=== PATIENT | male | born 1945 | race Caucasian/White ===

== ENCOUNTER → 2019-11-20 11:18 | Outpatient (REF) | payer MEDICARE, SELFPAY ==
--- NOTE | 2019-11-20 11:30 | CA_ITS ---
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 The visually estimated ejection fraction is between 65-70%. - No obvious valvular pathology seen on this study. - Top normal ascending aortic size at 3.9cm. Findings Left Ventricle Normal left ventricular cavity size. There is mildly increased left ventricular wall thickness. The left ventricular systolic function is normal. The visually estimated ejection fraction is between 65-70%. There is no evidence of regional wall motion abnormalities. Diastolic function is normal for age. Right Ventricle Normal right ventricular cavity size and systolic function. Atria The left atrium is normal in size. The right atrium is normal in size. Aortic Valve There is a normal trileaflet aortic valve. There is no aortic valve stenosis. There is trace (trivial) aortic valve regurgitation. Mitral Valve The mitral valve appears normal. There is trace mitral valve regurgitation. There is no mitral valve stenosis. Pulmonic Valve The pulmonic valve was not well visualized. Tricuspid Valve Normal tricuspid valve structure. There is trace tricuspid valve regurgitation. The pulmonary artery systolic pressure is normal. Great Vessels Top normal ascending aortic size at 3.9cm. Venous The inferior vena cava is normal in size and collapses greater than 50% with inspiration. Pericardium/Pleural There is no evidence of pericardial effusion. Prior Study Comparison No significant change compared to prior study dated: 06/18/2017. Recommendations, Care & Conclusions No obvious valvular pathology seen on this study. Measurements 2D Linear Measurements IVSd: 1.12 0.6-0.9/0.6-1.0 cm LVIDd: 4.11 3.9-5.3/4.2-5.9 cm LVIDd Index: 2.21 2.4-3.2/2.2-3.1 cm/m2 LVIDs: 2.82 2.0-3.6 cm LVPWd: 1.08 0.7-1.1 cm Ao Root: 3.40 2.1-3.5 cm LA Diam: 3.40 2.7-3.8/3.0-4.0 cm LAIDs Index: 1.83 1.5-2.3 cm/m2 LV Mass: 189.09 67-162/88-224 g LV Mass Index: 101.66 43-95/49-115 g/m2 LVOT Diam: 2.10 3.0+(-)1.3 cm 2D Systolic Function EF 4C: 76.80 >55% Mitral Valve MV Pk E: 0.74 MV PK A: 0.85 MV Decel Time: 201.00 E/A: 0.90 E'Lateral: 8.90 E'Medial: 6.87 E/E' Med: 10.70 E/E' Lat: 8.30 PHT: 59.00 MVA PHT: 3.73 Decel [place]: 3.67 Aortic Valve AoV Pk Ervin: 1.40 AoV Pk Grad: 8.00 LVOT LVOT Pk Ervin: 1.07 LVOT Mn Ervin: 0.73 LVOT VTI: 0.28 LVOT Pk Grad: 5.00 LVOT Mn Grad: 3.00 LVOT Diam: 2.10 LVOT Area: 3.46 Diastolic Function MV Pk E: 0.74 MV Pk A: 0.85 E/A: 0.90 E'Medial: 6.87 E/E' Med: 10.70 E' Laterial: 8.90 E/E' Lat: 8.30 Tricuspid Valve TR Pk Ervin: 2.17 TR Pk Grad: 19.00 RA Press: 3.00 RVSP: 22.00 Great Vessels Aorta Ao Root-2D: 3.40 2.0-3.7 cm Ao Asc: 3.90 2.1-3.4 cm Updated in Other Vendor System with Status of Final Nikunj Machado MD electronically signed on 11/22/2019 1:34:05 PM with status of Final
== END ==
LOC: HO.CARD 11:18
PROVIDERS: PCP Internal Medicine; Visit Provider Internal Medicine
DX: I25.10 Atherosclerotic heart disease of native coronary artery without angina pectoris (principal)
CPT/HCPCS: 93306

== ENCOUNTER → 2019-12-10 12:58 | Outpatient (BNVA) | payer MEDICARE, SELFPAY | PROVIDERS: PCP Internal Medicine; Referring Provider Internal Medicine; Visit Provider Orthopaedic Surgery | DX: M25.511 Pain in right shoulder (principal) | CPT/HCPCS: 99202; 99212 ==

== ENCOUNTER → 2020-01-15 13:15 | Outpatient (BNVA) | payer MEDICARE, SELFPAY | PROVIDERS: PCP Internal Medicine; Referring Provider Internal Medicine; Visit Provider Internal Medicine Cardiovascular Disease | DX: I25.10 Atherosclerotic heart disease of native coronary artery without angina pectoris (principal); I49.5 Sick sinus syndrome; I10 Essential (primary) hypertension; I71.2 Thoracic aortic aneurysm, without rupture; E78.5 Hyperlipidemia, unspecified | CPT/HCPCS: 93005; 99212 ==

== ENCOUNTER 2020-07-05 10:09 | Outpatient (REF) | payer MEDICARE, SELFPAY ==
--- NOTE | ~2020-07-05 | XR_ITS ---
EXAMINATION: XR LUMBOSACRAL SPINE CLINICAL INFORMATION: Low back pain. COMPARISON: Thoracic spine radiographs 07/05/2020, lumbar spine radiographs 01/28/2014. TECHNIQUE: Three views of the lumbosacral spine. 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 There is normal lumbar lordosis. The vertebral bodies are normal in height. There is no lumbar vertebral compression or destructive process. There are degenerative disc changes greatest at L1-L2 with disc narrowing, endplate sclerosis and vertebral spurring. There is also disc narrowing at L4-L5. Degenerative changes are slightly greater on current exam. Again, there is a grade 0-1 spondylolisthesis L4-L5, stable from 2014. Variable facet degeneration is present mid to lower lumbar spine. The SI joints and visualized sacrum are unremarkable. XR/XR lumbar spine 2-3V IMPRESSION: 1. Degenerative disc changes L1-L2 and L4-L5. 2. Multilevel facet degeneration greatest L4 through S1. 3. Grade 1 spondylolisthesis L4-L5, similar to 2014.
--- NOTE | ~2020-07-05 | XR_ITS ---
EXAMINATION: XR THORACOLUMBAR SPINE CLINICAL INFORMATION: M54.6 - Pain in thoracic spine COMPARISON: Radiographs lumbar spine 07/05/2020, chest radiographs 02/21/2016 TECHNIQUE: AP and lateral views of the thoracic spine are obtained. FINDINGS: There is normal thoracic segmentation with 12 rib-bearing thoracic vertebrae with normal thoracic kyphosis. There is borderline dextrocurvature lower thoracic spine. There are multilevel degenerative disc changes present with disc narrowing and partially bridging osteophytes, greater mid and lower thoracic spine. There is new borderline loss of height midthoracic vertebral body, approximately T9. No paraspinal soft tissue swelling. No destructive process or spondylolisthesis. There is interval mild enlargement cardiopericardial silhouette. The visualized vascularity is unremarkable. XR/XR thoracic spine 2V IMPRESSION: 1. Multilevel degenerative changes mid to lower thoracic spine. 2. Borderline loss of height T9, new from 2017. No paraspinal soft tissue swelling. 3. Mild cardiopericardial enlargement since chest radiograph 2017.
== END 2020-07-05 10:10 | disposition home or self-care (01) ==
LOC: HO.XRAY 10:09
PROVIDERS: PCP Internal Medicine; Visit Provider Internal Medicine
DX: M54.6 Pain in thoracic spine (principal); M54.5 Low back pain
CPT/HCPCS: 72070; 72100

== ENCOUNTER 2020-09-10 08:16 | Outpatient (REF) | payer MEDICARE, SELFPAY ==
[2020-09-10 09:19] LABS: MANUAL DIFF FLAG NO
[2020-09-10 09:24] LABS: Basophils Percent Auto 0.6 % (0-2); Eosinophils Absolute Auto 0.6 X10*3/uL (0.0-0.4); Eosinophils Percent Auto 8.3 % (0-4); Hematocrit 42.2 % (42-52); Hemoglobin 14.4 g/dl (14.0-18.0); Imm Gran Abs Auto 0.02 X10*3/uL (0.00-0.03); Imm Gran Pct Auto 0.3 % (0.0-0.4); Lymphocytes Absolute Auto 1.3 X10*3/uL (1.2-4.9); Lymphocytes Percent Auto 19.4 % (20-40); Mean Corpuscular HGB Conc 34.1 g/dl (31.0-36.0); Mean Corpuscular Hemoglobin 31.9 pg (27.0-33.0); Mean Corpuscular Volume 93.6 fL (80-98); Mean Platelet Volume 10.3 fL (9.4-12.4); Monocytes Absolute Auto 0.7 X10*3/uL (0.1-1.2); Monocytes Percent Auto 9.6 % (2-11); Neutrophils Absolute Auto 4.2 X10*3/uL (2.0-8.3); Neutrophils Percent Auto 61.8 % (45-73); Platelet Count 227 X10*3/uL (160-400); Red Blood Count 4.51 X10*6/uL (4.60-5.80); Red Cell Distribution Width 13.6 % (11.0-16.0); White Blood Count 6.9 X10*3/uL (4.8-10.8)
[2020-09-10 09:51] LABS: Alanine Aminotransferase 52 U/L (0-40); Albumin Level 3.9 g/dL (3.5-5.0); Alkaline Phosphatase 39 U/L (39-117); Anion Gap 10 (12-20); Aspartate Amino Transferase 30 U/L (5-37); Blood Urea Nitrogen 13 mg/dL (9-16); Calcium 8.8 mg/dL (8.4-10.2); Carbon Dioxide 26 mmol/L (22-29); Chloride 107 mmol/L (96-108); Cholesterol 126 mg/dL; Estimated Glomerular Filt Rate > 60; Glucose Random 97 mg/dL (60-115); HDL Cholesterol 50 mg/dL; LDL Cholesterol Calculated 64 mg/dl; Potassium 4.5 mmol/L (3.3-5.1); Sodium 138 mmol/L (135-145); Triglycerides 64 mg/dL
[2020-09-10 10:14] LABS: Free T4 (Free Thyroxine) 0.86 ng/dL (0.71-1.85); Thyroid Stimulating Hormone 1.85 uIU/mL (0.32-4.0)
[2020-09-10 12:05] LABS: Folate 14.1 ng/mL (> or = 4.0); Vitamin B12 311 pg/mL (200-900)
== END 2020-09-10 08:17 | disposition home or self-care (01) ==
LOC: HO.LAB 08:16
PROVIDERS: PCP Internal Medicine; Visit Provider Internal Medicine
DX: E78.00 Pure hypercholesterolemia, unspecified (principal); I10 Essential (primary) hypertension
CPT/HCPCS: 36415; 80053; 80061; 82607; 82746; 84439; 84443; 85025

== ENCOUNTER 2020-11-01 09:45 | Emergency (ER) | payer OTHER, SELFPAY ==
--- NOTE | ~2020-11-01 | XR_ITS ---
EXAMINATION: XR KNEE, RIGHT CLINICAL INFORMATION: Status post fall one week ago. Right knee pain. COMPARISON: None TECHNIQUE: Four views of the right knee. FINDINGS: There is loss of medial and patellofemoral compartment joint space with periarticular spurring. No loose bodies or bony erosive changes seen. The soft tissues are normal. XR/XR knee RT 4V IMPRESSION: Unremarkable right knee exam.
[2020-11-01 09:55] VITALS: BP 147/76; PULSE 50; RESP 16; TEMP 37.1; O2SAT 100; BMI 25.0
--- NOTE | 2020-11-01 11:33 | ED.LOWEXIN ---
HPI - Extremity Injury (Lower) General Chief Complaint: Extremity Problem Stated Complaint: rt knee pain Time Seen by Provider: 11/01/20 10:47 Source: patient Mode of arrival: ambulatory Limitations: no limitations History of Present Illness HPI Narrative: 75-year-old male presenting to the ED with complaints of right knee pain at the lateral aspect that started approximately 1 week ago and worsened last night. He reports that he was getting out of mathew from a restaurant and he twisted his knee and since then he has been having pain to the lateral aspect of the right knee. He cannot recall any recent falls or injuries directly to the knee. He reports that he is a very active man he does a lot of fishing/hiking and etc. denies any dizziness, headaches, change in vision, chest pain or shortness of breath, dyspnea on exertion, orthopnea, palpitations, extremity edema, paresthesias, rashes or any other symptoms complaints or concerns at this time. MD complaint: knee injury Onset (ago): week(s) (For the past week worse since yesterday) Injury: Right: knee Type of Injury: unknown Severity: moderate Relieving factors: nothing Exacerbating factors: weight bearing, movement and palpation Context: other (Patient cannot recall any injury) Associated symptoms: ambulatory Other symptoms: none Treatments prior to arrival: splint Related Data Home Medications Medication Instructions Recorded Confirmed aspirin 81 mg tablet,delayed 81 mg PO DAILY 01/15/20 10/25/20 release (Adult Low Dose Aspirin) Previous Rx's Medication Instructions Recorded epinephrine 0.3 mg/0.3 mL 0.3 mg IM Q15M PRN #2 ea 02/24/20 injection, auto-injector (Auvi-Q) rosuvastatin 40 mg tablet 40 mg PO DAILY #90 tab 02/24/20 metoprolol succinate 25 mg 25 mg PO DAILY #90 tab 05/13/20 tablet,extended release 24 hr amlodipine 5 mg tablet 5 mg PO DAILY 30 Days #30 tab 07/23/20 omeprazole 20 mg capsule,delayed 40 mg PO DAILY #180 cap 09/09/20 release betamethasone dipropionate 0.05 % 1 appl TOPICAL BID PRN #45 g 09/16/20 topical cream mupirocin 2 % topical ointment 1 appl TOPICAL BID #22 g 09/16/20 triamcinolone acetonide 0.025 % 1 appl TOPICAL BID #60 ml 09/16/20 lotion losartan 50 mg tablet 50 mg PO DAILY #90 tab 10/08/20 ezetimibe 10 mg tablet 10 mg PO DAILY #90 tab 10/25/20 acetaminophen 500 mg tablet 1,000 mg PO QID PRN #14 tab 11/01/20 (Tylenol Extra Strength) oxycodone 5 mg tablet 5 mg PO Q6H PRN #14 tab 11/01/20 Allergies Allergy/AdvReac Type Severity Reaction Status Date / Time lobster Allergy Mild Rash Uncoded 10/25/20 09:19 N.K.D.A. Allergy Unknown Unknown Uncoded 10/25/20 09:19 Review of Systems Review of Systems: Constitutional : No Weight loss, No Fever, No Chills, No Night Sweats, No Fatigue, No Malaise ENT/Mouth : No Hearing loss, No Ear Pain, No Nasal Congestion, No Sinus Pain, No Hoarseness, No sore throat, No Rhinorrhea, No Swallowing Difficulty Eyes: No Eye Pain, No Swelling, No Redness, No Foreign Body, No Discharge, No Vision Changes Cardiovascular : No Chest Pain, No SOB, No Dyspnea on Exertion, No Orthopnea, No Edema, No Palpitations Respiratory : No Cough, No Sputum, No Wheezing, No Smoke Exposure, No Dyspnea Gastrointestinal : No Nausea, No Vomiting, No Diarrhea, No Constipation, No abdominal Pain, No Hematochezia, No Melena Genitourinary : no irregular bleeding, No Dysuria, No Urinary Frequency, No Hematuria, No Urinary Incontinence, No Urgency, No Flank Pain, No Urinary Flow Changes, No Hesitancy Musculoskeletal : Positive right knee joint pain/swelling, no myalgias Skin : No Skin Lesions, No rash Neuro : No Weakness, No Numbness, No Paresthesias, No Loss of Consciousness, No Dizziness, No Headache Psych : No Anxiety/Panic, No Depression, No SI/HI/AH/VH, No Social Issues, Heme/Lymph: No Bruising, No Bleeding,No Lymphadenopathy Endocrine : No Polyuria, No Polydipsia, No Temperature Intolerance Yes all other systems are reviewed and are negative [facility] Past Medical History Attestation statement: The following information was validated with the patient. Medical History Back pain CAD (coronary artery disease) Carpal tunnel syndrome on both sides Cirrhosis Cognitive impairment Erectile dysfunction Fall GERD (gastroesophageal reflux disease) Herpes encephalitis History of renal calculi HTN (hypertension) Hyperlipidemia Low back pain Obstructive sleep apnea Osteoarthritis of right shoulder Periodic limb movement disorder PVC (premature ventricular contraction) Rotator cuff impingement syndrome of right shoulder Sick sinus syndrome Thoracic aortic aneurysm Thyroid nodule TIA (transient ischemic attack) Surgical History History of colonoscopy History of tonsillectomy Status post carpal tunnel release of both wrists (~04/2016) Family History Family History Father Myocardial infarct Mother No problems noted. Social History Social History Alcohol intake: current Alcohol intake frequency: holidays/special occasions only Advance Directives: No Advance Directives Information Provided: No Current occupational status: retired Current occupation: Right Handed Physical Exam Vital Signs: Vital Signs: Last Vital Signs Temp 98.7 F 11/01/20 09:55 Pulse 50 11/01/20 09:55 Resp 16 11/01/20 09:55 BP 147/76 H 11/01/20 09:55 Pulse Ox 100 11/01/20 09:55 Body Mass Index 25.0 vital signs have been reviewed as normal and appeared to be correct. Blood pressure hypertensive 147/76 Heart rate normal. Respiration rate normal. Temperature normal. Oxygen saturation normal. Appearance: Alert. Oriented X3. No acute distress. Head: Normal external exam. Normocephalic. Atraumatic. Eyes: PERRLA. EOMI. Conjunctiva and sclera normal. Eyelids normal. ENT: Pharynx normal. Uvula midline. Moist mucous membranes. Neck: Normal inspection. Neck supple. FROM. CVS: Normal heart rate and rhythm. Respiratory: No respiratory distress. Painless inspiration. Skin: Skin warm and dry. Normal skin color. Normal skin turgor. No rashes/lesions/lacerations noted. Extremities: Patient with tenderness palpation to right knee at the lateral aspect. No obvious joint effusion/obvious deformity/ligamentous injury noted on my exam. Patient has full range of motion of the right knee. No signs of infection. No rashes are noted. No calf tenderness is noted. No lower extremity edema. Otherwise all other Extremities exhibit normal range of motion and nontender. Neuro: Oriented X 3. No motor deficit. No sensory deficit. Reflexes normal. Normal steady gait. No focal neuro deficits noted. Vascular: + radial pulses/+ 2 distal pedal pulses/+2 dorsalis pedis b/l. Normal cap refill. No cyanosis noted to upper extremity nails and lower extremity toes nails. Course Course Course Narrative: 75-year-old male presenting to the ED with complaints of right knee pain at the lateral aspect that started approximately 1 week ago and worsened last night. He reports that he was getting out of [place] from a restaurant and he twisted his knee and since then he has been having pain to the lateral aspect of the right knee. He cannot recall any recent falls or injuries directly to the knee. He reports that he is a very active man he does a lot of fishing/hiking and etc. On exam patient has mild tenderness palpation to the right knee at the lateral aspect. He has full range of motion no signs of infection/joint effusion and no ligamentous injury is noted. X-ray is negative although cannot rule out any ligamentous injury despite not having any obvious ligamentous laxity on exam. Therefore will DC home with symptomatic treatment orthopedic/PCP referral/follow-up instructions return if any new or worsening symptoms. Patient understands agrees with this plan. MDM - Extremity Injury (Lower) Medical Records Attestation: I reviewed the patient's medical records. Imaging Data Right knee x-ray: Attestation: I personally reviewed and interpreted this imaging study as follows: Radiologist's impression: FINDINGS: There is loss of medial and patellofemoral compartment joint space with periarticular spurring. No loose bodies or bony erosive changes seen. The soft tissues are normal.? XR/XR knee RT 4V IMPRESSION: Unremarkable right knee exam. Discharge Plan Discharge Clinical Impression: Strain of right knee Patient Disposition: Home, Self-Care Instructions: Knee Sprain (ED) Prescriptions: New acetaminophen [Tylenol Extra Strength] 500 mg tablet 1,000 mg PO QID PRN (Reason: fever or pain) Qty: 14 RF: 0 oxycodone 5 mg tablet 5 mg PO Q6H PRN (Reason: pain) Qty: 14 RF: 0 No Action epinephrine [Auvi-Q] 0.3 mg/0.3 mL auto-injector 0.3 mg IM Q15M PRN (Reason: anaphylaxis) Qty: 2 RF: 0 rosuvastatin 40 mg tablet 40 mg PO DAILY Qty: 90 RF: 2 metoprolol succinate 25 mg tablet extended release 24 hr 25 mg PO DAILY Qty: 90 RF: 1 amlodipine 5 mg tablet 5 mg PO DAILY 30 Days Qty: 30 RF: 4 omeprazole 20 mg capsule,delayed release(DR/EC) 40 mg PO DAILY Qty: 180 RF: 0 mupirocin 2 % ointment 1 appl topical BID Qty: 22 RF: 0 betamethasone dipropionate 0.05 % cream 1 appl topical BID PRN (Reason: skin irritation) Qty: 45 RF: 0 triamcinolone acetonide 0.025 % lotion 1 appl topical BID Qty: 60 RF: 0 losartan 50 mg tablet 50 mg PO DAILY Qty: 90 RF: 3 ezetimibe 10 mg tablet 10 mg PO DAILY Qty: 90 RF: 2 aspirin [Adult Low Dose Aspirin] 81 mg tablet,delayed release (DR/EC) 81 mg PO DAILY RF: 0 Referrals: Nemesio Bean MD [Physician] - 2 weeks (If symptoms persist for longer than 2 weeks call to make a follow-up appointment) Gordo Wilkins MD [Primary Care Provider] - 2 days Print Language: Croatian
== END 2020-11-01 11:59 | disposition home or self-care (01) ==
PROVIDERS: Emergency Provider Emergency Medicine Emergency Medical Services; PCP Internal Medicine
DX: S83.91XA Sprain of unspecified site of right knee, initial encounter (principal); M25.561 Pain in right knee; X58.XXXA Exposure to other specified factors, initial encounter; Y93.9 Activity, unspecified; Y92.9 Unspecified place or not applicable; Y99.9 Unspecified external cause status; Z79.899 Other long term (current) drug therapy; Z79.82 Long term (current) use of aspirin
CPT/HCPCS: 73564; 99283

== ENCOUNTER 2020-12-07 09:12 | Outpatient (REF) | payer MEDICARE, SELFPAY ==
[2020-12-07 10:40] LABS: Alanine Aminotransferase 50 U/L (0-40); Albumin Level 4.3 g/dL (3.5-5.0); Alkaline Phosphatase 39 U/L (39-117); Anion Gap 12 (12-20); Aspartate Amino Transferase 26 U/L (5-37); Blood Urea Nitrogen 14 mg/dL (9-16); Calcium 9.1 mg/dL (8.4-10.2); Carbon Dioxide 26 mmol/L (22-29); Chloride 104 mmol/L (96-108); Estimated Glomerular Filt Rate > 60; Glucose Fasting 87 mg/dL (60-99); Sodium 137 mmol/L (135-145); Total Protein 6.6 g/dL (6.5-8.0)
== END 2020-12-07 09:13 | disposition home or self-care (01) ==
LOC: HO.LAB 09:12
PROVIDERS: PCP Internal Medicine; Visit Provider Nurse Practitioner Family
DX: Z13.1 Encounter for screening for diabetes mellitus (principal)
CPT/HCPCS: 36415; 80053

== ENCOUNTER → 2021-01-17 08:16 | Outpatient (BNVA) | payer MEDICARE, SELFPAY | PROVIDERS: PCP Internal Medicine; Referring Provider Internal Medicine; Visit Provider Internal Medicine Cardiovascular Disease | DX: I25.10 Atherosclerotic heart disease of native coronary artery without angina pectoris (principal); I71.2 Thoracic aortic aneurysm, without rupture; I49.3 Ventricular premature depolarization; R53.83 Other fatigue | CPT/HCPCS: 93005; 99212 ==

== ENCOUNTER → 2021-01-19 08:05 | Outpatient (REF) | payer MEDICARE, SELFPAY ==
--- NOTE | 2021-01-19 08:30 | CA_ITS ---
Transthoracic Echocardiogram Patient (Last, First, Middle): Marques Martinez F Gender: Male Date of : 1945 Age: 75 Procedure Date: 01/19/2021 Procedure Type: Transthoracic Echocardiogram Location: OP Height: 170.18 cm Weight: 76.2 kg BSA: 1.88 m2 Heart Rate: bpm BP: 116 / 60 mmHg Corporate Associate: Referring MD: Tez Albarado MD Symptoms: I71.2 - Thoracic aortic aneurysm, without rupture Study Quality: Fair ECG Rhythm: Sinus Conclusions: - 1. Normal LV systolic function with impaired relaxation filling pattern with mild LVH 2. Mildly dilated ascending aorta at 3.9 cm 3. Trivial aortic regurgitation 4. Normal RV systolic pressure 5. No pericardial effusion Findings Left Ventricle Normal left ventricular size and systolic function. There is mildly increased left ventricular wall thickness. The visually estimated ejection fraction is between 60-65%. Spectral Doppler is indicative of an impaired relaxation filling pattern. Elevated left ventricular end diastolic pressure. E/E prime ratio is between 8 and 15 consistent with indeterminate filling pressures. Right Ventricle Normal right ventricular cavity size and systolic function. Atria The left atrium is likely dilated. There is no evidence of interatrial shunt. The right atrium is normal in size. Aortic Valve The aortic valve structure and function is likely normal. There is no aortic valve stenosis. There is trace (trivial) aortic valve regurgitation. Mitral Valve There is mild anterior and posterior mitral leaflet thickening. There is trace mitral valve regurgitation. There is no mitral valve stenosis. Pulmonic Valve The pulmonic valve was not well visualized. Tricuspid Valve Likely normal tricuspid valve structure and function. There is trace tricuspid valve regurgitation. The right ventricular systolic pressure is normal. The right ventricular systolic pressure is 18 mmHg. Normal right atrial pressure. There is no evidence of pulmonary hypertension. Great Vessels The pulmonary artery was not well visualized. There is mild dilatation of the ascending aorta measuring 3.90 cm. Venous The inferior vena cava is normal in size and collapses greater than 50% with inspiration. Pericardium/Pleural There is no evidence of pericardial effusion. Prior Study Comparison No significant change compared to prior study dated: 11/20/2019. Measurements 2D Linear Measurements IVSd: 1.28 0.6-0.9/0.6-1.0 cm LVIDd: 4.89 3.9-5.3/4.2-5.9 cm LVIDd Index: 2.60 2.4-3.2/2.2-3.1 cm/m2 LVIDs: 2.77 2.0-3.6 cm LVPWd: 1.27 0.7-1.1 cm Ao Root: 3.70 2.1-3.5 cm LA Diam: 4.00 2.7-3.8/3.0-4.0 cm LAIDs Index: 2.13 1.5-2.3 cm/m2 LV Mass: 306.70 67-162/88-224 g LV Mass Index: 163.14 43-95/49-115 g/m2 LVOT Diam: 2.30 3.0+(-)1.3 cm 2D Systolic Function EF 4C: 58.00 >55% EF 2C: 64.20 >55% EF BiP: 61.60 >55% Mitral Valve MV Pk E: 0.93 MV PK A: 0.94 MV Decel Time: 238.00 E/A: 1.00 E'Lateral: 10.20 E'Medial: 7.40 E/E' Med: 12.50 E/E' Lat: 9.10 PHT: 70.00 MVA PHT: 3.14 Decel [place]: 3.89 Aortic Valve AoV Pk Ervin: 1.41 AoV Mn Ervin: 0.86 AoV VTI: 0.36 AoV Pk Grad: 8.00 Aov Mn Grad: 4.00 JULES Cont.VTI: 2.81 LVOT LVOT Pk Ervin: 0.94 LVOT Mn Ervin: 0.61 LVOT VTI: 0.25 LVOT Pk Grad: 4.00 LVOT Mn Grad: 2.00 LVOT Diam: 2.30 LVOT Area: 4.15 Diastolic Function MV Pk E: 0.93 MV Pk A: 0.94 E/A: 1.00 E'Medial: 7.40 E/E' Med: 12.50 E' Laterial: 10.20 E/E' Lat: 9.10 Right Ventricle TAPSE (mm): 25.00 TVS' Ervin: 11.00 Tricuspid Valve TR Pk Ervin: 1.93 TR Pk Grad: 15.00 RA Press: 3.00 RVSP: 18.00 Great Vessels Aorta Ao Root-2D: 3.70 2.0-3.7 cm Ao Asc: 3.90 2.1-3.4 cm Pulmonary Valve PV Pk Ervin: 0.99 Peak PV Grad: 4.00 Updated in Other Vendor System with Status of Final Tez Albarado MD electronically signed on 01/19/2021 2:35:09 PM with status of Final
== END ==
LOC: HO.CARD 08:05
PROVIDERS: Visit Provider Internal Medicine Cardiovascular Disease
DX: I10 Essential (primary) hypertension (principal); I71.2 Thoracic aortic aneurysm, without rupture; I25.10 Atherosclerotic heart disease of native coronary artery without angina pectoris; I50.42 Chronic combined systolic (congestive) and diastolic (congestive) heart failure
CPT/HCPCS: 93306

== ENCOUNTER → 2021-01-24 07:52 | Outpatient (REF) | payer MEDICARE, SELFPAY ==
--- NOTE | 2021-01-24 07:55 | CA_ITS ---
Acquisition Time: 2021-01-24 09:04:31 Total Exercise Time: 00:05:37 Test Indications: FATIGUE Medications: SEE CHART Protocol: CHANELLE Max HR: 121 BPM 84% of Pred: 143 BPM Max BP: 152/080 mmHG Max Work Load: 7.0 METS Exercise stress test with exercise 5 min 37 sec of Chanelle protocol, with mild sob, no chest discomfort, with frequent PVCs, ventricular cuplets and runs of ventricular bigeminy during exercise, with normotensive and normal chronotropic response to exercise, without EKG changes meeting criteria for ischemia. Test reviewed with Dr Albarado. Referred By: Tez Albarado Overread By: AMANDA BAPTISTE
== END ==
LOC: HO.CARD 07:52
PROVIDERS: Visit Provider Internal Medicine Cardiovascular Disease
DX: R53.83 Other fatigue (principal)
CPT/HCPCS: 93017

== ENCOUNTER → 2021-03-02 09:02 | Outpatient (BNVA) | payer MEDICARE, SELFPAY | PROVIDERS: PCP Internal Medicine; Referring Provider Internal Medicine; Visit Provider Internal Medicine Cardiovascular Disease | DX: I25.10 Atherosclerotic heart disease of native coronary artery without angina pectoris (principal); I49.3 Ventricular premature depolarization; I71.2 Thoracic aortic aneurysm, without rupture | CPT/HCPCS: 99212 ==

== ENCOUNTER 2021-04-25 08:20 | Outpatient (REF) | payer MEDICARE, SELFPAY ==
--- NOTE | ~2021-04-25 | XR_ITS ---
EXAMINATION: XR SHOULDER, RIGHT CLINICAL INFORMATION: Shoulder pain COMPARISON: Radiographs right shoulder 06/13/2017 TECHNIQUE: Right shoulder is imaged in 3 views. FINDINGS: There is no fracture, dislocation, destructive process. The acromioclavicular alignment is normal. Again, there are osteoarthritic changes involving the glenohumeral joint and the acromioclavicular joint. Again, there is a bulky calcification approximately 6 x 8 mm adjacent to the anterior medial humeral neck likely involving long head of the biceps. There is punctate mineralization in distal superior rotator cuff. XR/XR shoulder RT min 2V IMPRESSION: 1. Osteoarthritis glenohumeral joint and acromioclavicular joint. 2. Calcific tendinosis in region of proximal long head biceps and distal superior rotator cuff.
== END 2021-04-25 08:21 | disposition home or self-care (01) ==
LOC: HO.HOSX 08:20
PROVIDERS: Visit Provider Orthopaedic Surgery
DX: M19.011 Primary osteoarthritis, right shoulder (principal); M75.41 Impingement syndrome of right shoulder
CPT/HCPCS: 73030; 99212; J1100

== ENCOUNTER 2021-08-17 10:09 | Outpatient (REF) | payer MEDICARE, SELFPAY ==
[2021-08-17 10:28] LABS: MANUAL DIFF FLAG NO
[2021-08-17 10:36] LABS: Basophils Percent Auto 0.5 % (0-2); Eosinophils Absolute Auto 0.5 X10*3/uL (0.0-0.4); Eosinophils Percent Auto 7.4 % (0-4); Hematocrit 41.3 % (42.0-52.0); Hemoglobin 13.9 g/dl (14.0-18.0); Imm Gran Abs Auto 0.02 X10*3/uL (0.00-0.03); Imm Gran Pct Auto 0.3 % (0.0-0.4); Lymphocytes Absolute Auto 1.4 X10*3/uL (1.2-4.9); Lymphocytes Percent Auto 22.7 % (20-40); Mean Corpuscular HGB Conc 33.7 g/dl (31.0-36.0); Mean Corpuscular Hemoglobin 31.9 pg (27.0-33.0); Mean Corpuscular Volume 94.7 fL (80.0-98.0); Mean Platelet Volume 9.3 fL (9.4-12.4); Neutrophils Absolute Auto 3.4 x10*3/uL (2.0-8.3); Neutrophils Percent Auto 54.1 % (45-73); Platelet Count 216 X10*3/uL (160-400); Red Blood Count 4.36 X10*6/uL (4.60-5.80); Red Cell Distribution Width 13.2 % (11.0-16.0); White Blood Count 6.3 X10*3/uL (4.8-10.8)
[2021-08-17 11:36] LABS: Free T4 (Free Thyroxine) 0.87 ng/dL (0.71-1.85); Thyroid Stimulating Hormone 1.68 uIU/mL (0.32-4.0)
[2021-08-17 11:37] LABS: Alanine Aminotransferase 32 U/L (0-40); Albumin Level 3.9 g/dL (3.5-5.0); Alkaline Phosphatase 39 U/L (39-117); Anion Gap 10 (12-20); Aspartate Amino Transferase 25 U/L (5-37); Bilirubin Total 0.8 mg/dL (0.0-1.0); Blood Urea Nitrogen 14 mg/dL (9-16); Calcium 8.6 mg/dL (8.4-10.2); Carbon Dioxide 24 mmol/L (22-29); Chloride 106 mmol/L (96-108); Cholesterol 134 mg/dL; Estimated Glomerular Filt Rate > 60; Glucose Random 107 mg/dL (60-115); HDL Cholesterol 55 mg/dL; LDL Cholesterol Calculated 68 mg/dl; Potassium 4.4 mmol/L (3.3-5.1); Sodium 136 mmol/L (135-145); Total Protein 6.1 g/dL (6.5-8.0); Triglycerides 57 mg/dL
[2021-08-17 11:45] LABS: Folate 19.1 ng/mL (> or = 4.0); Vitamin B12 272 pg/mL (200-900)
== END 2021-08-17 10:10 | disposition home or self-care (01) ==
LOC: HO.LAB 10:09
PROVIDERS: Absent Provider Internal Medicine Cardiovascular Disease; PCP Internal Medicine; Visit Provider Internal Medicine
DX: I10 Essential (primary) hypertension (principal); E78.00 Pure hypercholesterolemia, unspecified; I25.10 Atherosclerotic heart disease of native coronary artery without angina pectoris
CPT/HCPCS: 36415; 80053; 80061; 82607; 82746; 84439; 84443; 85025

== ENCOUNTER → 2022-01-23 08:20 | Outpatient (REF) | payer MEDICARE, SELFPAY ==
--- NOTE | 2022-01-23 08:23 | CA_ITS ---
Transthoracic Echocardiogram Patient (Last, First, Middle): Marques Martinez F Gender: Male Date of : 1945 Age: 76 Procedure Date: 01/23/2022 Procedure Type: Transthoracic Echocardiogram Location: OP Height: 170.18 cm Weight: 72.58 kg BSA: 1.84 m2 Heart Rate: bpm BP: 118 / 60 mmHg [employer] Supervisor: Referring MD: Tez Albarado MD Symptoms: I71.2 - Thoracic aortic aneurysm, without rupture Study Quality: Fair ECG Rhythm: Sinus Conclusions: - The left ventricular systolic function is low normal. The calculated ejection fraction is 54% by biplane method. - No obvious valvular pathology seen on this study. - There is mild dilatation of the ascending aorta measuring 3.90 cm. Findings Left Ventricle Normal left ventricular cavity size. There is moderately increased left ventricular wall thickness. The left ventricular systolic function is low normal. The calculated ejection fraction is 54% by biplane method. There is no evidence of regional wall motion abnormalities. Diastolic function is normal for age. Right Ventricle Normal right ventricular cavity size and systolic function. Atria Both atria are normal in size. Aortic Valve There is a normal trileaflet aortic valve. There is no aortic valve stenosis. There is trace (trivial) aortic valve regurgitation. Mitral Valve The mitral valve appears normal. There is trace mitral valve regurgitation. There is no mitral valve stenosis. Pulmonic Valve The pulmonic valve is likely normal. There is trace pulmonic valve regurgitation. Tricuspid Valve Normal tricuspid valve structure. There is trace tricuspid valve regurgitation. There is no evidence of pulmonary hypertension. Great Vessels There is mild dilatation of the ascending aorta measuring 3.90 cm. Venous The inferior vena cava is normal in size and collapses greater than 50% with inspiration. Pericardium/Pleural There is no evidence of pericardial effusion. Prior Study Comparison Changes noted compared to prior study dated: 01/19/2021. Slight change in LVEF. Recommendations, Care & Conclusions No obvious valvular pathology seen on this study. Measurements 2D Linear Measurements IVSd: 1.30 0.6-0.9/0.6-1.0 cm LVIDd: 4.58 3.9-5.3/4.2-5.9 cm LVIDd Index: 2.49 2.4-3.2/2.2-3.1 cm/m2 LVIDs: 2.94 2.0-3.6 cm LVPWd: 1.29 0.7-1.1 cm Ao Root: 3.90 2.1-3.5 cm LA Diam: 4.00 2.7-3.8/3.0-4.0 cm LAIDs Index: 2.17 1.5-2.3 cm/m2 LV Mass: 283.43 67-162/88-224 g LV Mass Index: 154.04 43-95/49-115 g/m2 LVOT Diam: 2.00 3.0+(-)1.3 cm 2D Systolic Function EF 4C: 56.90 >55% EF 2C: 49.30 >55% EF BiP: 54.20 >55% Mitral Valve MV Pk E: 0.42 MV PK A: 0.85 MV Decel Time: 230.00 E/A: 0.50 E'Lateral: 9.36 E'Medial: 6.85 E/E' Med: 6.10 E/E' Lat: 4.50 PHT: 67.00 MVA PHT: 3.28 Decel [place]: 3.29 Aortic Valve AoV Pk Ervin: 1.24 AoV Mn Ervin: 0.82 AoV VTI: 0.30 AoV Pk Grad: 6.00 Aov Mn Grad: 4.00 JULES Cont.VTI: 1.94 LVOT LVOT Pk Ervin: 0.80 LVOT Mn Ervin: 0.54 LVOT VTI: 0.19 LVOT Pk Grad: 3.00 LVOT Mn Grad: 1.00 LVOT Diam: 2.00 LVOT Area: 3.14 Diastolic Function MV Pk E: 0.42 MV Pk A: 0.85 E/A: 0.50 E'Medial: 6.85 E/E' Med: 6.10 E' Laterial: 9.36 E/E' Lat: 4.50 Right Ventricle TAPSE (mm): 23.00 TVS' Ervin: 8.00 Tricuspid Valve TR Pk Ervin: 1.92 TR Pk Grad: 15.00 Great Vessels Aorta Ao Root-2D: 3.90 2.0-3.7 cm Ao Asc: 3.90 2.1-3.4 cm Pulmonary Valve PV Pk Ervin: 0.92 Peak PV Grad: 3.00 Updated in Other Vendor System with Status of Final Nikunj Machado MD electronically signed on 01/24/2022 11:05:32 AM with status of Final
== END ==
LOC: HO.CARD 08:20
PROVIDERS: PCP Internal Medicine; Visit Provider Internal Medicine Cardiovascular Disease
DX: I71.20 Thoracic aortic aneurysm, without rupture, unspecified (principal)
CPT/HCPCS: 93306

== ENCOUNTER 2022-02-20 11:53 | Outpatient (REF) | payer MEDICARE, SELFPAY ==
--- NOTE | ~2022-02-20 | XR_ITS ---
EXAMINATION: XR CHEST CLINICAL INFORMATION: Atherosclerotic heart disease COMPARISON: X-ray 02/21/2016 TECHNIQUE: 2 views of the chest were obtained. FINDINGS: The cardiomediastinal silhouette is within normal limits. The lungs are well expanded. There is no focal consolidation, edema, or effusion. No pneumothorax. Multilevel degenerative changes of the dorsal spine. XR/XR chest 2V IMPRESSION: No acute pulmonary process. No significant interval change.
[2022-02-20 12:10] LABS: MANUAL DIFF FLAG NO
[2022-02-20 12:49] LABS: Basophils Percent Auto 0.5 % (0-2); Eosinophils Absolute Auto 0.4 X10*3/uL (0.0-0.4); Imm Gran Abs Auto 0.02 X10*3/uL (0.00-0.03); Imm Gran Pct Auto 0.3 % (0.0-0.4); Immature Retic Fraction 8.5 % (2.3-13.4); Lymphocytes Absolute Auto 1.7 X10*3/uL (1.2-4.9); Lymphocytes Percent Auto 22.1 % (20-40); Mean Corpuscular HGB Conc 33.3 g/dl (31.0-36.0); Mean Corpuscular Hemoglobin 31.8 pg (27.0-33.0); Mean Corpuscular Volume 95.3 fL (80.0-98.0); Mean Platelet Volume 9.7 fL (9.4-12.4); Monocytes Absolute Auto 0.8 X10*3/uL (0.1-1.2); Monocytes Percent Auto 10.1 % (2-11); Neutrophils Absolute Auto 4.7 x10*3/uL (2.0-8.3); Platelet Count 245 X10*3/uL (160-400); Red Blood Count 4.72 X10*6/uL (4.60-5.80); Red Cell Distribution Width 13.2 % (11.0-16.0); Retic HGB Equivalent 37.6 pg (30.0-35.0); Reticulocyte Percent 1.6 % (0.5-1.8); Reticulocytes Absolute 0.077 X10*6/uL (0.026-0.095); White Blood Count 7.6 X10*3/uL (4.8-10.8)
[2022-02-20 13:20] LABS: Alanine Aminotransferase 75 U/L (0-40); Albumin Level 4.3 g/dL (3.5-5.0); Alkaline Phosphatase 44 U/L (39-117); Anion Gap 14 (12-20); Aspartate Amino Transferase 37 U/L (5-37); Bilirubin Total 0.9 mg/dL (0.0-1.0); Blood Urea Nitrogen 15 mg/dL (9-16); Calcium 9.2 mg/dL (8.4-10.2); Carbon Dioxide 23 mmol/L (22-29); Chloride 106 mmol/L (96-108); Cholesterol 141 mg/dL; Estimated Glomerular Filt Rate > 60; Glucose Random 83 mg/dL (60-115); HDL Cholesterol 56 mg/dL; Iron 126 mcg/dL (45-160); LDL Cholesterol Calculated 71 mg/dl; Percent Iron Saturation 41 % (15-50); Potassium 4.6 mmol/L (3.3-5.1); Sodium 138 mmol/L (135-145); Total Iron Binding Capacity 309 mcg/dL (228-428); Total Protein 6.6 g/dL (6.5-8.0); Triglycerides 72 mg/dL; Unsaturated Iron Binding 183 ug/dL
[2022-02-20 13:21] LABS: Estimated Average Glucose 108 mg/dL; Hemoglobin A1c % 5.4 %
[2022-02-20 13:31] LABS: Ferritin 390 ng/mL (20-250); Free T4 (Free Thyroxine) 1.04 ng/dL (0.71-1.85); Thyroid Stimulating Hormone 1.97 uIU/mL (0.32-4.0)
[2022-02-20 13:46] LABS: Vitamin B12 471 pg/mL (200-900)
== END 2022-02-20 11:54 | disposition home or self-care (01) ==
LOC: HO.LAB 11:53
PROVIDERS: PCP Internal Medicine; Visit Provider Internal Medicine
DX: I25.10 Atherosclerotic heart disease of native coronary artery without angina pectoris (principal); R73.02 Impaired glucose tolerance (oral); E78.00 Pure hypercholesterolemia, unspecified; D64.9 Anemia, unspecified
CPT/HCPCS: 36415; 71046; 80053; 80061; 82607; 82728; 82746; 83036; 83540; 84439; 84443; 85025; 85045

== ENCOUNTER → 2022-03-06 08:17 | Outpatient (BNVA) | payer MEDICARE, SELFPAY | PROVIDERS: PCP Internal Medicine; Referring Provider Internal Medicine; Visit Provider Internal Medicine Cardiovascular Disease | DX: I49.5 Sick sinus syndrome (principal); I25.10 Atherosclerotic heart disease of native coronary artery without angina pectoris; I71.20 Thoracic aortic aneurysm, without rupture, unspecified | CPT/HCPCS: 93005; 99212 ==

== ENCOUNTER → 2022-03-09 08:34 | Outpatient (REF) | payer MEDICARE, SELFPAY ==
--- NOTE | 2022-03-09 08:40 | CA_ITS ---
Acquisition Time: 2022-03-09 09:14:20 Total Exercise Time: 00:06:18 Test Indications: SSS BRADYCARDIA, PVC'S Medications: SEE CHART Protocol: CHANELLE Max HR: 129 BPM 90% of Pred: 142 BPM Max BP: 184/082 mmHG Max Work Load: 7.4 METS Exercise stress test with exercise 6 min 18 sec of Chanelle protocol, achieving 85% MPHR, with moderate shortness of breath and vague uncomfortable feeling in chest, with report of feeling skipped beats , with isolated PVCs at times in bigeminy pattern with exercise, with freq PACs in stage 2 and into recovery with atrial cuplets and triplet, with normotensive and normal chronotropic response to exercise, without EKG changes meeting criteria for ischemia. In recoveyr ectopy lessened and resolved. Test reviewed with Dr Machado. Referred By: Tez Albarado Overread By: AMANDA BAPTISTE
--- NOTE | 2022-03-09 08:40 | HM_ITS ---
* Total monitoring time about 3 days. * Underlying rhythm is sinus. Average ventricular rate 59/Min. Range 41 to 101/Min. * About 62% the time, rate less than 60/Min. * No significant pauses or AV blocks. * Rare PVCs. One episode of 5 beat run. * Occasional PACs. [place] of 1.3%. Brief runs. * Patient Marker count once, in association with sinus. MTDD
== END ==
LOC: HO.CARD 08:34
PROVIDERS: Visit Provider Internal Medicine Cardiovascular Disease
DX: I49.5 Sick sinus syndrome (principal)
CPT/HCPCS: 93017; 93242

== ENCOUNTER → 2022-04-14 10:17 | Outpatient (BNVA) | payer MEDICARE, SELFPAY | PROVIDERS: PCP Internal Medicine; Visit Provider Orthopaedic Surgery | DX: M75.41 Impingement syndrome of right shoulder (principal); M25.531 Pain in right wrist | CPT/HCPCS: 20610; 99212; J1100 ==

== ENCOUNTER 2022-05-10 10:15 | Outpatient (REF) | payer MEDICARE, SELFPAY ==
--- NOTE | ~2022-05-10 | XR_ITS ---
EXAMINATION: XR WRIST RIGHT CLINICAL INFORMATION: Pain in right wrist COMPARISON: None TECHNIQUE: Right wrist, 4 views FINDINGS: Chondrocalcinosis of the wrist, including involvement of the triangular fibrocartilage. At the severely degenerated scapholunate and capitolunate joints, there is marked loss of the articular cartilage spaces, subarticular sclerosis, osteophytosis and articular surface remodeling. The scapholunate joint space is approximately 0.5 cm wide. Small osteophytes are present at mildly degenerated triscaphe joint and first carpometacarpal joint. Also, osteophytes are observed at some of the visualized interphalangeal joints. No erosions or periostitis. There are peripheral vascular calcifications. 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 * Mild osteoarthritis of the triscaphe joint and first carpometacarpal joint.
== END 2022-05-10 10:16 | disposition home or self-care (01) ==
LOC: HO.HOSX 10:15
PROVIDERS: PCP Internal Medicine; Visit Provider Orthopaedic Surgery
DX: M19.131 Post-traumatic osteoarthritis, right wrist (principal); M19.132 Post-traumatic osteoarthritis, left wrist
CPT/HCPCS: 73110; 99202

== ENCOUNTER 2022-05-31 09:00 | Outpatient (REF) | payer MEDICARE, SELFPAY ==
--- NOTE | ~2022-05-31 | FL_ITS ---
EXAMINATION: XR FLUOROSCOPY CLINICAL INFORMATION: Fracture COMPARISON: Previous x-ray 05/10/2022 TECHNIQUE: AP intraoperative view of the right wrist. One view FINDINGS: There is a needle projecting over the distal radius near the scapholunate joint. The scapholunate distance appears widened. There are degenerative changes of the of the wrist. FLUOROSCOPY TIME: Not available. DOSE AREA PRODUCT: Not available FL/FL fluoroscopy <1hr IMPRESSION: Intraoperative fluoroscopy guidance for right wrist procedure
== END 2022-05-31 09:01 | disposition home or self-care (01) ==
LOC: HO.HOSX 09:00
PROVIDERS: Visit Provider Orthopaedic Surgery
DX: M19.131 Post-traumatic osteoarthritis, right wrist (principal); M19.132 Post-traumatic osteoarthritis, left wrist
CPT/HCPCS: 76000

== ENCOUNTER 2022-05-31 10:07 | Outpatient (AMB) | payer MEDICARE, SELFPAY ==
[2022-05-31 10:13] VITALS: BMI 26.6
--- NOTE | 2022-05-31 10:13 | MHC.OFFVIS ---
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 Allergies lobster Allergy (Mild, Uncoded 05/31/22 10:14) Rash N.K.D.A. Allergy (Unknown, Uncoded 05/31/22 10:14) Unknown HPI OV- B/L INJ Wrist Using mini C-arm HPI Details Marques is a 76 year old right hand dominant man who presents for bilateral SLAC wrist deformity injections, done under [facility]. He says he is feeling about the same as his last appointment. He is a retired member of the [employer] and says he had to do frequent heavy lifting when he was younger. 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 [facility] Medical History Adult general medical exam Arthritis of right glenohumeral joint Back pain CAD (coronary artery disease) Carpal tunnel syndrome on both sides Cirrhosis Cognitive impairment Eczema Erectile dysfunction Fall GERD (gastroesophageal reflux disease) Herpes encephalitis History of renal calculi HTN (hypertension) Hyperlipidemia Low back pain Obstructive sleep apnea Osteoarthritis of right shoulder Periodic limb movement disorder PVC (premature ventricular contraction) Right shoulder pain Rotator cuff impingement syndrome of right shoulder Screening for diabetes mellitus Sick sinus syndrome Thoracic aortic aneurysm Thyroid nodule TIA (transient ischemic attack) Surgical History History of colonoscopy History of tonsillectomy Status post carpal tunnel release of both wrists (~04/2016) Family History Father Myocardial infarct Mother No problems noted. Social History Housing: House Alcohol intake: current Alcohol intake frequency: holidays/special occasions only Patient Tobacco Use Status: Never used Tobacco Tobacco use type: Cigarette e-Cigarette/Vaping Use: Never Used Second Hand Smoke Exposure: No Current occupational status: retired Current occupation: Right Handed Cognitive needs: No Hearing needs: No Vision needs: Yes Review of Systems Const All systems reviewed & are unremarkable except as noted in HPI and below Physical Exam Vital Signs: BMI result Body Mass Index 26.6 Const General: no acute distress and alert Orientation/consciousness: patient oriented x3 Neuro General: patient oriented x3 Extrem Other: Evaluation of Bilateral Upper Extremities: The patient is alert, oriented, and in no acute distress Neuro: He has some decreased subjective sensation to the right median nerve distribution. He says this improved following a right carpal tunnel release in 2017 but is not quite normal. Normal sensation to ulnar nerve distribution Normal sensation to the tips of all digits of the left hand Vascular: Cap refill brisk ROM: He can make a fist and extend all his digits Wrist ROM: Right ~15 degrees extension ~70 degrees flexion Left ~20 degrees extension ~70 degrees flexion General: Swelling over dorsal radial aspect of the wrist joint bilaterally, measuring ~2.5cm in diameter Right wrist radiographs three views: These were reviewed today and show a scapholunate advanced collapse wrist deformity with the scaphoid essentially burrowing into the distal radius. Psych Appearance: grossly normal Affect: normal affect Attitude: cooperative Results Reviewed Results Reviewed: 05/31/22 10:28 Lidocaine HCl 2% [Xylocaine 2 %] 2 ml .ROUTE .STK-MED ONE 05/31/22 10:29 methylPREDNISolone acetate [DEPO-MedroL] 40 mg .ROUTE .STK-MED ONE Assessment & Plan Assessment & Plan (1) Scapholunate advanced collapse of right wrist: Code(s): M19.131 - Post-traumatic osteoarthritis, right wrist (2) Scapholunate advanced collapse of left wrist: Code(s): M19.132 - Post-traumatic osteoarthritis, left wrist Plan Assessment & Plan: 1. 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 Left SLAC wrist deformity, based on history and PE and verified on fluoroscopic images today I educated him about this condition I discussed treatment options Based on his age and level of function I am recommending that we try steroid injections to improve his symptoms. Injection #1: The risks and benefits of a steroid injection including but not limited to risk of damage to blood vessels, nerve, tendon, infection, skin bleaching, persistent or worsening pain, and failure to improve symptoms were discussed with the patient and they wish to proceed with the steroid injection. Once consent was obtained the skin over the widened scapholunate interval of the right wrist was sterilely prepped. The right wrist joint was then injected at the scapholunate interval with a combination of 1 mL of (40 mg/ml} Depo-Medrol and 1% plain Lidocaine, using the Flouroscan for needle placement. The patient appears to have tolerated the procedure well and with no complications. He had good early relief before leaving clinic today. He knows that they may not have another steroid injection into this joint for least 4 months. Injection #2: The risks and benefits of a steroid injection including but not limited to risk of damage to blood vessels, nerve, tendon, infection, skin bleaching, persistent or worsening pain, and failure to improve symptoms were discussed with the patient and they wish to proceed with the steroid injection. Once consent was obtained the skin over the widened scapholunate interval of the left wrist was sterilely prepped. The left wrist joint was then injected with a combination of 1 mL of (40 mg/ml} Depo-Medrol and 1% plain Lidocaine, using the Flouroscan for needle placement. This was also injected at the scapholunate interval. The patient appears to have tolerated the procedure well and with no complications. He had good early relief before leaving clinic today. He knows that they may not have another steroid injection into this joint for least 4 months. Scribed for Matilda Vegas MD by Poli Francis internist medical doctor md, on 05/31/22 at 11:10 AM, EST. I, Matilda eVgas MD, have personally reviewed and agreed with the information entered by the internist medical doctor md. Orders: Orders FL guidance in treatment room Today T14.8XXA - Other injury of unspecified body region, initial encounter Coding Level of Care Code Est Pt Level 3 (30844) Diagnoses Scapholunate advanced collapse of right wrist M19.131 Scapholunate advanced collapse of left wrist M19.132 Comment Injection 14509 x 2, 95330 x 2
== END 2022-05-31 11:31 | disposition home or self-care (01) ==
LOC: HO.HOS 10:07
PROVIDERS: PCP Internal Medicine; Visit Provider Orthopaedic Surgery
DX: M19.131 Post-traumatic osteoarthritis, right wrist (principal); M19.132 Post-traumatic osteoarthritis, left wrist
CPT/HCPCS: 20605; 77002; 99213

== ENCOUNTER → 2022-05-31 10:07 | Outpatient (BNVA) | payer MEDICARE, SELFPAY | PROVIDERS: PCP Internal Medicine; Visit Provider Orthopaedic Surgery | DX: M19.131 Post-traumatic osteoarthritis, right wrist (principal); M19.132 Post-traumatic osteoarthritis, left wrist | CPT/HCPCS: 20605; 73140; 77002; 99212; J1020 ==

== ENCOUNTER → 2022-08-03 09:50 | Outpatient (REF) | payer MEDICARE, SELFPAY ==
--- NOTE | ~2022-08-03 | XR_ITS ---
EXAMINATION: XR CHEST CLINICAL INFORMATION: Increased cholesterol COMPARISON: Previous chest x-ray February 2022 TECHNIQUE: 2 views of the chest were obtained. FINDINGS: The cardiac and mediastinal contours are stable. The lungs are clear. No pleural effusion or pneumothorax. There are degenerative changes of the spine and shoulders. XR/XR chest 2V IMPRESSION: No evidence for acute disease in the chest.
[2022-08-03 10:34] LABS: MANUAL DIFF FLAG NO
--- NOTE | 2022-08-03 10:34 | HM_ITS ---
* Total monitoring time 3 days. * Underlying rhythm is sinus. Average ventricular rate 55/Min. Range 40 to 93/Min. * Frequent supraventricular ectopy. [place] of 2.4%. Brief runs. * Rare ventricular ectopy with low burden. One run of 3 beats. * No significant pauses or AV blocks. * No patient markers or events in diary. MTDD
[2022-08-03 11:26] LABS: Basophils Absolute Auto 0.1 X10*3/uL (0.0-0.2); Basophils Percent Auto 0.6 % (0-2); Eosinophils Absolute Auto 0.3 X10*3/uL (0.0-0.4); Eosinophils Percent Auto 3.9 % (0-4); Hematocrit 42.9 % (42.0-52.0); Hemoglobin 14.4 g/dl (14.0-18.0); Imm Gran Abs Auto 0.03 X10*3/uL (0.00-0.03); Imm Gran Pct Auto 0.4 % (0.0-0.4); Lymphocytes Absolute Auto 1.6 X10*3/uL (1.2-4.9); Lymphocytes Percent Auto 19.6 % (20-40); Mean Corpuscular HGB Conc 33.6 g/dl (31.0-36.0); Mean Corpuscular Hemoglobin 32.3 pg (27.0-33.0); Mean Corpuscular Volume 96.2 fL (80.0-98.0); Mean Platelet Volume 9.9 fL (9.4-12.4); Monocytes Absolute Auto 0.9 X10*3/uL (0.1-1.2); Monocytes Percent Auto 10.4 % (2-11); Neutrophils Absolute Auto 5.4 x10*3/uL (2.0-8.3); Neutrophils Percent Auto 65.1 % (45-73); Platelet Count 243 X10*3/uL (160-400); Red Blood Count 4.46 X10*6/uL (4.60-5.80); Red Cell Distribution Width 13.5 % (11.0-16.0); White Blood Count 8.3 X10*3/uL (4.8-10.8)
[2022-08-03 12:14] LABS: B Type Natriuretic Peptide 28 pg/mL (<100)
[2022-08-03 12:34] LABS: Anion Gap 10 (12-20)
[2022-08-03 12:36] LABS: Free T4 (Free Thyroxine) 0.95 ng/dL (0.71-1.85); Thyroid Stimulating Hormone 1.53 uIU/mL (0.32-4.0)
[2022-08-03 12:39] LABS: Alanine Aminotransferase 38 U/L (0-40); Albumin Level 4.1 g/dL (3.5-5.0); Alkaline Phosphatase 37 U/L (39-117); Aspartate Amino Transferase 33 U/L (5-37); Bilirubin Total 1.5 mg/dL (0.0-1.0); Blood Urea Nitrogen 15 mg/dL (9-16); Calcium 8.8 mg/dL (8.4-10.2); Carbon Dioxide 24 mmol/L (22-29); Chloride 108 mmol/L (96-108); Cholesterol 142 mg/dL; Estimated Glomerular Filt Rate > 60; Glucose Random 81 mg/dL (60-115); HDL Cholesterol 61 mg/dL; LDL Cholesterol Calculated 70 mg/dl; Potassium 4.4 mmol/L (3.3-5.1); Sodium 138 mmol/L (135-145); Total Protein 6.7 g/dL (6.5-8.0); Triglycerides 59 mg/dL
[2022-08-03 12:43] LABS: Folate 12.2 ng/mL (> or = 4.0); Vitamin B12 426 pg/mL (200-900)
[2022-08-05 06:50] LABS: Lyme Abs Screen <0.90 index
== END ==
LOC: HO.CARD 09:50
PROVIDERS: Absent Provider Internal Medicine Cardiovascular Disease; PCP Internal Medicine; Visit Provider Internal Medicine
DX: I49.5 Sick sinus syndrome (principal); E78.00 Pure hypercholesterolemia, unspecified
CPT/HCPCS: 36415; 71046; 80053; 80061; 82607; 82746; 83880; 84439; 84443; 85025; 86617; 86618; 93242

== ENCOUNTER 2022-08-08 09:59 | Outpatient (REF) | payer MEDICARE, SELFPAY ==
--- NOTE | ~2022-08-08 | XR_ITS ---
EXAMINATION: XR LUMBOSACRAL SPINE CLINICAL INFORMATION: Lower back pain. COMPARISON: Radiographs dated 07/05/2020. TECHNIQUE: AP and lateral views of the lumbar spine and lateral view of the lumbosacral junction. FINDINGS: There is bony demineralization. Vertebral body heights are normal. There is a 6 mm anterolisthesis at L4-L5. The remaining disc spaces are well-maintained. No acute fracture or spondylolisthesis is seen. There is multi-level thoracolumbar spondylosis and facet arthropathy. The paravertebral soft tissues are unremarkable. There are pelvic phleboliths and atherosclerotic calcifications. XR/XR lumbar spine 2-3V IMPRESSION: 1. No fracture or spondylolisthesis is seen. 2. There is moderate degenerative disc disease at L4-L5. 3. There is multi-level thoracolumbar spondylosis and facet arthropathy.
== END 2022-08-08 10:00 | disposition home or self-care (01) ==
LOC: HO.XRAY 09:59
PROVIDERS: PCP Internal Medicine; Visit Provider Internal Medicine
DX: M54.50 Low back pain, unspecified (principal)
CPT/HCPCS: 72100

== ENCOUNTER 2022-10-27 12:13 | Outpatient (AMB) | payer MEDICARE, SELFPAY ==
[2022-10-27 12:44] VITALS: BP 134/72; PULSE 77; O2SAT 97; BMI 25.7
--- NOTE | 2022-10-27 12:44 | MHC.PC.OV ---
Vital Signs 10/27/22 12:44 Height 5 ft 7 in Weight 164 lb BMI 25.7 BP 134/72 Blood Pressure Location Lt brachial Position Sitting Pulse 77 Pulse Source Pulse Oximeter Pulse Oximetry (%) 97 Oxygen Delivery Method Room Air Intake Visit Reasons: Coronary artery disease Allergies lobster Allergy (Mild, Uncoded 10/27/22 12:44) Rash N.K.D.A. Allergy (Unknown, Uncoded 10/27/22 12:44) Unknown Medication List - Last Reconciled 10/27/22 by Gordo Wilkins MD acetaminophen (Tylenol Extra Strength) 1,000 mg (2 x 500 mg) PO QID PRN amlodipine 5 mg PO DAILY 30 days aspirin (Adult Low Dose Aspirin) 81 mg PO DAILY betamethasone dipropionate 0.05% 1 appl topical BID PRN epinephrine (Auvi-Q) 0.3 mg (0.3 mL) IM Q15M PRN ezetimibe 10 mg PO DAILY losartan 50 mg PO DAILY meloxicam 15 mg PO DAILY metoprolol succinate ER 25 mg PO DAILY mupirocin 2% 1 appl topical BID nitroglycerin 0.4 mg sublingual Q5M PRN omeprazole 40 mg (2 x 20 mg) PO DAILY rosuvastatin 40 mg PO DAILY triamcinolone acetonide 0.025% 1 appl topical BID Tobacco use date assessed: 07/27/22 Fall risk assessment: No Falls in past year Last assessed Fall Risk: 10/27/22 Dental Screening Dental Screen Date: 10/27/22 Did you have a dental visit in the last 12 months?: Yes Did you have a dental problem in the last 6 months where you did not have access to dental care?: No Was dental information given to patient?: Patient has dentist HPI Coronary artery disease HPI Details 77-year-old male with a history of impaired glucose tolerance, GERD, coronary artery disease sick sinus syndrome hypercholesterolemia hypertension last seen in July 2022. Patient is here for follow-up. Patient complains of some lower back pain and an x-ray was done showing moderate degenerative disc disease at L4/L5 and multilevel thoracolumbar spondylosis and facet arthropathy. Patient had a Holter done July 2022 sinus rhythm 55 average frequent SVT no pauses. Patient applied for disability [place]. concern about pain - decline xray for now on the L forearm. 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 Arthritis of right glenohumeral joint Adult general medical exam Screening for diabetes mellitus Eczema Low back pain Fall Back pain Thyroid nodule Herpes encephalitis Cirrhosis Periodic limb movement disorder TIA (transient ischemic attack) Cognitive impairment Carpal tunnel syndrome on both sides History of renal calculi GERD (gastroesophageal reflux disease) Erectile dysfunction Thoracic aortic aneurysm Hyperlipidemia Sick sinus syndrome HTN (hypertension) Right shoulder pain Obstructive sleep apnea Osteoarthritis of right shoulder Rotator cuff impingement syndrome of right shoulder PVC (premature ventricular contraction) CAD (coronary artery disease) Surgical History History of colonoscopy History of tonsillectomy Status post carpal tunnel release of both wrists (~04/2016) Family History Father Myocardial infarct Mother No problems noted. Social History Housing: House Alcohol intake: current Alcohol intake frequency: holidays/special occasions only Patient Tobacco Use Status: Never used Tobacco Tobacco use type: Cigarette e-Cigarette/Vaping Use: Never Used Second Hand Smoke Exposure: No Current occupational status: retired Current occupation: Right Handed Cognitive needs: No Hearing needs: No Vision needs: Yes Questionnaire PHQ-9 Over the last 2 weeks, how often have you been bothered by any of the following problems? 1. Little interest or pleasure in doing things: not at all 2. Feeling down, depressed, or hopeless: not at all 3. Trouble falling or staying asleep, or sleeping too much: not at all 4. Feeling tired or having little energy: not at all 5. Poor appetite or overeating: not at all 6. Feeling bad about yourself - or that you are a failure or have let yourself or your family down: not at all 7. Trouble concentrating on things, such as reading the newspaper or watching television: not at all 8. Moving or speaking so slowly that other people could have noticed. Or the opposite - being so fidgety or restless that you have been moving around a lot more than usual: not at all 9. Thoughts that you would be better off or of hurting yourself in some way: not at all Total score: 0 Depression Screening Interpretation: Negative Source: Developed by Drs. Sunny Simon, Katarina Branham, Joe Munoz and colleagues, with an educational giuseppe from [employer]. Thrive Questionnaire Date Thrive assessed: 07/27/22 AUDIT C Alcohol Use Questionnaire (AUDIT-C) 1. How often do you have a drink containing alcohol?: Monthly or less 2. How many drinks containing alcohol do you have on a typical day when you are drinking?: 1 or 2 3. How often do you have six or more drinks on one occasion?: Never Total Score: 1 Score Reviewed/Action Taken: No VANNESA-7 AMB Questionnaire VANNESA-7 Date VANNESA - 7 assessed: 07/27/22 Source: Developed by Drs. Sunny Simon, Katarina Branham, Joe Munoz and colleagues, with an educational giuseppe from [employer]. Physical exam (Primary Care) Vital Signs: Oxygen Delivery Method Room Air 10/27/22 12:44 Tobacco/Smoking Status: Tobacco use Status Tobacco use date assessed 07/27/22 10/27/22 09:49 Patient Tobacco Use Status Never used Tobacco 10/27/22 09:49 Tobacco use type Cigarette 10/27/22 09:49 e-Cigarette/Vaping Use Never Used 10/27/22 09:49 Depression Screening Interpretation: Negative Thrive Assessment: Date of Thrive Assessment Date Thrive assessed 07/27/22 10/27/22 09:49 Const General: alert; No acute distress Eyes Conjunctivae: conjunctivae normal Resp Auscultation: clear to auscultation bilaterally Cardio Rate: regular rate Rhythm: regular rhythm GI Inspection: Yes normal to inspection Extrem General: Yes normal to inspection and No edema Assessment and Plan Assessment & Plan (1) Lumbar degenerative disc disease: Code(s): M51.36 - Other intervertebral disc degeneration, lumbar region Plan: Keep active (2) CAD (coronary artery disease): Comment: Holter normal sinus rhythm occasional bradycardia March 2017, echo 11/2019 EF 60-65% Ascending aorta 3.9 cm. diffuse coronary artery disease significant branch vessel disease in the diagonal branch as well as the distal circumflex, being managed medically Code(s): I25.10 - Atherosclerotic heart disease of [place] coronary artery without angina pectoris Qualifiers: Associated angina: without angina Coronary Disease-Associated Artery/Lesion type: [place] artery [place] vs. transplanted heart: [place] heart Qualified Code(s): I25.10 - Atherosclerotic heart disease of [place] coronary artery without angina pectoris Plan: Control the cholesterol, weight, blood pressure (3) Hyperlipidemia: Code(s): E78.5 - Hyperlipidemia, unspecified Qualifiers: Hyperlipidemia type: pure hypercholesterolemia Qualified Code(s): E78.00 - Pure hypercholesterolemia, unspecified Plan: Avoid fried foods, chicken skin, eggs, butter margarine, pastries and meat. Be it pork or beef they have a lot of cholesterol LDL goal of less than 70 and triglyceride of less than 150 patient is taking rosuvastatin 40 mg once a day and Zetia 10 mg once a day (4) HTN (hypertension): Comment: Echo normal LV Code(s): I10 - Essential (primary) hypertension Qualifiers: Hypertension type: essential hypertension Qualified Code(s): I10 - Essential (primary) hypertension Plan: Continue with blood pressure medication. Decrease salt intake and exercise amlodipine 5 mg once a day losartan 50 mg once a day and metoprolol 25 mg once a day (5) Thoracic aortic aneurysm: Comment: 11/2019 3.9 cm January 2021, January 2022The left ventricular systolic function is low normal. The calculated ejection fraction is 54% by biplane method. - No obvious valvular pathology seen on this study. - There is mild dilatation of the ascending aorta measuring 3.90 Code(s): I71.2 - Thoracic aortic aneurysm, without rupture Qualifiers: Presence of rupture: without rupture Qualified Code(s): I71.2 - Thoracic aortic aneurysm, without rupture Plan: Echocardiogram has been ordered for end of the year. Coding Level of Care Code Est Pt Level 4 (46437) Diagnoses Lumbar degenerative disc disease M51.36 Coronary artery disease involving [place] coronary artery of [place] heart without angina pectoris I25.10 Associated angina: without angina Coronary Disease-Associated Artery/Lesion type: [place] artery [place] vs. transplanted heart: [place] heart Pure hypercholesterolemia E78.00 Hyperlipidemia type: pure hypercholesterolemia Essential hypertension I10 Hypertension type: essential hypertension Thoracic aortic aneurysm without rupture I71.2 Presence of rupture: without rupture Additional Codes PHQ-9 - 55239 - PHQ-9 Billing: ([id number])
== END 2022-10-27 13:12 | disposition home or self-care (01) ==
PROVIDERS: PCP Internal Medicine; Visit Provider Internal Medicine
DX: I10 Essential (primary) hypertension (principal); I71.20 Thoracic aortic aneurysm, without rupture, unspecified; M51.36 Other intervertebral disc degeneration, lumbar region; I25.10 Atherosclerotic heart disease of native coronary artery without angina pectoris; E78.00 Pure hypercholesterolemia, unspecified
CPT/HCPCS: 99214

== ENCOUNTER 2022-11-21 11:11 | Outpatient (AMB) | payer MEDICARE, SELFPAY ==
[2022-11-21 11:15] VITALS: BP 130/68; PULSE 50; O2SAT 98; BMI 25.8
--- NOTE | 2022-11-21 11:15 | AM.OFFVISMDC ---
Intake Vital Signs 11/21/22 11:15 Height 5 ft 7 in Weight 165 lb BMI 25.8 BP 130/68 Blood Pressure Location Lt brachial Position Sitting Pulse 50 Pulse Source Pulse Oximeter Temp Source Skin Pulse Oximetry (%) 98 Oxygen Delivery Method Room Air Intake Visit Reasons: [facility] G0439 Intake Note: Patient is here for an Annual Wellness Visit. 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 Allergy (Unknown, Uncoded 11/21/22 11:34) Unknown Medication List - Last Reconciled 11/21/22 by ARMEN Taylor acetaminophen (Tylenol Extra Strength) 1,000 mg (2 x 500 mg) PO QID PRN amlodipine 5 mg PO DAILY 30 days aspirin (Adult Low Dose Aspirin) 81 mg PO DAILY betamethasone dipropionate 0.05% 1 appl topical BID PRN epinephrine (Auvi-Q) 0.3 mg (0.3 mL) IM Q15M PRN ezetimibe 10 mg PO DAILY losartan 50 mg PO DAILY meloxicam 15 mg PO DAILY metoprolol succinate ER 25 mg PO DAILY mupirocin 2% 1 appl topical BID nitroglycerin 0.4 mg sublingual Q5M PRN omeprazole 40 mg (2 x 20 mg) PO DAILY rosuvastatin 40 mg PO DAILY triamcinolone acetonide 0.025% 1 appl topical BID HPI [facility] G0439 HPI Details Patient is a 77-year-old male presents today for subsequent wellness visit. Patient of Dr. Wilkins. Patient is up-to-date with his health preventative screenings and immunizations. [place] of care was reviewed with the patient and he was provided with a screening schedule. End of life planning was discussed with the patient and he was provided with healthcare proxy and MOLST forms. In addition, patient reports short-term memory issues for the past couple years now, he reports that he forgets names, patient reports that he will think about neurology referral. 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 of right glenohumeral joint Adult general medical exam Screening for diabetes mellitus Eczema Low back pain Fall Back pain Thyroid nodule Herpes encephalitis Cirrhosis Periodic limb movement disorder TIA (transient ischemic attack) Cognitive impairment Carpal tunnel syndrome on both sides History of renal calculi GERD (gastroesophageal reflux disease) Erectile dysfunction Thoracic aortic aneurysm Hyperlipidemia Sick sinus syndrome HTN (hypertension) Right shoulder pain Obstructive sleep apnea Osteoarthritis of right shoulder Rotator cuff impingement syndrome of right shoulder PVC (premature ventricular contraction) CAD (coronary artery disease) Surgical History History of colonoscopy History of tonsillectomy Status post carpal tunnel release of both wrists (~04/2016) Family History Father Myocardial infarct Mother No problems noted. Social History Housing: House Alcohol intake: current Alcohol intake frequency: holidays/special occasions only Patient Tobacco Use Status: Never used Tobacco Tobacco use type: Cigarette e-Cigarette/Vaping Use: Never Used Second Hand Smoke Exposure: No Current occupational status: retired Current occupation: Right Handed Cognitive needs: No Hearing needs: No Vision needs: Yes Questionnaire Medicare Wellness Checkup [age] What gender do you identify with?: male During the past 4 weeks, how much have you been bothered by emotional problems such as feeling anxious, depressed, irritable, sad or downhearted, and blue?: not at all During the past 4 weeks, has your physical & emotional health limited your social activities with family, friends, neighbors, or groups?: not at all During the past 4 weeks, how much bodily pain have you generally had?: very mild pain During the past 4 weeks, was someone available to help you if you needed & wanted help?: yes, as much as I wanted During the past 4 weeks, what was the hardest physical activity you could do for at least 2 minutes?: very heavy Can you get to places out of walking distance without help? (For eg., can you travel alone on buses, taxis or drive your car?): Yes Can you go shopping for groceries or clothes without someone's help?: Yes Can you prepare your own meals?: Yes Can you do your housework without help?: Yes Because of any health problems, do you need the help of another person with your personal care needs such as eating, bathing, dressing or getting around the house?: No Can you handle your own money without help?: Yes During the past 4 weeks, how would you rate your health in general?: excellent During the past 4 weeks how have things been going for you?: very well; could hardly better Are you having difficulties driving your car?: no Do you always fasten your seat belt when you are in a car?: yes, usually During past 4 weeks, have you been bothered by the following: never: Falling or dizzy when standing up, Sexual problems?, Trouble eating well?, Teeth or denture problems?, Problems using the telephone? and Tiredness or fatigue? Have you fallen 2 or more times in the past year?: No Are you afraid of falling?: No Are you a smoker?: no During the past 4 weeks, how many drinks of wine, beer, or other alcoholic beverages did you have?: 6-9 drinks per week Do you exercise for about 20 minutes 3 or more times a week?: yes, most of the time Have you been given information to help with the following?: no: Hazards in your house that might hurt you? and no: Keeping track of your medications? How often do you have trouble taking medicines the way you have been told to take them?: I always take medicine as prescribed How confident are you that you can control & manage most of your health problems?: very confident What is your race?: White Mini Mental State Exam (MMSE) Orientation What is the (year) (season) (date) (day) (month)?: year, season, date, day and month Score Score: 5 Activity of Daily Living Bathing - sponge bath, tub bath or shower: receives no assistance (gets in/out by self, if usual bathing means Dressing - getting clothes from closets & drawers, including inner/outer garments & fasteners.: gets clothes & gets completely dressed without help Toileting - going to the 'toilet room' for urine/bowel elimination & cleaning self/arranging clothes: goes to toilet room, cleans self, arranges clothes without help Transfer: moves in & out of bed and chair without help (may use support object) Continence: controls urination/bowel movements completely by self Feeding: feeds self without help Total Score: 0 Information obtained from: patient Using telephone: independent Traveling: independent Shopping: independent Preparing meals: independent Housework: independent Taking medicine: independent Managing money: independent PHQ-9 Over the last 2 weeks, how often have you been bothered by any of the following problems? 1. Little interest or pleasure in doing things: not at all 2. Feeling down, depressed, or hopeless: not at all 3. Trouble falling or staying asleep, or sleeping too much: not at all 4. Feeling tired or having little energy: not at all 5. Poor appetite or overeating: not at all 6. Feeling bad about yourself - or that you are a failure or have let yourself or your family down: not at all 7. Trouble concentrating on things, such as reading the newspaper or watching television: not at all 8. Moving or speaking so slowly that other people could have noticed. Or the opposite - being so fidgety or restless that you have been moving around a lot more than usual: not at all 9. Thoughts that you would be better off or of hurting yourself in some way: not at all Total score: 0 Depression Screening Interpretation: Negative Depression Screening Done: Yes [id number] - PHQ-9 Billing: Yes Source: Developed by Drs. Sunny Simon, Katarina Branham, Joe Munoz and colleagues, with an educational giuseppe from [employer]. Physical Exam Vital Signs: Last Vital Signs Pulse 50 11/21/22 11:15 BP 130/68 11/21/22 11:15 Pulse Ox 98 11/21/22 11:15 Oxygen Delivery Method Room Air 11/21/22 11:15 BMI result Body Mass Index 25.8 Const General: cooperative and no acute distress Orientation/consciousness: patient oriented x3 HEENT Other: Whisper test: fail Neuro Other: Balance: Normal Get up and walk: able to Romberg: negative Tandem gait: able to General: patient oriented x3 Assessment & Plan Assessment & Plan (1) Adult general medical exam: Code(s): Z00.00 - Encounter for general adult medical examination without abnormal findings (2) GERD (gastroesophageal reflux disease): Code(s): K21.9 - Gastro-esophageal reflux disease without esophagitis Qualifiers: Esophagitis presence: without esophagitis Qualified Code(s): K21.9 - Gastro-esophageal reflux disease without esophagitis Plan: Continue current treatment. Avoid GERD trigger foods. (3) CAD (coronary artery disease): Comment: Holter normal sinus rhythm occasional bradycardia March 2017, echo 11/2019 EF 60-65% Ascending aorta 3.9 cm. diffuse coronary artery disease significant branch vessel disease in the diagonal branch as well as the distal circumflex, being managed medically Code(s): I25.10 - Atherosclerotic heart disease of [place] coronary artery without angina pectoris Qualifiers: Coronary Disease-Associated Artery/Lesion type: [place] artery [place] vs. transplanted heart: [place] heart Associated angina: without angina Qualified Code(s): I25.10 - Atherosclerotic heart disease of [place] coronary artery without angina pectoris Plan: Continue current treatment. Continue to follow-up with cardiology as scheduled. (4) Sick sinus syndrome: Code(s): I49.5 - Sick sinus syndrome Plan: Continue to follow-up with cardiology as scheduled (5) Thoracic aortic aneurysm: Comment: 11/2019 3.9 cm January 2021, January 2022The left ventricular systolic function is low normal. The calculated ejection fraction is 54% by biplane method. - No obvious valvular pathology seen on this study. - There is mild dilatation of the ascending aorta measuring 3.90 Code(s): I71.2 - Thoracic aortic aneurysm, without rupture Qualifiers: Presence of rupture: without rupture Qualified Code(s): I71.2 - Thoracic aortic aneurysm, without rupture Plan: Continue to follow-up with cardiology as scheduled (6) Hyperlipidemia: Code(s): E78.5 - Hyperlipidemia, unspecified Qualifiers: Hyperlipidemia type: pure hypercholesterolemia Qualified Code(s): E78.00 - Pure hypercholesterolemia, unspecified Plan: Continue current treatment. Low-cholesterol diet. (7) HTN (hypertension): Comment: Echo normal LV Code(s): I10 - Essential (primary) hypertension Qualifiers: Hypertension type: essential hypertension Qualified Code(s): I10 - Essential (primary) hypertension Plan: Continue current treatment. Low-sodium diet and exercise as tolerated. (8) PVC (premature ventricular contraction): Code(s): I49.3 - Ventricular premature depolarization Plan: Continue to follow-up with cardiology as scheduled. 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
== END 2022-11-21 11:54 | disposition home or self-care (01) ==
PROVIDERS: PCP Internal Medicine; Visit Provider Nurse Practitioner Family
DX: Z00.00 Encounter for general adult medical examination without abnormal findings (principal); I49.5 Sick sinus syndrome; I71.20 Thoracic aortic aneurysm, without rupture, unspecified; K21.9 Gastro-esophageal reflux disease without esophagitis; I25.10 Atherosclerotic heart disease of native coronary artery without angina pectoris; E78.00 Pure hypercholesterolemia, unspecified; I10 Essential (primary) hypertension; I49.3 Ventricular premature depolarization; M51.36 Other intervertebral disc degeneration, lumbar region; D64.9 Anemia, unspecified; R73.02 Impaired glucose tolerance (oral); Z86.006 Personal history of melanoma in-situ
CPT/HCPCS: 1124F; G0439

== ENCOUNTER → 2023-01-12 09:33 | Outpatient (REF) | payer MEDICARE, SELFPAY ==
--- NOTE | 2023-01-12 09:36 | CA_ITS ---
Transthoracic Echocardiogram Patient (Last, First, Middle): Marques Martinez F Gender: Male Date of : 1945 Age: 77 Procedure Date: 01/12/2023 Procedure Type: Transthoracic Echocardiogram Location: OP Height: 170.18 cm Weight: 72.58 kg BSA: 1.84 m2 Heart Rate: bpm BP: 138 / 64 mmHg [employer] Cannoneer: TO Referring MD: Tez Albarado MD Electrical Estimator: Tez Albarado MD Symptoms: I71.2 - Thoracic aortic aneurysm, without rupture Study Quality: Fair/Contrast ECG Rhythm: Sinus Conclusions: - 1. Normal LV ejection fraction of 55-60% 2. Normal cardiac valvular Doppler 3. Mildly dilated ascending aorta at 4.2 cm 4. No gross pericardial effusion Findings Left Ventricle Normal left ventricular size, thickness, and systolic function. The visually estimated ejection fraction is between 55-60%. Spectral Doppler is indicative of an impaired relaxation filling pattern. Right Ventricle Normal right ventricular cavity size and systolic function. Atria Both atria are normal in size. Interatrial shunt cannot be excluded. Aortic Valve The aortic valve was not well visualized. There is mild calcification of the aortic valve. There is no aortic valve stenosis. There is no aortic valve regurgitation. Mitral Valve Likely normal mitral valve structure and function. There is trace mitral valve regurgitation. There is no mitral valve stenosis. Pulmonic Valve The pulmonic valve was not well visualized. Tricuspid Valve Likely normal tricuspid valve structure and function. Tricuspid regurgitation envelope is inadequate for calculation of right ventricular systolic pressure. Normal right atrial pressure. Great Vessels The pulmonary artery was not well visualized. There is mild dilatation of the ascending aorta measuring 4.20 cm. Venous The inferior vena cava is normal in size and collapses greater than 50% with inspiration. Pericardium/Pleural There is no evidence of pericardial effusion. Prior Study Comparison Changes noted compared to prior study dated: 01/23/2022. Ascending aorta is measured at 4.2 cm which is mildly enlarged compared to prior study Measurements 2D Linear Measurements IVSd: 1.27 0.6-0.9/0.6-1.0 cm LVIDd: 4.91 3.9-5.3/4.2-5.9 cm LVIDd Index: 2.67 2.4-3.2/2.2-3.1 cm/m2 LVIDs: 2.80 2.0-3.6 cm LVPWd: 1.00 0.7-1.1 cm LA Diam: 3.40 2.7-3.8/3.0-4.0 cm LAIDs Index: 1.85 1.5-2.3 cm/m2 LV Mass: 261.36 67-162/88-224 g LV Mass Index: 142.05 43-95/49-115 g/m2 LVOT Diam: 2.20 3.0+(-)1.3 cm 2D Systolic Function EF 4C: 55.20 >55% EF 2C: 56.00 >55% EF BiP: 55.40 >55% Mitral Valve MV Pk E: 0.52 MV PK A: 0.91 MV Decel Time: 284.00 E/A: 0.60 E'Lateral: 7.51 E'Medial: 5.98 E/E' Med: 8.70 E/E' Lat: 6.90 PHT: 83.00 MVA PHT: 2.65 Decel [place]: 1.83 Aortic Valve AoV Pk Ervin: 1.54 AoV Mn Ervin: 1.01 AoV VTI: 0.36 AoV Pk Grad: 9.00 Aov Mn Grad: 4.00 JULES Cont.VTI: 2.68 LVOT LVOT Pk Ervin: 1.09 LVOT Mn Ervin: 0.64 LVOT VTI: 0.25 LVOT Pk Grad: 5.00 LVOT Mn Grad: 2.00 LVOT Diam: 2.20 LVOT Area: 3.80 Diastolic Function MV Pk E: 0.52 MV Pk A: 0.91 E/A: 0.60 E'Medial: 5.98 E/E' Med: 8.70 E' Laterial: 7.51 E/E' Lat: 6.90 Right Ventricle TAPSE (mm): 24.00 TVS' Ervin: 11.10 Tricuspid Valve RA Press: 3.00 Great Vessels Aorta Sinus of Valsalva: 4.14 2.0-3.5 cm Ao Asc: 4.20 2.1-3.4 cm Updated in Other Vendor System with Status of Final Tez Albarado MD electronically signed on 01/13/2023 12:48:16 PM with status of Final
== END ==
LOC: HO.CARD 09:33
PROVIDERS: PCP Internal Medicine; Visit Provider Internal Medicine Cardiovascular Disease
DX: I71.20 Thoracic aortic aneurysm, without rupture, unspecified (principal)
CPT/HCPCS: 93306; Q9957

== ENCOUNTER → 2023-01-12 09:36 | Outpatient (BNV) | payer MEDICARE, SELFPAY | PROVIDERS: PCP Internal Medicine; Visit Provider Internal Medicine Cardiovascular Disease | DX: I35.8 Other nonrheumatic aortic valve disorders (principal) | CPT/HCPCS: 93306 ==

== ENCOUNTER 2023-03-08 08:08 | Outpatient (AMB) | payer MEDICARE, SELFPAY ==
--- NOTE | 2023-03-08 08:35 | A.OFFVIS_ITS ---
Intake Vital Signs 03/08/23 08:36 Height 5 ft 7 in Weight 163 lb 2.273 oz BMI 25.5 BP 110/70 Blood Pressure Location Lt brachial Position Sitting Pulse 57 Intake Visit Reasons: 1 yr f/u after echo & stress Intake Note: 1 year follow-up after echo and stress c/o skipped beats Scallop Binder Required: No Allergies lobster Allergy (Mild, Uncoded 11/21/22 11:34) Rash N.K.D.A. Allergy (Unknown, Uncoded 11/21/22 11:34) Unknown Medication List - Last Reconciled 03/08/23 by Tez Albarado MD acetaminophen (Tylenol Extra Strength) 1,000 mg (2 x 500 mg) PO QID PRN amlodipine 5 mg PO DAILY 30 days aspirin (Adult Low Dose Aspirin) 81 mg PO DAILY betamethasone dipropionate 0.05% 1 appl topical BID PRN epinephrine (Auvi-Q) 0.3 mg (0.3 mL) IM Q15M PRN ezetimibe 10 mg PO DAILY losartan 50 mg PO DAILY meloxicam 15 mg PO DAILY metoprolol succinate ER 25 mg PO DAILY mupirocin 2% 1 appl topical BID nitroglycerin 0.4 mg sublingual Q5M PRN omeprazole 40 mg (2 x 20 mg) PO DAILY rosuvastatin 40 mg PO DAILY triamcinolone acetonide 0.025% 1 appl topical BID HPI HPI Comments History of Present Illness Details Bill comes for follow-up. He has been doing well overall. Remains very active, still goes deer hunting. However when he pushes himself he does gets pressure in his chest and usually slows down the symptoms resolve within 15 minutes. After much thinking he does not think this is limiting his lifestyle at this point in time. He also notices fairly often skipped heartbeats. No worsening shortness of breath, orthopnea, PND, lightheadedness, syncope. Last LDL is 70 mg/dL [facility] Medical History Low vitamin B12 level 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 Arthritis of right glenohumeral joint Adult general medical exam Screening for diabetes mellitus Eczema Low back pain Fall Back pain Thyroid nodule Herpes encephalitis Cirrhosis Periodic limb movement disorder TIA (transient ischemic attack) Cognitive impairment Carpal tunnel syndrome on both sides History of renal calculi GERD (gastroesophageal reflux disease) Erectile dysfunction Thoracic aortic aneurysm Hyperlipidemia Sick sinus syndrome HTN (hypertension) Right shoulder pain Obstructive sleep apnea Osteoarthritis of right shoulder Rotator cuff impingement syndrome of right shoulder PVC (premature ventricular contraction) CAD (coronary artery disease) Surgical History History of colonoscopy History of tonsillectomy Status post carpal tunnel release of both wrists (~04/2016) Family History Father Myocardial infarct Mother No problems noted. Social History Housing: House Alcohol intake: current Alcohol intake frequency: holidays/special occasions only Patient Tobacco Use Status: Never used Tobacco Tobacco use type: Cigarette e-Cigarette/Vaping Use: Never Used Second Hand Smoke Exposure: No Current occupational status: retired Current occupation: Right Handed Cognitive needs: No Hearing needs: No Vision needs: Yes Review of Systems Const Denies chills, Denies fatigue, Denies fever(s), Denies frequent falls, Denies weakness, Denies weight gain and Denies weight loss ENT Denies dizziness Card Denies chest pain, Denies leg edema, Denies lightheadedness, Denies palpitations, Denies dyspnea, Denies dyspnea on exertion, Denies orthopnea and Denies other (loss of consciousness) Resp Denies cough, Denies dyspnea and Denies dyspnea on exertion GI Denies hematochezia and Denies change in stool character Musc Denies abnormal gait, Denies muscle weakness, Denies numbness, Denies radiating pain into limb and Denies tingling Neuro Denies abnormal gait, Denies dizziness, Denies frequent falls, Denies numbness, Denies tingling and Denies weakness Endo Denies fatigue and Denies palpitations Physical Exam Vital Signs: Last Vital Signs Pulse 57 03/08/23 08:36 BP 110/70 03/08/23 08:36 BMI result Body Mass Index 25.5 Const General: cooperative, healthy appearing, no acute distress, alert, awake and well groomed Nutritional Appearance: average body habitus Orientation/consciousness: patient oriented x3 Limitations: no limitations Eyes General: appearance normal, both eyes and all related structures Neck Neck: Yes trachea midline, Yes supple and Yes no JVD Carotids: no bruits Chest Chest palpation & inspection: normal inspection of the chest Resp Effort & Inspection: normal respiratory effort Auscultation: clear to auscultation bilaterally Cardio Jugular venous distension: no JVD Palpation: normal PMI Rate: regular rate Rhythm: regular rhythm Heart sounds: S1 normal heart sound present, S2 normal heart sound present and Other heart sounds present ( S4 present) GI Inspection: Yes normal to inspection Auscultation: normal bowel sounds Skin General skin exam: no rashes or lesions noted and ecchymosis Neuro General: patient oriented x3 and no focal motor deficits Extrem General: Yes no clubbing, cyanosis or edema Psych Appearance: grossly normal Office Procedures EKG Details: EKG shows sinus bradycardia otherwise normal EKG [id number], Complete Assessment & Plan Assessment & Plan (1) CAD (coronary artery disease): Comment: Holter normal sinus rhythm occasional bradycardia March 2017, echo 11/2019 EF 60-65% Ascending aorta 3.9 cm. diffuse coronary artery disease significant branch vessel disease in the diagonal branch as well as the distal circumflex, being managed medically Code(s): I25.10 - Atherosclerotic heart disease of [place] coronary artery without angina pectoris Qualifiers: Coronary Disease-Associated Artery/Lesion type: [place] artery [place] vs. transplanted heart: [place] heart Associated angina: without angina Qualified Code(s): I25.10 - Atherosclerotic heart disease of [place] coronary artery without angina pectoris Plan: Patient still has exertional angina but with stable pattern. He knows when he gets his exertional symptoms and these are not life-limiting at this point time. Continue current dual antianginal therapy with amlodipine and metoprolol. If he gets progressively were symptoms with lesser exertion that affect his quality of life I have advised to call my office may add medical therapy and may need further workup. He understands and agrees. Continue aggressive medical therapy with low-dose aspirin therapy. High-intensity statin therapy. Blood pressure is well optimized, continue current therapy. (2) Sick sinus syndrome: Code(s): I49.5 - Sick sinus syndrome Plan: Sinoatrial ophelia dysfunction which is exacerbated by metoprolol therapy. Her metoprolol therapy is help with his arrhythmias and symptoms of palpitations. No other symptoms of chronotropic incompetence or poor cardiac output. Continue to monitor clinically. No indication for pacing therapy. (3) Thoracic aortic aneurysm: Comment: 11/2019 3.9 cm January 2021, January 2022The left ventricular systolic function is low normal. The calculated ejection fraction is 54% by biplane method. - No obvious valvular pathology seen on this study. - There is mild dilatation of the ascending aorta measuring 3.90 Code(s): I71.2 - Thoracic aortic aneurysm, without rupture Qualifiers: Presence of rupture: without rupture Qualified Code(s): I71.2 - Thoracic aortic aneurysm, without rupture Plan: Thoracic aortic aneurysm which has remained stable. Measured at 4.2 cm. Will continue monitor annually by echocardiogram. Continue aggressive blood pressure control which is currently well optimized. Advised to avoid sudden strenuous isometric exercise. Follow up in the clinic in 1 year's time, sooner p.r.n.. Thank you for allowing me to partake in his care Orders: Orders CA echo transthoracic complete 50 Weeks I71.2 - Thoracic aortic aneurysm, without rupture Coding Level of Care Code Est Pt Level 4 (00273) Diagnoses Coronary artery disease involving [place] coronary artery of [place] heart without angina pectoris I25.10 Coronary Disease-Associated Artery/Lesion type: [place] artery [place] vs. transplanted heart: [place] heart Associated angina: without angina Sick sinus syndrome I49.5 Thoracic aortic aneurysm without rupture I71.2 Presence of rupture: without rupture CPT Codes EKG - CPT: 75145-[id number], Complete ([id number])
[2023-03-08 08:36] VITALS: BP 110/70; PULSE 57; BMI 25.5
== END 2023-03-08 09:18 | disposition home or self-care (01) ==
PROVIDERS: Visit Provider Internal Medicine Cardiovascular Disease
DX: I25.10 Atherosclerotic heart disease of native coronary artery without angina pectoris (principal); I49.5 Sick sinus syndrome; I71.20 Thoracic aortic aneurysm, without rupture, unspecified
CPT/HCPCS: 93010; 99214

== ENCOUNTER → 2023-03-08 08:08 | Outpatient (BNVA) | payer MEDICARE, SELFPAY | PROVIDERS: Visit Provider Internal Medicine Cardiovascular Disease | DX: I25.10 Atherosclerotic heart disease of native coronary artery without angina pectoris (principal); I49.5 Sick sinus syndrome; I71.20 Thoracic aortic aneurysm, without rupture, unspecified | CPT/HCPCS: 93005; 99212 ==

== ENCOUNTER 2023-04-27 08:34 | Outpatient (AMB) | payer MEDICARE, SELFPAY ==
[2023-04-27 08:55] VITALS: BP 138/82; PULSE 56; O2SAT 97; BMI 25.8
--- NOTE | 2023-04-27 08:55 | A.OFFPC_ITS ---
Vital Signs 04/27/23 08:55 Height 5 ft 7 in Weight 165 lb BMI 25.8 BP 138/82 Blood Pressure Location Lt brachial Position Sitting Pulse 56 Pulse Source Pulse Oximeter Pulse Oximetry (%) 97 Oxygen Delivery Method Room Air Intake Visit Reasons: cad Allergies lobster Allergy (Mild, Uncoded 04/27/23 08:55) Rash N.K.D.A. Allergy (Unknown, Uncoded 04/27/23 08:55) Unknown Tobacco use date assessed: 04/27/23 Fall risk assessment: No Falls in past year Last assessed Fall Risk: 04/27/23 Dental Screening Dental Screen Date: 04/27/23 Did you have a dental visit in the last 12 months?: No Did you have a dental problem in the last 6 months where you did not have access to dental care?: No Was dental information given to patient?: No HPI cad HPI Details 77-year-old male with coronary artery di sease hypertension hypercholesterolemia thoracic aortic aneurysm coming in for follow-up. Last seen in October 2022. Patient follows up with Cardiology seen in February 2023 complains of exertional angina on dual anti anginal therapy with amlodipine and metoprolol echocardiogram done January 2023Normal LV ejection fraction of 55- 60% 2. Normal cardiac valvular Doppler 3. Mildly dilated ascending aorta at 4.2 cm 4. No gross pericardial effusion Patient is seen for wellness visit in November 2022. Blood work done done April 2023 PAtient me gets SOB now every 50 min on exertion with chest pressure and palpitation. Patient is known to Cardiology and is advised to see them sooner. [facility] Medical History Low vitamin B12 level 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 Arthritis of right glenohumeral joint Adult general medical exam Screening for diabetes mellitus Eczema Low back pain Fall Back pain Thyroid nodule Herpes encephalitis Cirrhosis Periodic limb movement disorder TIA (transient ischemic attack) Cognitive impairment Carpal tunnel syndrome on both sides History of renal calculi GERD (gastroesophageal reflux disease) Erectile dysfunction Thoracic aortic aneurysm Hyperlipidemia Sick sinus syndrome HTN (hypertension) Right shoulder pain Obstructive sleep apnea Osteoarthritis of right shoulder Rotator cuff impingement syndrome of right shoulder PVC (premature ventricular contraction) CAD (coronary artery disease) Surgical History History of colonoscopy History of tonsillectomy Status post carpal tunnel release of both wrists (~04/2016) Family History Father Myocardial infarct Mother No problems noted. Social History Housing: House Alcohol intake: current Alcohol intake frequency: holidays/special occasions only Patient Tobacco Use Status: Never used Tobacco Tobacco use type: Cigarette e-Cigarette/Vaping Use: Never Used Second Hand Smoke Exposure: No Current occupational status: retired Current occupation: Right Handed Cognitive needs: No Hearing needs: Yes Vision needs: Yes Questionnaire PHQ-9 Over the last 2 weeks, how often have you been bothered by any of the following problems? 1. Little interest or pleasure in doing things: not at all 2. Feeling down, depressed, or hopeless: not at all 3. Trouble falling or staying asleep, or sleeping too much: not at all 4. Feeling tired or having little energy: not at all 5. Poor appetite or overeating: not at all 6. Feeling bad about yourself - or that you are a failure or have let yourself or your family down: not at all 7. Trouble concentrating on things, such as reading the newspaper or watching television: not at all 8. Moving or speaking so slowly that other people could have noticed. Or the opposite - being so fidgety or restless that you have been moving around a lot more than usual: not at all 9. Thoughts that you would be better off or of hurting yourself in some way: not at all Total score: 0 Depression Screening Interpretation: Negative Depression Screening Done: Yes 97630 - PHQ-9 Billing: Yes Source: Developed by Drs. Sunny Simon, Katarina Branham, Joe Munoz and colleagues, with an educational giuseppe from [employer]. Thrive Questionnaire Date Thrive assessed: 04/27/23 I am a: Patient What is your living situation today?: I have a steady place to live Within the past 12 months, did the food you bought not last and you didn't have the money to get more?: Never true Within the past 12 months, did you worry whether your food would run out before you got money to buy more?: Never true Do you have trouble paying for medicines?: No Do you have trouble getting transportation to medical appointments?: No Do you have trouble paying your heating and electricity bill?: No Do you have trouble taking care of your child, family member or friend?: No Do you have trouble with day-to-day activities such as bathing, preparing meals, shopping, managing finances, etc.?: No Are you currently unemployed and looking for a job?: No Are you interested in more education?: No Currently or been in a relationship where the following occur: no concerns reported THRIVE Score: 0 AUDIT C Alcohol Use Questionnaire (AUDIT-C) 1. How often do you have a drink containing alcohol?: Monthly or less 2. How many drinks containing alcohol do you have on a typical day when you are drinking?: 1 or 2 3. How often do you have six or more drinks on one occasion?: Never Total Score: 1 Score Reviewed/Action Taken: No VANNESA-7 AMB Questionnaire VANNESA-7 Date VANNESA - 7 assessed: 04/27/23 Feeling nervous, anxious, or on edge: 0 = Not at all Not being able to stop or control worryin = Not at all Worrying too much about different things: 0 = Not at all Trouble relaxin = Not at all Being so restless that it is hard to sit still: 0 = Not at all Becoming easily annoyed or irritable: 0 = Not at all Feeling afraid as if something awful might happen: 0 = Not at all Total VANNESA-7 score (0-4 normal; 5-9 mild; 10-14 moderate; 15-21 severe): 0 Source: Developed by Drs. Sunny Simon, Katarina Branham, Joe Mnuoz and colleagues, with an educational giuseppe from [employer]. Physical exam (Primary Care) Vital Signs: Last Vital Signs Pulse 56 04/27/23 08:55 BP 138/82 04/27/23 08:55 Pulse Ox 97 04/27/23 08:55 Oxygen Delivery Method Room Air 04/27/23 08:55 BMI result Body Mass Index 25.8 Tobacco/Smoking Status: Tobacco use Status Tobacco use date assessed 04/27/23 04/27/23 09:01 Patient Tobacco Use Status Never used Tobacco 04/27/23 09:01 Tobacco use type Cigarette 04/27/23 09:01 e-Cigarette/Vaping Use Never Used 04/27/23 09:01 PHQ-9: PHQ-9 Score PHQ-9: Total score 0 04/27/23 09:01 Depression Screening Interpretation: Negative Thrive Assessment: Date of Thrive Assessment Date Thrive assessed 04/27/23 04/27/23 09:01 Currently or been in a relationship where the following occur: no concerns reported Const General: alert; No acute distress Eyes Conjunctivae: conjunctivae normal Resp Auscultation: clear to auscultation bilaterally Cardio Rate: regular rate Rhythm: regular rhythm GI Inspection: Yes normal to inspection Extrem General: Yes normal to inspection and No edema Assessment and Plan Assessment & Plan (1) Thoracic aortic aneurysm: Comment: 11/2019 3.9 cm January 2021, January 2022The left ventricular systolic function is low normal. The calculated ejection fraction is 54% by biplane method. - No obvious valvular pathology seen on this study. - There is mild dilatation of the ascending aorta measuring 3.90 January 2023Normal LV ejection fraction of 55-60% 2. Normal cardiac valvular Doppler 3. Mildly dilated ascending aorta at 4.2 cm 4. No gross pericardial effusion Code(s): I71.2 - Thoracic aortic aneurysm, without rupture Qualifiers: Presence of rupture: without rupture Qualified Code(s): I71.2 - Thoracic aortic aneurysm, without rupture Plan: January 2023 last echocardiogram 4.2 cm January 2023Normal LV ejection fraction of 55-60% 2. Normal cardiac valvular Doppler 3. Mildly dilated ascending aorta at 4.2 cm 4. No gross pericardial effusion (2) HTN (hypertension): Comment: Echo normal LV Code(s): I10 - Essential (primary) hypertension Qualifiers: Hypertension type: essential hypertension Qualified Code(s): I10 - Essential (primary) hypertension Plan: Continue with blood pressure medication. Decrease salt intake and exercise on amlodipine 5 mg once a day losartan 50 mg once a day and metoprolol 25 mg once a day (3) Hyperlipidemia: Code(s): E78.5 - Hyperlipidemia, unspecified Qualifiers: Hyperlipidemia type: pure hypercholesterolemia Qualified Code(s): E78.00 - Pure hypercholesterolemia, unspecified Plan: Avoid fried foods, chicken skin, eggs, butter margarine, pastries and meat. Be it pork or beef they have a lot of cholesterol LDL goal of less than 70 on rosuvastatin 40 mg once a day and Zetia 10 mg once a day patient just had blood work in April 2023 in [place] (4) CAD (coronary artery disease): Comment: Holter normal sinus rhythm occasional bradycardia March 2017, echo 11/2019 EF 60-65% Ascending aorta 3.9 cm. diffuse coronary artery disease significant branch vessel disease in the diagonal branch as well as the distal circumflex, being managed medically Code(s): I25.10 - Atherosclerotic heart disease of [place] coronary artery without angina pectoris Qualifiers: Coronary Disease-Associated Artery/Lesion type: [place] artery [place] vs. transplanted heart: [place] heart Associated angina: without angina Qualified Code(s): I25.10 - Atherosclerotic heart disease of [place] coronary artery without angina pectoris Plan: Control the cholesterol, weight, blood pressure, diabetes continue with aspirin 81 mg once a day. PAtient feels sob on exertion now more often. advised to see cardiology urgently (5) GERD (gastroesophageal reflux disease): Code(s): K21.9 - Gastro-esophageal reflux disease without esophagitis Qualifiers: Esophagitis presence: without esophagitis Qualified Code(s): K21.9 - Gastro-esophageal reflux disease without esophagitis Plan: Avoid the foods that causes that usually spicy foods, tomato products, juices, coffee, soda and foods that your sensitive to. After eating do not lie down, allow 3-4 hours before in lie down. And keep the head of bed above 30 degrees to avoid the acid from going up. Orders: Referrals Cardiology Referral I25.10 - Atherosclerotic heart disease of [place] coronary artery without angina pectoris Coding Level of Care Code Est Pt Level 4 (79178) Diagnoses Thoracic aortic aneurysm without rupture I71.2 Presence of rupture: without rupture Essential hypertension I10 Hypertension type: essential hypertension Pure hypercholesterolemia E78.00 Hyperlipidemia type: pure hypercholesterolemia Coronary artery disease involving [place] coronary artery of [place] heart without angina pectoris I25.10 Coronary Disease-Associated Artery/Lesion type: [place] artery [place] vs. transplanted heart: [place] heart Associated angina: without angina Gastroesophageal reflux disease without esophagitis K21.9 Esophagitis presence: without esophagitis
== END 2023-04-27 09:31 | disposition home or self-care (01) ==
PROVIDERS: PCP Internal Medicine; Visit Provider Internal Medicine
DX: I71.20 Thoracic aortic aneurysm, without rupture, unspecified (principal); I10 Essential (primary) hypertension; E78.00 Pure hypercholesterolemia, unspecified; I25.10 Atherosclerotic heart disease of native coronary artery without angina pectoris; K21.9 Gastro-esophageal reflux disease without esophagitis
CPT/HCPCS: 99214

== ENCOUNTER 2023-06-11 09:27 | Outpatient (AMB) | payer MEDICARE, SELFPAY ==
--- NOTE | 2023-06-11 09:29 | A.OFFVIS_ITS ---
Vital Signs 06/11/23 09:30 Height 5 ft 7 in Weight 160 lb 14.999 oz BMI 25.2 BP 110/70 Blood Pressure Location Lt brachial Position Sitting Pulse 51 Intake Visit Reasons: hayley Wilkins- continued cp Intake Note: Follow-up per pcp c/o left side chest pain and no energy Wallpaper Inspector Required: No Allergies lobster Allergy (Mild, Uncoded 04/27/23 08:55) Rash N.K.D.A. Allergy (Unknown, Uncoded 04/27/23 08:55) Unknown Medication List - Last Reconciled 06/11/23 by Tez Albarado MD acetaminophen (Tylenol Extra Strength) 1,000 mg (2 x 500 mg) PO QID PRN amlodipine 5 mg PO DAILY 30 days aspirin (Adult Low Dose Aspirin) 81 mg PO DAILY betamethasone dipropionate 0.05% 1 appl topical BID PRN epinephrine (Auvi-Q) 0.3 mg (0.3 mL) IM Q15M PRN ezetimibe 10 mg PO DAILY losartan 50 mg PO DAILY meloxicam 15 mg PO DAILY metoprolol succinate ER 25 mg PO DAILY mupirocin 2% 1 appl topical BID nitroglycerin 0.4 mg sublingual Q5M PRN omeprazole 40 mg (2 x 20 mg) PO DAILY rosuvastatin 40 mg PO DAILY triamcinolone acetonide 0.025% 1 appl topical BID HPI Comments Details: Brock was re referred here for further evaluation of chest discomfort. He descr ibes his chest discomfort as twinges in his chest. Yesterday said was a particularly stressful day talking to his friend who and his are in [facility] in [place]. He got stress. He started noticing these episodes 3 times distinctly. He monitor his pulse and noted frequent irregular heartbeats. He has had history of PVCs in the past. He also complains of significant fatigue with exertion. He says not able to do his usual activity. Denies any lightheadedness, syncope. No heart failure symptoms. No orthopnea, PND, leg edema. Echocardiogram was just recently completed in January which had shown normal LV ejection fraction with mildly dilated ascending aorta at 4.2 cm. [facility] Medical History (Updated 06/11/23 @ 09:55 by Tez Albarado MD) PVC (premature ventricular contraction) Low vitamin B12 level 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 Arthritis of right glenohumeral joint Adult general medical exam Screening for diabetes mellitus Eczema Low back pain Fall Back pain Thyroid nodule Herpes encephalitis Cirrhosis Periodic limb movement disorder TIA (transient ischemic attack) Cognitive impairment Carpal tunnel syndrome on both sides History of renal calculi GERD (gastroesophageal reflux disease) Erectile dysfunction Thoracic aortic aneurysm Hyperlipidemia Sick sinus syndrome HTN (hypertension) Right shoulder pain Obstructive sleep apnea Osteoarthritis of right shoulder Rotator cuff impingement syndrome of right shoulder CAD (coronary artery disease) Surgical History History of colonoscopy History of tonsillectomy Status post carpal tunnel release of both wrists (~04/2016) Family History Father Myocardial infarct Mother No problems noted. Social History Housing: House Alcohol intake: current Alcohol intake frequency: holidays/special occasions only Patient Tobacco Use Status: Never used Tobacco Tobacco use type: Cigarette e-Cigarette/Vaping Use: Never Used Second Hand Smoke Exposure: No Current occupational status: retired Current occupation: Right Handed Cognitive needs: No Hearing needs: Yes Vision needs: Yes Review of Systems Const Denies chills, Denies fatigue, Denies fever(s), Denies frequent falls, Denies weakness, Denies weight gain and Denies weight loss ENT Denies dizziness Card Denies chest pain, Denies leg edema, Denies lightheadedness, Denies palpitations, Denies dyspnea, Denies dyspnea on exertion, Denies orthopnea and Denies other (loss of consciousness) Resp Denies cough, Denies dyspnea and Denies dyspnea on exertion GI Denies hematochezia and Denies change in stool character Musc Denies abnormal gait, Denies muscle weakness, Denies numbness, Denies radiating pain into limb and Denies tingling Neuro Denies abnormal gait, Denies dizziness, Denies frequent falls, Denies numbness, Denies tingling and Denies weakness Endo Denies fatigue and Denies palpitations Physical Exam Vital Signs: Last Vital Signs Pulse 51 06/11/23 09:30 BP 110/70 06/11/23 09:30 BMI result Body Mass Index 25.2 Const General: cooperative, healthy appearing, no acute distress, alert, awake and well groomed Nutritional Appearance: average body habitus Orientation/consciousness: patient oriented x3 Limitations: no limitations Eyes General: appearance normal, both eyes and all related structures Neck Neck: Yes trachea midline, Yes supple and Yes no JVD Carotids: no bruits Chest Chest palpation & inspection: normal inspection of the chest Resp Effort & Inspection: normal respiratory effort Auscultation: clear to auscultation bilaterally Cardio Jugular venous distension: no JVD Palpation: normal PMI Rate: regular rate Rhythm: regular rhythm Heart sounds: S1 normal heart sound present, S2 normal heart sound present and Other heart sounds present ( S4 present) GI Inspection: Yes normal to inspection Auscultation: normal bowel sounds Skin General skin exam: no rashes or lesions noted and ecchymosis Neuro General: patient oriented x3 and no focal motor deficits Extrem General: Yes no clubbing, cyanosis or edema Psych Appearance: grossly normal Office Procedures EKG Details: EKG shows sinus bradycardia with left axis deviation with QS pattern in lead V1 and V2 [id number], Complete Assessment & Plan Assessment & Plan (1) CAD (coronary artery disease): Comment: Holter normal sinus rhythm occasional bradycardia March 2017, echo 11/2019 EF 60-65% Ascending aorta 3.9 cm. diffuse coronary artery disease significant branch vessel disease in the diagonal branch as well as the distal circumflex, being managed medically Code(s): I25.10 - Atherosclerotic heart disease of [place] coronary artery without angina pectoris Category: Medical Qualifiers: Coronary Disease-Associated Artery/Lesion type: [place] artery [place] vs. transplanted heart: [place] heart Associated angina: without angina Qualified Code(s): I25.10 - Atherosclerotic heart disease of [place] coronary artery without angina pectoris Plan: Patient with prior history of CAD with branch vessel disease. Having atypical symptoms. I do not think the symptoms suggest myocardial ischemia although he is very concerned about it especially symptoms of exertional fatigue and frequent PVCs. Would suggest exercise myocardial perfusion imaging to further assess for any myocardial ischemia that may require invasive treatment approach. For now continue aspirin therapy. Continue dual antianginal therapy with amlodipine and metoprolol therapy. Continue high-intensity statin therapy. Target goal LDL less than 70 mg/dL. Continue aggressive blood pressure control. (2) Sick sinus syndrome: Code(s): I49.5 - Sick sinus syndrome Category: Medical Plan: Patient baseline sinus bradycardia with metoprolol therapy and very sensitive metoprolol therapy and symptoms of fatigue could be related to sick sinus syndrome. Suggest exercise myocardial perfusion imaging to evaluate for chronotropic competence as well as evaluate for significant pauses by Holter monitor. Further treatment based on the findings. If he has significant chronotropic incompetence or sinus pauses may benefit from pacemaker therapy. This was discussed with him. (3) PVC (premature ventricular contraction): Code(s): I49.3 - Ventricular premature depolarization Category: Medical Plan: Frequent PVCs in the past. Will suppressed with metoprolol therapy at current dose. Having recurrent symptoms. Described the symptoms more in conjunction with stressful events in life. Advised stress mitigation strategies. Continue current metoprolol therapy. Advise monitoring as above. If he has frequent PVCs and frequent sinus bradycardia requires metoprolol therapy and uptitration may benefit from pacemaker therapy. Will discuss this more in details. (4) Thoracic aortic aneurysm: Comment: 11/2019 3.9 cm January 2021, January 2022The left ventricular systolic function is low normal. The calculated ejection fraction is 54% by biplane method. - No obvious valvular pathology seen on this study. - There is mild dilatation of the ascending aorta measuring 3.90 January 2023Normal LV ejection fraction of 55-60% 2. Normal cardiac valvular Doppler 3. Mildly dilated ascending aorta at 4.2 cm 4. No gross pericardial effusion Code(s): I71.2 - Thoracic aortic aneurysm, without rupture Category: Medical Qualifiers: Presence of rupture: without rupture Qualified Code(s): I71.2 - Thoracic aortic aneurysm, without rupture Plan: Thoracic aortic aneurysm is stable. Follow-up echocardiogram in 1 year's time. Continue aggressive medical therapy as above. Blood pressure is currently well optimized. Follow up in the clinic in 1 year's time, sooner p.r.n.. Thank you for allowing me to partake in his care Coding Level of Care Code Est Pt Level 4 (95271) Diagnoses Coronary artery disease involving [place] coronary artery of [place] heart without angina pectoris I25.10 Coronary Disease-Associated Artery/Lesion type: [place] artery [place] vs. transplanted heart: [place] heart Associated angina: without angina Sick sinus syndrome I49.5 PVC (premature ventricular contraction) I49.3 Thoracic aortic aneurysm without rupture I71.2 Presence of rupture: without rupture CPT Codes EKG - CPT: 30512-[id number], Complete ([id number])
[2023-06-11 09:30] VITALS: BP 110/70; PULSE 51; BMI 25.2
== END 2023-06-11 09:58 | disposition home or self-care (01) ==
PROVIDERS: PCP Internal Medicine; Visit Provider Internal Medicine Cardiovascular Disease
DX: I25.10 Atherosclerotic heart disease of native coronary artery without angina pectoris (principal); I49.5 Sick sinus syndrome; I49.3 Ventricular premature depolarization; I71.20 Thoracic aortic aneurysm, without rupture, unspecified
CPT/HCPCS: 93010; 99214

== ENCOUNTER → 2023-06-11 09:27 | Outpatient (BNVA) | payer MEDICARE, SELFPAY | PROVIDERS: PCP Internal Medicine; Visit Provider Internal Medicine Cardiovascular Disease | DX: I25.10 Atherosclerotic heart disease of native coronary artery without angina pectoris (principal); I49.5 Sick sinus syndrome; I49.3 Ventricular premature depolarization; I71.20 Thoracic aortic aneurysm, without rupture, unspecified; Z79.82 Long term (current) use of aspirin; Z79.899 Other long term (current) drug therapy | CPT/HCPCS: 93005; 99212 ==

== ENCOUNTER 2023-08-22 08:56 | Outpatient (AMB) | payer MEDICARE, SELFPAY ==
[2023-08-22 09:00] VITALS: BP 140/82; PULSE 47; O2SAT 98; BMI 25.2
--- NOTE | 2023-08-22 09:00 | MHC.PC.OV ---
Vital Signs 08/22/23 09:00 Height 5 ft 7 in Weight 161 lb BMI 25.2 BP 140/82 H Blood Pressure Location Lt brachial Position Sitting Pulse 47 L Pulse Source Pulse Oximeter Pulse Oximetry (%) 98 Oxygen Delivery Method Room Air Intake Visit Reasons: Coronary artery disease Mh Teacher: Not Required per policy Accompanied by: Self / Same As Patient Allergies lobster Allergy (Mild, Uncoded 08/22/23 09:00) Rash N.K.D.A. Allergy (Unknown, Uncoded 08/22/23 09:00) Unknown Tobacco use date assessed: 04/27/23 Fall risk assessment: No Falls in past year Last assessed Fall Risk: 08/22/23 Dental Screening Dental Screen Date: 04/27/23 HPI Coronary artery disease HPI Details 78-year-old male with a history of thoracic aortic aneurysm hypertension hypercholesterolemia coronary artery disease in GERD last seen in April 2023. Patient's last echocardiogram was in 01/31/2023. 4.2 cm patient follows up with Cardiology had some chest discomfort has been advised to get myocardial perfusion imaging. Patient had frequent PVCs suppressed on metoprolol [facility] Medical History (Updated 06/11/23 @ 09:55 by Tez Albarado MD) PVC (premature ventricular contraction) Low vitamin B12 level 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 Arthritis of right glenohumeral joint Adult general medical exam Screening for diabetes mellitus Eczema Low back pain Fall Back pain Thyroid nodule Herpes encephalitis Cirrhosis Periodic limb movement disorder TIA (transient ischemic attack) Cognitive impairment Carpal tunnel syndrome on both sides History of renal calculi GERD (gastroesophageal reflux disease) Erectile dysfunction Thoracic aortic aneurysm Hyperlipidemia Sick sinus syndrome HTN (hypertension) Right shoulder pain Obstructive sleep apnea Osteoarthritis of right shoulder Rotator cuff impingement syndrome of right shoulder CAD (coronary artery disease) Surgical History History of colonoscopy History of tonsillectomy Status post carpal tunnel release of both wrists (~04/2016) Family History Father Myocardial infarct Mother No problems noted. Social History Housing: House Alcohol intake: current Alcohol intake frequency: holidays/special occasions only Patient Tobacco Use Status: Never used Tobacco Tobacco use type: Cigarette e-Cigarette/Vaping Use: Never Used Second Hand Smoke Exposure: No Current occupational status: retired Current occupation: Right Handed Cognitive needs: No Hearing needs: Yes Vision needs: Yes Questionnaire Thrive Questionnaire Date Thrive assessed: 04/27/23 VANNESA-7 AMB Questionnaire VANNESA-7 Date VANNESA - 7 assessed: 04/27/23 Source: Developed by Drs. Sunny Simon, Katarina Branham, Joe Munoz and colleagues, with an educational giuseppe from [employer]. Physical exam (Primary Care) Vital Signs: Last Vital Signs Pulse 47 L 08/22/23 09:00 BP 140/82 H 08/22/23 09:00 Pulse Ox 98 08/22/23 09:00 Oxygen Delivery Method Room Air 08/22/23 09:00 BMI result Body Mass Index 25.2 Tobacco/Smoking Status: Tobacco use Status Tobacco use date assessed 04/27/23 08/22/23 09:01 Patient Tobacco Use Status Never used Tobacco 08/22/23 09:01 Tobacco use type Cigarette 08/22/23 09:01 e-Cigarette/Vaping Use Never Used 08/22/23 09:01 Thrive Assessment: Date of Thrive Assessment Date Thrive assessed 04/27/23 08/22/23 09:01 Const General: alert; No acute distress Eyes Conjunctivae: conjunctivae normal Resp Auscultation: clear to auscultation bilaterally Cardio Rate: regular rate Rhythm: regular rhythm GI Inspection: Yes normal to inspection Extrem General: Yes normal to inspection and No edema Assessment and Plan Assessment & Plan (1) CAD (coronary artery disease): Comment: Holter normal sinus rhythm occasional bradycardia March 2017, echo 11/2019 EF 60-65% Ascending aorta 3.9 cm. diffuse coronary artery disease significant branch vessel disease in the diagonal branch as well as the distal circumflex, being managed medically Code(s): I25.10 - Atherosclerotic heart disease of [place] coronary artery without angina pectoris Qualifiers: Coronary Disease-Associated Artery/Lesion type: [place] artery [place] vs. transplanted heart: [place] heart Associated angina: without angina Qualified Code(s): I25.10 - Atherosclerotic heart disease of [place] coronary artery without angina pectoris Plan: Patient has been seen by Cardiology due to atypical chest symptoms and has been advised to get a myocardial perfusion scan this is pending but patient declined to have this done and discussed about getting test done if having chest pain (2) HTN (hypertension): Comment: Echo normal LV Code(s): I10 - Essential (primary) hypertension Qualifiers: Hypertension type: essential hypertension Qualified Code(s): I10 - Essential (primary) hypertension Plan: Continue with blood pressure medication. Decrease salt intake and exercise on amlodipine 5 mg once a day metoprolol 25 mg once a day (3) Hyperlipidemia: Code(s): E78.5 - Hyperlipidemia, unspecified Qualifiers: Hyperlipidemia type: pure hypercholesterolemia Qualified Code(s): E78.00 - Pure hypercholesterolemia, unspecified Plan: Avoid fried foods, chicken skin, eggs, butter margarine, pastries and meat. Be it pork or beef they have a lot of cholesterol LDL goal of less than 70 and triglyceride of less than 150 on rosuvastatin 40 mg once a day and Zetia 10 mg once a day April 2023 last blood work LDL 70 (4) Thoracic aortic aneurysm: Comment: 11/2019 3.9 cm January 2021, January 2022The left ventricular systolic function is low normal. The calculated ejection fraction is 54% by biplane method. - No obvious valvular pathology seen on this study. - There is mild dilatation of the ascending aorta measuring 3.90 January 2023Normal LV ejection fraction of 55-60% 2. Normal cardiac valvular Doppler 3. Mildly dilated ascending aorta at 4.2 cm 4. No gross pericardial effusion Code(s): I71.2 - Thoracic aortic aneurysm, without rupture Qualifiers: Presence of rupture: without rupture Qualified Code(s): I71.2 - Thoracic aortic aneurysm, without rupture Plan: January 2023 last test and advised to repeat test this year in January (5) GERD (gastroesophageal reflux disease): Code(s): K21.9 - Gastro-esophageal reflux disease without esophagitis Qualifiers: Esophagitis presence: without esophagitis Qualified Code(s): K21.9 - Gastro-esophageal reflux disease without esophagitis Plan: Avoid the foods that causes that usually spicy foods, tomato products, juices, coffee, soda and foods that your sensitive to. After eating do not lie down, allow 3-4 hours before in lie down. And keep the head of bed above 30 degrees to avoid the acid from going up. (6) Impaired glucose tolerance: Code(s): R73.02 - Impaired glucose tolerance (oral) Plan: Decrease the amount of carbohydrate intake, pasta, bread, rice and potatoes are all sugar and that is aside from all the sweet stuff, remember that fruits are good but they are Sweet also. Coding Level of Care Code Est Pt Level 4 (54422) Diagnoses Coronary artery disease involving [place] coronary artery of [place] heart without angina pectoris I25.10 Coronary Disease-Associated Artery/Lesion type: [place] artery [place] vs. transplanted heart: [place] heart Associated angina: without angina Essential hypertension I10 Hypertension type: essential hypertension Pure hypercholesterolemia E78.00 Hyperlipidemia type: pure hypercholesterolemia Thoracic aortic aneurysm without rupture I71.2 Presence of rupture: without rupture Gastroesophageal reflux disease without esophagitis K21.9 Esophagitis presence: without esophagitis Impaired glucose tolerance R73.02
== END 2023-08-22 09:39 | disposition home or self-care (01) ==
PROVIDERS: PCP Internal Medicine; Visit Provider Internal Medicine
DX: I25.10 Atherosclerotic heart disease of native coronary artery without angina pectoris (principal); I71.20 Thoracic aortic aneurysm, without rupture, unspecified; I10 Essential (primary) hypertension; E78.00 Pure hypercholesterolemia, unspecified; K21.9 Gastro-esophageal reflux disease without esophagitis; R73.02 Impaired glucose tolerance (oral)
CPT/HCPCS: 99214

== ENCOUNTER 2023-11-28 10:18 | Outpatient (AMB) | payer MEDICARE, SELFPAY ==
[2023-11-28 10:19] VITALS: BP 132/70; PULSE 53; O2SAT 95; BMI 25.4
--- NOTE | 2023-11-28 10:19 | A.OFFVIS_ITS ---
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 Allergy (Unknown, Uncoded 11/28/23 10:20) Unknown Medication List - Last Reconciled 11/28/23 by Gordo Wilkins MD acetaminophen (Tylenol Extra Strength) 1,000 mg (2 x 500 mg) PO QID PRN amlodipine 5 mg PO DAILY 30 days aspirin (Adult Low Dose Aspirin) 81 mg PO DAILY epinephrine (Auvi-Q) 0.3 mg (0.3 mL) IM Q15M PRN ezetimibe 10 mg PO DAILY losartan 50 mg PO DAILY metoprolol succinate ER 25 mg PO DAILY nitroglycerin 0.4 mg sublingual Q5M PRN omeprazole 20 mg PO DAILY rosuvastatin 40 mg PO DAILY triamcinolone acetonide 0.025% 1 appl topical BID HPI SWV G0439 HPI Details 78-year-old male with coronary artery di sease hypertension hypercholesterolemia history of thoracic aortic aneurysm GERD impaired glucose tolerance coming in for an annual well visit. Last seen in August 2023. Patient's colonoscopy 2013 last cardiology visit was 06/02/2023. Jesus mckinnon has diffuse coronary artery disease significant for branch vessel disease in diagonal branch as well as distal circumflex managed medically. Advised myocardial perfusion imaging. Cardiology Dr. Albarado, orthopedics Matilda [place]/Dr. Martinez. PAtient states ok to get cardiac test [facility] Medical History (Updated 11/28/23 @ 10:52 by Gordo Wilkins MD) PVC (premature ventricular contraction) Low vitamin B12 level 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 Arthritis of right glenohumeral joint Adult general medical exam Screening for diabetes mellitus Eczema Low back pain Fall Back pain Thyroid nodule Herpes encephalitis Cirrhosis Periodic limb movement disorder TIA (transient ischemic attack) Cognitive impairment Carpal tunnel syndrome on both sides History of renal calculi GERD (gastroesophageal reflux disease) Erectile dysfunction Thoracic aortic aneurysm Hyperlipidemia Sick sinus syndrome HTN (hypertension) Right shoulder pain Obstructive sleep apnea Osteoarthritis of right shoulder Rotator cuff impingement syndrome of right shoulder CAD (coronary artery disease) Surgical History History of colonoscopy History of tonsillectomy Status post carpal tunnel release of both wrists (~04/2016) Family History Father Myocardial infarct Mother No problems noted. Social History (Updated 11/28/23 @ 11:02 by Gordo Wilkins MD) Housing: House Alcohol intake: current Alcohol intake frequency: holidays/special occasions only Comment: 2 beers a day Patient Tobacco Use Status: Never used Tobacco Tobacco use type: Cigarette e-Cigarette/Vaping Use: Never Used Second Hand Smoke Exposure: No Current occupational status: retired Current occupation: Right Handed Cognitive needs: No Hearing needs: Yes Vision needs: Yes Questionnaire Medicare Wellness Checkup What is your age?: 78 or older What gender do you identify with?: male During the past 4 weeks, how much have you been bothered by emotional problems such as feeling anxious, depressed, irritable, sad or downhearted, and blue?: not at all During the past 4 weeks, has your physical & emotional health limited your social activities with family, friends, neighbors, or groups?: not at all During the past 4 weeks, how much bodily pain have you generally had?: moderate pain During the past 4 weeks, was someone available to help you if you needed & wanted help?: yes, as much as I wanted During the past 4 weeks, what was the hardest physical activity you could do for at least 2 minutes?: moderate Can you get to places out of walking distance without help? (For eg., can you travel alone on buses, taxis or drive your car?): Yes Can you go shopping for groceries or clothes without someone's help?: Yes Can you prepare your own meals?: Yes Can you do your housework without help?: Yes Because of any health problems, do you need the help of another person with your personal care needs such as eating, bathing, dressing or getting around the house?: No Can you handle your own money without help?: Yes During the past 4 weeks, how would you rate your health in general?: good During the past 4 weeks how have things been going for you?: very well; could hardly better Are you having difficulties driving your car?: no Do you always fasten your seat belt when you are in a car?: yes, usually During past 4 weeks, have you been bothered by the following: never: Falling or dizzy when standing up, Sexual problems?, Trouble eating well?, Teeth or denture problems?, Problems using the telephone? and Tiredness or fatigue? Have you fallen 2 or more times in the past year?: No Are you afraid of falling?: No Are you a smoker?: no During the past 4 weeks, how many drinks of wine, beer, or other alcoholic beverages did you have?: 6-9 drinks per week Do you exercise for about 20 minutes 3 or more times a week?: yes, all the time Have you been given information to help with the following?: yes: Keeping track of your medications? and no: Hazards in your house that might hurt you? How often do you have trouble taking medicines the way you have been told to take them?: I always take medicine as prescribed How confident are you that you can control & manage most of your health problems?: very confident What is your race?: White PHQ-9 Over the last 2 weeks, how often have you been bothered by any of the following problems? 1. Little interest or pleasure in doing things: not at all 2. Feeling down, depressed, or hopeless: not at all 3. Trouble falling or staying asleep, or sleeping too much: not at all 4. Feeling tired or having little energy: not at all 5. Poor appetite or overeating: not at all 6. Feeling bad about yourself - or that you are a failure or have let yourself or your family down: not at all 7. Trouble concentrating on things, such as reading the newspaper or watching television: not at all 8. Moving or speaking so slowly that other people could have noticed. Or the opposite - being so fidgety or restless that you have been moving around a lot more than usual: not at all 9. Thoughts that you would be better off or of hurting yourself in some way: not at all Total score: 0 Depression Screening Interpretation: Negative Depression Screening Done: Yes Source: Developed by Drs. Sunny Simon, Katarina Branham, Joe Munoz and colleagues, with an educational giuseppe from [employer]. Review of Systems Const Denies poor appetite and Denies weakness Eyes Denies no additional complaints ENT Reports Normal hearing present, Denies dizziness, Denies nasal congestion, Denies tinnitus and Denies sore throat Card Denies chest pain, Denies syncope, Denies rapid heart rate and Denies dyspnea Resp Denies cough and Denies dyspnea GI Denies change in stool character, Reports constipation, Denies diarrhea, Denies nausea and Denies vomiting Denies dysuria and Denies urinary frequency Neuro Reports Normal hearing present, Denies confusion, Denies dizziness, Denies syncope and Denies weakness Psych Denies confusion Physical Exam Vital Signs: Last Vital Signs Pulse 53 11/28/23 10:19 BP 132/70 11/28/23 10:19 Pulse Ox 95 11/28/23 10:19 Oxygen Delivery Method Room Air 11/28/23 10:19 BMI result Body Mass Index 25.4 Const General: No confusion Orientation/consciousness: No confusion HEENT Head: Yes normocephalic Ears: external ears normal and TM's normal bilaterally Face and sinus: Yes normal facial exam Mouth: moist mucous membranes Throat: Yes tonsils normal Eyes Conjunctivae: conjunctivae normal Pupils: Equal, round and reactive pupils present and Pupil accommodation reflex normal Direct Ophthalmoscopy: normal light reflex Neck Neck: No lymphadenopathy Thyroid: Thyroid normal Chest Chest palpation & inspection: normal inspection of the chest Resp Effort & Inspection: normal respiratory effort and no audible wheezes Auscultation: clear to auscultation bilaterally, no crackles, no wheezes and lung sounds not diminished Cardio Rate: regular rate Rhythm: regular rhythm Peripheral pulses: radial pulses present and dorsalis pedis present GI Other: guaiac negative prostate N Palpation (GI): no masses Auscultation: normal bowel sounds and normoactive bowel sounds Rectal Exam - Male: Yes deferred Male General Exam: Yes normal external exam Skin General skin exam: no rashes or lesions noted Rashes: no rashes Neuro General: No confusion Cranial nerves: Yes Equal, round and reactive pupils present and Yes Normal hearing present Cognition (Neuro): normal cognition Gait exam (Neuro): Normal gait present Motor exam (neuro): 5/5 motor strength present throughout Deep tendon reflexes (DTR's): Right brachioradialis reflex intensity grade: 2+, Left brachioradialis reflex intensity grade: 2+, Right patellar reflex intensity grade: 2+ and Left patellar reflex intensity grade: 2+ Extrem General: No edema Office Procedures Flu Questionnaire Does the patient have a severe egg allergy?: No Does the patient have severe life threatening allergies?: No Does the patient have a fever or illness today?: No Has the patient ever had Guillain-Granton Syndrome?: No Has the patient ever had any past reaction to a flu shot?: No Immunizations Fluarix Triv [id number] (PF) 45 mcg (15 mcg x 3)/0.5 mL IM syringe Performing Provider: Gordo Wilkins MD Performing Location: [facility] – [place] [facility] Administered by: MARTHA Walker on 11/28/23 11:31 Dose Route Admin Location Dispensed Lot Number Expiration Date NDC Trimming Machine Operator 0.5 mL IM Left Deltoid 0.5 mL [id number] 08/11/24 51472-847-17 Pouring Pounds VIS Given Date VIS Provided VIS Publication Date 11/28/23 Single Vaccine 20 Eligibility Eligibility Date Funding Source Not [facility] Eligible 11/28/23 Private Assessment & Plan Assessment & Plan (1) Medicare annual wellness visit, subsequent: Code(s): Z00.00 - Encounter for general adult medical examination without abnormal findings Plan: Patient is advised to eat healthy, keep well hydrated, keep active and have adequate sleep. (2) CAD (coronary artery disease): Comment: Holter normal sinus rhythm occasional bradycardia March 2017, echo 11/2019 EF 60-65% Ascending aorta 3.9 cm. diffuse coronary artery disease significant branch vessel disease in the diagonal branch as well as the distal circumflex, being managed medically Code(s): I25.10 - Atherosclerotic heart disease of [place] coronary artery without angina pectoris Qualifiers: Associated angina: without angina Coronary Disease-Associated Artery/Lesion type: [place] artery [place] vs. transplanted heart: [place] heart Qualified Code(s): I25.10 - Atherosclerotic heart disease of [place] coronary artery without angina pectoris Plan: Control the cholesterol, weight, blood pressure, continuing with aspirin 81 mg once a day (3) HTN (hypertension): Comment: Echo normal LV Code(s): I10 - Essential (primary) hypertension Qualifiers: Hypertension type: essential hypertension Qualified Code(s): I10 - Essential (primary) hypertension Plan: Continue with blood pressure medication. Decrease salt intake and exercise amlodipine 5 mg once a day losartan 50 mg once a day metoprolol 25 mg once a day (4) Hyperlipidemia: Code(s): E78.5 - Hyperlipidemia, unspecified Qualifiers: Hyperlipidemia type: pure hypercholesterolemia Qualified Code(s): E78.00 - Pure hypercholesterolemia, unspecified Plan: Avoid fried foods, chicken skin, eggs, butter margarine, pastries and meat. Be it pork or beef they have a lot of cholesterol LDL goal of less than 70 and triglyceride of less than 150 on rosuvastatin 40 mg once a day and Zetia 10 mg once a day (5) Thoracic aortic aneurysm: Comment: 11/2019 3.9 cm January 2021, January 2022The left ventricular systolic function is low normal. The calculated ejection fraction is 54% by biplane method. - No obvious valvular pathology seen on this study. - There is mild dilatation of the ascending aorta measuring 3.90 January 2023Normal LV ejection fraction of 55-60% 2. Normal cardiac valvular Doppler 3. Mildly dilated ascending aorta at 4.2 cm 4. No gross pericardial effusion Code(s): I71.2 - Thoracic aortic aneurysm, without rupture Qualifiers: Presence of rupture: without rupture Qualified Code(s): I71.2 - Thoracic aortic aneurysm, without rupture Plan: 01/31/2023 last echocardiogram. 4.2 cm (6) GERD (gastroesophageal reflux disease): Code(s): K21.9 - Gastro-esophageal reflux disease without esophagitis Qualifiers: Esophagitis presence: without esophagitis Qualified Code(s): K21.9 - Gastro-esophageal reflux disease without esophagitis Plan: Avoid the foods that causes that usually spicy foods, tomato products, juices, coffee, soda and foods that your sensitive to. After eating do not lie down, allow 3-4 hours before in lie down. And keep the head of bed above 30 degrees to avoid the acid from going up. Orders: Orders CA lexiscan stress w alisha Today I49.5 - Sick sinus syndrome Influenza [id number] Immunization Today Z23 - Encounter for immunization ECG 3 day holter monitor Today I49.5 - Sick sinus syndrome Medications: New Fluarix Triv [id number] (PF) (flu vacc [id number] 6mos up(PF)) 0.5 mL IM ONCE 0.5 mL 0RF NS Z23 - Encounter for immunization Quality Reporting (2019) Depression/Bipolar (159/160/161/177) PHQ-9: Total score: 0 Coding Level of Care Code Medicare Subsequent (G0439) Diagnoses Medicare annual wellness visit, subsequent Z00.00 Coronary artery disease involving [place] coronary artery of [place] heart without angina pectoris I25.10 Associated angina: without angina Coronary Disease-Associated Artery/Lesion type: [place] artery [place] vs. transplanted heart: [place] heart Essential hypertension I10 Hypertension type: essential hypertension Pure hypercholesterolemia E78.00 Hyperlipidemia type: pure hypercholesterolemia Thoracic aortic aneurysm without rupture I71.2 Presence of rupture: without rupture Gastroesophageal reflux disease without esophagitis K21.9 Esophagitis presence: without esophagitis
== END 2023-11-28 11:35 | disposition home or self-care (01) ==
PROVIDERS: PCP Internal Medicine; Visit Provider Internal Medicine
DX: Z00.00 Encounter for general adult medical examination without abnormal findings (principal); I25.10 Atherosclerotic heart disease of native coronary artery without angina pectoris; I71.20 Thoracic aortic aneurysm, without rupture, unspecified; I10 Essential (primary) hypertension; E78.00 Pure hypercholesterolemia, unspecified; K21.9 Gastro-esophageal reflux disease without esophagitis

== ENCOUNTER → 2023-11-28 10:18 | Outpatient (BNVA) | payer MEDICARE, SELFPAY | PROVIDERS: PCP Internal Medicine; Visit Provider Internal Medicine | DX: Z00.00 Encounter for general adult medical examination without abnormal findings (principal); I25.10 Atherosclerotic heart disease of native coronary artery without angina pectoris; I10 Essential (primary) hypertension; E78.00 Pure hypercholesterolemia, unspecified; I71.20 Thoracic aortic aneurysm, without rupture, unspecified; K21.9 Gastro-esophageal reflux disease without esophagitis; Z79.899 Other long term (current) drug therapy; Z23 Encounter for immunization | CPT/HCPCS: 90471; 90656; 96127 ==

== ENCOUNTER → 2023-12-10 09:12 | Outpatient (REF) | payer MEDICARE, SELFPAY ==
--- NOTE | 2023-12-10 09:15 | HM_ITS ---
Conclusion: 1. Patient was monitored for total period of 3 days 2. Baseline was normal sinus rhythm with average heart rate of 57 beats per minute 3. Frequent sinus bradycardia noted with 69% of time heart rate below 60 beats per minute without significant pauses with 19 total SVT events, longest lasting 33 beats and the fastest at 157 beats per minute 4. Occasional PACs noted 5. No patient reported events MTDD
== END ==
LOC: HO.CARD 09:12
PROVIDERS: PCP Internal Medicine; Visit Provider Internal Medicine
DX: I49.5 Sick sinus syndrome (principal)
CPT/HCPCS: 93242

== ENCOUNTER → 2023-12-10 09:15 | Outpatient (BNV) | payer MEDICARE, SELFPAY | PROVIDERS: PCP Internal Medicine; Visit Provider Internal Medicine Cardiovascular Disease | DX: I47.10 Supraventricular tachycardia, unspecified (principal) | CPT/HCPCS: 93244 ==

== ENCOUNTER → 2024-02-21 08:29 | Outpatient (REF) | payer MEDICARE, SELFPAY ==
--- NOTE | 2024-02-21 08:36 | CA_ITS ---
Transthoracic Echocardiogram Patient (Last, First, Middle): Marques Martinez F Gender: Male Date of : 1945 Age: 78 Procedure Date: 02/21/2024 Procedure Type: Transthoracic Echocardiogram Location: OP Height: 167.64 cm Weight: 74.84 kg BSA: 1.84 m2 Heart Rate: bpm BP: 135 / 78 mmHg Railway Shunter: GLENDA Referring MD: Tez Albarado MD Symptoms: I71.2 - Thoracic aortic aneurysm, without rupture Study Quality: Adequate ECG Rhythm: Sinus Conclusions: - The left ventricular systolic function is normal. The calculated ejection fraction is 59% by biplane method. - Moderately increased right ventricular cavity size. - No obvious valvular pathology seen on this study. - There is mild dilatation of the ascending aorta measuring 4.30 cm. Findings Left Ventricle Normal left ventricular cavity size. The left ventricular systolic function is normal. The calculated ejection fraction is 59% by biplane method. There is no evidence of regional wall motion abnormalities. Diastolic function is normal for age. There is mild septal asymmetric hypertrophy. Right Ventricle Moderately increased right ventricular cavity size. There is normal right ventricular systolic function. Atria The left atrium is mildly dilated. The right atrium is moderately dilated. Aortic Valve There is a normal trileaflet aortic valve. There is mild calcification of the aortic valve. There is no aortic valve stenosis. There is trace (trivial) aortic valve regurgitation. Mitral Valve The mitral valve appears normal. There is trace mitral valve regurgitation. There is no mitral valve stenosis. Pulmonic Valve The pulmonic valve is likely normal. Tricuspid Valve There is mild tricuspid valve regurgitation. There is no evidence of pulmonary hypertension. Great Vessels The aortic arch is normal in size. There is mild dilatation of the ascending aorta measuring 4.30 cm. Small plaque is seen in the sino tubular ridge. Venous The inferior vena cava is normal in size and collapses greater than 50% with inspiration. Pericardium/Pleural There is no evidence of pericardial effusion. Prior Study Comparison No significant change compared to prior study dated: 01/12/2023. Recommendations, Care & Conclusions No obvious valvular pathology seen on this study. Measurements 2D Linear Measurements IVSd: 1.14 0.6-0.9/0.6-1.0 cm LVIDd: 4.98 3.9-5.3/4.2-5.9 cm LVIDd Index: 2.71 2.4-3.2/2.2-3.1 cm/m2 LVIDs: 3.54 2.0-3.6 cm LVPWd: 0.91 0.7-1.1 cm LA Diam: 3.70 2.7-3.8/3.0-4.0 cm LAIDs Index: 2.01 1.5-2.3 cm/m2 LV Mass: 233.03 67-162/88-224 g LV Mass Index: 126.65 43-95/49-115 g/m2 LVOT Diam: 2.10 3.0+(-)1.3 cm 2D Systolic Function EF 4C: 64.00 >55% EF 2C: 55.10 >55% EF BiP: 59.30 >55% Mitral Valve MV Pk E: 0.81 MV PK A: 0.94 MV Decel Time: 210.00 E/A: 0.90 E'Lateral: 9.03 E'Medial: 6.42 E/E' Med: 12.60 E/E' Lat: 8.90 PHT: 62.00 MVA PHT: 3.55 Decel Lewis: 3.84 Aortic Valve AoV Pk Ervin: 1.54 AoV Mn Ervin: 1.05 AoV VTI: 0.40 AoV Pk Grad: 9.00 Aov Mn Grad: 5.00 JULES Cont.VTI: 2.17 LVOT LVOT Pk Ervin: 0.97 LVOT Mn Ervin: 0.63 LVOT VTI: 0.25 LVOT Pk Grad: 4.00 LVOT Mn Grad: 2.00 LVOT Diam: 2.10 LVOT Area: 3.46 Diastolic Function MV Pk E: 0.81 MV Pk A: 0.94 E/A: 0.90 E'Medial: 6.42 E/E' Med: 12.60 E' Laterial: 9.03 E/E' Lat: 8.90 Right Ventricle TAPSE (mm): 30.90 TVS' Ervin: 12.30 Tricuspid Valve TR Pk Ervin: 2.50 TR Pk Grad: 25.00 RA Press: 3.00 RVSP: 28.00 Great Vessels Aorta Sinus of Valsalva: 4.12 2.0-3.[address] Ridge: 3.50 1.7-3.4 cm Ao Asc: 4.30 2.1-3.4 cm Ao Arch: 3.00 Updated in Other Vendor System with Status of Final Nikunj Machado MD electronically signed on 02/23/2024 1:09:51 PM with status of Final
--- OUTSIDE RECORDS SUMMARY | 2024-02-21 08:43 | XMS_ITS | Continuity of Care Document ---
Author Name [facility] Organization [facility] Care Team Providers Care Rn Procedures Name Role Phone [facility] Unavailable Unavailable Problems Combined list of problems from 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 It does not include entries that were removed or entered in error. Problem Status Onset Date Problem Type Date of Resolution Comments Source Malignant Melanoma of Skin (SCT [id number]) Active 02/12/19 11 Condition Nov 06, 2021 Entered By: SHIRA WHITTAKER AM Comment: left christian, 2010. [facility] [place] ACTINIC KERATOSIS Active Condition [facility] [place] [facility] Cataract, Cortical (Senile) Active Condition [facility] Chronic Ischemic Heart Disease (SCT 651666088) Active Condition [facility] ESOPHAGEAL REFLUX (GERD) Active Condition [facility] Exposure to potentially hazardous substance (SCT 661429840166828) Active Condition May 22 Entered By: RADHA HENSON Comment: Entered automatically through [facility] Problem List documentation program [facility] HYPERLIPIDEMIA Active Condition [facility] HYPERTENSION Active Condition [facility] IMPOTENCE, ORGANIC ORIGN Active Condition [facility] Squamous Cell Carcinoma of Skin (SCT 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) Active Condition [facility] Diagnosis: ICD-10-CM Z46.0 Encounter for fit/adjst of spectacles and contact lenses Active Diagnosis [facility] Diagnosis: ICD-10-CM H25.813 Combined forms of age-related cataract, bilateral Active Diagnosis [facility] Diagnosis: ICD-10-CM C43.9 Malignant melanoma of skin, unspecified Active Diagnosis [facility] Diagnosis: ICD-10-CM H90.3 Sensorineural hearing loss, bilateral [facility] [place] Diagnosis: ICD-10-CM Z23 Encounter for immunization [facility] Medications Combined list of outpatient medications from 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Medications provided include 1) outpatient medications from the last 15 months, and 2) patient-reported medications. Medication Details Route Status Patient Instructions Prescription Expires Prescription Number Last Dispense Date Ordering Provider Order Date Order Qty Source AMLODIPINE BESYLATE 5MG TAB TAKE ONE TABLET BY MOUTH ONCE DAILY FOR BLOOD PRESSURE /HEART, DO NOT TAKE WITH GRAPEFRU IT JUICE ORAL ACTIVE 04/26/2024 [id number] ELIAS WHITTAKER 2023 90 [facility] AMLODIPINE BESYLATE 5MG TAB TAKE ONE TABLET BY MOUTH ONCE DAILY FOR BLOOD PRESSURE /HEART, DO NOT TAKE WITH GRAPEFRU IT JUICE ORAL DISCONT INUED 09/09/2023 [id number] 4 ELIAS WHITTAKER 2022 90 [facility] ASPIRIN 81MG TAB,EC TAKE TWO TABLETS BY MOUTH DAILY ORAL ACTIVE ELIAS WHITTAKER 2012 [facility] EPINEPHRINE (EQV-EPI-PE N) 0.3MG/0.3ML INJECTOR INJECT DIRECTED INTRAMUS CULARLY PRN INTRAM USCULA R RA JESSICA WEEMS 2021 [facility] EZETIMIBE 10MG TAB TAKE ONE TABLET BY MOUTH ONCE DAILY TO LOWER CHOLESTE ROL ORAL ACTIVE 04/26/2024 [id number] 4 ELIAS WHITTAKER 2023 90 [facility] [place] [facility] EZETIMIBE 10MG TAB TAKE ONE TABLET BY MOUTH ONCE DAILY TO LOWER CHOLESTE ROL ORAL DISCONT INUED 09/09/2023 [id number] ELIAS WHITTAKER 2022 90 [facility] [place] 50MG TAB TAKE ONE TABLET BY MOUTH ONCE DAILY FOR BLOOD PRESSURE /HEART ORAL ACTIVE 04/26/2024 [id number] ELIAS WHITTAKER 2023 90 [facility] [place] 50MG TAB TAKE ONE TABLET BY MOUTH ONCE DAILY FOR BLOOD PRESSURE /HEART ORAL DISCONT INUED 09/09/2023 [id number] ELIAS WHITTAKER 2022 90 [facility] METOPROLOL SUCCINATE 25MG TAB,SA TAKE ONE TABLET BY MOUTH ONCE DAILY FOR BLOOD PRESSURE /HEART ORAL ACTIVE 04/26/2024 [id number] ELIAS WHITTAKER 2023 90 [facility] METOPROLOL SUCCINATE 25MG TAB,SA TAKE ONE TABLET BY MOUTH ONCE DAILY FOR BLOOD PRESSURE /HEART ORAL DISCONT INUED 09/09/2023 [id number] ELIAS WHITTAKER 2022 90 [facility] [place] [facility] OMEPRAZOLE 20MG CAP,EC TAKE TWO CAPSULES BY MOUTH EVERY MORNING 30 MINUTES BEFORE BREAKFAS T ORAL ACTIVE 04/26/2024 [id number] ELIAS WHITTAKER 2023 180 [facility] [place] [facility] [facility] OMEPRAZOLE 20MG CAP,EC TAKE TWO CAPSULES BY MOUTH EVERY MORNING 30 MINUTES BEFORE BREAKFAS T ORAL DISCONT INUED 09/09/2023 [id number] 4 ELIAS WHITTAKER 2022 180 [facility] [place] [facility] [facility] ROSUVASTATI N [place] 40MG TAB TAKE ONE TABLET BY MOUTH ONCE DAILY FOR HIGH CHOLESTE ROL FOR CHOLESTE ROL ORAL ACTIVE 06/18/2024 [id number] ELIAS WHITTAKER 2023 90 [facility] [place] ROSUVASTATI N [place] 40MG TAB TAKE ONE TABLET BY MOUTH ONCE DAILY FOR CHOLESTE ROL PLEASE GO TO THE LAB FOR BLOODWOR K AND SCHEDULE PCP APPT. ORAL DISCONT INUED 05/09/2023 [id number] 4 ELIAS WHITTAKER 2023 30 [facility] [facility] ROSUVASTATI N [place] 40MG TAB TAKE ONE TABLET BY MOUTH ONCE DAILY FOR CHOLESTE ROL PLEASE GO TO THE LAB FOR BLOODWOR K AND SCHEDULE PCP APPT. ORAL DISCONT INUED 04/15/2023 [id number] RA JESSICA FLYNN 2023 30 [facility] ROSUVASTATI N [place] 40MG TAB TAKE ONE TABLET BY MOUTH ONCE DAILY FOR HIGH CHOLESTE ROL ORAL 05/26/2023 [id number] 4 AURELIOELIAS BACH 2023 30 [facility] ROS[place]I N [place] 40MG TAB TAKE ONE TABLET BY MOUTH ONCE DAILY FOR CHOLESTE ROL ORAL 12/13/2022 [id number] 3 ELIAS WHITTAKER 2021 90 [facility] Allergies, Adverse Reactions, Alerts Combined list of allergies from 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 It does not include entries that were removed or entered in error. Substance Category Reaction Severity Reaction type Status Date Reported Comments Source SHELLFISH Propensity to adverse reactions to food (finding) Urticaria active 2 [facility] [place] [facility] Immunizations Combined list of available immunizations from the 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 Status Comments Source INFLUENZA, HIGH-DOSE, QUADRIVALENT 2022 NILDA ALFARO LEFT DELTO ID [id number] 197 complet ed [facility] COVID-19 (MODERNA), MRNA, LNP-S, PF, 100 MCG OR 50 MCG DOSE 3 2020 207 complet ed MOD; [id number]; 2 [facility] [place] [facility] INFLUENZA, UNSPECIFIED FORMULATION 2020 88 complet ed [facility] [place] COVID-19 (MODERNA), MRNA, LNP-S, PF, 100 MCG/0.5 ML DOSE 2 2020 207 complet ed MOD; [id number]; 1 [facility] COVID-19 (MODERNA), MRNA, LNP-S, PF, 100 MCG/0.5 ML DOSE 1 2020 207 complet ed MOD; [id number]; 1 [facility] ZOSTER RECOMBINANT 2 2020 187 complet ed [facility] INFLUENZA, UNSPECIFIED FORMULATION 2019 88 complet ed [facility] ZOSTER RECOMBINANT 1 2019 187 complet ed [facility] INFLUENZA, SEASONAL, INJECTABLE 2018 141 complet ed [facility] INFLUENZA, SEASONAL, INJECTABLE 2017 141 complet ed [facility] INFLUENZA, SEASONAL, INJECTABLE 2016 141 complet ed [facility] FLU,3 YRS (HISTORICAL) 2014 88 complet ed outside provider [facility] PNEUMOCOCCAL CONJUGATE PCV 13 2014 133 complet ed [facility] FLU,3 YRS (HISTORICAL) 2013 88 complet ed [facility] [place] [facility] DTAP, UNSPECIFIED FORMULATION 2013 107 complet ed Site: Left Deltoid [facility] PNEUMOCOCCAL, UNSPECIFIED FORMULATION 2013 109 complet ed [facility] ZOSTER (HISTORICAL) 2013 121 complet ed in the community [facility] ZOSTER (SHINGLES) (HISTORICAL) 2013 121 complet ed [facility] Results Combined list of recent chemistry, hematology and other laboratory results from Department of Defense and Veterans Affairs, ranging from 15 months to all on record, depending upon the facility. Order Name Results Value Reference Range Date Interpretation Specimen Comments Source LIPID PANEL FASTING CHOLESTEROL [MASS/VOLUM E] IN SERUM OR PLASMA 153 mg/dL 04/16 Specimen Type: SERUM No comment entered. Ordering Provider: ERLINDA FLYNN Report Released Date/Time: Mar 16, 2023 11:33 AM Reporting Lab: [facility] [place] [facility] [address] [facility] [address] Performing Lab: [facility] [address] [address] [facility] [place] [facility] LIPID PANEL FASTING TRIGLYCERID E [MASS/VOLUM E] IN SERUM OR PLASMA 96 mg/dL 0 - 150 04/16 Specimen Type: SERUM No comment entered. Ordering Provider: ERLINDA FLYNN Report Released Date/Time: Mar 16, 2023 11:33 AM Reporting Lab: [facility]ITALUSE[address] [address] Performing Lab: [facility]PITALUSE[address] [address] [facility] HIGHLANDSN [facility]ITALUSE [facility] LIPID PANEL FASTING CHOLESTEROL IN LDL [MASS/VOLUM E] IN SERUM OR PLASMA BY CALCULATION 70 mg/dL 0 - 129 04/16 Specimen Type: SERUM No comment entered. Ordering Provider: ERLINDA FLYNN Report Released Date/Time: Mar 16, 2023 11:33 AM Reporting Lab: [facility]TRN [facility]ITAL[facility]ETS [facility] [address] [facility] [address] Performing Lab: [facility] W[facility]N [facility]ITAL[facility] [address] [address] [facility]SDENTRN [place] [facility] LIPID PANEL FASTING CHOLESTEROL .TOTAL/CHOL ESTEROL IN HDL [MASS RATIO] IN SERUM OR PLASMA 2.4 04/16 Specimen Type: SERUM No comment entered. Ordering Provider: ERLINDA FLYNN Report Released Date/Time: Mar 16, 2023 11:33 AM Reporting Lab: [facility]TR[facility] [address] [facility] [address] Performing Lab: [facility] [place] [place] [facility] [address] [facility] [address] [facility] [place] [facility] LIPID PANEL FASTING CHOLESTEROL IN HDL [MASS/VOLUM E] IN SERUM OR PLASMA 64 mg/dL 40 - 60 04/16 H Specimen Type: SERUM No comment entered. Ordering Provider: ERLINDA FLYNN Report Released Date/Time: Mar 16, 2023 11:33 AM Reporting Lab: [facility] [place] [facility] [address] [address] Performing Lab: [facility] [place] [facility] [address] [facility] [address] [facility] W[facility]N [place] [facility] BASIC METABOLIC PANEL (fasting) UREA NITROGEN [MASS/VOLUM E] IN SERUM OR PLASMA 16 mg/dL 7 - 25 04/16 Specimen Type: SERUM No comment entered. Ordering Provider: ERLINDA FLYNN Report Released Date/Time: Mar 16, 2023 11:33 AM Reporting Lab: [facility] [place] [facility] [address] [address] Performing Lab: [facility] [place] [facility] [address] [facility] [address] [facility] [place] [facility] BASIC METABOLIC PANEL (fasting) GLUCOSE [MASS/VOLUM E] IN SERUM OR PLASMA 80 mg/dL 65 - 100 04/16 Specimen Type: SERUM No comment entered. Ordering Provider: ERLINDA FLYNN Report Released Date/Time: Mar 16, 2023 11:33 AM Reporting Lab: [facility] [place] [facility] [address] [facility] [address] Performing Lab: [facility] [place] [facility] [address] [address] [facility]N [place] [facility] BASIC METABOLIC PANEL (fasting) SODIUM [MOLES/VOLU ME] IN SERUM OR PLASMA 136 mmol/L 135 - 145 04/16 Specimen Type: SERUM No comment entered. Ordering Provider: ERLINDA FLYNN Report Released Date/Time: Mar 16, 2023 11:33 AM Reporting Lab: [facility] [place] [facility] [address] [facility] [address] Performing Lab: [facility] [place] [facility] [address] [facility] [address] [facility] [place] [facility] BASIC METABOLIC PANEL (fasting) POTASSIUM [MOLES/VOLU ME] IN SERUM OR PLASMA 4.5 mmol/L 3.5 - 5.0 04/16 Specimen Type: SERUM No comment entered. Ordering Provider: ERLINDA FLYNN Report Released Date/Time: Mar 16, 2023 11:33 AM Reporting Lab: [facility] [place] [facility] [address] [facility] [address] Performing Lab: [facility] [place] [facility] [address] [address] [facility] [place] [facility] BASIC METABOLIC PANEL (fasting) CHLORIDE [MOLES/VOLU ME] IN SERUM OR PLASMA 103 mmol/L 100 - 110 04/16 Specimen Type: SERUM No comment entered. Ordering Provider: ERLINDA FLYNN Report Released Date/Time: Mar 16, 2023 11:33 AM Reporting Lab: [facility] [place] [facility] [address] [facility] [address] Performing Lab: [facility] [place] [facility] [address] [facility] [address] [facility] [place] [facility] BASIC METABOLIC PANEL (fasting) CARBON DIOXIDE, TOTAL [MOLES/VOLU ME] IN SERUM OR PLASMA 24 meq/L 20 - 30 04/16 Specimen Type: SERUM No comment entered. Ordering Provider: ERLINDA FLYNN Report Released Date/Time: Mar 16, 2023 11:33 AM Reporting Lab: [facility] [place] [facility] [address] [facility] [address] Performing Lab: [facility] [place] [facility] [address] [address] [facility] [place] [facility] BASIC METABOLIC PANEL (fasting) CREATININE [MASS/VOLUM E] IN SERUM OR PLASMA 1.03 mg/dL 0.50 - 1.40 04/16 Specimen Type: SERUM No comment entered. Ordering Provider: ERLINDA FLYNN Report Released Date/Time: Mar 16, 2023 11:33 AM Reporting Lab: [facility] [place] [facility] [address] [facility] [address] Performing Lab: [facility] [place] [facility] [address] [facility] [address] [facility] [place] [facility] BASIC METABOLIC PANEL (fasting) GLOMERULAR FILTRATION RATE/1.73 SQ M.PREDICTED [VOLUME RATE/AREA] IN SERUM, PLASMA OR BLOOD BY CREATININE- BASED FORMULA (CKD-EPI 2020) 73 mL/min 60 04/16 Specimen Type: SERUM No comment entered. Ordering Provider: ERLINDA FLYNN Report Released Date/Time: Mar 16, 2023 11:33 AM Reporting Lab: [facility] [place] [facility] [address] [facility] [address] Performing Lab: [facility] [place] [facility] [address] [facility] [address] [facility] [place] [facility] LIVER FUNCTION PROTEIN [MASS/VOLUM E] IN SERUM OR PLASMA 6.5 g/dL 6.0 - 8.3 04/16 Specimen Type: SERUM No comment entered. Ordering Provider: ERLINDA FLYNN Report Released Date/Time: Mar 16, 2023 11:33 AM Reporting Lab: [facility] [place] [facility] [address] [facility] [address] Performing Lab: [facility] [place] [facility] [address] [address] [facility] [place] [facility] LIVER FUNCTION ALBUMIN [MASS/VOLUM E] IN SERUM OR PLASMA 3.8 g/dL 3.5 - 5.0 04/16 Specimen Type: SERUM No comment entered. Ordering Provider: ERLINDA FLYNN Report Released Date/Time: Mar 16, 2023 11:33 AM Reporting Lab: [facility] [place] [facility] [address] [facility] [address] Performing Lab: [facility] [place] [facility] [address] [facility] [address] [facility] [place] [facility] LIVER FUNCTION ALKALINE PHOSPHATASE [ENZYMATIC ACTIVITY/VO LUME] IN SERUM OR PLASMA 36 U/L 40 - 150 04/16 L Specimen Type: SERUM No comment entered. Ordering Provider: ERLINDA FLYNN Report Released Date/Time: Mar 16, 2023 11:33 AM Reporting Lab: [facility] [place] [facility] [address] [facility] [address] Performing Lab: [facility] [place] [facility] [address] [address] [facility] [place] [facility] LIVER FUNCTION ASPARTATE AMINOTRANSF ERASE [ENZYMATIC ACTIVITY/VO LUME] IN SERUM OR PLASMA 21 U/L 5 - 34 04/16 Specimen Type: SERUM No comment entered. Ordering Provider: ERLINDA FLYNN Report Released Date/Time: Mar 16, 2023 11:33 AM Reporting Lab: [facility] [place] [facility] [address] [facility] [address] Performing Lab: [facility] [place] [facility] [address] [address] [facility] [place] [facility] LIVER FUNCTION ALANINE AMINOTRANSF ERASE [ENZYMATIC ACTIVITY/VO LUME] IN SERUM OR PLASMA 27 U/L 04/16 Specimen Type: SERUM No comment entered. Ordering Provider: ERLINDA FLYNN Report Released Date/Time: Mar 16, 2023 11:33 AM Reporting Lab: [facility] [place] [facility] [address] [facility] [address] Performing Lab: [facility] [place] [facility] [address] [facility] [address] [facility] [place] [facility] LIVER FUNCTION BILIRUBIN.T OTAL [MASS/VOLUM E] IN SERUM OR PLASMA 0.9 mg/dL 0.2 - 1.2 04/16 Specimen Type: SERUM No comment entered. Ordering Provider: ERLINDA FLYNN Report Released Date/Time: Mar 16, 2023 11:33 AM Reporting Lab: [facility] [place] [facility] [address] [facility] [address] Performing Lab: [facility] [address] [address] [facility] [place] [facility] HEMOGLOBI N A1C PANEL HEMOGLOBIN A1C/HEMOGLO BIN.TOTAL IN BLOOD BY HPLC 5.3 4.0 - 5.6 04/16 Specimen Type: BLOOD Comment: Values obtained from A1C measurement s can vary. For atypical A1C assays, a reported value of 7.0 could actually be between 6.72 and 7.28 if measured by a reference method. A reported value of 9.0 could actually be between 8.73 and 9.27. Ref: http://[email or web address] ngsp.org/[place] Pdata.asp Ordering Provider: ERLINDA FLYNN Report Released Date/Time: Mar 16, 2023 11:33 AM Reporting Lab: [facility] [place] [facility] [address] [facility] [address] Performing Lab: [facility] TRN [facility] [address] [facility] [address] [facility] HIGHLANDSN [facility] TSH THYROTROPIN [UNITS/VOLU ME] IN SERUM OR PLASMA 1.89 u[IU]/ mL 0.35 - 5.00 04/16 Specimen Type: SERUM No comment entered. Ordering Provider: ERLINDA FLYNN Report Released Date/Time: Mar 16, 2023 11:33 AM Reporting Lab: [facility] [place] [facility] [address] [address] Performing Lab: [facility] TRN [facility]ITAL[facility] [address] [address] [facility] HIGHLANDSN [facility]ITAL[facility] CBC AND DIFF (AUTO) LEUKOCYTES [#/VOLUME] IN BLOOD BY AUTOMATED COUNT 9.79 10*3/u L 4.50 - 11.00 04/16 Specimen Type: BLOOD No comment entered. Ordering Provider: ERLINDA FLYNN Report Released Date/Time: Mar 16, 2023 11:33 AM Reporting Lab: [facility] [place] [facility] [address] [facility] [address] Performing Lab: [facility] [place] [facility] [address] [facility] [address] [facility] [place] [facility] CBC AND DIFF (AUTO) ERYTHROCYTE S [#/VOLUME] IN BLOOD BY AUTOMATED COUNT 4.58 10*6/u L 4.23 - 5.66 04/16 Specimen Type: BLOOD No comment entered. Ordering Provider: ERLINDA FLYNN Report Released Date/Time: Mar 16, 2023 11:33 AM Reporting Lab: [facility] [place] [facility] [address] [facility] [address] Performing Lab: [facility] [place] [facility] [address] [facility] [address] [facility] [place] [facility] CBC AND DIFF (AUTO) HEMOGLOBIN [MASS/VOLUM E] IN BLOOD 14.7 g/dL 12.8 - 17 04/16 Specimen Type: BLOOD No comment entered. Ordering Provider: ERLINDA FLYNN Report Released Date/Time: Mar 16, 2023 11:33 AM Reporting Lab: [facility] [place] [facility] [address] [facility] [address] Performing Lab: [facility] [place] [facility] [address] [facility] [address] [facility] [place] CBC AND DIFF (AUTO) HEMATOCRIT [VOLUME FRACTION] OF BLOOD BY AUTOMATED COUNT 43.9 39.2 - 50.4 04/16 Specimen Type: BLOOD No comment entered. Ordering Provider: ERLINDA FLYNN Report Released Date/Time: Mar 16, 2023 11:33 AM Reporting Lab: [facility] [place] [facility] [address] [facility] [address] Performing Lab: [facility] [place] [facility] [address] [facility] [address] [facility] CBC AND DIFF (AUTO) MCV [ENTITIC VOLUME] BY AUTOMATED COUNT 95.9 fL 82 - 99 04/16 Specimen Type: BLOOD No comment entered. Ordering Provider: ERLINDA FLYNN Report Released Date/Time: Mar 16, 2023 11:33 AM Reporting Lab: [facility] [place] [facility] [address] [facility] [address] Performing Lab[facility] [place] [facility] [address] [facility] [address] [facility] CBC AND DIFF (AUTO) MCHC [MASS/VOLUM E] BY AUTOMATED COUNT 33.5 g/dL 30.8 - 35.1 04/16 Specimen Type: BLOOD No comment entered. Ordering Provider: ERLINDA FLYNN Report Released Date/Time: Mar 16, 2023 11:33 AM Reporting Lab: [facility] [place] [address] [address] Performing Lab: [facility] [place] [facility] [address] [facility] [address] [facility] CBC AND DIFF (AUTO) PLATELETS [#/VOLUME] IN BLOOD BY AUTOMATED COUNT 243 10*3/u L 140 - 360 04/16 Specimen Type: BLOOD No comment entered. Ordering Provider: ERLINDA FLYNN Report Released Date/Time: Mar 16, 2023 11:33 AM Reporting Lab: [facility] [place] [facility] [address] [facility] [address] Performing Lab: [facility] [place] [facility] [address] [facility] [address] [facility] CBC AND DIFF (AUTO) ERYTHROCYTE DISTRIBUTIO N WIDTH [RATIO] BY AUTOMATED COUNT 13.1 12.0 - 16.0 04/16 Specimen Type: BLOOD No comment entered. Ordering Provider: ERLINDA FLYNN Report Released Date/Time: Mar 16, 2023 11:33 AM Reporting Lab: [facility] [place] [address] [address] Performing Lab: [facility] [place] [address] [facility] [address] [facility] CBC AND DIFF (AUTO) MONOCYTES [#/VOLUME] IN BLOOD BY AUTOMATED COUNT 0.89 10*3/u L 0.30 - 1.10 04/16 Specimen Type: BLOOD No comment entered. Ordering Provider: ERLINDA FLYNN Report Released Date/Time: Mar 16, 2023 11:33 AM Reporting Lab: [facility] [place] [facility] [address] [facility] [address] Performing Lab: [facility] [place] [facility] [address] [facility] [address] [facility] CBC AND DIFF (AUTO) MCH [ENTITIC MASS] BY AUTOMATED COUNT 32.1 pg 26.2 - 32.6 04/16 Specimen Type: BLOOD No comment entered. Ordering Provider: ERLINDA FLYNN Report Released Date/Time: Mar 16, 2023 11:33 AM Reporting Lab: [facility] [place] [address] [facility] [address] Performing Lab: [facility] [place] [facility] [address] [facility] [address] [facility] CBC AND DIFF (AUTO) NEUTROPHILS /100 LEUKOCYTES IN BLOOD BY AUTOMATED COUNT 64.1 43.7 - 75.8 04/16 Specimen Type: BLOOD No comment entered. Ordering Provider: ERLINDA FLYNN Report Released Date/Time: Mar 16, 2023 11:33 AM Reporting Lab: [facility] [place] [facility] [address] [facility] [address] Performing Lab: [facility] [place] [facility] [address] [facility] [address] [facility] CBC AND DIFF (AUTO) LYMPHOCYTES /100 LEUKOCYTES IN BLOOD BY AUTOMATED COUNT 21.3 14.0 - 42.3 04/16 Specimen Type: BLOOD No comment entered. Ordering Provider: ERLINDA FLYNN Report Released Date/Time: Mar 16, 2023 11:33 AM Reporting Lab: [facility] [place] [facility] [address] [facility] [address] Performing Lab: [facility] [place] [facility] [address] [facility] [address] [facility] CBC AND DIFF (AUTO) MONOCYTES/1 00 LEUKOCYTES IN BLOOD BY AUTOMATED COUNT 9.1 5.1 - 13.7 04/16 Specimen Type: BLOOD No comment entered. Ordering Provider: ERLINDA FLYNN Report Released Date/Time: Mar 16, 2023 11:33 AM Reporting Lab: [facility] [place] [facility] [address] [facility] [address] Performing Lab: [facility] [place] [facility] [address] [facility] [address] [facility] CBC AND DIFF (AUTO) EOSINOPHILS /100 LEUKOCYTES IN BLOOD BY AUTOMATED COUNT 4.5 0.4 - 6.8 04/16 Specimen Type: BLOOD No comment entered. Ordering Provider: ERLINDA FLYNN Report Released Date/Time: Mar 16, 2023 11:33 AM Reporting Lab: [facility] [place] [facility] [address] [facility] [address] Performing Lab: [facility] [place] [facility] [address] [facility] [address] [facility] CBC AND DIFF (AUTO) BASOPHILS/1 00 LEUKOCYTES IN BLOOD BY AUTOMATED COUNT 0.6 0.1 - 2.0 04/16 Specimen Type: BLOOD No comment entered. Ordering Provider: ERLINDA FLYNN Report Released Date/Time: Mar 16, 2023 11:33 AM Reporting Lab: [facility] [place] [facility] [address] [facility] [address] Performing Lab: [facility] [place] [facility] [address] [facility] [address] [facility] CBC AND DIFF (AUTO) NEUTROPHILS [#/VOLUME] IN BLOOD BY AUTOMATED COUNT 6.27 10*3/u L 2.20 - 7.60 04/16 Specimen Type: BLOOD No comment entered. Ordering Provider: ERLINDA FLYNN Report Released Date/Time: Mar 16, 2023 11:33 AM Reporting Lab: [facility] [place] [facility] [address] [facility] [address] Performing Lab: [facility] [place] [facility] [address] [place] [address] [facility] CBC AND DIFF (AUTO) LYMPHOCYTES [#/VOLUME] IN BLOOD BY AUTOMATED COUNT 2.09 10*3/u L 1.00 - 3.20 04/16 Specimen Type: BLOOD No comment entered. Ordering Provider: ERLINDA FLYNN Report Released Date/Time: Mar 16, 2023 11:33 AM Reporting Lab: [facility] [place] [address] [address] Performing Lab: [facility] [place] [address] [address] [facility] CBC AND DIFF (AUTO) EOSINOPHILS [#/VOLUME] IN BLOOD BY AUTOMATED COUNT 0.44 10*3/u L 0.03 - 0.44 04/16 Specimen Type: BLOOD No comment entered. Ordering Provider: ERLINDA FLYNN Report Released Date/Time: Mar 16, 2023 11:33 AM Reporting Lab: [facility] [place] [address] [place] [address] Performing Lab: [facility] [place] [facility] [address] [place] [address] [facility] CBC AND DIFF (AUTO) BASOPHILS [#/VOLUME] IN BLOOD BY AUTOMATED COUNT 0.06 10*3/u L 0.01 - 0.13 04/16 Specimen Type: BLOOD No comment entered. Ordering Provider: ERLINDA FLYNN Report Released Date/Time: Mar 16, 2023 11:33 AM Reporting Lab: [facility] [place] [address] [place] [address] Performing Lab: [facility] [place] [facility] [address] [facility] [address] [facility] [place] [facility] CBC AND DIFF (AUTO) IMMATURE GRANULOCYTE S/100 LEUKOCYTES IN BLOOD BY AUTOMATED COUNT 0.4 0.0 - 0.7 04/16 Specimen Type: BLOOD No comment entered. Ordering Provider: ERLINDA FLYNN Report Released Date/Time: Mar 16, 2023 11:33 AM Reporting Lab: [facility] [place] [facility] [address] [facility] [address] Performing Lab: [facility] [place] [facility] [address] [facility] [address] [facility] [place] [facility] CBC AND DIFF (AUTO) IMMATURE GRANULOCYTE S [#/VOLUME] IN BLOOD 0.04 10*3/u L 0.00 - 0.06 04/16 Specimen Type: BLOOD No comment entered. Ordering Provider: ERLINDA FLYNN Report Released Date/Time: Mar 16, 2023 11:33 AM Reporting Lab: [facility] [place] [address] [address] Performing Lab: [facility] [place] [facility] [address] [facility] [address] [facility] [place] [facility] CREATININ E (eGFR 2020) CREATININE [MASS/VOLUM E] IN SERUM OR PLASMA 1.03 mg/dL 0.50 - 1.40 04/16 Specimen Type: SERUM No comment entered. Ordering Provider: ERLINDA FLYNN Report Released Date/Time: Mar 16, 2023 11:33 AM Reporting Lab: [facility] [place] [facility] [address] [facility] [address] Performing Lab: [facility] [place] [facility] [address] [facility] [address] [facility] [place] [facility] CREATININ E (eGFR 2020) GLOMERULAR FILTRATION RATE/1.73 SQ M.PREDICTED [VOLUME RATE/AREA] IN SERUM, PLASMA OR BLOOD BY CREATININE- BASED FORMULA (CKD-EPI 2020) 73 mL/min 60 04/16 Specimen Type: SERUM No comment entered. Ordering Provider: ERLINDA FLYNN Report Released Date/Time: Mar 16, 2023 11:33 AM Reporting Lab: [facility] [place] [facility] [address] [facility] [address] Performing Lab: [facility] [place] [facility] [address] [facility] [address] [facility] [place] [facility] MICROALBU MIN CREATININ E RATIO PANEL MICROALBUMI N/CREATININ E [MASS RATIO] IN URINE cancmg /g 0 - 29.9 04/16 Specimen Type: URINE No comment entered. Ordering Provider: ERLINDA FLYNN Report Released Date/Time: Mar 16, 2023 11:33 AM Reporting Lab: [facility] [place] [facility] [address] [facility] [address] Performing Lab: [facility] [place] [facility] [address] [facility] [address] [facility] [place] [facility] MICROALBU MIN CREATININ E RATIO PANEL MICROALBUMI N [MASS/VOLUM E] IN URINE < 0.5mg/ dL 04/16 Specimen Type: URINE No comment entered. Ordering Provider: ERLINDA FLYNN Report Released Date/Time: Mar 16, 2023 11:33 AM Reporting Lab: [facility] [place] [facility] [address] [facility] [address] Performing Lab: [facility] [place] [facility] [address] [facility] [address] [facility] [place] [facility] MICROALBU MIN CREATININ E RATIO PANEL CREATININE [MASS/VOLUM E] IN URINE 48.09 mg/dL 04/16 Specimen Type: URINE No comment entered. Ordering Provider: ERLINDA FLYNN Report Released Date/Time: Mar 16, 2023 11:33 AM Reporting Lab: [facility] [place] [facility] [address] [facility] [address] Performing Lab: [facility] [place] [facility] [address] [facility] [address] [facility] Vital Signs Combined list of inpatient and outpatient Vital Signs from Department of Defense and Veterans Affairs, ranging from 12 months to all on record, depending upon the facility. Vital Sign Value Date Comments Source WEIGHT 161 04/26/2023 11:03:14 [facility] [place] [facility] BMI 25kg/m2 04/26/2023 11:03:14 [facility] [place] [facility] PAIN 0 04/26/2023 11:03:14 [facility] [place] HEIGHT 67 04/26/2023 11:03:14 [facility] [place] [facility] Encounters Combined list of: 1) Encounters from Department of Veterans Affairs facilities going back up to thelast 18 months. 2) Encounters from the Department of Defense facilities going back up to 280 months. Location Location Details Encounter Type Encounter Number Reason For Visit Attending Provider ADM Date DC Date Status Disposition Source [facility] Out[facility] Encounter [id number] 09/08 [facility] Encounter [id number] 10/12 [facility] [place] Encounter [id number] 10/25 [facility] [place] Encounter [id number] 11/30 [facility] Encounter [id number] 11/30 [facility] OFF/OP EST JUNE X REQ PHY/QHP [id number] Diagnos is: ICD-10- CM Z23 Encount er for immuniz ation<b r/> GELY ALFARO ESEQUIEL P 12/12 [facility] Outpatient Encounter [id number] 03/16 [facility] [place] [place] HEARING AID FITTING/CH ECKING [id number] Diagnos is: ICD-10- CM H90.3 Sensori neural hearing loss, bilater al
Tre HAIR 04/04 [facility] [place] [place] Outpatient Encounter [id number] 04/09 [facility] [place] [place] [facility] Outpatient Encounter [id number] 04/15 [facility] [place] [place] OFFICE O/P EST MOD 30 MIN [id number] Diagnos is: ICD-10- CM 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, unspeci fied
ELIAS WHITTAKER 04/25 [facility] [place] [place] [place] [id number] Diagnos is: ICD-10- CM H25.813 Combine d forms of age-rel ated catarac t, bilater al
ZBIGNIEW LR 05/29 [facility] [place] FIT SPECTACLES BIFOCAL [id number] Diagnos is: ICD-10- CM Z46.0 Encount er for fit/adj st of spectac les and contact lenses< br/> ZBIGNIEW LR 05/30 [facility] [place] [facility] [place] [facility] Outpatient Encounter [id number] 06/17 [facility] [place] [facility] Social History Combined list of available smoking, tobacco, and other social history from 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 Social History Type Response Date Comment Source Tobacco smoking status [facility] NEVER USED 04/26/2023 [facility] [place] [facility] [place] [facility]28[facility]2021 [facility] [place] [facility]20[facility]2020 [facility] [place] [facility]21/2018 [facility] [place] [facility] History of tobacco use NC-TOBACCO FORMER USER 01/10/2018 [facility] [place] [facility] History of tobacco use LIFETIME NON-TOBACCO USER 02/20/2017 [facility] [place] [facility] History of tobacco use LIFETIME NON-TOBACCO USER 06/11/2015 [facility] [place] [facility] History of tobacco use LIFETIME NON-TOBACCO USER 05/16/2013 . [facility] [place] [facility] History of tobacco use CURRENT SMOKER 05/16/2012 cigars, About 5 per [facility] [place] [facility] Plan of Care List of future care activities from Department of 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 Additional future care activities may be listed in the Assessment and Plan section. Date/Time Care Activity Care Activity Detail Facili ty 04/25/2024 AMBULATORY - MEDICINE AMBULATORY - MEDICI NE [facility] [place] [facility] 06/02/2024 AMBULATORY - MED[facility] [place] [facility]
--- OUTSIDE RECORDS SUMMARY | 2024-02-21 08:43 | XMS_ITS | Encounter Summary ---
Author Name [facility] [place] Organization [facility] [place] Address [address] [place] [id number] Care Team Providers Care Web Content Manager Name Role Phone ELIAS WHITTAKER Primary Care Provider Unavail able Insurance Providers: All historical and current Section Date Range: From patient's date of to the date document was created. This section includes the names of all active insurance providers for the patient. Insurance Provider Type of Coverage Plan Name Start of Policy Coverage End of Policy Coverage Group Number Member ID Insurance Provider's Telephone Number Policy Renteria's Name Patient's Relationship to Policy Renteria [facility] MEDICARE SUPPLEMEN FREDDY MEDEX 2 Nov 13, 2015 [id number] SANDEEP DELEON PATIENT [facility] MEDICARE SUPPLEMEN FREDDY MEDEX 2 Nov 13, 2015 [id number] SANDEEP DELEON PATIENT [facility] MEDICARE SUPPLEMEN FREDDY MEDEX 2 Nov 13, 2015 [id number] SANDEEP DELEON PATIENT MEDICARE (WNR) MEDICARE (M) PART B Nov 13, 2015 PART B [id number] SANDEEP DELEON PATIENT MEDICARE (WNR) MEDICARE (M) PART A Aug 12, 2008 PART A [id number] [phone] SANDEEP DELEON PATIENT Selected Encounter This section includes the information on record at [place] for the Encounter. Date/Time Encounter Type Encounter Description Reason Provider Source May 30, 2023 03:30 PM COMPRE OPH EXAM EST PT 1/> OPTOMETRY ICD-10-CM H25.813 Combined forms of age-related cataract, bilateral ADELINEKRYS E IHE Encounter Template Text not used by VA Assessments - Encounter Diagnoses This section includes the primary and secondary diagnoses documented for the Encounter. Date/Time Primary/Secondary Diagnosis Diagnosis Name Provider Source June 20, 2023 02:23 PM PRIMARY Combined forms of age-related cataract, bilateral KRYS LR [place] [facility] [place] [facility] June 20, 2023 02:23 PM SECONDARY Unspecified disorder of refraction KRYS LR [place] [facility] [place] [facility] Social History: Smoking Status (Most current) and Tobacco Use (All prior to encounter date) This section includes the most current, and the historical, smoking and tobacco- related health factors from the VA facility where the Encounter took place. Current Smoking Status This section includes the most current smoking, or tobacco-related health factor, from the VA facility where the Encounter took place. Date/Time Current Smoking Status Comment [facility] Apr 26, 2023 11:00 AM VA-TOBACCO NEVER USED [place] [facility] [place] [facility] Tobacco Use History This section includes a history of the smoking, or tobacco-related health factors, that were collected on or before the date of the Encounter. The data comes from the VA facility where the Encounter took place. Date/Time Smoking Status/Tobac co Use Comment Facility Apr 27, 2022 03:34 PM VA-TOBACCO NEVER USED [facility] [place] [facility] Jan 28, 2021 09:00 AM VA-TOBACCO NEVER USED [facility] [place] [facility] Feb 20, 2020 08:30 AM VA-TOBACCO NEVER USED [facility] [place] [facility] Feb 21, 2018 09:43 AM VA-TOBACCO NEVER USED [facility] [place] [facility] Jan 10, 2018 02:26 PM VA-TOBACCO DOESNT USE WI 30 MIN WAKEUP [facility] [place] [facility] Jan 10, 2018 02:26 PM VA-TOBACCO FORMER USER [facility] [place] [facility] Jan 10, 2018 02:26 PM VA-TOBACCO QUIT 15 YRS OR MORE [facility] [place] [facility] Jan 10, 2018 02:26 PM VA-TOBACCO USE 30 YEARS OR MORE [facility] [place] [facility] Jan 10, 2018 02:26 PM VA-TOBACCO USE ADVICE [facility] Jan 10, 2018 02:26 PM 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 [facility] [place] [facility] May 16, 2012 10:48 AM CURRENT SMOKER cigars, About 5 [facility] Encounter Notes: All associated encounter notes This section contains the clinical notes associated to the Encounter. Date/Time Encounter Note(s) Provider Source May 30, 2023 01:10 PM OPTOMETRY NOTE: LOCAL TITLE: OPTOMETRY NOTE(T) STANDARD TITLE: OPTOMETRY NOTE DATE OF NOTE: MAY 30, 2023@13:10 ENTRY DATE: MAY 30, 2023@13:10:34 AUTHOR: KRYS LR EXP COSIGNER: URGENCY: STATUS: COMPLETED Active Problems: Active Problem Exposure to potentially hazardous s 05/23/2023 RADHA HENSON Malignant Melanoma of Skin (SCT 936 11/06/2021 ELIAS WHITTAKER Chronic Ischemic Heart Disease (SCT 07/05/2021 DAMON FLYNN Cataract, Cortical (Senile) 366.15 06/13/2013 KRYS LR HYPERTENSION 401.9 05/16/2012 ELIAS WHITTAKER HYPERLIPIDEMIA 272.4 05/16/2012 ELIAS WHITTAKER ESOPHAGEAL REFLUX (GERD) 530.81 05/16/2012 ELIAS WHITTAKER IMPOTENCE, 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 05/16/2012 ELIAS WHITTAKER ACTINIC KERATOSIS 702.0 05/16/2012 ELIAS WHITTAKER Medications (VA): Active Outpatient Medications (including Supplies): Active Outpatient Medications Status 1) AMLODIPINE BESYLATE 5MG TAB TAKE ONE TABLET BY MOUTH ACTIVE ONCE DAILY FOR BLOOD PRESSURE/HEART, DO NOT TAKE WITH GRAPEFRUIT JUICE 2) EZETIMIBE 10MG TAB TAKE ONE TABLET BY MOUTH ONCE ACTIVE (S) DAILY TO LOWER CHOLESTEROL 3) LOSARTAN 50MG TAB TAKE ONE TABLET BY MOUTH ONCE DAILY ACTIVE (S) FOR BLOOD PRESSURE/HEART 4) METOPROLOL SUCCINATE 25MG SA TAB TAKE ONE TABLET BY ACTIVE (S) MOUTH ONCE DAILY FOR BLOOD PRESSURE/HEART 5) OMEPRAZOLE 20MG EC CAP TAKE TWO CAPSULES BY MOUTH ACTIVE (S) EVERY MORNING 30 MINUTES BEFORE BREAKFAST Active Non-VA Medications Status 1) Non-VA ASPIRIN 81MG EC TAB 162MG BY MOUTH DAILY ACTIVE 2) Non-VA EPINEPHRINE (EQV-EPI-PEN) 0.3MG/0.3ML ACTIVE DIRECTED INTRAMUSCULARLY NEEDED 7 Total Medications Allergies: SHELLFISH S: 77-year-old male is in for annual follow-up with a 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 Otherwise he denies any eye injury or disease and wears clear bifocals and sunglasses bifocals for glare sensitivity. IRVIN: 02/20/2022 (-) Pain: (-) STOUT: (-) Diplopia: (-) Flashes: (-) Floaters: (-) Amaurosis Fugax/Tia's: (-) Eye Injury: (-) Eye Surgery: (-) TBI O: Visual acuity with current correction was 20/20 both eyes. Pupils were equal and round and reactive to light with no afferent defect. Extraocular muscles were intact and facial confrontation talbert were full. Lids and lashes were clear both eyes. Corneas and conjunctiva were clear both eyes. Anterior chambers were deep clear and quiet with open angles. Iris was flat both eyes. Grade 2+ nuclear sclerotic and cortical cataracts were seen OU. Refraction: +2.50-0.7 5X 80 20/20 +2.00-0.7 5X 80 20/20 +2.50 Intraocular pressures at 3:35 PM were 16 mmHg OD and 14 mmHg OS. Dilating Drops: 1GTT 1 % Tropicamide OU & 1GTT 2.5% Phenylephrine OU (Pt. ed. on side effects, dilation warning given and verbal consent obtained) Patient advised not to drive if they feel they have any symptoms which could affect their ability to drive safely. Patient advised not to engage in any activities which could put themselves or others at risk if they feel they have any symptoms which could affect their ability to perform those activities safely. Vitreous was clear OU. Approximately 40% horizontal and vertical cupping was seen OU with healthy rims and margins. Normal pigmentary architecture of the macula was seen with a two third artery to vein ratio. 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 Retinal peripheries were intact in all quadrants OU. A: Mixed cataracts appear stable OU. 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 Refraction disorder. P: Ordered bifocals in clear and sunglasses with axis 80 OU. The patient will return in 12 months or sooner if any problems arise. Education: After discussion and answering all 's questions, demonstrated and verbalized understanding of diagnosis and treatment. Yes [x] No [ ] Medication Reconciliation: Outpatient: Has the patient been taking medications as documented in the EMLR? YES: The patient has been taking medications as documented in the EMLR. Essential Medication List for Review used to complete this medication reconciliation. INCLUDED IN THIS LIST: Alphabetical list of active outpatient prescriptions dispensed from this VA (local) and dispensed from another VA or DoD facility (remote) as well as inpatient orders (local, pending and active), local clinic medications, locally documented non-VA medications, and local prescriptions that have or been discontinued in the past 90 days. - All changes in medications, including all non-VA/Herbal/OTC medications were entered into CPRS. - If there were any medications the patient should no longer take, they were discontinued. - The patient/caregiver was instructed to update this list, discard old lists, and take this list to the next appointment, whether with a VA or non-VA provider. /kenzie/ KRYS LR OD STAFF BESSEMER CONVERTER BLOWER Signed: 05/30/2023 16:16 KRYS LR [facility]
--- OUTSIDE RECORDS SUMMARY | 2024-02-21 08:43 | XMS_ITS | Encounter Summary ---
Author Name [facility] [place] [facility] [place] [facility] [place] Address [address] [place] [id number] Care Team Providers Care Assignment Clerk Name Role Phone ELIAS WHITTAKER Primary Care [...] Renteria's Name Patient's Relationship to Policy Renteria [facility] MEDICARE SUPPLEMEN FREDDY MEDEX 2 Nov 13, 2015 [id number] [phone] SANDEEP DELEON PATIENT [facility] MEDICARE SUPPLEMEN FREDDY MEDEX 2 Nov 13, 2015 [id number] [phone] SANDEEP DELEON PATIENT [facility] MEDICARE SUPPLEMEN FREDDY MEDEX 2 Nov 13, 2015 [id number] SANDEEP DELEON PATIENT MEDICARE (WN) MEDICARE (M) PART B Nov 13, 2015 PART B [id number] SANDEEP DELEON PATIENT MEDICARE (WNR) MEDICARE (M) PART A Aug 12, 2008 PART A [id number] SANDEEP DELEON PATIENT Selected Encounter This section includes the information on record at [place] for the Encounter. Date/Time Encounter Type Encounter Description Reason Provider Source May 31, 2023 08:47 AM FIT SPECTACLES BIFOCAL OPTOMETRY ICD-10-CM Z46.0 Encounter for fit/adjst of spectacles and contact lenses KRYS LR Encounter Template Text not used by [place] Assessments - Encounter Diagnoses This section includes the primary and secondary diagnoses documented for the Encounter. Date/Time Primary/Secondary Diagnosis Diagnosis Name Provider Source May 31, 2023 08:47 AM PRIMARY Encounter for fit/adjst of spectacles and contact lenses MICHELLE BOWER [place] [facility] [place] [facility] Social History: Smoking Status (Most current) and Tobacco Use (All prior to encounter date) This section includes the most current, and the historical, smoking and tobacco- related health factors from the [place] facility where the Encounter took place. Current Smoking Status This section includes the most current smoking, or tobacco-related health factor, from the [place] facility where the Encounter took place. Date/Time Current Smoking Status Comment [facility] Apr 26, 2023 11:00 AM VA-TOBACCO NEVER USED [place] [facility] [place] [facility] Tobacco Use History This section includes a history of the smoking, or tobacco-related health factors, that were collected on or before the date of the Encounter. The data comes from the [place] facility where the Encounter took place. Date/Time Smoking Status/Tobac co Use Comment Facility Apr 27, 2022 03:34 PM VA-TOBACCO NEVER USED [facility] [place] [facility] Jan 28, 2021 09:00 AM VA-TOBACCO NEVER USED [facility] [place] [facility] Feb 20, 2020 08:30 AM VA-TOBACCO NEVER USED [facility] [place] [facility] Feb 21, 2018 09:43 AM VA-TOBACCO NEVER USED [facility] [place] [facility] Jan 10, 2018 02:26 PM VA-TOBACCO DOESNT USE WI 30 MIN WAKEUP [place] [facility] [place] [facility] Jan 10, 2018 02:26 PM VA-TOBACCO FORMER USER [facility] [place] [facility] Jan 10, 2018 02:26 PM VA-TOBACCO QUIT 15 YRS OR MORE [place] [facility] [place] [facility] Jan 10, 2018 02:26 PM VA-TOBACCO USE 30 YEARS OR MORE [place] [facility] [place] [facility] Jan 10, 2018 02:26 PM VA-TOBACCO USE ADVICE [place] [facility] [place] [facility] Jan 10, 2018 02:26 PM VA-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 [place] [facility] [place] [facility] May 16, 2012 10:48 AM CURRENT SMOKER cigars, About 5 per week. [facility] Encounter Notes: All associated encounter notes This section contains the clinical notes associated to the Encounter. Date/Time Encounter Note(s) Provider Source May 31, 2023 08:47 AM OPTOMETRY NOTE: LOCAL TITLE: OPTOMETRY NOTE STANDARD TITLE: OPTOMETRY NOTE DATE OF NOTE: MAY 31, 2023@08:47 ENTRY DATE: MAY 31, 2023@08:47:41 AUTHOR: AVNI ALFREDO EXP COSIGNER: URGENCY: STATUS: COMPLETED OPTOMETRY NOTE Has ADDENDA The quote provided below is for informational purposes only. Please verify prior to the creation of a purchase order. ELIAS DELEON [id number] RX INFORMATION OD +2.50 -0.75 X80 Add:+2.50 Pzm:0.00 Dir: Prz2:0.00 Dir2: OS +2.00 -0.75 X80 Add:+2.50 Pzm:0.00 Dir: Prz2:0.00 Dir2: FITTING INFORMATION FPD:66 NPD:63 [place]:R: L: SEG HT:R:13 L:13 Tint:BOWMAN Shade:3 VA Billable Items FRAME: [employer]™ [employer] [id number] Right Lens: POLY BIFOCAL FT28 1.586 POLY Left Lens: POLY BIFOCAL FT28 1.586 POLY SOLID TINT The quote provided below is for informational purposes only. Please verify prior to the creation of a purchase order. ELIAS DELEON 5973 RX INFORMATION OD +2.50 -0.75 X80 Add:+2.50 Pzm:0.00 Dir: Prz2:0.00 Dir2: OS +2.00 -0.75 X80 Add:+2.50 Pzm:0.00 Dir: Prz2:0.00 Dir2: FITTING INFORMATION FPD:66 NPD:63 [place]:R: L: SEG HT:R:9 L:9 Tint:None Shade:None VA Billable Items FRAME: ARON CRUZ [id number] Right Lens: POLY BIFOCAL FT28 1.586 POLY Left Lens: POLY BIFOCAL FT28 1.586 POLY /kenzie/ AVNI ALFREDO [employer]OURCES FACULTY MEMBER Signed: 05/31/2023 08:48 Receipt Acknowledged By: 05/31/2023 10:03 /kenzie/ Michelle Bower [facility] Auto Research Engineer 05/31/2023 ADDENDUM STATUS: COMPLETED PDS Chemical Production Machine Operator fit patient with 2 pair(s) of ft28 eyeglasses on 05/30/2023. OPT HT entered consult(s) as requested for provider signature. /kenzie/ Michelle Bower [facility] Auto Research Engineer Signed: 05/31/2023 10:06 AVNI ALFREDO [facility]
--- OUTSIDE RECORDS SUMMARY | 2024-02-21 08:43 | XMS_ITS ---
Author Name [facility] [facility] [place] [facility] [place] Address [address] [place] [id number] Care Team Providers Care Nurse Manager Name Role Phone ELIAS WHITTAKER Primary [...] Renteria's Name Patient's Relationship to Policy Renteria [facility] MEDICARE SUPPLEMEN FREDDY MEDEX 2 Nov 13, 2015 [id number] SANDEEP DELEON PATIENT [facility] MEDICARE SUPPLEMEN [facility] MEDEX 2 Nov 13, 2015 [id number] [phone] SANDEEP DELEON PATIENT [facility] MEDICARE SUPPLEMEN FR[employer]DY MEDEX 2 Nov 13, 2015 [id number] SANDEEP DELEON PATIENT MEDICARE (WN) MEDICARE (M) PART B Nov 13, 2015 PART B [id number] SANDEEP DELEON PATIENT MEDICARE (WNR) MEDICARE (M) PART A Aug 12, 2008 PART A [id number] SANDEEP DELEON PATIENT Selected Encounter This section includes the information on record at [place] for the Encounter. Date/Time Encounter Type Encounter Description Reason Provider Source Apr 04, 2023 09:00 AM HEARING AID FITTING/CHECKIN G AUDIOLOGY ICD-10-CM H90.3 Sensorineural hearing loss, bilateral CAMINITI,JESSIE E IHE Encounter Template Text not used by [facility] Assessments - Encounter Diagnoses This section includes the primary and secondary diagnoses documented for the Encounter. Date/Time Primary/Secondary Diagnosis Diagnosis Name Provider Source Apr 20, 2023 03:41 PM PRIMARY Sensorineural hearing loss, bilateral CAMINITI,JESSIE E [facility] [place] [facility] Apr 20, 2023 03:41 PM SECONDARY Tinnitus, bilateral CAMINITI,JESSIE E [facility] Plan of Treatment: Future Appointments (+ 6 months) and Future Tests (+/- 45 days) The Plan of Treatment section includes future care activities for the patient from all [place] treatmentfacilities. This section includes future appointments and future orders which are active, pending or scheduled. Future Appointments This section includes appointments that were scheduled to occur 6 months from the date of the Encounter, up to a maximum of 20 appointments. The data comes from all [place] treatment facilities. Appointment Date/Time Appointment Type Appointme nt Facility Name Apr 26, 2023 11:00 AM [facility] - [facility] May 30, 2023 03:30 PM [facility] Lab Results: +/- 30 days of the encounter This section includes the Chemistry and Hematology Lab Results on record with [place] for the patient. Radiology Reports and Pathology Reports are provided separately, in subsequent sections. Lab Results This section contains the Chemistry/Hematology Results that were resulted 30 days before or 30 daysafter the date of the Encounter. Date/Time Source Result Type Result - Unit Interpretation Reference Range Comment Apr 17, 2023 11:42 AM [facility] LIPID PANEL FASTING Specimen Type: SERUM No comment entered. Ordering Provider: BRAEDEN FLYNN Report Released Date/Time: Mar 16, 2023 11:33 AM Reporting Lab: [address] [address] Performing Lab: [address] [place] [address] CHOLESTEROL 153 mg/dL TRIGLYCERIDE 96 mg/dL 0-150 LDL calculated 70 mg/dL 0-129 CHOL/HDL 2.4 HDL CHOLESTEROL 64 mg/dL H 40-60 Apr 17, 2023 11:42 AM [facility] BASIC METABOLIC PANEL (fasting) Specimen Type: SERUM No comment entered. Ordering Provider: BRAEDEN FLYNN Report Released Date/Time: Mar 16, 2023 11:33 AM Reporting Lab: [address] [address] Performing Lab: [address] [address] UREA NITROGEN 16 mg/dL 7-25 GLUCOSE 80 mg/dL 65-100 SODIUM 136 mmol/L 135-145 POTASSIUM 4.5 mmol/L 3.5-5.0 CHLORIDE 103 mmol/L 100-110 CO2 24 meq/L 20-30 CREATININE, Serum 1.03 mg/dL 0.50-1.40 eGFR(CKD-EPI 2020) 73 mL/min >60 Apr 17, 2023 11:42 AM [facility] LIVER FUNCTION Specimen Type: SERUM No comment entered. Ordering Provider: BRAEDEN FLYNN Report Released Date/Time: Mar 16, 2023 11:33 AM Reporting Lab: [address] [address] Performing Lab: [address] [address] PROTEIN,TOTAL 6.5 g/dL 6.0-8.3 ALBUMIN 3.8 g/dL 3.5-5.0 ALKALINE PHOSPHATASE 36 U/L L 40-150 AST 21 U/L 5-34 ALT 27 U/L BILIRUBIN, TOTAL 0.9 mg/dL 0.2-1.2 Apr 17, 2023 11:42 AM [facility] HEMOGLOBIN A1C PANEL Specimen Type: BLOOD Comment: Values obtained from A1C measurements can vary. For atypical A1C assays, a reported value of 7.0 could actually be between 6.72 and 7.28 if measured by a reference method. A reported value of 9.0 could actually be between 8.73 and 9.27. Ref: http://www.ngs p.org/CAPdata. asp Ordering Provider: BRAEDEN FLYNN Report Released Date/Time: Mar 16, 2023 11:33 AM Reporting Lab: [facility] [address] [address] Performing Lab: [facility] [address] [address] HEMOGLOBIN A1C 5.3 4.0-5.6 Apr 17, 2023 11:42 AM [facility] TSH Specimen Type: SERUM No comment entered. Ordering Provider: BRAEDEN FLYNN Report Released Date/Time: Mar 16, 2023 11:33 AM Reporting Lab: [facility] [address] [address] Performing Lab: [facility] [address] TSH 1.89 u[IU]/mL 0.35-5.00 Apr 17, 2023 11:42 AM [facility] CBC AND DIFF (AUTO) Specimen Type: BLOOD No comment entered. Ordering Provider: BRAEDEN FLYNN Report Released Date/Time: Mar 16, 2023 11:33 AM Reporting Lab: [facility] [address] [address] Performing Lab: [facility] [address] [address] WBC 9.79 10*3/uL 4.50-11.00 RBC 4.58 10*6/uL 4.23-5.66 HGB 14.7 g/dL 12.8-17 HCT 43.9 39.2-50.4 MCV 95.9 fL 82-99 MCHC 33.5 g/dL 30.8-35.1 PLT 243 10*3/uL 140-360 RDW-CV 13.1 12.0-16.0 [place], Abs 0.89 10*3/uL 0.30-1.10 MCH 32.1 pg 26.2-32.6 Neut % 64.1 43.7-75.8 Lymph % 21.3 14.0-42.3 [place] % 9.1 5.1-13.7 Eos % 4.5 0.4-6.8 Baso % 0.6 0.1-2.0 Neut, Abs 6.27 10*3/uL 2.20-7.60 Lymph, Abs 2.09 10*3/uL 1.00-3.20 Eos, Abs 0.44 10*3/uL 0.03-0.44 Baso, Abs 0.06 10*3/uL 0.01-0.13 Immature Gran % 0.4 0.0-0.7 Immature Gran, Abs 0.04 10*3/uL 0.00-0.06 Apr 17, 2023 11:42 AM [facility] CREATININE (eGFR 2020) Specimen Type: SERUM No comment entered. Ordering Provider: BRAEDEN FLYNN Report Released Date/Time: Mar 16, 2023 11:33 AM Reporting Lab: [facility] [address] [facility] [address] Performing Lab: [facility] [address] [facility] [address] CREATININE, Serum 1.03 mg/dL 0.50-1.40 eGFR(CKD-EPI 2020) 73 mL/min >60 Apr 17, 2023 11:42 AM [facility] MICROALBUMIN CREATININE RATIO PANEL Specimen Type: URINE No comment entered. Ordering Provider: BRAEDEN FLYNN Report Released Date/Time: Mar 16, 2023 11:33 AM Reporting Lab: [facility] [address] [facility] [address] Performing Lab: [address] [address] MICROALBUMIN/C REATININE RATIO canc mg/g 0-29.9 MICROALBUMIN,Q UANTITATIVE < 0.5 mg/dL RR UNAVAIL CREATININE URINE 48.09 mg/dL Social History: Smoking Status (Most current) and Tobacco Use (All prior to encounter date) This section includes the most current, and the historical, smoking and tobacco- related health factors from the [place] facility where the Encounter took place. Current Smoking Status This section includes the most current smoking, or tobacco-related health factor, from the [place] facility where the Encounter took place. Date/Time Current Smoking Status Comment Prabhakar moreno Apr 27, 2022 03:34 PM VA-TOBACCO NEVER USED [facility] [place] [facility] Tobacco Use History This section includes a history of the smoking, or tobacco-related health factors, that were collected on or before the date of the Encounter. The data comes from the [place] facility where the Encounter took place. Date/Time Smoking Status/Tobac co Use Comment [facility] Jan 28, 2021 09:00 AM VA-TOBACCO NEVER USED [facility] [place] [facility] Feb 20, 2020 08:30 AM VA-TOBACCO NEVER USED [facility] [place] [facility] Feb 21, 2018 09:43 AM VA-TOBACCO NEVER USED [facility] [place] [facility] Jan 10, 2018 02:26 PM VA-TOBACCO DOESNT USE WI 30 MIN WAKEUP [facility] [place] [facility] Jan 10, 2018 02:26 PM VA-TOBACCO FORMER USER [facility] [place] [facility] Jan 10, 2018 02:26 PM VA-TOBACCO QUIT 15 YRS OR MORE [facility] [place] [facility] Jan 10, 2018 02:26 PM VA-TOBACCO USE 30 YEARS OR MORE [facility] [place] [facility] Jan 10, 2018 02:26 PM VA-TOBACCO USE ADVICE [facility] [place] [facility] Jan 10, 2018 02:26 PM VA-TOBACCO USE GENERAL WORKER NO [facility] [place] [facility] Jan 10, 2018 02:26 PM VA-TOBACCO USE MED NO [facility] [place] [facility] Jan 10, 2018 02:26 PM VA-TOBACCO USER SOME DAYS [facility] [place] [facility] Feb 20, 2017 08:39 AM LIFETIME NON-TOBACCO USER [facility] [place] [facility] Jun 11, 2015 09:30 AM LIFETIME NON-TOBACCO USER [facility] [place] [facility] May 16, 2013 09:25 AM LIFETIME NON-TOBACCO USER . [facility] May 16, 2012 10:48 AM CURRENT SMOKER cigars, About 5 per week. [facility] Encounter Notes: All associated encounter notes This section contains the clinical notes associated to the Encounter. Date/Time Encounter Note(s) Provider Source Apr 04, 2023 08:43 AM AUDIOLOGY E & M NO TE: LOCAL TITLE: AUDIOLOGY CLINIC STANDARD TITLE: AUDIOLOGY E & M NOTE DATE OF NOTE: APR 04, 2023@08:43 ENTRY DATE: APR 04, 2023@08:43:39 AUTHOR: JESSIE HAIR COSIGNER: URGENCY: STATUS: COMPLETED was seen 04-04-23 for a hearing re-evaluation. Hearing was last evaluated in 2020. He currently uses binaural Phonak RICs, issued in 2021. He reports he wears them maybe half of the time, primarily when he is with groups. As he has done in the past, he mistakenly reports that the hearing aids amplify his tinnitus. He was counseled again on how this is not the case. He has a spare set of RICs, issued in 2016. He reports no otologic changes, noting longstanding bilateral tinnitus. He states that hearing may have declined. Results are as follow: Otoscopy is WNL for both ears. Pure tone audiometric testing with headphones revealed normal hearing from 250-1000 Hz, sloping to a moderate sensorineural hearing loss bilaterally. Word recognition scores were good with 96% correct for each ear for recorded speech presented at 75 dB HL (40 EM). Normal tympanograms were obtained bilaterally. Results obtained today are considered overall stable in comparison to those from 2020. Replaced domes, wax guards, and retention lines. Sound check was positive. Connected to aids to ZITA- increased gain at 3 and 4 k slightly and changed soft noise reduction from off to moderate. was counseled on today's test results. Current amplification is considered appropriate to meet his hearing needs. Recommended routine daily usage of amplification and this was defined for him. He will contact the clinic as needed- hearing re-eval recommended in two years, sooner should he note any change in hearing. /kenzie/ José BROWN, [facility] STAFF BANKRUPTCY JUDGE Signed: 04/04/2023 09:47 JESSIE HAIR [facility]
--- OUTSIDE RECORDS SUMMARY | 2024-02-21 08:43 | XMS_ITS | Encounter Summary ---
Author Name [facility] [place] [facility] [place] Organization [place] Address [address] [place] [id number] Care Team Providers Care Communication Studies Professor Name Role Phone ELIAS WHITTAKER Primary Care [...] Renteria's Name Patient's Relationship to Policy Renteria [facility] MEDICARE SUPPLEMEN FREDDY MEDEX 2 Nov 13, 2015 [id number] SANDEEP DELEON PATIENT [facility] MEDICARE SUPPLEMEN FREDDY MEDEX 2 Nov 13, 2015 [id number] SANDEEP DELEON PATIENT [facility] MEDICARE SUPPLEMEN FREDDY MEDEX 2 Nov 13, 2015 [id number] [phone] SANDEEP DELEON PATIENT MEDICARE (WN) MEDICARE (M) PART B Nov 13, 2015 PART B [id number] SANDEEP DELEON PATIENT MEDICARE (WNR) MEDICARE (M) PART A Aug 12, 2008 PART A [id number] SANDEEP DELEON PATIENT Selected Encounter This section includes the information on record at [place] for the Encounter. Date/Time Encounter Type Encounter Description Reason Pro vider Source June 18, 2023 12:00 AM Outpatient Encounter EVENT (HISTORICAL) IHE Encounter Template Text not used by VA Social History: Smoking Status (Most current) and Tobacco Use (All prior to encounter date) This section includes the most current, and the historical, smoking and tobacco- related health factors from the [place] facility where the Encounter took place. Current Smoking Status This section includes the most current smoking, or tobacco-related health factor, from the [place] facility where the Encounter took place. Date/Time Current Smoking Status Comment [facility] it Apr 26, 2023 11:00 AM VA-TOBACCO NEVER USED [facility] [place] [facility] Tobacco Use History This section includes a history of the smoking, or tobacco-related health factors, that were collected on or before the date of the Encounter. The data comes from the [place] facility where the Encounter took place. Date/Time Smoking Status/Tobac co Use Comment [facility] Apr 27, 2022 03:34 PM VA-TOBACCO NEVER USED [facility] [place] [facility] Jan 28, 2021 09:00 AM VA-TOBACCO NEVER USED [facility] [place] [facility] Feb 20, 2020 08:30 AM VA-TOBACCO NEVER USED [facility] [place] [facility] Feb 21, 2018 09:43 AM VA-TOBACCO NEVER USED [facility] [place] [facility] Jan 10, 2018 02:26 PM VA-TOBACCO DOESNT USE WI 30 MIN WAKEUP [facility] [place] [facility] Jan 10, 2018 02:26 PM VA-TOBACCO FORMER USER [facility] [place] [facility] Jan 10, 2018 02:26 PM VA-TOBACCO QUIT 15 YRS OR MORE [facility] [place] [facility] Jan 10, 2018 02:26 PM VA-TOBACCO USE 30 YEARS OR MORE [facility] [place] [facility] Jan 10, 2018 02:26 PM VA-TOBACCO USE ADVICE [facility] [place] [facility] Jan 10, 2018 02:26 PM VA-TOBACCO USE OFFICE ADMIN NO [facility] [place] [facility] Jan 10, 2018 02:26 PM VA-TOBACCO USE MED NO [facility] [place] [facility] Jan 10, 2018 02:26 PM [facility]ACCO [facility] [place] [facility] Feb 20, 2017 08:39 AM LIFETIME NON-TOBACCO [facility]ER [facility] [place] [facility] Jun 11, 2015 09:30 AM LIFETIME NON-TOBACCO [facility]ER [facility] [place] [facility] May 16, 2013 09:25 AM LIFETIME NON-TOBACCO USER . [facility] May 16, 2012 10:48 AM CURRENT SMOKER cigars, About 5 per week. [facility] Encounter Notes: All associated encounter notes This section contains the clinical notes associated to the Encounter. Date/Time Encounter Note(s) Provider Source June 18, 2023 12:00 AM NONVA NOTE: LOCAL TITLE: NON-VA OUTPATIENT NOTES STANDARD TITLE: NONVA NOTE DATE OF NOTE: JUNE 18, 2023 ENTRY DATE: JULY 10, 2023@07:49:38 AUTHOR: WANDA VELÁSQUEZ EXP COSIGNER: URGENCY: STATUS: COMPLETED VistA Imaging - Scanned Document SCANNED DOCUMENT SIGNATURE NOT REQUIRED Electronically Filed: 07/10/2023 by: WNADA VELÁSQUEZ LUMBER BUYER WANDA VELÁSQUEZ [facility]
--- OUTSIDE RECORDS SUMMARY | 2024-02-21 08:43 | XMS_ITS | Encounter Summary ---
Author Name [facility] [place] [place] Organization [facility] [place] Address [address] [place] [id number] Care Team Providers Care Airfield Services Officer Name Role Phone MARQUES CHAPARRO Primary Care Provider Unavail able Insurance Providers: [...] Renteria's Name Patient's Relationship to Policy Renteria [facility] MEDICARE SUPPLEMEN FREDDY MEDEX 2 Nov 13, 2015 [id number] [phone] SANDEEP DELEON PATIENT [facility] MEDICARE SUPPLEMEN FREDDY MEDEX 2 Nov 13, 2015 [id number] SANDEEP DELEON PATIENT [facility] MEDICARE SUPPLEMEN FREDDY MEDEX 2 Nov 13, 2015 [id number] [phone] SANDEEP DELEON PATIENT MEDICARE (WN) MEDICARE (M) PART B Nov 13, 2015 PART B [id number] SANDEEP DELEON PATIENT MEDICARE (WNR) MEDICARE (M) PART A Aug 12, 2008 PART A [id number] SANDEEP DELEON PATIENT Selected Encounter This section includes the information on record at [place] for the Encounter. Date/Time Encounter Type Encounter Description Reason Pro vider Source Apr 16, 2023 10:34 AM Outpatient Encounter PRIMARY CARE/MEDICINE IHE Encounter Template Text not used by [place] Plan of Treatment: Future Appointments (+ 6 months) and Future Tests (+/- 45 days) The Plan of Treatment section includes future care activities for the patient from all [place] treatmentfacilities. This section includes future appointments and future orders which are active, pending or scheduled. Future Appointments This section includes appointments that were scheduled to occur 6 months from the date of the Encounter, up to a maximum of 20 appointments. The data comes from all [place] treatment facilities. Appointment Date/Time Appointment Type Appointme nt Facility Name Apr 26, 2023 11:00 AM AMBULATORY - MEDICINE [facility] May 30, 2023 03:30 PM AMBULATORY MEDICINE [facility] Lab Results: +/- 30 days of the encounter This section includes the Chemistry and Hematology Lab Results on record with [place] for the patient. Radiology Reports and Pathology Reports are provided separately, in subsequent sections. Lab Results This section contains the Chemistry/Hematology Results that were resulted 30 days before or 30 daysafter the date of the Encounter. Date/Time Source Result Type Result - Unit Interpretation Reference Range Comment Apr 17, 2023 11:42 AM [facility] LIPID PANEL FASTING Specimen Type: SERUM No comment entered. Ordering Provider: BRAEDEN FLYNN Report Released Date/Time: Mar 16, 2023 11:33 AM Reporting Lab: [facility] [address] [facility] [address] Performing Lab: [facility] [address] [facility] [facility] [address] CHOLESTEROL 153 mg/dL TRIGLYCERIDE 96 mg/dL 0-150 LDL calculated 70 mg/dL 0-129 CHOL/HDL 2.4 HDL CHOLESTEROL 64 mg/dL H 40-60 Apr 17, 2023 11:42 AM [facility] BASIC METABOLIC PANEL (fasting) Specimen Type: SERUM No comment entered. Ordering Provider: BRAEDEN FLYNN Report Released Date/Time: Mar 16, 2023 11:33 AM Reporting Lab: [facility] [address] [facility] [address] Performing Lab: [facility] [address] [facility] [address] UREA NITROGEN 16 mg/dL 7-25 GLUCOSE 80 mg/dL 65-100 SODIUM 136 mmol/L 135-145 POTASSIUM 4.5 mmol/L 3.5-5.0 CHLORIDE 103 mmol/L 100-110 CO2 24 meq/L 20-30 CREATININE, Serum 1.03 mg/dL 0.50-1.40 eGFR(CKD-EPI 2020) 73 mL/min >60 Apr 17, 2023 11:42 AM [facility] LIVER FUNCTION Specimen Type: SERUM No comment entered. Ordering Provider: BRAEDEN FLYNN Report Released Date/Time: Mar 16, 2023 11:33 AM Reporting Lab: [address] [address] Performing Lab: [address] [address] PROTEIN,TOTAL 6.5 g/dL 6.0-8.3 ALBUMIN 3.8 g/dL 3.5-5.0 ALKALINE PHOSPHATASE 36 U/L L 40-150 AST 21 U/L 5-34 ALT 27 U/L BILIRUBIN, TOTAL 0.9 mg/dL 0.2-1.2 Apr 17, 2023 11:42 AM [facility] HEMOGLOBIN A1C PANEL Specimen Type: BLOOD Comment: [...] Mar 16, 2023 11:33 AM Reporting Lab: [address] [address] Performing Lab: [address] [address] HEMOGLOBIN A1C 5.3 4.0-5.6 Apr 17, 2023 11:42 AM [facility] TSH Specimen Type: SERUM No comment entered. Ordering Provider: BRAEDEN FLYNN Report Released Date/Time: Mar 16, 2023 11:33 AM Reporting Lab: [address] [address] Performing Lab: [facility] [address] [address] TSH 1.89 u[IU]/mL 0.35-5.00 Apr 17, 2023 11:42 AM [facility] CBC AND DIFF (AUTO) Specimen Type: BLOOD No comment entered. Ordering Provider: BRAEDEN FLYNN Report Released Date/Time: Mar 16, 2023 11:33 AM Reporting Lab: [address] [address] Performing Lab: [facility] [address] [address] WBC 9.79 10*3/uL 4.50-11.00 RBC 4.58 10*6/uL 4.23-5.66 HGB 14.7 g/dL 12.8-17 HCT 43.9 39.2-50.4 MCV 95.9 fL 82-99 MCHC 33.5 g/dL 30.8-35.1 PLT 243 10*3/uL 140-360 RDW-CV 13.1 12.0-16.0 [place], Abs 0.89 10*3/uL 0.30-1.10 MCH 32.1 pg 26.2-32.6 Neut % 64.1 43.7-75.8 Lymph % 21.3 14.0-42.3 [place] % 9.1 5.1-13.7 Eos % 4.5 0.4-6.8 Baso % 0.6 0.1-2.0 Neut, Abs 6.27 10*3/uL 2.20-7.60 Lymph, Abs 2.09 10*3/uL 1.00-3.20 Eos, Abs 0.44 10*3/uL 0.03-0.44 Baso, Abs 0.06 10*3/uL 0.01-0.13 Immature Gran % 0.4 0.0-0.7 Immature Gran, Abs 0.04 10*3/uL 0.00-0.06 Apr 17, 2023 11:42 AM [facility] CREATININE (eGFR 2020) Specimen Type: SERUM No comment entered. Ordering Provider: BRAEDEN FLYNN Report Released Date/Time: Mar 16, 2023 11:33 AM Reporting Lab: [facility] [address] [facility] [address] Performing Lab: [address] [address] CREATININE, Serum 1.03 mg/dL 0.50-1.40 eGFR(CKD-EPI 2020) 73 mL/min >60 Apr 17, 2023 11:42 AM [facility] MICROALBUMIN CREATININE RATIO PANEL Specimen Type: URINE No comment entered. Ordering Provider: BRAEDEN FLYNN Report Released Date/Time: Mar 16, 2023 11:33 AM Reporting Lab: [facility] [address] [facility] [address] Performing Lab: [address] [address] MICROALBUMIN/C REATININE RATIO canc mg/g 0-29.9 MICROALBUMIN,Q UANTITATIVE < 0.5 mg/dL RR UNAVAIL CREATININE URINE 48.09 mg/dL Social History: Smoking Status (Most current) and Tobacco Use (All prior to encounter date) This section includes the most current, and the historical, smoking and tobacco- related health factors from the [place] facility where the Encounter took place. Current Smoking Status This section includes the most current smoking, or tobacco-related health factor, from the [place] facility where the Encounter took place. Date/Time Current Smoking Status Comment Prabhakar moreno Apr 27, 2022 03:34 PM VA-TOBACCO NEVER USED [facility] Tobacco Use History This section includes a history of the smoking, or tobacco-related health factors, that were collected on or before the date of the Encounter. The data comes from the [place] facility where the Encounter took place. Date/Time Smoking Status/Tobac co Use Comment Facility Jan 28, 2021 09:00 AM VA-TOBACCO NEVER USED [facility] Feb 20, 2020 08:30 AM VA-TOBACCO NEVER USED [facility] Feb 21, 2018 09:43 AM VA-TOBACCO NEVER USED [facility] [place] Jan 10, 2018 02:26 PM VA-TOBACCO DOESNT USE WI 30 MIN WAKEUP [facility] Jan 10, 2018 02:26 PM VA-TOBACCO FORMER USER [facility] [place] Jan 10, 2018 02:26 PM VA-TOBACCO QUIT 15 YRS OR MORE [facility] [place] Jan 10, 2018 02:26 PM VA-TOBACCO USE 30 YEARS OR MORE [place] [facility] [place] [facility] Jan 10, 2018 02:26 PM VA-TOBACCO USE ADVICE [facility] [place] Jan 10, 2018 02:26 PM VA-TOBACCO USE ADMINISTRATIVE ASSISTANT NO [facility] [place] Jan 10, 2018 02:26 PM VA-TOBACCO USE MED NO [facility] Jan 10, 2018 02:26 PM VA-TOBACCO USER SOME DAYS [facility] [place] Feb 20, 2017 08:39 AM LIFETIME NON-TOBACCO USER [facility] Jun 11, 2015 09:30 AM LIFETIME NON-TOBACCO USER [facility] [place] May 16, 2013 09:25 AM LIFETIME NON-TOBACCO USER . [facility] [place] May 16, 2012 10:48 AM CURRENT SMOKER cigars, About 5 per week. [place] [facility] [place] [facility] Encounter Notes: All associated encounter notes This section contains the clinical notes associated to the Encounter. 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 ROSUVASTATIN TAB 40MG /kenzie/ ANTWAN QUIGLEY ADVANCED CLAY ROASTER Signed: 04/16/2023 10:35 Receipt Acknowledged By: 04/17/2023 13:14 /es/ Marques Chaparro PA-C STAFF PHYSICIAN SECURITY SYSTEM ANALYST [facility]
--- OUTSIDE RECORDS SUMMARY | 2024-02-21 08:43 | XMS_ITS ---
Author Name [facility] [place] Organization [facility] [place] Address [address] [place] [id number] Care Team Providers Care Diamond Merchant Name Role Phone ELIAS WHITTAKER Primary Care [...] Renteria's Name Patient's Relationship to Policy Renteria [facility] MEDICARE SUPPLEMEN FREDDY MEDEX 2 Nov 13, 2015 [id number] [phone] SANDEEP DELEON PATIENT [facility] MEDICARE SUPPLEMEN FREDDY MEDEX 2 Nov 13, 2015 [id number] [phone] SANDEEP DELEON PATIENT [facility] MEDICARE SUPPLEMEN FREDDY MEDEX 2 Nov 13, 2015 [id number] SANDEEP DELEON PATIENT MEDICARE (WN) MEDICARE (M) PART B Nov 13, 2015 PART B [id number] [phone] SANDEEP DELEON PATIENT MEDICARE (WNR) MEDICARE (M) PART A Aug 12, 2008 PART A [id number] SANDEEP DELEON PATIENT Selected Encounter This section includes the information on record at [place] for the Encounter. Date/Time Encounter Type Encounter Description Reason Pro vider Source Mar 16, 2023 11:24 AM Outpatient Encounter PRIMARY CARE/MEDICINE IHE Encounter Template Text not used by [place] Plan of Treatment: Future Appointments (+ 6 months) and Future Tests (+/- 45 days) The Plan of Treatment section includes future care activities for the patient from all [place] treatmentfacilities. This section includes future appointments and future orders which are active, pending or scheduled. Future Appointments This section includes appointments that were scheduled to occur 6 months from the date of the Encounter, up to a maximum of 20 appointments. The data comes from all [place] treatment facilities. Appointment Date/Time Appointment Type Appointme nt Facility Name Apr 04, 2023 09:00 AM AMBULATORY - REHAB [facility]ICIN [facility] Apr 26, 2023 11:00 AM AMBULATORY - MEDICINE [place] [facility] [place] [facility] May 30, 2023 03:30 PM AMBULATORY - MEDICINE [place] [facility] [place] [facility] Social History: Smoking Status (Most current) and Tobacco Use (All prior to encounter date) This section includes the most current, and the historical, smoking and tobacco- related health factors from the [place] facility where the Encounter took place. Current Smoking Status This section includes the most current smoking, or tobacco-related health factor, from the [place] facility where the Encounter took place. Date/Time Current Smoking Status Comment Prabhakar moreno Apr 27, 2022 03:34 PM VA-TOBACCO NEVER USED [facility] [place] [facility] Tobacco Use History This section includes a history of the smoking, or tobacco-related health factors, that were collected on or before the date of the Encounter. The data comes from the [place] facility where the Encounter took place. Date/Time Smoking Status/Tobac co Use Comment Facility Jan 28, 2021 09:00 AM VA-TOBACCO NEVER USED [facility] [place] [facility] Feb 20, 2020 08:30 AM VA-TOBACCO NEVER USED [facility] [place] [facility] Feb 21, 2018 09:43 AM VA-TOBACCO NEVER USED [facility] [place] [facility] Jan 10, 2018 02:26 PM VA-TOBACCO DOESNT USE WI 30 MIN WAKEUP [facility] [place] [facility] Jan 10, 2018 02:26 PM VA-TOBACCO FORMER USER [facility] [place] [facility] Jan 10, 2018 02:26 PM VA-TOBACCO QUIT 15 YRS OR MORE [facility] [place] [facility] Jan 10, 2018 02:26 PM VA-TOBACCO USE 30 YEARS OR MORE [facility] [place] [facility] Jan 10, 2018 02:26 PM VA-TOBACCO USE ADVICE [facility] [place] [facility] Jan 10, 2018 02:26 PM VA-TOBACCO USE BOTTOM CAGER NO [facility] [place] [facility] Jan 10, 2018 02:26 PM VA-TOBACCO USE MED NO [facility] [place] [facility] Jan 10, 2018 02:26 PM VA-TOBACCO USER SOME DAYS [facility] [place] [facility] Feb 20, 2017 08:39 AM LIFETIME NON-TOBACCO USER [facility] [place] [facility] Jun 11, 2015 09:30 AM LIFETIME NON-TOBACCO USER [facility] [place] [facility] May 16, 2013 09:25 AM LIFETIME NON-TOBACCO USER . [place] [facility] [place] [facility] May 16, 2012 10:48 AM CURRENT SMOKER cigars, About 5 per week. [place] [facility] [place] [facility] Encounter Notes: All associated encounter notes This section contains the clinical notes associated to the Encounter. Date/Time Encounter Note(s) Provider Source Mar 16, 2023 11:28 AM ADDENDUM: LOCAL TITLE: Addendum STANDARD TITLE: ADDENDUM DATE OF NOTE: MAR 16, 2023@11:28:52 ENTRY DATE: MAR 16, 2023@11:28:53 AUTHOR: DAMON FLYNN COSIGNER: URGENCY: STATUS: COMPLETED Please request vet complete labs --no labs since 2021. Vet also needs pcp follow up, next available appt. WIll renew x 30 days. /kenzie/ DAMON FLYNN NP NURSE PRACTITIONER Signed: 03/16/2023 11:32 Receipt Acknowledged By: 03/16/2023 14:30 /kenzie/ WINSOME PRECIADO ALYSHA ========= --- Original Document --- 03/16/23 WALK-IN NOTE PRIMARY CARE (T): <====Click to Start Advanced Medical Support presents to the Primary Care clinic with the following request: [ X ]Medication Renewal/Refill OB SCRUB TECH AT WINDOW ROSUVASTATIN TAB 40MG [ ]Consultation with Team RN [ ]Symptoms [ ]Other The [facility] states they are: [ X ]Waiting [ ]Not Waiting No Walk in visit scheduled with PACT Nurse [ X ] At this encounter the 's demographics were verified. [ X ] At this encounter the Jerome's Insurance information was verified. [ X ] At this encounter the below scheduled visits for the [facility] were discussed and appointment reminder card was offered. Future appointments: 05/30/2023 15:30 NHM/OPTOMETRY/ADELINE /kenzie/ STACIA CARTWRIGHT Signed: 03/16/2023 11:25 Receipt Acknowledged By: * AWAITING SIGNATURE * PATRICK MARKHAM * AWAITING SIGNATURE * ELIAS WHITTAKER 03/16/2023 ADDENDUM STATUS: UNSIGNED You may not VIEW this UNSIGNED Addendum. DAMON FLYNN [place] [facility] [place] [facility] Mar 16, 2023 11:24 AM PRIMARY CARE NOTE: LOCAL TITLE: WALK-IN NOTE PRIMARY CARE (T) STANDARD TITLE: PRIMARY CARE NOTE DATE OF NOTE: MAR 16, 2023@11:24 ENTRY DATE: MAR 16, 2023@11:24:50 AUTHOR: STACIA GARCIA EXP COSIGNER: URGENCY: STATUS: COMPLETED WALK-IN NOTE PRIMARY CARE (T) Has ADDENDA <====Click to Start Advanced Medical Support presents to the Primary Care clinic with the following request: [ X ]Medication Renewal/Refill OB SCRUB TECH AT WINDOW ROSUVASTATIN TAB 40MG [ ]Consultation with Team RN [ ]Symptoms [ ]Other [facility] states they are: [ X ]Waiting [ ]Not Waiting No Walk in visit scheduled with PACT Nurse [ X ] At this encounter the Jerome's demographics were verified. [ X ] At this encounter the 's Insurance information was verified. [ X ] At this encounter the below scheduled visits for the were discussed and appointment reminder card was offered. Future appointments: 05/30/2023 15:30 NHM/OPTOMETRY/ADELINE /kenzie/ STACIA CARTWRIGHT Signed: 03/16/2023 11:25 Receipt Acknowledged By: 03/16/2023 15:08 /es/ PATRICK MARKHAM, SILVANO REGISTERED NURSE 03/21/2023 16:56 /kenzie/ DAMON FLYNN NP NURSE PRACTITIONER for ELIAS WHITTAKER 03/16/2023 ADDENDUM STATUS: COMPLETED Please request vet complete labs --no labs since 2021. Vet also needs pcp follow up, next available appt. WIll renew x 30 days. /kenzie/ DAMON FLYNN NP NURSE PRACTITIONER Signed: 03/16/2023 11:32 Receipt Acknowledged By: 03/16/2023 14:30 /kenzie/ WINSOME ENCARNACION 03/16/2023 ADDENDUM STATUS: COMPLETED Called no answer, left message that labs are needed and an appt with pcp. /kenzie/ WINSOME ENCARNACION Signed: 03/16/2023 14:35 [facility]
--- OUTSIDE RECORDS SUMMARY | 2024-02-21 08:43 | XMS_ITS | Encounter Summary ---
Author Name [facility] Organization [facility] Address [address] [place] [id number] Care Team Providers Care Portfolio Specialist Name Role Phone MARQUES CHAPARRO Primary Care [...] Renteria's Name Patient's Relationship to Policy Renteria [facility] MEDICARE SUPPLEMEN FREDDY MEDEX 2 Nov 13, 2015 [id number] SANDEEP DELEON [place] SUPPLE[place] MEDEX 2 Nov 13, 2015 [id number] [phone] SANDEEP DELEON [place]IENT [place] SUPPLEMEN [place] MEDEX 2 Nov 13, 2015 [id number] SANDEEP DELEON PATIENT MEDICARE (WNR) MEDICARE (M) PART B Nov 13, 2015 PART B [id number] [phone] SANDEEP DELEON PATIENT MEDICARE (WNR) MEDICARE (M) PART A Aug 12, 2008 PART A [id number] SANDEEP DELEON PATIENT Selected Encounter This section includes the information on record at [place] for the Encounter. Date/Time Encounter Type Encounter Description Reason Pro vider Source Apr 09, 2023 11:10 AM Outpatient Encounter ADMIN PAT ACTIVTIES (EVANNONCT) IHE Encounter Template Text not used by [place] Plan of Treatment: Future Appointments (+ 6 [...] 26, 2023 11:00 AM AMBULATORY - MEDICINE [facility] May 30, 2023 03:30 PM AMBULATORY - MEDICINE [facility] Lab Results: +/- 30 days of [...] Range Comment Apr 17, 2023 11:42 AM [facility] LIPID PANEL FASTING Specimen Type: SERUM No comment entered. Ordering Provider: BRAEDEN FLYNN Report Released Date/Time: Mar 16, 2023 11:33 AM Reporting Lab: [facility] [address] [facility] [address] Performing Lab: [facility] [address] [facility] [address] CHOLESTEROL 153 mg/dL TRIGLYCERIDE 96 mg/dL 0-150 LDL calculated 70 mg/dL 0-129 CHOL/HDL 2.4 HDL CHOLESTEROL 64 mg/dL H 40-60 Apr 17, 2023 11:42 AM [facility] BASIC METABOLIC PANEL (fasting) Specimen Type: SERUM No comment entered. Ordering Provider: BRAEDEN FLYNN Report Released Date/Time: Mar 16, 2023 11:33 AM Reporting Lab: [facility] [address] [facility] [address] Performing Lab: [address] [address] UREA NITROGEN 16 mg/dL 7-25 GLUCOSE 80 mg/dL 65-100 SODIUM 136 mmol/L 135-145 POTASSIUM 4.5 mmol/L 3.5-5.0 CHLORIDE 103 mmol/L 100-110 CO2 24 meq/L 20-30 CREATININE, Serum 1.03 mg/dL 0.50-1.40 eGFR(CKD-EPI 2020) 73 mL/min >60 Apr 17, 2023 11:42 AM [facility] LIVER FUNCTION Specimen Type: SERUM No comment entered. Ordering Provider: BRAEDEN FLYNN Report Released Date/Time: Mar 16, 2023 11:33 AM Reporting Lab: [address] [address] Performing Lab: [address] [address] PROTEIN,TOTAL 6.5 g/dL 6.0-8.3 ALBUMIN 3.8 g/dL 3.5-5.0 ALKALINE PHOSPHATASE 36 U/L L 40-150 AST 21 U/L 5-34 ALT 27 U/L BILIRUBIN, TOTAL 0.9 mg/dL 0.2-1.2 Apr 17, 2023 11:42 AM [facility] HEMOGLOBIN A1C PANEL Specimen Type: BLOOD [...] Mar 16, 2023 11:33 AM Reporting Lab: [address] [address] Performing Lab: [address] [place] [address] HEMOGLOBIN A1C 5.3 4.0-5.6 Apr 17, 2023 11:42 AM [facility] TSH Specimen Type: SERUM No comment entered. Ordering Provider: BRAEDEN FLYNN Report Released Date/Time: Mar 16, 2023 11:33 AM Reporting [facility]: [facility] [address] [address] Performing Lab: [facility] [address] TSH 1.89 u[IU]/mL 0.35-5.00 Apr 17, 2023 11:42 AM [facility] CBC AND DIFF (AUTO) Specimen Type: BLOOD No comment entered. Ordering Provider: BRAEDEN FLYNN Report Released Date/Time: Mar 16, 2023 11:33 AM Reporting Lab: [facility] [address] [address] Performing Lab: [facility] [address] [address] WBC 9.79 10*3/uL 4.50-11.00 RBC 4.58 10*6/uL 4.23-5.66 HGB 14.7 g/dL 12.8-17 HCT 43.9 39.2-50.4 MCV 95.9 fL 82-99 MCHC 33.5 g/dL 30.8-35.1 PLT 243 10*3/uL 140-360 RDW-CV 13.1 12.0-16.0 Mcpherson, Abs 0.89 10*3/uL 0.30-1.10 MCH 32.1 pg 26.2-32.6 Neut % 64.1 43.7-75.8 Lymph % 21.3 14.0-42.3 Mcpherson % 9.1 5.1-13.7 Eos % 4.5 0.4-6.8 Baso % 0.6 0.1-2.0 Neut, Abs 6.27 10*3/uL 2.20-7.60 Lymph, Abs 2.09 10*3/uL 1.00-3.20 Eos, Abs 0.44 10*3/uL 0.03-0.44 Baso, Abs 0.06 10*3/uL 0.01-0.13 Immature Gran % 0.4 0.0-0.7 Immature Gran, Abs 0.04 10*3/uL 0.00-0.06 Apr 17, 2023 11:42 AM [facility] CREATININE (eGFR 2020) Specimen Type: SERUM No comment entered. Ordering Provider: BRAEDEN FLYNN Report Released Date/Time: Mar 16, 2023 11:33 AM Reporting Lab: [facility] [address] [facility] [address] Performing Lab: [address] [address] CREATININE, Serum 1.03 mg/dL 0.50-1.40 eGFR(CKD-EPI 2020) 73 mL/min >60 Apr 17, 2023 11:42 AM [facility] MICROALBUMIN CREATININE RATIO PANEL Specimen Type: URINE No comment entered. Ordering Provider: BRAEDEN FLYNN Report Released Date/Time: Mar 16, 2023 11:33 AM Reporting Lab: [facility] [address] [facility] [address] Performing [facility]: [facility] [address] MICROALBUMIN/C REATININE RATIO canc mg/g 0-29.9 MICROALBUMIN,Q [...] 27, 2022 03:34 PM VA-TOBACCO NEVER USED [facility] Tobacco Use History This section includes a history of the smoking, or tobacco-related health factors, that were collected on or before the date of the Encounter. The data comes from the [place] facility where the Encounter took place. Date/Time Smoking Status/Tobac co Use Comment Facility Jan 28, 2021 09:00 AM VA-TOBACCO NEVER USED [facility] [place] [facility] Feb 20, 2020 08:30 AM VA-TOBACCO NEVER USED [facility] [place] [facility] Feb 21, 2018 09:43 AM VA-TOBACCO NEVER USED [facility] [place] [facility] Jan 10, 2018 02:26 PM VA-TOBACCO DOESNT USE WI 30 MIN WAKEUP [facility] [place] [facility] Jan 10, 2018 02:26 PM VA-TOBACCO FORMER USER [facility] [place] [facility] Jan 10, 2018 02:26 PM VA-TOBACCO QUIT 15 YRS OR MORE [facility] [place] [facility] Jan 10, 2018 02:26 PM VA-TOBACCO USE 30 YEARS OR MORE [facility] [place] [facility] Jan 10, 2018 02:26 PM VA-TOBACCO USE ADVICE [facility] [place] [facility] Jan 10, 2018 02:26 PM VA-TOBACCO USE CLOTH WIRE WEAVER NO [facility] [place] [facility] Jan 10, 2018 02:26 PM VA-TOBACCO USE MED NO [facility] [place] [facility] Jan 10, 2018 02:26 PM VA-TOBACCO USER SOME DAYS [facility] [place] [facility] Feb 20, 2017 08:39 AM LIFETIME NON-TOBACCO USER [facility] [place] [facility] Jun 11, 2015 09:30 AM LIFETIME NON-TOBACCO USER [facility] [place] [facility] May 16, 2013 09:25 AM LIFETIME NON-TOBACCO USER . [facility] [place] [facility] May 16, 2012 10:48 AM CURRENT SMOKER cigars, About 5 per week. [facility] [place] [facility] Encounter Notes: All associated encounter notes This section contains the clinical notes associated to the Encounter. Date/Time Encounter Note(s) Provider Source Apr 09, 2023 11:10 AM MEDICATION MGT NOT E: LOCAL TITLE: MEDICATION RENEWAL STANDARD TITLE: MEDICATION MGT NOTE DATE OF NOTE: APR 09, 2023@11:10 ENTRY DATE: APR 09, 2023@11:10:48 AUTHOR: PROSPER FONTAINE EXP COSIGNER: URGENCY: STATUS: COMPLETED Hello, is requesting a refill on the following prescription(s). Please renew if appropriate.Thank you for your time. Active Outpatient Medications (including Supplies): 1) ROSUVASTATIN CA 40MG TAB TAKE ONE TABLET BY MOUTH ACTIVE ONCE DAILY FOR CHOLESTEROL PLEASE GO TO THE LAB FOR BLOODWORK AND SCHEDULE PCP APPT. /kenzie/ PROSPER FONTAINE Signed: 04/09/2023 11:11 Receipt Acknowledged By: 04/09/2023 14:06 /kenzie/ Marques Chaparro PA-C STAFF PHYSICIAN [employer]URR[employer] AGENT 04/09/2023 14:06 /kenzie/ PATRICK MARKHAM, RN REGISTERED NURSE [facility]
--- OUTSIDE RECORDS SUMMARY | 2024-02-21 08:43 | XMS_ITS ---
Author Name [facility] [place] [facility] [place] Organization [facility] [place] Address [address] [place] [id number] Care Team Providers Care Bailiff Name Role Phone MARQUES HCAPARRO Primary Care Provider Unavail able Insurance Providers: [...] Renteria's Name Patient's Relationship to Policy Renteria [facility] MEDICARE SUPPLEMEN FREDDY MEDEX 2 Nov 13, 2015 [id number] SANDEEP DELEON PATIENT [facility] MEDICARE SUPPLEMEN FREDDY MEDEX 2 Nov 13, 2015 [id number] [phone] SANDEEP DELEON PATIENT [place] SUPPLEMEN [place] MEDEX 2 Nov 13, 2015 [id number] [phone] SANDEEP DELEON PATIENT MEDICARE (WNR) MEDICARE (M) PART B Nov 13, 2015 PART B [id number] SANDEEP DELEON PATIENT MEDICARE (WNR) MEDICARE (M) PART A Aug 12, 2008 PART A [id number] SANDEEP DELEON PATIENT Selected Encounter This section includes the information on record at [place] for the Encounter. Date/Time Encounter Type Encounter Description Reason Provider Source Apr 26, 2023 11:00 AM OFFICE O/P EST MOD 30 MIN PRIMARY CARE/MEDICINE ICD-10-CM C43.9 Malignant melanoma of skin, unspecified VANWAGNER,WILL TINA F IHE Encounter Template Text not used by [place] Assessments - Encounter Diagnoses This section includes the primary and secondary diagnoses documented for the Encounter. Date/Time Primary/Secondary Diagnosis Diagnosis Name Provider Source May 11, 2023 04:45 PM PRIMARY Malignant melanoma of skin, unspecified VANWAGNER,WILL TINA F [facility] May 11, 2023 04:45 PM SECONDARY Chronic ischemic heart disease, unspecified VANWAGNER,WILL TINA F [facility] May 11, 2023 04:45 PM SECONDARY Contact with and exposure to other hazardous substances VANWAGNER,WILL TINA F [facility] Plan of Treatment: Future Appointments (+ 6 [...] Date/Time Appointment Type Appointme nt Facility Name May 30, 2023 03:30 PM AMBULATORY - MEDICINE [facility] Lab Results: +/- 30 days of [...] Range Comment Apr 17, 2023 11:42 AM [facility] BASIC METABOLIC PANEL (fasting) Specimen Type: SERUM No comment entered. Ordering Provider: BRAEDEN FLYNN Report Released Date/Time: Mar 16, 2023 11:33 AM Reporting Lab: [facility] [address] [facility] [address] Performing Lab: [facility] [address] [address] UREA NITROGEN 16 mg/dL 7-25 GLUCOSE 80 mg/dL 65-100 SODIUM 136 mmol/L 135-145 POTASSIUM 4.5 mmol/L 3.5-5.0 CHLORIDE 103 mmol/L 100-110 CO2 24 meq/L 20-30 CREATININE, Serum 1.03 mg/dL 0.50-1.40 eGFR(CKD-EPI 2020) 73 mL/min >60 Apr 17, 2023 11:42 AM [facility] LIPID PANEL FASTING Specimen Type: SERUM No comment entered. Ordering Provider: BRAEDEN FLYNN Report Released Date/Time: Mar 16, 2023 11:33 AM Reporting Lab: [address] [address] Performing Lab: [address] [address] CHOLESTEROL 153 mg/dL TRIGLYCERIDE 96 mg/dL 0-150 LDL calculated 70 mg/dL 0-129 CHOL/HDL 2.4 HDL CHOLESTEROL 64 mg/dL H 40-60 Apr 17, 2023 11:42 AM [facility] LIVER FUNCTION Specimen Type: SERUM No comment entered. Ordering Provider: BRAEDEN FLYNN Report Released Date/Time: Mar 16, 2023 11:33 AM Reporting Lab: [address] [address] Performing Lab: [address] [address] PROTEIN,TOTAL 6.5 g/dL 6.0-8.3 ALBUMIN 3.8 g/dL 3.5-5.0 ALKALINE PHOSPHATASE 36 U/L L 40-150 AST 21 U/L 5-34 ALT 27 U/L BILIRUBIN, TOTAL 0.9 mg/dL 0.2-1.2 Apr 17, 2023 11:42 AM [facility] HEMOGLOBIN A1C PANEL Specimen Type: BLOOD [...] Mar 16, 2023 11:33 AM Reporting Lab: [address] [address] Performing Lab: [address] [address] HEMOGLOBIN A1C 5.3 4.0-5.6 Apr 17, 2023 11:42 AM [facility] CBC AND DIFF (AUTO) Specimen Type: BLOOD No comment entered. Ordering Provider: BRAEDEN FLYNN Report Released Date/Time: Mar 16, 2023 11:33 AM Reporting Lab: [facility] [address] [facility] [address] Performing Lab: [address] [address] WBC 9.79 10*3/uL 4.50-11.00 RBC 4.58 10*6/uL 4.23-5.66 HGB 14.7 g/dL 12.8-17 HCT 43.9 39.2-50.4 MCV 95.9 fL 82-99 MCHC 33.5 g/dL 30.8-35.1 PLT 243 10*3/uL 140-360 RDW-CV 13.1 12.0-16.0 [place], Abs 0.89 10*3/uL 0.30-1.10 MCH 32.1 pg 26.2-32.6 Neut % 64.1 43.7-75.8 Lymph % 21.3 14.0-42.3 [place] % 9.1 5.1-13.7 Eos % 4.5 0.4-6.8 Baso % 0.6 0.1-2.0 Neut, Abs 6.27 10*3/uL 2.20-7.60 Lymph, Abs 2.09 10*3/uL 1.00-3.20 Eos, Abs 0.44 10*3/uL 0.03-0.44 Baso, Abs 0.06 10*3/uL 0.01-0.13 Immature Gran % 0.4 0.0-0.7 Immature Gran, Abs 0.04 10*3/uL 0.00-0.06 Apr 17, 2023 11:42 AM [facility] TSH Specimen Type: SERUM No comment entered. Ordering Provider: BRAEDEN FLYNN Report Released Date/Time: Mar 16, 2023 11:33 AM Reporting Lab: [address] [address] Performing Lab: [address] [address] TSH 1.89 u[IU]/mL 0.35-5.00 Apr 17, 2023 11:42 AM [facility] CREATININE (eGFR 2020) Specimen Type: SERUM No comment entered. Ordering Provider: BRAEDEN FLYNN Report Released Date/Time: Mar 16, 2023 11:33 AM Reporting Lab: [address] [address] Performing Lab: [address] [address] CREATININE, Serum 1.03 mg/dL 0.50-1.40 eGFR(CKD-EPI 2020) 73 mL/min >60 Apr 17, 2023 11:42 AM [facility] MICROALBUMIN CREATININE RATIO PANEL Specimen Type: URINE No comment entered. Ordering Provider: BRAEDEN FLYNN Report Released Date/Time: Mar 16, 2023 11:33 AM Reporting Lab: [facility] [address] Performing Lab: [address] [address] MICROALBUMIN/C REATININE RATIO canc mg/g 0-29.9 MICROALBUMIN,Q UANTITATIVE < 0.5 mg/dL RR UNAVAIL CREATININE URINE 48.09 mg/dL Vital Signs: All taken on the encounter date This section contains inpatient and outpatient Vital Signs collected on the date of the Encounter. Date/Time Temperature Pulse Blood Pressure Respiratory Rate SP02 Pain Height Weight Body Mass Index Source Apr 26, 2023 11:09 AM 132/78 [facility] [place] [facility] Apr 26, 2023 11:06 AM 98 51 16 99 [facility] [place] [facility] Apr 26, 2023 11:03 AM 0 67 161 25 [facility] [place] [facility] Social History: Smoking Status (Most current) and [...] took place. Date/Time Current Smoking Status Comment [facility] Apr 26, 2023 11:00 AM VA-TOBACCO NEVER USED [facility] [place] [facility] Tobacco Use History This section includes a history of the smoking, or tobacco-related health factors, that were collected on or before the date of the Encounter. The data comes from the [place] facility where the Encounter took place. Date/Time Smoking Status/Tobac co Use Comment [facility] Apr 27, 2022 03:34 PM VA-TOBACCO NEVER USED [facility] [place] [facility] Jan 28, 2021 09:00 AM VA-TOBACCO NEVER USED [facility] [place] [facility] Feb 20, 2020 08:30 AM VA-TOBACCO NEVER USED [facility] [place] [facility] Feb 21, 2018 09:43 AM VA-TOBACCO NEVER USED [facility] [place] [facility] Jan 10, 2018 02:26 PM VA-TOBACCO DOESNT USE WI 30 MIN WAKEUP [facility] [place] [facility] Jan 10, 2018 02:26 PM VA-TOBACCO FORMER USER [facility] [place] [facility] Jan 10, 2018 02:26 PM VA-TOBACCO QUIT 15 YRS OR MORE [facility] [place] [facility] Jan 10, 2018 02:26 PM VA-TOBACCO USE 30 YEARS OR MORE [facility] [place] [facility] Jan 10, 2018 02:26 PM VA-TOBACCO USE ADVICE [facility] Jan 10, 2018 02:26 PM 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 [place] [facility] [place] [facility] May 16, 2012 10:48 AM CURRENT SMOKER cigars, About 5 per week. [facility] Encounter Notes: All associated encounter notes This section contains the clinical notes associated to the Encounter. Date/Time Encounter Note(s) Provider Source June 18, 2023 10:21 AM ADDENDUM: LOCAL TITLE: Addendum STANDARD TITLE: ADDENDUM DATE OF NOTE: JUNE 18, 2023@10:21:51 ENTRY DATE: JUNE 18, 2023@10:21:52 AUTHOR: MARQUES CHAPARRO COSIGNER: URGENCY: STATUS: COMPLETED as above. /kenzie/ Marques Chaparro PA-C STAFF PHYSICIAN RISK MANAGEMENT INTERN Signed: 06/18/2023 10:22 Receipt Acknowledged By: 06/18/2023 15:48 /kenzie/ PATRICK MARKHAM RN REGISTERED NURSE --- Original Document --- 04/26/23 DEMETRIO NOTE: CC/HPI/A/P: 77 year old MALE here in follow-up for; htn, good control on 2 meds. Dyslipidem, also on 2 meds, with good results. cad, no chest pain, outside cardiology. Review of systems: Patient reports no changes from [place]ual [place], in meds or any admissions. Active problems - Computerized Problem List is the source for the followin. Malignant Melanoma of Skin (SCT [id number]) left christianity, 2010. 2. Chronic Ischemic Heart Disease (SCT [id number]) 3. Cataract, Cortical (Senile) 4. HYPERTENSION 5. HYPERLIPIDEMIA 6. ESOPHAGEAL REFLUX (GERD) 7. IMPOTENCE, ORGANIC ORIGN 8. ACTINIC KERATOSIS SERVICE CONNECTED % - 30 VA and Non VA meds were reconciled with the patient who left with a corrected copy. See medication page for details. Active and Recently Outpatient Medications (excluding Supplies): Active Outpatient Medications Status 1) AMLODIPINE BESYLATE 5MG TAB TAKE ONE TABLET BY MOUTH ACTIVE ONCE DAILY FOR BLOOD PRESSURE/HEART, DO NOT TAKE WITH GRAPEFRUIT JUICE 2) EZETIMIBE 10MG TAB TAKE ONE TABLET BY MOUTH ONCE ACTIVE DAILY TO LOWER CHOLESTEROL 3) LOSARTAN 50MG TAB TAKE ONE TABLET BY MOUTH ONCE DAILY ACTIVE FOR BLOOD PRESSURE/HEART 4) METOPROLOL SUCCINATE 25MG SA TAB TAKE ONE TABLET BY ACTIVE MOUTH ONCE DAILY FOR BLOOD PRESSURE/HEART 5) OMEPRAZOLE 20MG EC CAP TAKE TWO CAPSULES BY MOUTH ACTIVE EVERY MORNING 30 MINUTES BEFORE BREAKFAST 6) ROSUVASTATIN CA 40MG TAB TAKE ONE TABLET BY MOUTH ACTIVE ONCE DAILY FOR CHOLESTEROL PLEASE GO TO THE LAB FOR BLOODWORK AND SCHEDULE PCP APPT. Active Non-VA Medications Status 1) Non-VA ASPIRIN 81MG EC TAB 162MG BY MOUTH DAILY ACTIVE 2) Non-VA EPINEPHRINE (EQV-EPI-PEN) 0.3MG/0.3ML ACTIVE DIRECTED INTRAMUSCULARLY NEEDED 8 Total Medications 98 F [36.7 C] (04/26/2023 11:06) 51 (04/26/2023 11:06) 16 (04/26/2023 11:06) 132/78 (04/26/2023 11:09) 0 (04/26/2023 11:03) 67 in [170.2 cm] (04/26/2023 11:03) 161 lb [73.03 kg] (04/26/2023 11:03) BMI: 25.3 Neuro: Alert and oriented times three, grossly nonfocal, nasolabial folds intact. 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 Kramer/caregiver believes the Kramer was exposed to the following while serving in the Armed [employer]: Agent Houck: Kramer/caregiver was made aware of educational resources that includes information on the Registry Program, presumptive conditions and how to file a claim. Printed information was offered and provided if desired. Kramer/caregiver has health or medical concerns related to their concern of environmental exposure. Concern: heart. No questions at this time Kramer/caregiver was informed of local points of contact. Contact information for local resources: Benefits/Claim for Disability Compensation Questions:National VBA [place] Healthcare Enrollment: [facility] Eligibility direct dialed at [phone] Registry: [facility] Health Coordinator ext [phone] The following connections were provided to the Kramer/caregiver: No connections needed at this time PTSD Screening: PC-PTSD-5 A PTSD screening test (PC-PTSD-5) was negative (score=0). IN THE PAST MONTH, have you ever had any experience that was so frightening, horrible or traumatic. For example: A serious accident or fire a physical or sexual assault or abuse An earthquake or flood A war Seeing someone be killed or seriously injured Having a loved one through homicide or suicide 1. Have you ever experienced this kind of event? NO 2. Had nightmares about the event(s) or thought about the event(s) when you did not want to? Response not required due to responses to other questions. 3. Tried hard not to think about the event(s) or went out of your way to avoid situations that reminded you of the event(s)? Response not required due to responses to other questions. 4. Been constantly on guard, watchful, or easily startled? Response not required due to responses to other questions. 5. [place] numb or detached from people, activities, or your surroundings? Response not required due to responses to other questions. 6. [place] guilty or unable to stop blaming yourself or others for the event(s) or any problems the event(s) may have caused? Response not required due to responses to other questions. RHS Screen: RHS Screen Environmental Check Upon inquiry, the individual reports that the environment is safe to proceed. Informed Consent to Screen and Document The individual consents to proceed with screening. The individual consents to documentation of responses. PRIMARY SCREEN: In the past 12 months, how often did a current or former intimate partner (e.g., boyfriend, girlfriend, , , sexual partner): 1. Scream or curse at you Never 2. Insult or talk down to you Never 3. Threaten you with harm Never 4. Physically hurt you Never 5. Force or pressure you to have sexual contact against your will, or when you were unable to say no Never ?? The HITS tool (items 1-4 above) is [place] copyright protected by Pola Whitney MD, and the user has full rights to use it throughout the [place] system. PRIMARY SCREEN RESULT: The Primary Screen is NEGATIVE. The individual answered never to all forms of IPV above (i.e., answered never to all 5 items) The individual accepts education and/or resources: Other: EDUCATION: Other: Melanoma, Please see vista for 2021 note from [facility] and request their most recent note and sat our reminder. Please request shots from DR MARQUIS in [place] [facility] [place] in [place]. /kenzie/ Marques Chaparro PA-C STAFF PHYSICIAN RISK MANAGEMENT INTERN Signed: 04/26/2023 11:46 Receipt Acknowledged By: 04/27/2023 10:04 /es/ PATRICK MARKHAM RN REGISTERED NURSE 04/27/2023 ADDENDUM STATUS: COMPLETED records requested /kenzie/ PATRICK MARKHAM RN REGISTERED NURSE Signed: 04/27/2023 10:04 06/18/2023 ADDENDUM STATUS: UNSIGNED You may not VIEW this UNSIGNED Addendum. MARQUES CHAPARRO [facility] [place] [facility] Apr 26, 2023 11:21 AM PHYSICIAN RISK MANAGEMENT INTERN NOTE: LOCAL TITLE: PA NOTE STANDARD TITLE: PHYSICIAN RISK MANAGEMENT INTERN NOTE DATE OF NOTE: APR 26, 2023@11:21 ENTRY DATE: APR 26, 2023@11:21:24 AUTHOR: MARQUES CHAPARRO EXP COSIGNER: URGENCY: STATUS: COMPLETED DEMETRIO NOTE Has ADDENDA CC/HPI/A/P: 77 year old MALE here in follow-up for; htn, good control on 2 meds. Dyslipidem, also on 2 meds, with good results. cad, no chest pain, outside cardiology. Review of systems: Patient reports no changes from [place]ual [place] Health/[place], in meds or any admissions. Active problems - Computerized Problem List is the source for the followin. Malignant Melanoma of Skin (SCT [id number]) left 2010. 2. Chronic Ischemic Heart Disease ([facility] [id number]) 3. Cataract, Cortical (Senile) 4. HYPERTENSION 5. HYPERLIPIDEMIA 6. ESOPHAGEAL REFLUX (GERD) 7. IMPOTENCE, ORGANIC ORIGN 8. ACTINIC KERATOSIS SERVICE CONNECTED % - 30 VA and Non VA meds were reconciled with the patient who left with a corrected copy. See medication page for details. Active and Recently Outpatient Medications (excluding Supplies): Active Outpatient Medications Status 1) AMLODIPINE BESYLATE 5MG TAB TAKE ONE TABLET BY MOUTH ACTIVE ONCE DAILY FOR BLOOD PRESSURE/HEART, DO NOT TAKE WITH GRAPEFRUIT JUICE 2) EZETIMIBE 10MG TAB TAKE ONE TABLET BY MOUTH ONCE ACTIVE DAILY TO LOWER CHOLESTEROL 3) LOSARTAN 50MG TAB TAKE ONE TABLET BY MOUTH ONCE DAILY ACTIVE FOR BLOOD PRESSURE/HEART 4) METOPROLOL SUCCINATE 25MG SA TAB TAKE ONE TABLET BY ACTIVE MOUTH ONCE DAILY FOR BLOOD PRESSURE/HEART 5) OMEPRAZOLE 20MG EC CAP TAKE TWO CAPSULES BY MOUTH ACTIVE EVERY MORNING 30 MINUTES BEFORE BREAKFAST 6) ROSUVASTATIN CA 40MG TAB TAKE ONE TABLET BY MOUTH ACTIVE ONCE DAILY FOR CHOLESTEROL PLEASE GO TO THE LAB FOR BLOODWORK AND SCHEDULE PCP APPT. Active Non-VA Medications Status 1) Non-VA ASPIRIN 81MG EC TAB 162MG BY MOUTH DAILY ACTIVE 2) Non-VA EPINEPHRINE (EQV-EPI-PEN) 0.3MG/0.3ML ACTIVE DIRECTED INTRAMUSCULARLY NEEDED 8 Total Medications 98 F [36.7 C] (04/26/2023 11:06) 51 (04/26/2023 11:06) 16 (04/26/2023 11:06) 132/78 (04/26/2023 11:09) 0 (04/26/2023 11:03) 67 in [170.2 cm] (04/26/2023 11:03) 161 lb [73.03 kg] (04/26/2023 11:03) BMI: 25.3 Neuro: Alert and oriented times three, grossly nonfocal, nasolabial folds intact. Recent labs reviewed with patient today: yes Toxic Exposure Screening: The Kramer/caregiver was asked if they believe the experienced any toxic exposure(s), such as Airborne Hazards and Open Burn Pit, [place] War related exposures, Agent Houck, Radiation, contaminated water at [place] or other such exposures, while serving in the Armed Forces. 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 Printed information was offered and provided if desired. Kramer/caregiver has health or medical concerns related to their concern of environmental exposure. Concern: heart. No questions at this time /caregiver was informed of local points of contact. Contact information for local resources: Benefits/Claim for Disability Compensation Questions:National VBA [place] Healthcare Enrollment: [facility] Eligibility direct dialed at [phone] Registry: Replaced By [facility] Coordinator ext [phone] The following connections were provided to the Kramer/caregiver: No connections needed at this time PTSD Screening: PC-PTSD-5 A PTSD screening test (PC-PTSD-5) was negative (score=0). IN THE PAST MONTH, have you ever had any experience that was so frightening, horrible or traumatic. For example: A serious accident or fire a physical or sexual assault or abuse An earthquake or flood A war Seeing someone be killed or seriously injured Having a loved one through homicide or suicide 1. Have you ever experienced this kind of event? NO 2. Had nightmares about the event(s) or thought about the event(s) when you did not want to? Response not required due to responses to other questions. 3. Tried hard not to think about the event(s) or went out of your way to avoid situations that reminded you of the event(s)? Response not required due to responses to other questions. 4. Been constantly on guard, watchful, or easily startled? Response not required due to responses to other questions. 5. [place] numb or detached from people, activities, or your surroundings? Response not required due to responses to other questions. 6. [place] guilty or unable to stop blaming yourself or others for the event(s) or any problems the event(s) may have caused? Response not required due to responses to other questions. RHS Screen: RHS Screen Environmental Check Upon inquiry, the individual reports that the environment is safe to proceed. Informed Consent to Screen and Document The individual consents to proceed with screening. The individual consents to documentation of responses. PRIMARY SCREEN: In the past 12 months, how often did a current or former intimate partner (e.g., boyfriend, girlfriend, , , sexual partner): 1. Scream or curse at you Never 2. Insult or talk down to you Never 3. Threaten you with harm Never 4. Physically hurt you Never 5. Force or pressure you to have sexual contact against your will, or when you were unable to say no Never ?? The HITS tool (items 1-4 above) is [place] copyright protected by Pola Whitney MD, and the user has full rights to use it throughout the [place] system. PRIMARY SCREEN RESULT: The Primary Screen is NEGATIVE. The individual answered never to all forms of IPV above (i.e., answered never to all 5 items) The individual accepts education and/or resources: Other: EDUCATION: Other: Melanoma, Please see vista for 2021 note from [facility] and request their most recent note and sat our reminder. Please request shots from DR MARQUIS in [place] in [place]. /kenzie/ Marques Chaparro PA-C STAFF PHYSICIAN RISK MANAGEMENT INTERN Signed: 04/26/2023 11:46 Receipt Acknowledged By: 04/27/2023 10:04 /dianelys MARKHAM RN REGISTERED NURSE 04/27/2023 ADDENDUM STATUS: COMPLETED records requested /dianelys MARKHAM RN REGISTERED NURSE Signed: 04/27/2023 10:04 06/18/2023 ADDENDUM STATUS: COMPLETED as above. /kenzie/ Marques Chaparro PA-C STAFF PHYSICIAN RISK MANAGEMENT INTERN Signed: 06/18/2023 10:22 Receipt Acknowledged By: 06/18/2023 15:48 /dianelys MARKHAM RN REGISTERED NURSE 06/18/2023 ADDENDUM STATUS: COMPLETED Requested notes x 2 /dianelys MARKHAM RN REGISTERED NURSE Signed: 06/18/2023 15:48 06/24/2023 ADDENDUM STATUS: COMPLETED Melanoma Follow-up: Patient is followed by Dermatology OUTSIDE this [facility], for Melanoma F/U. Last Visit: November 30, 2022 Location: Outside Healthcare Provider Prognosis: good /dianelys Chaparro PA-C STAFF PHYSICIAN RISK MANAGEMENT INTERN Signed: 06/24/2023 17:06 MARQUES CHAPARRO [facility] [place] [facility] Apr 26, 2023 11:10 AM PREVENTIVE MEDICINE NURSING NOTE: LOCAL TITLE: CLINICAL REMINDERS/NURSING STANDARD TITLE: PREVENTIVE MEDICINE NURSING NOTE DATE OF NOTE: APR 26, 2023@11:10 ENTRY DATE: APR 26, 2023@11:10:36 AUTHOR: JAYDE,JESSY EXP COSIGNER: URGENCY: STATUS: COMPLETED Suicide Screen: C-SSRS Screening [place] Suicide Severity Rating Scale (C-SSRS) screener 1. Over the past month, have you wished you were or wished you could go to sleep and not wake up? No 2. Over the past month, have you had any actual thoughts of killing yourself? No 3. Over the past month, have you been thinking about how you might do this? Response not required due to responses to other questions. 4. Over the past month, have you had these thoughts and had some intention of acting on them? Response not required due to responses to other questions. 5. Over the past month, have you started to work out or worked out the details of how to kill yourself? Response not required due to responses to other questions. 6. If yes, at any time in the past month did you intend to carry out this plan? Response not required due to responses to other questions. 7. In your lifetime, have you ever done anything, started to do anything, or prepared to do anything to end your life (for example, collected pills, obtained a gun, gave away valuables, went to the roof but didn't jump)? No 8. If YES, was this within the past 3 months? Response not required due to responses to other questions. Homelessness/Food Insecurity Screen: In the past 2 months, have you been living in stable housing that you own, rent, or stay in as part of a household? Yes - Living in stable housing. Are you worried or concerned that in the next 2 months you may NOT have stable housing that you own, rent, or stay in as part of a household? No - Not worried about housing near future The reports the following: Within the past 12 months, you worried whether your food would run out before you got money to buy more. Never true Within the past 12 months, the food you bought just didn't last and you didn't have money to get more. Never true Depression Screening: Perform PHQ-2 A PHQ-2 screen was performed. The score was 0 which is a negative screen for depression. Over the past two weeks, how often have you been bothered by the following problems? 1. Little interest or pleasure in doing things Not at all 2. Feeling down, depressed, or hopeless Not at all Falls & Incontinence Screen: Falls Screen: 1. One fall with no injury. Incontinence Screen No incontinence. Tobacco Use Screening: The patient has never used tobacco. Alcohol Use Screen (AUDIT-C): Alcohol Screen: SCREEN FOR ALCOHOL (AUDIT-C) An alcohol screening test (AUDIT-C) was negative (score=3). 1. How often did you have a drink containing alcohol in the past year? Consider a drink to be a 12 ounce can or bottle of regular beer, 8 ounces of malt liquor, a 5 ounce glass of table wine, or a 1.5 ounce shot of liquor (like scotch, gin, or vodka). Two to three times per week 2. How many drinks containing alcohol did you have on a typical day when you were drinking in the past year? One or two drinks 3. How often did you have six or more drinks on one occasion in the past year? Never COVID-19 Immunization: Refused Moderna Monovalent COVID-19 vaccine Immunization: COVID-19 (MODERNA), MRNA, LNP-S, PF, 50 MCG/0.5 ML (AGES 12+ YEARS) Refusal Reason: PATIENT DECISION Patient refuses all immunization(s) in the COVID-19 group Date Documented: 04/26/23 11:12 /[email or web address]/ JESSY DONOHUE LPN License Practical Nurse Signed: 04/26/2023 11:12 JESSY DONOHUE [place] [facility]
== END ==
LOC: HO.CARD 08:29
PROVIDERS: PCP Internal Medicine; Visit Provider Internal Medicine Cardiovascular Disease
DX: I71.20 Thoracic aortic aneurysm, without rupture, unspecified (principal)
CPT/HCPCS: 93306

== ENCOUNTER → 2024-02-21 08:36 | Outpatient (BNV) | payer MEDICARE, SELFPAY | PROVIDERS: PCP Internal Medicine; Visit Provider Internal Medicine | DX: I42.2 Other hypertrophic cardiomyopathy (principal); I36.1 Nonrheumatic tricuspid (valve) insufficiency; I51.7 Cardiomegaly; I71.21 Aneurysm of the ascending aorta, without rupture | CPT/HCPCS: 93306 ==

== ENCOUNTER → 2024-02-26 09:48 | Outpatient (REF) | payer MEDICARE, SELFPAY ==
--- NOTE | ~2024-02-26 | NM_ITS ---
EXERCISE MYOCARDIAL PERFUSION STUDY INDICATION: Chest discomfort TECHNIQUE: The patient was brought in for an exercise perfusion study on 02/26/2024. Patient performed exercise as per Micheal protocol and was injected 25 mCi of sestamibi once target heart rate was achieved. Images were obtained using the SPECT gamma camera interlaced with the gating device. Images were obtained in supine position. Resting perfusion study was performed on 02/27/2024. Patient was administered 25 mCi of sestamibi intravenously at rest. Images were then obtained in supine position. Total DLP 120 mGy-cm. Images were processed with the software and compared side to side in short axis, horizontal long axis and vertical long axis views. FINDINGS: Raw aquisition reviewed. Arms by the patient's side. The stress perfusion study showed no significant perfusion abnormality. Both uncorrected as well as CT attenuation corrected images were reviewed. The gated study shows normal LV systolic function with calculated LVEF of 37% but visually appears higher. LV cavity is normal in size. The gated study shows normal wall thickening and contraction of segments. Resting study shows no significant perfusion abnormality. Inferior wall evaluation limited because of subdiaphragmatic tracer uptake. Gating at rest reveals normal wall motion with ejection fraction at 48%, but visually normal. The findings are consistent with no clear reversible or fixed perfusion defects. NM/NM cardiolite stress test IMPRESSION: 1. Myocardial perfusion imaging study shows normal myocardial perfusion. 2. Gated LVEF is 37% during stress and 48% during rest, but visually appears much higher. Correlate with echocardiogram. 3. Transient ischemic dilatation not present. EKG component of the test reported separately. Electronically signed by: Nikunj Machado MD 02/27/2024 04:00 PM [facility]
--- NOTE | 2024-02-26 09:51 | CA_ITS ---
Acquisition Time: 2024-02-26 09:57:16 Total Exercise Time: 00:06:58 Test Indications: PVCS, CAD Medications: SEE H&P Protocol: CHANELLE Max HR: 136 BPM 97% of Pred: 140 BPM Max BP: 170/80 mmHG Max Work Load: 7.5 METS Exercise Stress Test with exercise 6 mins 58 secs of Chanelle Protocol, slowed speed to 2.5 for the last 40 secs as requested, achieving 86% MPHR, with reports of modearte SOB, no chest discomfort, with frequent isolated PACS and PVCs, with baseline hypertension- normal response to exercise. Without EKG changes meeting criteria for ischemia. In recovery, breathing returned to baseline. Nuclear images pending. Test reviewed with Dr. Hough. Referred By: Gordo Wilkins Electronically Signed By: Salvador Salinas
--- OUTSIDE RECORDS SUMMARY | 2024-02-26 10:57 | XMS_ITS | Continuity of Care Document ---
Author Name [facility] Organization [facility] Care Team Providers Care Digital Learning Platforms Manager Name Role Phone [facility] Unavailable Unavailable Problems Combined list of problems from 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 It does not include entries that were removed or entered in error. Problem Status Onset Date Problem Type Date of Resolution Comments Source Malignant Melanoma of Skin (SCT 92204799) Active 02/12/19 11 Condition Nov 06, 2021 Entered By: SHIRA WHITTAKER AM Comment: [facility], 2010. [facility] [place] [facility] ACTINIC KERATOSIS Active Condition [facility] [place] [facility] Cataract, Cortical (Senile) Active Condition [facility] Chronic Ischemic Heart Disease (SCT 576938505) Active Condition [facility] ESOPHAGEAL REFLUX (GERD) Active Condition [facility] Exposure to potentially hazardous substance (SCT [id number]) Active Condition May 22 Entered By: RADHA HENSON Comment: Entered automatically through [facility] Problem List documentation program [facility] HYPERLIPIDEMIA Active Condition [facility] HYPERTENSION Active Condition [facility] IMPOTENCE, ORGANIC ORIGN Active Condition [facility] 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 Condition [facility] [...] H90.3 Sensorineural hearing loss, bilateral [facility] Diagnosis: ICD-10-CM Z23 Encounter for immunization [facility]ations Combined list of outpatient medications [...] WITH GRAPEFRU IT JUICE ORAL ACTIVE 04/26/2024 [id number] ELIAS WHITTAKER 2023 90 [facility] AMLODIPINE BESYLATE 5MG TAB TAKE ONE TABLET BY MOUTH ONCE DAILY FOR BLOOD PRESSURE /HEART, DO NOT TAKE WITH GRAPEFRU IT JUICE ORAL DISCONT INUED 09/09/2023 [id number] 4 ELIAS WHITTAKER 2022 90 [facility] ASPIRIN 81MG TAB,EC TAKE TWO TABLETS BY MOUTH DAILY ORAL ACTIVE ELIAS WHITTAKER 2012 [facility] EPINEPHRINE (EQV-EPI-PE N) 0.3MG/0.3ML INJECTOR INJECT DIRECTED INTRAMUS CULARLY PRN INTRAM USCULA R RA JESSICA WEEMS 2021 [facility] EZETIMIBE 10MG TAB TAKE ONE TABLET BY MOUTH ONCE DAILY TO LOWER CHOLESTE ROL ORAL ACTIVE 04/26/2024 [id number] ELIAS WHITTAKER 2023 90 [facility] [place] [facility] EZETIMIBE 10MG TAB TAKE ONE TABLET BY MOUTH ONCE DAILY TO LOWER CHOLESTE ROL ORAL DISCONT INUED 09/09/2023 [id number] ELIAS WHITTAKER 2022 90 [facility] [place] 50MG TAB TAKE ONE TABLET BY MOUTH ONCE DAILY FOR BLOOD PRESSURE /HEART ORAL ACTIVE 04/26/2024 [id number] 4 ELIAS WHITTAKER 2023 90 [facility] [place] 50MG TAB TAKE ONE TABLET BY MOUTH ONCE DAILY FOR BLOOD PRESSURE /HEART ORAL DISCONT INUED 09/09/2023 [id number] 4 ELIAS WHITTAKER 2022 90 [facility] [place] [facility] METOPROLOL SUCCINATE 25MG TAB,SA TAKE ONE TABLET BY MOUTH ONCE DAILY FOR BLOOD PRESSURE /HEART ORAL ACTIVE 04/26/2024 [id number] ELIAS WHITTAKER 2023 90 [facility] METOPROLOL SUCCINATE 25MG TAB,SA TAKE ONE TABLET BY MOUTH ONCE DAILY FOR BLOOD PRESSURE /HEART ORAL DISCONT INUED 09/09/2023 [id number] ELIAS WHITTAKER 2022 90 [facility] [place] [facility] OMEPRAZOLE 20MG CAP,EC TAKE TWO CAPSULES BY MOUTH EVERY MORNING 30 MINUTES BEFORE BREAKFAS T ORAL ACTIVE 04/26/2024 [id number] 4 ELIAS WHITTAKER 2023 180 [facility] [place] [facility] OMEPRAZOLE 20MG CAP,EC TAKE TWO CAPSULES BY MOUTH EVERY MORNING 30 MINUTES BEFORE BREAKFAS T ORAL DISCONT INUED 09/09/2023 [id number] 4 ELIAS WHITTAKER 2022 180 [facility] [place] [facility] [facility] ROSUVASTATI N CA 40MG TAB TAKE ONE TABLET BY MOUTH ONCE DAILY FOR HIGH CHOLESTE ROL FOR CHOLESTE ROL ORAL ACTIVE 06/18/2024 [id number] ELIAS WHITTAKER 2023 90 [facility] ROSUVASTATI N CA 40MG TAB TAKE ONE TABLET BY MOUTH ONCE DAILY FOR CHOLESTE ROL PLEASE GO TO THE LAB FOR BLOODWOR K AND SCHEDULE PCP APPT. ORAL DISCONT INUED 05/09/2023 [id number] 4 ELIAS WHITTAKER 2023 30 [facility] [place] [facility] ROSUVASTATI N CA 40MG TAB TAKE ONE TABLET BY MOUTH ONCE DAILY FOR CHOLESTE ROL PLEASE GO TO THE LAB FOR BLOODWOR K AND SCHEDULE PCP APPT. ORAL DISCONT INUED 04/15/2023 [id number] RA JESSICA FLYNN 2023 30 [facility] ROSUVASTATI N CA 40MG TAB TAKE ONE TABLET BY MOUTH ONCE DAILY FOR HIGH CHOLESTE ROL ORAL 05/26/2023 [id number] 4 AURELIOELIAS BACH 2023 30 [facility] ROS[place]I N [place] 40MG TAB TAKE ONE TABLET BY MOUTH ONCE DAILY FOR CHOLESTE ROL ORAL 12/13/2022 [id number] 3 ELIAS WHITTAKER 2021 90 [facility] Allergies, Adverse Reactions, Alerts Combined list of allergies from 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 It does not include entries that were removed or entered in error. Substance Category Reaction Severity Reaction type Status Date Reported Comments Source SHELLFISH Propensity to adverse reactions to food (finding) Urticaria active 2 [facility] [place] [facility] Immunizations Combined list of available immunizations from the 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 Immunization Series Date Given Administered By Site Reaction Lot Number CVX Code Drug Make Up Girl Status Comments Source INFLUENZA, HIGH-DOSE, QUADRIVALENT 2022 NILDA ALFARO LEFT DELTO ID [id number] 197 complet ed [facility] COVID-19 (MODERNA), MRNA, LNP-S, PF, 100 MCG OR 50 MCG DOSE 3 2020 207 complet ed MOD; [id number]; 2 [facility] [place] [facility] INFLUENZA, UNSPECIFIED FORMULATION 2020 88 complet ed [facility] [place] COVID-19 (MODERNA), MRNA, LNP-S, PF, 100 MCG/0.5 ML DOSE 2 2020 207 complet ed MOD; [id number]; 1 [facility] [place] COVID-19 (MODERNA), MRNA, LNP-S, PF, 100 MCG/0.5 ML DOSE 1 2020 207 complet ed MOD; [id number]; 1 [facility] [place] [...] Mar 16, 2023 11:33 AM Reporting Lab: [facility] [place] [facility] [address] [facility] [address] Performing Lab: [facility] [address] [facility] [address] [facility] [facility] LIPID PANEL FASTING TRIGLYCERID E [MASS/VOLUM E] IN SERUM OR PLASMA 96 mg/dL 0 - 150 04/16 Specimen Type: SERUM No comment entered. Ordering Provider: ERLINDA FLYNN Report Released Date/Time: Mar 16, 2023 11:33 AM Reporting Lab: [facility] [address] Performing Lab: [facility] [address] [facility] LIPID PANEL FASTING CHOLESTEROL IN LDL [MASS/VOLUM E] IN SERUM OR PLASMA BY CALCULATION 70 mg/dL 0 - 129 04/16 Specimen Type: SERUM No comment entered. Ordering Provider: ERLINDA FLYNN Report Released Date/Time: Mar 16, 2023 11:33 AM Reporting Lab: [facility] [address] [facility] [address] Performing Lab: [facility] [address] [facility] [address] [facility] [place] [facility] LIPID PANEL FASTING CHOLESTEROL .TOTAL/CHOL ESTEROL IN HDL [MASS RATIO] IN SERUM OR PLASMA 2.4 04/16 Specimen Type: SERUM No comment entered. Ordering Provider: ERLINDA FLYNN Report Released Date/Time: Mar 16, 2023 11:33 AM Reporting Lab: [facility] [address] [facility] [address] Performing Lab: [facility] [place] [facility] [address] [facility] [address] [facility] [place] [facility] LIPID PANEL FASTING CHOLESTEROL IN HDL [MASS/VOLUM E] IN SERUM OR PLASMA 64 mg/dL 40 - 60 04/16 H Specimen Type: SERUM No comment entered. Ordering Provider: ERLINDA FLYNN Report Released Date/Time: Mar 16, 2023 11:33 AM Reporting Lab: [facility] [place] [facility] [address] [facility] [address] Performing Lab: [facility] [place] [facility] [address] [facility] [address] [facility] [place] [facility] BASIC METABOLIC PANEL (fasting) UREA NITROGEN [MASS/VOLUM E] IN SERUM OR PLASMA 16 mg/dL 7 - 25 04/16 Specimen Type: SERUM No comment entered. Ordering Provider: ERLINDA FLYNN Report Released Date/Time: Mar 16, 2023 11:33 AM Reporting Lab: [facility] [place] [facility] [address] [facility] [address] Performing Lab: [facility] [place] [facility] [address] [facility] [address] [facility] [place] [facility] BASIC METABOLIC PANEL (fasting) GLUCOSE [MASS/VOLUM E] IN SERUM OR PLASMA 80 mg/dL 65 - 100 04/16 Specimen Type: SERUM No comment entered. Ordering Provider: ERLINDA FLYNN Report Released Date/Time: Mar 16, 2023 11:33 AM Reporting Lab: [facility] [place] [facility] [address] [facility] [address] Performing Lab: [facility] [place] [facility] [address] [facility] [address] [facility] [place] [facility] BASIC METABOLIC PANEL (fasting) SODIUM [MOLES/VOLU ME] IN SERUM OR PLASMA 136 mmol/L 135 - 145 04/16 Specimen Type: SERUM No comment entered. Ordering Provider: ERLINDA FLYNN Report Released Date/Time: Mar 16, 2023 11:33 AM Reporting Lab: [facility] [place] [facility] [address] [facility] [address] Performing Lab: [facility] [place] [facility] [address] [facility] [address] [facility] [place] [facility] BASIC METABOLIC PANEL (fasting) POTASSIUM [MOLES/VOLU ME] IN SERUM OR PLASMA 4.5 mmol/L 3.5 - 5.0 04/16 Specimen Type: SERUM No comment entered. Ordering Provider: ERLINDA FLYNN Report Released Date/Time: Mar 16, 2023 11:33 AM Reporting Lab: [facility] [place] [facility] [address] [facility] [address] Performing Lab: [facility] [place] [facility] [address] [facility] [address] [facility] [place] [facility] BASIC METABOLIC PANEL (fasting) CHLORIDE [MOLES/VOLU ME] IN SERUM OR PLASMA 103 mmol/L 100 - 110 04/16 Specimen Type: SERUM No comment entered. Ordering Provider: ERLINDA FLYNN Report Released Date/Time: Mar 16, 2023 11:33 AM Reporting Lab: [facility] [place] [facility] [address] [facility] [address] Performing Lab: [facility] [place] [facility] [address] [facility] [address] [facility] [place] [facility] BASIC METABOLIC PANEL (fasting) CARBON DIOXIDE, TOTAL [MOLES/VOLU ME] IN SERUM OR PLASMA 24 meq/L 20 - 30 04/16 Specimen Type: SERUM No comment entered. Ordering Provider: ERLINDA FLYNN Report Released Date/Time: Mar 16, 2023 11:33 AM Reporting Lab: [facility] [place] [facility] [address] [facility] [address] Performing Lab: [facility] [place] [facility] [address] [facility] [address] [facility] [place] [facility] BASIC METABOLIC PANEL (fasting) CREATININE [MASS/VOLUM E] IN SERUM OR PLASMA 1.03 mg/dL 0.50 - 1.40 04/16 Specimen Type: SERUM No comment entered. Ordering Provider: ERLINDA FLYNN Report Released Date/Time: Mar 16, 2023 11:33 AM Reporting Lab: [facility] [place] [facility] [address] [facility] [address] Performing Lab: [facility] [place] [facility] [address] [facility] [address] [facility] [place] [facility] BASIC METABOLIC PANEL (fasting) GLOMERULAR FILTRATION RATE/1.73 SQ M.PREDICTED [VOLUME RATE/AREA] IN SERUM, PLASMA OR BLOOD BY CREATININE- BASED FORMULA (CKD-EPI 2020) 73 mL/min 60 04/16 Specimen Type: SERUM No comment entered. Ordering Provider: ERLINDA FLYNN Report Released Date/Time: Mar 16, 2023 11:33 AM Reporting Lab: [facility] [place] [facility] [address] [facility] [address] Performing Lab: [facility] [place] [facility] [address] [facility] [address] [facility] [place] [facility] LIVER FUNCTION PROTEIN [MASS/VOLUM E] IN SERUM OR PLASMA 6.5 g/dL 6.0 - 8.3 04/16 Specimen Type: SERUM No comment entered. Ordering Provider: ERLINDA FLYNN Report Released Date/Time: Mar 16, 2023 11:33 AM Reporting Lab: [facility] [place] [facility] [address] [facility] [address] Performing Lab: [facility] [place] [facility] [address] [facility] [address] [facility] [place] [facility] LIVER FUNCTION ALBUMIN [MASS/VOLUM E] IN SERUM OR PLASMA 3.8 g/dL 3.5 - 5.0 04/16 Specimen Type: SERUM No comment entered. Ordering Provider: ERLINDA FLYNN Report Released Date/Time: Mar 16, 2023 11:33 AM Reporting Lab: [facility] [place] [facility] [address] [facility] [address] Performing Lab: [facility] [place] [facility] [address] [facility] [address] [facility] [place] [facility] LIVER FUNCTION ALKALINE PHOSPHATASE [ENZYMATIC ACTIVITY/VO LUME] IN SERUM OR PLASMA 36 U/L 40 - 150 04/16 L Specimen Type: SERUM No comment entered. Ordering Provider: ERLINDA FLYNN Report Released Date/Time: Mar 16, 2023 11:33 AM Reporting Lab: [facility] [place] [facility] [address] [facility] [address] Performing Lab: [facility] [place] [facility] [address] [facility] [address] [facility] [place] [facility] LIVER FUNCTION ASPARTATE AMINOTRANSF ERASE [ENZYMATIC ACTIVITY/VO LUME] IN SERUM OR PLASMA 21 U/L 5 - 34 04/16 Specimen Type: SERUM No comment entered. Ordering Provider: ERLINDA FLYNN Report Released Date/Time: Mar 16, 2023 11:33 AM Reporting Lab: [facility] [place] [facility] [address] [facility] [address] Performing Lab: [facility] [place] [facility] [address] [facility] [address] [facility] [place] [facility] LIVER FUNCTION ALANINE AMINOTRANSF ERASE [ENZYMATIC ACTIVITY/VO LUME] IN SERUM OR PLASMA 27 U/L 04/16 Specimen Type: SERUM No comment entered. Ordering Provider: ERLINDA FLYNN Report Released Date/Time: Mar 16, 2023 11:33 AM Reporting Lab: [facility] [place] [facility] [address] [facility] [address] Performing Lab: [facility] [place] [facility] [address] [facility] [address] [facility] [place] [facility] LIVER FUNCTION BILIRUBIN.T OTAL [MASS/VOLUM E] IN SERUM OR PLASMA 0.9 mg/dL 0.2 - 1.2 04/16 Specimen Type: SERUM No comment entered. Ordering Provider: ERLINDA FLYNN Report Released Date/Time: Mar 16, 2023 11:33 AM Reporting Lab: [facility] [place] [facility] [address] [facility] [address] Performing Lab: [facility] [address] [facility] [address] [facility] [place] [facility] HEMOGLOBI N A1C PANEL HEMOGLOBIN A1C/HEMOGLO BIN.TOTAL [...] Mar 16, 2023 11:33 AM Reporting Lab: [facility] [place] [facility] [address] [facility] [address] Performing Lab: [facility] [address] [facility] [address] [facility] TSH THYROTROPIN [UNITS/VOLU ME] IN SERUM OR PLASMA 1.89 u[IU]/ mL 0.35 - 5.00 04/16 Specimen Type: SERUM No comment entered. Ordering Provider: ERLINDA FLYNN Report Released Date/Time: Mar 16, 2023 11:33 AM Reporting Lab: [facility] [place] [facility] [address] [facility] [address] Performing Lab: [facility] [address] [facility] [address] [facility] CBC AND DIFF (AUTO) LEUKOCYTES [#/VOLUME] IN BLOOD BY AUTOMATED COUNT 9.79 10*3/u L 4.50 - 11.00 04/16 Specimen Type: BLOOD No comment entered. Ordering Provider: ERLINDA FLYNN Report Released Date/Time: Mar 16, 2023 11:33 AM Reporting Lab: [facility] [place] [facility] [address] [facility] [address] Performing Lab: [facility] [place] [facility] [address] [facility] [address] [facility] [place] [facility] CBC AND DIFF (AUTO) ERYTHROCYTE S [#/VOLUME] IN BLOOD BY AUTOMATED COUNT 4.58 10*6/u L 4.23 - 5.66 04/16 Specimen Type: BLOOD No comment entered. Ordering Provider: ERILNDA FLYNN Report Released Date/Time: Mar 16, 2023 11:33 AM Reporting Lab: [facility] [place] [facility] [address] [facility] [address] Performing Lab: [facility] [place] [facility] [address] [facility] [address] [facility] [place] [facility] CBC AND DIFF (AUTO) HEMOGLOBIN [MASS/VOLUM E] IN BLOOD 14.7 g/dL 12.8 - 17 04/16 Specimen Type: BLOOD No comment entered. Ordering Provider: ERLINDA FLYNN Report Released Date/Time: Mar 16, 2023 11:33 AM Reporting Lab: [facility] [place] [facility] [address] [facility] [address] Performing Lab: [facility] [place] [facility] [address] [facility] [address] [facility] [place] [facility] CBC AND DIFF (AUTO) HEMATOCRIT [VOLUME FRACTION] OF BLOOD BY AUTOMATED COUNT 43.9 39.2 - 50.4 04/16 Specimen Type: BLOOD No comment entered. Ordering Provider: ERLINDA FLYNN Report Released Date/Time: Mar 16, 2023 11:33 AM Reporting Lab: [facility] [place] [facility] [address] [facility] [address] Performing Lab: [facility] [place] [facility] [address] [facility] [address] [facility] [place] [facility] CBC AND DIFF (AUTO) MCV [ENTITIC VOLUME] BY AUTOMATED COUNT 95.9 fL 82 - 99 04/16 Specimen Type: BLOOD No comment entered. Ordering Provider: ERLINDA FLYNN Report Released Date/Time: Mar 16, 2023 11:33 AM Reporting Lab: [facility] [place] [facility] [address] [facility] [address] Performing Lab: [facility] [place] [facility] [address] [facility] [address] [facility] [place] [facility] CBC AND DIFF (AUTO) MCHC [MASS/VOLUM E] BY AUTOMATED COUNT 33.5 g/dL 30.8 - 35.1 04/16 Specimen Type: BLOOD No comment entered. Ordering Provider: ERLINDA FLYNN Report Released Date/Time: Mar 16, 2023 11:33 AM Reporting Lab: [facility] [place] [address] [address] Performing Lab: [facility] [place] [facility] [address] [facility] [address] [facility] [place] [facility] CBC AND DIFF (AUTO) PLATELETS [#/VOLUME] IN BLOOD BY AUTOMATED COUNT 243 10*3/u L 140 - 360 04/16 Specimen Type: BLOOD No comment entered. Ordering Provider: ERLINDA FLYNN Report Released Date/Time: Mar 16, 2023 11:33 AM Reporting Lab: [facility] [place] [facility] [address] [facility] [address] Performing Lab: [facility] [place] [facility] [address] [facility] [address] [facility] [place] [facility] CBC AND DIFF (AUTO) ERYTHROCYTE DISTRIBUTIO N WIDTH [RATIO] BY AUTOMATED COUNT 13.1 12.0 - 16.0 04/16 Specimen Type: BLOOD No comment entered. Ordering Provider: ERLINDA FLYNN Report Released Date/Time: Mar 16, 2023 11:33 AM Reporting Lab: [facility] [place] [address] [address] Performing Lab: [facility] [place] [facility] [address] [facility] [address] [facility] [place] [facility] CBC AND DIFF (AUTO) MONOCYTES [#/VOLUME] IN BLOOD BY AUTOMATED COUNT 0.89 10*3/u L 0.30 - 1.10 04/16 Specimen Type: BLOOD No comment entered. Ordering Provider: ERLINDA FLYNN Report Released Date/Time: Mar 16, 2023 11:33 AM Reporting Lab: [facility] [address] [facility] [address] Performing Lab: [facility] [address] [facility] [address] [facility] CBC AND DIFF (AUTO) MCH [ENTITIC MASS] BY AUTOMATED COUNT 32.1 pg 26.2 - 32.6 04/16 Specimen Type: BLOOD No comment entered. Ordering Provider: ERLINDA FLYNN Report Released Date/Time: Mar 16, 2023 11:33 AM Reporting Lab: [facility] [address] [facility] [address] Performing Lab: [facility] [address] [facility] [address] [facility] CBC AND DIFF (AUTO) NEUTROPHILS /100 LEUKOCYTES IN BLOOD BY AUTOMATED COUNT 64.1 43.7 - 75.8 04/16 Specimen Type: BLOOD No comment entered. Ordering Provider: ERLINDA FLYNN Report Released Date/Time: Mar 16, 2023 11:33 AM Reporting Lab: [facility] [address] [facility] [address] Performing Lab: [facility] [address] [facility] [address] [facility] CBC AND DIFF (AUTO) LYMPHOCYTES /100 LEUKOCYTES IN BLOOD BY AUTOMATED COUNT 21.3 14.0 - 42.3 04/16 Specimen Type: BLOOD No comment entered. Ordering Provider: ERLINDA FLYNN Report Released Date/Time: Mar 16, 2023 11:33 AM Reporting Lab: [facility] [address] [facility] [address] Performing Lab: [facility] [address] [facility] [address] [facility] CBC AND DIFF (AUTO) MONOCYTES/1 00 LEUKOCYTES IN BLOOD BY AUTOMATED COUNT 9.1 5.1 - 13.7 04/16 Specimen Type: BLOOD No comment entered. Ordering Provider: ERLINDA FLYNN Report Released Date/Time: Mar 16, 2023 11:33 AM Reporting Lab: [facility] [address] [facility] [phone] Performing Lab: [facility] [address] [facility] [phone] [facility] CBC AND DIFF (AUTO) EOSINOPHILS /100 LEUKOCYTES IN BLOOD BY AUTOMATED COUNT 4.5 0.4 - 6.8 04/16 Specimen Type: BLOOD No comment entered. Ordering Provider: ERLINDA FLYNN Report Released Date/Time: Mar 16, 2023 11:33 AM Reporting Lab: [facility] [address] [facility] [phone] Performing Lab: [facility] [address] [facility] [address] [facility] CBC AND DIFF (AUTO) BASOPHILS/1 00 LEUKOCYTES IN BLOOD BY AUTOMATED COUNT 0.6 0.1 - 2.0 04/16 Specimen Type: BLOOD No comment entered. Ordering Provider: ERLINDA FLYNN Report Released Date/Time: Mar 16, 2023 11:33 AM Reporting Lab: [facility] [address] [facility] [address] Performing Lab: [facility] [address] [facility] [address] [facility] CBC AND DIFF (AUTO) NEUTROPHILS [#/VOLUME] IN BLOOD BY AUTOMATED COUNT 6.27 10*3/u L 2.20 - 7.60 04/16 Specimen Type: BLOOD No comment entered. Ordering Provider: ERLINDA FLYNN Report Released Date/Time: Mar 16, 2023 11:33 AM Reporting Lab: [facility] [address] [facility] [address] Performing Lab: [facility] [address] [place] [phone] [facility] CBC AND DIFF (AUTO) LYMPHOCYTES [#/VOLUME] IN BLOOD BY AUTOMATED COUNT 2.09 10*3/u L 1.00 - 3.20 04/16 Specimen Type: BLOOD No comment entered. Ordering Provider: ERLINDA FLYNN Report Released Date/Time: Mar 16, 2023 11:33 AM Reporting Lab: [facility] [place] [address] [address] Performing Lab: [facility] [place] [address] [address] [facility] CBC AND DIFF (AUTO) EOSINOPHILS [#/VOLUME] IN BLOOD BY AUTOMATED COUNT 0.44 10*3/u L 0.03 - 0.44 04/16 Specimen Type: BLOOD No comment entered. Ordering Provider: ERLINDA FLYNN Report Released Date/Time: Mar 16, 2023 11:33 AM Reporting Lab: [facility] [address] [place] [phone] Performing Lab: [facility] [address] [place] [phone] [facility] CBC AND DIFF (AUTO) BASOPHILS [#/VOLUME] IN BLOOD BY AUTOMATED COUNT 0.06 10*3/u L 0.01 - 0.13 04/16 Specimen Type: BLOOD No comment entered. Ordering Provider: ERLINDA FLYNN Report Released Date/Time: Mar 16, 2023 11:33 AM Reporting Lab: [facility] [address] [place] [phone] Performing Lab: [facility] [place] [facility] [address] [facility] [address] [facility] CBC AND DIFF (AUTO) IMMATURE GRANULOCYTE S/100 LEUKOCYTES IN BLOOD BY AUTOMATED COUNT 0.4 0.0 - 0.7 04/16 Specimen Type: BLOOD No comment entered. Ordering Provider: ERLINDA FLYNN Report Released Date/Time: Mar 16, 2023 11:33 AM Reporting Lab: [facility] [place] [facility] [address] [facility] [phone] Performing Lab: [facility] [facility] [address] [facility] [address] [facility] CBC AND DIFF (AUTO) IMMATURE GRANULOCYTE S [#/VOLUME] IN BLOOD 0.04 10*3/u L 0.00 - 0.06 04/16 Specimen Type: BLOOD No comment entered. Ordering Provider: ERLINDA FLYNN Report Released Date/Time: Mar 16, 2023 11:33 AM Reporting [facility]: [facility] [place] [address] [address] Performing Lab: [facility] [place] [facility] [address] [facility] [address] [facility] [place] CREATININ E (eGFR 2020) CREATININE [MASS/VOLUM E] IN SERUM OR PLASMA 1.03 mg/dL 0.50 - 1.40 04/16 Specimen Type: SERUM No comment entered. Ordering Provider: ERLINDA FLYNN Report Released Date/Time: Mar 16, 2023 11:33 AM Reporting Lab: [facility] [place] [facility] [address] [facility] [address] Performing Lab: [facility] [place] [facility] [address] [facility] [address] [facility] CREATININ E (eGFR 2020) GLOMERULAR FILTRATION RATE/1.73 SQ M.PREDICTED [VOLUME RATE/AREA] IN SERUM, PLASMA OR BLOOD BY CREATININE- BASED FORMULA (CKD-EPI 2020) 73 mL/min 60 04/16 Specimen Type: SERUM No comment entered. Ordering Provider: ERLINDA FLYNN Report Released Date/Time: Mar 16, 2023 11:33 AM Reporting Lab: [facility] [place] [facility] [address] [facility] [phone] Performing Lab: [facility] [place] [facility] [address] [facility] [phone] [facility] MICROALBU MIN CREATININ E RATIO PANEL MICROALBUMI N/CREATININ E [MASS RATIO] IN URINE cancmg /g 0 - 29.9 04/16 Specimen Type: URINE No comment entered. Ordering Provider: ERLINDA FLYNN Report Released Date/Time: Mar 16, 2023 11:33 AM Reporting Lab: [facility] [place] [facility] [address] [facility] [address] Performing Lab: [facility] [place] [facility] [address] [facility] [address] [facility] MICROALBU MIN CREATININ E RATIO PANEL MICROALBUMI N [MASS/VOLUM E] IN URINE < 0.5mg/ dL 04/16 Specimen Type: URINE No comment entered. Ordering Provider: ERLINDA FLYNN Report Released Date/Time: Mar 16, 2023 11:33 AM Reporting Lab: [facility] [place] [facility] [address] [facility] [address] Performing Lab: [facility] [place] [facility] [address] [facility] [address] [facility] [facility] MICROALBU MIN CREATININ E RATIO PANEL CREATININE [MASS/VOLUM E] IN URINE 48.09 mg/dL 04/16 Specimen Type: URINE No comment entered. Ordering Provider: ERLINDA FLYNN Report Released Date/Time: Mar 16, 2023 11:33 AM Reporting Lab: [facility] [place] [facility] [address] [facility] [address] Performing Lab: [facility] [address] [facility] [address] [facility] Vital [...] [facility] Out[facility] En[facility] [id number] 09/08 [facility] En[facility] [id number] 10/12 [facility] Encounter [id number] 10/25 [facility] Encounter [id number] 11/30 [facility] Out[facility] Encounter [id number] 11/30 [facility] OFF/OP EST JUNE X REQ PHY/QHP [id number] Diagnos is: ICD-10- CM Z23 Encount er for immuniz ation<b r/> GELY ALFARO ESEQUIEL P 12/12 [facility] Outpatient Encounter [id number] 03/16 [facility] HEARING AID FITTING/CH ECKING [id number] Diagnos is: ICD-10- CM H90.3 Sensori neural hearing loss, bilater al
Tre HAIR 04/04 [facility] Outpatient Encounter [id number] 04/09 [facility] [place] Outpatient Encounter [id number] 04/15 [facility] OFFICE O/P EST MOD 30 MIN [id number] Diagnos is: ICD-10- CM 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, unspeci fied
ELIAS WHITTAKER 04/25 [facility] [place] [id number] Diagnos is: ICD-10- CM H25.813 Combine d forms of age-rel ated catarac t, bilater al
ZBIGNIEW LR 05/29 [facility] FIT SPECTACLES BIFOCAL [id number] Diagnos is: ICD-10- CM Z46.0 Encount er for fit/adj st of spectac les and contact lenses< br/> ZBIGNIEW LR 05/30 [facility] [place] [facility] [place] [facility] Outpatient Encounter [id number] 06/17 [facility] [place] [facility] Social History Combined list of available smoking, tobacco, and other social history from 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 Social History Type Response Date Comment Source Tobacco smoking status [facility] NEVER [facility]ED 04/26/2023 [facility] [place] [facility] [place] [facility]28[facility]2021 [facility] [place] [facility] 02[facility]20[facility]2020 [facility] [place] [facility] 02[facility]21/2018 [facility] [place] [facility] History of tobacco use [place] FORMER USER 01/10/2018 [facility] [place] [facility] History [facility] tobacco use LIFETIME NON-TOBACCO USER 02/20/2017 [facility] [place] [facility] History of tobacco use LIFETIME NON-TOBACCO USER 06/11/2015 [facility] [place] [facility] History of tobacco use LIFETIME NON-TOBACCO USER 05/16/2013 . [facility] [place] [facility] History of tobacco use CURRENT SMOKER 05/16/2012 cigars, About 5 per week[facility] [facility] Plan of Care List of future care activities from Department of 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 Additional future care activities may be listed in the Assessment and Plan section. Date/Time Care Activity Care Activity Detail Facili ty 04/25/2024 AMBULATORY - MEDICINE AMBULATORY [facility]IC[facility] [place] [facility] 06/02/2024 AMBULATORY - MEDICINE [facility] [place] [facility]
== END ==
LOC: HO.CARD 09:48
PROVIDERS: PCP Internal Medicine; Visit Provider Internal Medicine
DX: I49.5 Sick sinus syndrome (principal)
CPT/HCPCS: 78452; 93017; A9500; J0280; J2785

== ENCOUNTER → 2024-03-07 09:19 | Outpatient (BNVA) | payer MEDICARE, SELFPAY | PROVIDERS: PCP Internal Medicine; Visit Provider Internal Medicine | DX: R73.02 Impaired glucose tolerance (oral) (principal); K21.9 Gastro-esophageal reflux disease without esophagitis; I25.10 Atherosclerotic heart disease of native coronary artery without angina pectoris; I71.20 Thoracic aortic aneurysm, without rupture, unspecified; I10 Essential (primary) hypertension; E78.00 Pure hypercholesterolemia, unspecified | CPT/HCPCS: 99212 ==

== ENCOUNTER 2024-05-22 08:22 | Outpatient (AMB) | payer MEDICARE, SELFPAY ==
[2024-05-22 08:27] VITALS: BP 134/68; PULSE 49; O2SAT 97; BMI 25.2
--- NOTE | 2024-05-22 08:27 | A.OFFPC_ITS ---
Vital Signs 05/22/24 08:27 Height 5 ft 7 in Weight 161 lb BMI 25.2 BP 134/68 Blood Pressure Location Lt brachial Position Sitting Pulse 49 L Pulse Source Pulse Oximeter Pulse Oximetry (%) 97 Oxygen Delivery Method Room Air Intake Visit Reasons: Coronary artery disease Allergies lobster Allergy (Mild, Uncoded 05/22/24 08:28) Rash N.K.D.A. Allergy (Unknown, Uncoded 05/22/24 08:28) Unknown Tobacco use date assessed: 03/07/24 Fall risk assessment: No Falls in past year Last assessed Fall Risk: 05/22/24 Dental Screening Dental Screen Date: 03/07/24 HPI Coronary artery disease HPI Details [facility] patient mentions again agent orange exposure [facility] Medical History (Updated 03/07/24 @ 09:50 by Grodo Wilkins MD) PVC (premature ventricular contraction) Low vitamin B12 level 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 Arthritis of right glenohumeral joint Adult general medical exam Screening for diabetes mellitus Eczema Low back pain Fall Back pain Thyroid nodule Herpes encephalitis Cirrhosis Periodic limb movement disorder TIA (transient ischemic attack) Cognitive impairment Carpal tunnel syndrome on both sides History of renal calculi GERD (gastroesophageal reflux disease) Erectile dysfunction Thoracic aortic aneurysm Hyperlipidemia Sick sinus syndrome HTN (hypertension) Right shoulder pain Obstructive sleep apnea Osteoarthritis of right shoulder Rotator cuff impingement syndrome of right shoulder CAD (coronary artery disease) Surgical History History of colonoscopy History of tonsillectomy Status post carpal tunnel release of both wrists (~04/2016) Family History Father Myocardial infarct Mother No problems noted. Social History Housing: House Alcohol intake: current Alcohol intake frequency: holidays/special occasions only Comment: 2 beers a day Patient Tobacco Use Status: Never used Tobacco Tobacco use type: Cigarette e-Cigarette/Vaping Use: Never Used Second Hand Smoke Exposure: No service: No Current occupational status: retired Current occupation: Right Handed Cognitive needs: No Hearing needs: Yes Vision needs: Yes Questionnaire PHQ-9 Over the last 2 weeks, how often have you been bothered by any of the following problems? 1. Little interest or pleasure in doing things: not at all 2. Feeling down, depressed, or hopeless: not at all 3. Trouble falling or staying asleep, or sleeping too much: not at all 4. Feeling tired or having little energy: not at all 5. Poor appetite or overeating: not at all 6. Feeling bad about yourself - or that you are a failure or have let yourself or your family down: not at all 7. Trouble concentrating on things, such as reading the newspaper or watching television: not at all 8. Moving or speaking so slowly that other people could have noticed. Or the opposite - being so fidgety or restless that you have been moving around a lot more than usual: not at all 9. Thoughts that you would be better off or of hurting yourself in some way: not at all Total score: 0 Depression Screening Interpretation: Negative Depression Screening Done: Yes Source: Developed by Drs. Sunny Simon, Joe Todd and colleagues, with an educational giuseppe from [email or web address]. Thrive Questionnaire Date Thrive assessed: 03/07/24 AUDIT C Alcohol Use Questionnaire (AUDIT-C) 1. How often do you have a drink containing alcohol?: Monthly or less 2. How many drinks containing alcohol do you have on a typical day when you are drinking?: 1 or 2 3. How often do you have six or more drinks on one occasion?: Never Total Score: 1 VANNESA-7 AMB Questionnaire VANNESA-7 Date VANNESA - 7 assessed: 03/07/24 Source: Developed by Drs. Sunny Simon, Katarina Branham, Joe Munoz and colleagues, with an educational giuseppe from [email or web address]. Physical exam (Primary Care) Vital Signs: Last Vital Signs Pulse 49 L 05/22/24 08:27 BP 134/68 05/22/24 08:27 Pulse Ox 97 05/22/24 08:27 Oxygen Delivery Method Room Air 05/22/24 08:27 BMI result Body Mass Index 25.2 Tobacco/Smoking Status: Tobacco use Status Tobacco use date assessed 03/07/24 05/22/24 08:33 Patient Tobacco Use Status Never used Tobacco 05/22/24 08:33 Tobacco use type Cigarette 05/22/24 08:33 e-Cigarette/Vaping Use Never Used 05/22/24 08:33 PHQ-9: PHQ-9 Score PHQ-9: Total score 0 05/22/24 08:40 Depression Screening Interpretation: Negative Thrive Assessment: Date of Thrive Assessment Date Thrive assessed 03/07/24 05/22/24 08:33 Const General: alert; No acute distress Eyes Conjunctivae: conjunctivae normal Resp Auscultation: clear to auscultation bilaterally Cardio Rate: regular rate Rhythm: regular rhythm GI Inspection: Yes normal to inspection Extrem General: Yes normal to inspection and No edema Coding Level of Care Code Est Pt Level 4 (74240) Complex EM visit Add On G2211 Diagnoses Thoracic aortic aneurysm without rupture I71.2 Presence of rupture: without rupture Essential hypertension I10 Hypertension type: essential hypertension Pure hypercholesterolemia E78.00 Hyperlipidemia type: pure hypercholesterolemia Coronary artery disease involving [place] coronary artery of [place] heart without angina pectoris I25.10 Associated angina: without angina Coronary Disease-Associated Artery/Lesion type: [place] artery [place] vs. transplanted heart: [place] heart Gastroesophageal reflux disease without esophagitis K21.9 Esophagitis presence: without esophagitis Impaired glucose tolerance R73.02 Assessment & Plan Assessment & Plan (1) Thoracic aortic aneurysm: Comment: 11/2019 3.9 cm January 2021, January 2022The left ventricular systolic function is low normal. The calculated ejection fraction is 54% by biplane method. - No obvious valvular pathology seen on this study. - There is mild dilatation of the ascending aorta measuring 3.90 January 2023Normal LV ejection fraction of 55-60% 2. Normal cardiac valvular Doppler 3. Mildly dilated ascending aorta at 4.2 cm 4. No gross pericardial effusion 02/2024 4.3 cm Code(s): I71.2 - Thoracic aortic aneurysm, without rupture Category: Medical Qualifiers: Presence of rupture: without rupture Qualified Code(s): I71.2 - Thoracic aortic aneurysm, without rupture Plan: Continuing to be monitored and last echocardiogram was February 2024 at 4.3 cm (2) HTN (hypertension): Comment: Echo normal LV Code(s): I10 - Essential (primary) hypertension Category: Medical Qualifiers: Hypertension type: essential hypertension Qualified Code(s): I10 - Essential (primary) hypertension Plan: Continue with blood pressure medication. Decrease salt intake and exercise presently taking metoprolol 25 mg once a day losartan 50 mg once a day and amlodipine 5 mg once a day (3) Hyperlipidemia: Code(s): E78.5 - Hyperlipidemia, unspecified Category: Medical Qualifiers: Hyperlipidemia type: pure hypercholesterolemia Qualified Code(s): E78.00 - Pure hypercholesterolemia, unspecified Plan: Avoid fried foods, chicken skin, eggs, butter margarine, pastries and meat. Be it pork or beef they have a lot of cholesterol LDL goal of less than 70 and triglyceride of less than 150. [facility] 40 [facility] a day (4) CAD (coronary artery disease): Comment: Holter normal sinus rhythm occasional bradycardia March 2017, echo 11/2019 EF 60-65% Ascending aorta 3.9 cm. diffuse coronary artery disease significant branch vessel disease in the diagonal branch as well as the distal circumflex, being managed medically Code(s): I25.10 - Atherosclerotic heart disease of [place] coronary artery without angina pectoris Category: Medical Qualifiers: Associated angina: without angina Coronary Disease-Associated Artery/Lesion type: [place] artery [place] vs. transplanted heart: [place] heart Qualified Code(s): I25.10 - Atherosclerotic heart disease of [place] coronary artery without angina pectoris Plan: Control the cholesterol, weight, blood pressure, continuing with aspirin 81 mg once a day (5) GERD (gastroesophageal reflux disease): Code(s): K21.9 - Gastro-esophageal reflux disease without esophagitis Category: Medical Qualifiers: Esophagitis presence: without esophagitis Qualified Code(s): K21.9 - Gastro-esophageal reflux disease without esophagitis Plan: Avoid the foods that causes that usually spicy foods, tomato products, juices, coffee, soda and foods that your sensitive to. After eating do not lie down, allow 3-4 hours before in lie down. And keep the head of bed above 30 degrees to avoid the acid from going up. On omeprazole (6) Impaired glucose tolerance: Code(s): R73.02 - Impaired glucose tolerance (oral) Category: Medical Plan: Continuing to monitor. Decrease the amount of carbohydrate intake, pasta, bread, rice and potatoes are all sugar and that is aside from all the sweet stuff, remember that fruits are good but they are Sweet also. With last blood sugar in the normal range Plan History of Present Illness The patient is an 78-year-old male presenting with follow-up for chronic conditions, specifically addressing hypertension, hypercholesterolemia, and a thoracic aortic aneurysm. His blood pressure is controlled with medications including metoprolol, losartan, and amlodipine. The patient targets an LDL cholesterol level of less than 70 mg/dL, currently managed on rosuvastatin. An echocardiogram from February 2024 notes his ascending aorta measures 4.3 cm, with continuous monitoring in place. The patient has a history of cardiovascular concerns, including sick sinus syndrome and coronary artery disease, treated with aspirin, with no current reports of chest pains or significant symptoms. Gastroesophageal reflux disease is also managed with omeprazole. Impaired glucose tolerance has been noted, with last blood sugar levels within normal parameters. Additionally, lumbar degenerative disc disease is part of his medical history. Skin cancer is a previous diagnosis, with routine dermatological reviews occurring. Health Maintenance - Tetanus, Diphtheria, Pertussis (Tdap) booster needed; last administered in 2013. - Plan in place for LDL cholesterol under 70 mg/dL. - Regular vaccinations and general preventive care under review. - Regular periodic echocardiography for continued monitoring of thoracic aortic aneurysm. - Lifestyle advice includes regular exercise and diet management to mitigate cardiovascular risks. - Regular dermatology evaluations due to skin cancer history. Social History - Engages in regular physical activities like fishing. 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 - Managed lifestyle to maintain cardiovascular health, avoiding processed foods. Review of Systems - Cardiovascular: Denies chest pains, shortness of breath. - Musculoskeletal: Reports lumbar degenerative disc disease. - Endocrine: Denies symptoms of diabetes; impaired glucose tolerance. - Gastrointestinal: Reports gastroesophageal reflux, managed with medication. - Dermatologic: Reports history of skin cancer, regular dermatology check-ups. Physical Exam - Cardiovascular- Regularly slow heart rate, occasionally double beats noted. - Gastrointestinal- Regular bowel sounds. - Vascular- No edema noted. - Respiratory- No respiratory distress observed. Results - Echocardiogram (February 2024): Ascending aorta 4.3 cm. - LDL cholesterol level: 63 mg/dL. - Latest blood work (April 2023): Conducted at [facility] showing normal parameters. - Stress Test: Completed in February, accepted as normal, with earlier echocardiogram supporting normal findings. Plan We will maintain the current regimen for essential hypertension using metoprolol, losartan, and amlodipine to control blood pressure. The thoracic aortic aneurysm will be closely monitored, with echocardiograms reviewed annually. Hypercholesterolemia management through rosuvastatin remains effective, achieving an LDL of 63 mg/dL. Continuation with low-dose aspirin is recommended for coronary artery disease. Gastroesophageal reflux disease will continue under control with omeprazole. Impaired glucose tolerance will be observed, with lifestyle guidance to support cardiovascular health. A tetanus booster is necessary, and we will facilitate this as accessible. Lifestyle support encompassing hydration and sleep remains a focus, with current active life encouraged. Patient was informed and verbally consented to the use of an ambient scribe for clinic note documentation during this visit. Discussion Notes The patient and I discussed their hypertension, hypercholesterolemia, and management of the thoracic aortic aneurysm. I explained the significance of ke eping blood pressure controlled to prevent aneurysm expansion. We successfully manage cholesterol levels with rosuvastatin, and I outlined continuation benefits. We reviewed aspirin usage for coronary artery disease and concurred to continue. The skin cancer history requires routine dermatological follow-ups. We discussed obtaining a tetanus booster, and arrangements to check with pharmacies for administration were made. I emphasized lifestyle modifications to enhance health outcomes. We agreed to proceed with annual review schedules unless new symptoms arise. Patient Instructions - Continue taking metoprolol, losartan, and amlodipine for blood pressure. - Continue rosuvastatin for cholesterol management. - Take aspirin 81 mg daily for coronary artery disease. - Use omeprazole as directed for gastroesophageal reflux disease. - Schedule tetanus booster with a local pharmacy. - Maintain regular appointments with dermatology. - Keep normal activity levels and avoid processed foods. - Stay hydrated during the day but restrict fluid intake before bedtime to improve sleep. - Follow up with regular appointments for chronic condition management and report any new symptoms. - Monitor blood pressure regularly and stick to medication schedule.
--- OUTSIDE RECORDS SUMMARY | 2024-05-22 08:34 | XMS_ITS ---
Author Name [facility] [place] [facility] [place] Address [address] [place] [id number] Care Team Providers Care Global Compensation Manager Name Role Phone MARQUES CHAPARRO Primary Care [...] Renteria's Name Patient's Relationship to Policy Renteria [facility] MEDICARE SUPPLEMEN FREDDY MEDEX 2 Nov 13, 2015 [id number] SANDEEP DELEON PATIENT [facility] MEDICARE SUPPLEMEN [facility] MEDEX 2 Nov 13, 2015 [id number] [phone] SANDEEP DELEON PATIENT BS [place] MED[place] SUPPLE[place] MEDEX 2 Nov 13, 2015 [id number] [phone] SANDEEP DELEON PATIENT MEDICARE (WNR) MEDICARE (M) PART B Nov 13, 2015 PART B [id number] SANDEEP DELEON PATIENT MEDICARE (WNR) MEDICARE (M) PART A Aug 12, 2008 PART A [id number] SANDEEP DELEON PATIENT Selected Encounter This section includes the information on record at [place] for the Encounter. Date/Time Encounter Type Encounter Description Reason Provider Source Apr 25, 2024 09:30 AM OFFICE O/P EST LOW 20 MIN PRIMARY CARE/MEDICINE ICD-10-CM I25.9 Chronic ischemic heart disease, unspecified MIGNON CHAPARRO IHE Encounter Template Text not used by [place] Assessments - Encounter Diagnoses This section includes the primary and secondary diagnoses documented for the Encounter. Date/Time Primary/Secondary Diagnosis Diagnosis Name Provider Source May 14, 2024 12:03 PM PRIMARY Chronic ischemic heart disease, unspecified MIGNON CHAPARRO [facility] Plan of Treatment: Future Appointments (+ 6 months) and Future Tests (+/- 45 days) The Plan of Treatment section includes future care activities for the patient from all [place] treatmentfacilities. This section includes future appointments and future orders which are active, pending or scheduled. Future Appointments This section includes appointments that were scheduled to occur 6 months from the date of the Encounter, up to a maximum of 20 appointments. The data comes from all [place] treatment facilities. Appointment Date/Time Appointment Type Appointme nt Facility Name Jun 02, 2024 10:00 AM AMBULATORY - MEDICINE [facility] Lab Results: +/- 30 days of the encounter This section includes the Chemistry and Hematology Lab Results on record with [place] for the patient. Radiology Reports and Pathology Reports are provided separately, in subsequent sections. Lab Results This section contains the Chemistry/Hematology Results that were resulted 30 days before or 30 daysafter the date of the Encounter. Date/Time Source Result Type Result - Unit Interpretation Reference Range Comment Apr 21, 2024 09:50 AM [facility] LIVER FUNCTION Specimen Type: SERUM No comment entered. Ordering Provider: SANDEEP CHAPARRO Report Released Date/Time: Apr 26, 2023 11:48 AM Reporting Lab: [facility] [address] [facility] [address] Performing Lab: [facility] [address] [facility] [address] PROTEIN,TOTAL 6.7 g/dL 6.0-8.3 ALBUMIN 3.8 g/dL 3.5-5.0 ALKALINE PHOSPHATASE 35 U/L L 40-150 AST 31 U/L 5-34 ALT 47 U/L BILIRUBIN, TOTAL 0.9 mg/dL 0.2-1.2 Apr 21, 2024 09:50 AM [facility] LIPID PANEL FASTING Specimen Type: SERUM No comment entered. Ordering Provider: SANDEEP CHAPARRO Report Released Date/Time: Apr 26, 2023 11:48 AM Reporting Lab: [facility] [address] [facility] [address] Performing Lab: [address] [address] CHOLESTEROL 134 mg/dL TRIGLYCERIDE 79 mg/dL 0-150 LDL calculated 63 mg/dL 0-129 CHOL/HDL 2.4 HDL CHOLESTEROL 55 mg/dL 40-60 Apr 21, 2024 09:50 AM [facility] BASIC METABOLIC PANEL (fasting) Specimen Type: SERUM No comment entered. Ordering Provider: SANDEEP CHAPARRO Report Released Date/Time: Apr 26, 2023 11:48 AM Reporting Lab: [facility] [address] [facility] [address] Performing Lab: [address] [address] UREA NITROGEN 19 mg/dL 7-25 GLUCOSE 89 mg/dL 65-100 SODIUM 139 mmol/L 135-145 POTASSIUM 4.6 mmol/L 3.5-5.0 CHLORIDE 107 mmol/L 100-110 CO2 23 meq/L 20-30 CALCIUM 9.3 mg/dL 8.5-10.2 CREATININE, Serum 0.94 mg/dL 0.50-1.40 eGFR(CKD-EPI 2020) 81 mL/min >60 Apr 21, 2024 09:50 AM [facility] VITAMIN D (25-OH) Specimen Type: SERUM No comment entered. Ordering Provider: SANDEEP CHAPARRO Report Released Date/Time: Apr 26, 2023 11:48 AM Reporting Lab: [address] [address] Performing Lab: [address] [place] [address] VITAMIN D (25-OH) 35 ng/mL 20-50 Apr 21, 2024 09:50 AM [facility] VITAMIN B12 Specimen Type: SERUM No comment entered. Ordering Provider: SANDEEP CHAPARRO Report Released Date/Time: Apr 26, 2023 11:48 AM Reporting Lab: [address] [address] Performing Lab: [address] [address] VITAMIN B12 309 pg/mL 200-900 Apr 21, 2024 09:50 AM [facility] TSH Specimen Type: SERUM No comment entered. Ordering Provider: SANDEEP CHAPARRO Report Released Date/Time: Apr 26, 2023 11:48 AM Reporting Lab: [address] [address] Performing Lab: [address] [address] TSH 1.95 u[IU]/mL 0.35-5.00 Vital Signs: All taken on the encounter date This section contains inpatient and outpatient Vital Signs collected on the date of the Encounter. Date/Time Temperature Pulse Blood Pressure Respiratory Rate SP02 Pain Height Weight Body Mass Index Source Apr 25, 2024 09:35 AM 97.5 51 118/80 16 100 6 165 26 [facility] Social History: Smoking Status (Most current) and Tobacco Use (All prior to encounter date) This section includes the most current, and the historical, smoking and tobacco- related health factors from the [place] facility where the Encounter took place. Current Smoking Status This section includes the most current smoking, or tobacco-related health factor, from the [place] facility where the Encounter took place. Date/Time Current Smoking Status Comment Prabhakar moreno Apr 25, 2024 09:30 AM VA-TOBACCO USE FOR ALYSHA CIGARETTES [facility] Tobacco Use History This section includes a history of the smoking, or tobacco-related health factors, that were collected on or before the date of the Encounter. The data comes from the [place] facility where the Encounter took place. Date/Time Smoking Status/Tobac co Use Comment Facility Apr 25, 2024 09:30 AM VA-TOBACCO USE FORMER CIGARETTES [facility] [place] [facility] Apr 26, 2023 11:00 AM VA-TOBACCO NEVER USED [facility] [place] [facility] Apr 27, 2022 03:34 PM VA-TOBACCO NEVER USED [facility] [place] [facility] Jan 28, 2021 09:00 AM VA-TOBACCO NEVER USED [facility] [place] [facility] Feb 20, 2020 08:30 AM VA-TOBACCO NEVER USED [facility] [place] [facility] Feb 21, 2018 09:43 AM VA-TOBACCO NEVER USED [facility] [place] [facility] Jan 10, 2018 02:26 PM VA-TOBACCO DOESNT USE WI 30 MIN WAKEUP [place] [facility] [place] [facility] Jan 10, 2018 02:26 PM VA-TOBACCO FORMER USER [facility] [place] [facility] Jan 10, 2018 02:26 PM VA-TOBACCO QUIT 15 YRS OR MORE [place] [facility] [place] [facility] Jan 10, 2018 02:26 PM VA-TOBACCO USE 30 YEARS OR MORE [place] [facility] [place] [facility] Jan 10, 2018 02:26 PM VA-TOBACCO USE ADVICE [facility] [place] [facility] Jan 10, 2018 02:26 PM VA-TOBACCO USE CHIEF OF PRODUCTION NO [facility] [place] [facility] Jan 10, 2018 02:26 PM VA-TOBACCO USE MED NO [facility] [place] [facility] Jan 10, 2018 02:26 PM VA-TOBACCO USER SOME DAYS [facility] [place] [facility] Feb 20, 2017 08:39 AM LIFETIME NON-TOBACCO USER [facility] [place] [facility] Jun 11, 2015 09:30 AM LIFETIME NON-TOBACCO USER [facility] [place] [facility] May 16, 2013 09:25 AM LIFETIME NON-TOBACCO USER . [place] [facility] [place] [facility] May 16, 2012 10:48 AM CURRENT SMOKER cigars, About 5 per week. [place] [facility] [place] [facility] Encounter Notes: All associated encounter notes This section contains the clinical notes associated to the Encounter. Date/Time Encounter Note(s) Provider Source Apr 25, 2024 10:11 AM PHYSICIAN EDITOR NOTE: LOCAL TITLE: DEMETRIO HENSON STANDARD TITLE: PHYSICIAN EDITOR NOTE DATE OF NOTE: APR 25, 2024@10:11 ENTRY DATE: APR 25, 2024@10:11:55 AUTHOR: MARQUES CHAPARRO COSIGNER: URGENCY: STATUS: COMPLETED CC/HPI/A/P: 78 year old MALE here in follow-up for; htn, meds reviewed and renewed. CAD, dD jacqueline, hea asksfor nitro, which he does't use.ordered. GERD< PPI renewed. Melanoma, he will send Derm note, proxy and outside shot lists. Review of systems: Patient reports no changes from [facility], in meds or any admissions. Active problems - Computerized Problem List is the source for the followin. Basal Cell Carcinoma of Skin ([facility] [id number]) 2. Squamous Cell Carcinoma of Skin ([facility] [id number]) 3. Exposure to potentially hazardous substance ([facility] [id number]) Entered automatically through [facility] Problem List documentation program 4. Malignant Melanoma of Skin ([facility] [id number]) left 2010. 5. Chronic Ischemic Heart Disease ([facility] [id number]) 6. Cataract, Cortical (Senile) 7. HYPERTENSION 8. HYPERLIPIDEMIA 9. 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 ACTINIC KERATOSIS SERVICE CONNECTED % - 30 VA and Non VA meds were reconciled with the patient who left with a corrected copy. See medication page for details. Active and Recently Outpatient Medications (excluding Supplies): Active Outpatient Medications Status === 1) AMLODIPINE BESYLATE 5MG TAB TAKE ONE TABLET BY MOUTH ONCE ACTIVE DAILY FOR BLOOD PRESSURE/HEART, DO NOT TAKE WITH GRAPEFRUIT JUICE 2) EZETIMIBE 10MG TAB TAKE ONE TABLET BY MOUTH ONCE DAILY TO ACTIVE LOWER CHOLESTEROL 3) LOSARTAN 50MG TAB TAKE ONE TABLET BY MOUTH ONCE DAILY FOR ACTIVE BLOOD PRESSURE/HEART 4) METOPROLOL SUCCINATE 25MG SA TAB TAKE ONE TABLET BY MOUTH ACTIVE ONCE DAILY FOR BLOOD PRESSURE/HEART 5) OMEPRAZOLE 20MG EC CAP TAKE TWO CAPSULES BY MOUTH EVERY ACTIVE MORNING 30 MINUTES BEFORE BREAKFAST 6) ROSUVASTATIN CA 40MG TAB TAKE ONE TABLET BY MOUTH ONCE DAILY ACTIVE FOR CHOLESTEROL Indication: FOR HIGH CHOLESTEROL Active Non-VA Medications Status === 1) Non-VA ASPIRIN 81MG EC TAB 162MG BY MOUTH DAILY ACTIVE 2) Non-VA EPINEPHRINE (EQV-EPI-PEN) 0.3MG/0.3ML DIRECTED ACTIVE INTRAMUSCULARLY NEEDED 8 Total Medications 97.5 F [36.4 C] (04/25/2024 09:35) 51 (04/25/2024 09:35) 16 (04/25/2024 09:35) 118/80 (04/25/2024 09:35) 6 (04/25/2024 09:35) 67 in [170.2 cm] (04/26/2023 11:03) 165 lb [74.84 kg] (04/25/2024 09:35) BMI: 25.9 Neuro: Alert and oriented times three, grossly nonfocal, nasolabial folds intact. Recent labs reviewed with patient today:yes /es/ Marques Chaparro PA-C STAFF PHYSICIAN EDITOR Signed: 04/25/2024 10:14 MARQUES CHAPARRO [place] [facility] [place] [facility] Apr 25, 2024 09:39 AM PREVENTIVE MEDICINE NURSING NOTE: LOCAL TITLE: CLINICAL REMINDERS/NURSING STANDARD TITLE: PREVENTIVE MEDICINE NURSING NOTE DATE OF NOTE: APR 25, 2024@09:39 ENTRY DATE: APR 25, 2024@09:39:16 AUTHOR: CONOR LEVINE EXP COSIGNER: URGENCY: STATUS: COMPLETED Suicide Screen: C-SSRS Screening Crisp Suicide Severity Rating Scale (C-SSRS) screener 1. [...] required due to responses to other questions. Depression Screening: Perform PHQ-2 A PHQ-2 screen was performed. The score was 0 which is a negative screen for depression. Over the past two weeks, how often have you been bothered by the following problems? 1. Little interest or pleasure in doing things Not at all 2. Feeling down, depressed, or hopeless Not at all Falls & Incontinence Screen: Falls Screen: 4. No falls within the past year. Incontinence Screen No incontinence. Tobacco Use Screening: The patient is a former cigarette smoker. Quit smoking GREATER THAN OR EQUAL to 15 years. The patient has never used other types of tobacco. Alcohol Use Screen (AUDIT-C): Alcohol Screen: [...] one occasion in the past year? Never /es/ CONOR LEVINE LPN Signed: 04/25/2024 09:41 CONOR LEVINE [facility]
--- OUTSIDE RECORDS SUMMARY | 2024-05-22 08:34 | XMS_ITS | Continuity of Care Document ---
Author Name [facility] Organization [facility] Care Team Providers Care Legal Records Clerk Name Role Phone [facility] Unavailable Unavailable Problems Combined list of problems from 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 It does not include entries that were removed or entered in error. Problem Status Onset Date Problem Type Date of Resolution Comments Source Malignant Melanoma of Skin (SCT [id number]) Active 02/12/19 11 Condition Nov 06, 2021 Entered By: SHIRA WHITTAKER AM Comment: left uatsdin, 2010. [facility] ACTINIC KERATOSIS Active Condition [facility] Cataract, Cortical (Senile) Active Condition [facility] Chronic Ischemic Heart Disease (SCT 272460132) Active Condition [facility] ESOPHAGEAL REFLUX (GERD) Active Condition [facility] Exposure to potentially hazardous substance (SCT [id number]) Active Condition May 22 Entered By: RADHA HENSON Comment: Entered automatically through [facility] Problem List documentation program [facility] HYPERLIPIDEMIA Active Condition [facility] HYPERTENSION Active Condition [facility] IMPOTENCE, ORGANIC ORIGN Active Condition [facility] Squamous Cell Carcinoma of Skin (SCT 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) Active Condition [facility] Diagnosis: ICD-10-CM I25.9 Chronic ischemic heart disease, unspecified Active Diagnosis [facility] Diagnosis: ICD-10-CM Z46.0 Encounter for fit/adjst of spectacles and contact lenses Active Diagnosis [facility] Diagnosis: ICD-10-CM H25.813 Combined forms of age-related cataract, bilateral Active Diagnosis [facility] Diagnosis: ICD-10-CM C43.9 Malignant melanoma of skin, unspecified [facility] Diagnosis: ICD-10-CM H90.3 Sensorineural hearing loss, bilateral Active Diagnosis [facility] Diagnosis: ICD-10-CM Z23 Encounter for immunization Active Diagnosis [facility] Medications Combined list of outpatient [...] NOT TAKE WITH GRAPEFRU IT JUICE ORAL SUSPEND ED 04/26/2025 [id number] 5 ELIAS WIHTTAKER [address] [facility] AMLODIPINE BESYLATE 5MG TAB TAKE ONE TABLET BY MOUTH ONCE DAILY FOR BLOOD PRESSURE /HEART, DO NOT TAKE WITH GRAPEFRU IT JUICE ORAL DISCONT INUED 04/26/2024 [id number] 5 ELIAS WHITTAKER [address] [facility] AMLODIPINE BESYLATE 5MG TAB TAKE ONE TABLET BY MOUTH ONCE DAILY FOR BLOOD PRESSURE /HEART, DO NOT TAKE WITH GRAPEFRU IT JUICE ORAL DISCONT INUED 09/09/2023 [id number] ELIAS WHITTAKER 2022 90 [facility] ASPIRIN 81MG TAB,EC TAKE TWO TABLETS BY MOUTH DAILY ORAL ACTIVE ELIAS WHITTAKER 2012 [facility] EPINEPHRINE (EQV-EPI-PE N) 0.3MG/0.3ML INJECTOR INJECT DIRECTED INTRAMUS CULARLY PRN INTRAM USCULA R RA JESSICA WEEMS 2021 [facility] EZETIMIBE 10MG TAB TAKE ONE TABLET BY MOUTH ONCE DAILY TO LOWER CHOLESTE ROL ORAL SUSPEND ED 04/26/2025 [id number] ELIAS WHITTAKER 2024 90 [facility] EZETIMIBE 10MG TAB TAKE ONE TABLET BY MOUTH ONCE DAILY TO LOWER CHOLESTE ROL ORAL DISCONT INUED 04/26/2024 [id number] 5 ELIAS WHITTAKER 2023 90 [facility] EZETIMIBE 10MG TAB TAKE ONE TABLET BY MOUTH ONCE DAILY TO LOWER CHOLESTE ROL ORAL DISCONT INUED 09/09/2023 [id number] ELIAS WHITTAKER 2022 90 [facility] [place] 50MG TAB TAKE ONE TABLET BY MOUTH ONCE DAILY FOR BLOOD PRESSURE /HEART ORAL SUSPEND ED 04/26/2025 [id number] 5 ELIAS WHITTAKER 2024 90 [facility] [place] 50MG TAB TAKE ONE TABLET BY MOUTH ONCE DAILY FOR BLOOD PRESSURE /HEART ORAL DISCONT INUED 04/26/2024 [id number] ELIAS WHITTAKER 2023 90 [facility] [place] 50MG TAB TAKE ONE TABLET BY MOUTH ONCE DAILY FOR BLOOD PRESSURE /HEART ORAL DISCONT INUED 09/09/2023 [id number] 4 ELIAS WHITTAKER 2022 90 [facility] METOPROLOL SUCCINATE 25MG TAB,SA TAKE ONE TABLET BY MOUTH ONCE DAILY FOR BLOOD PRESSURE /HEART ORAL SUSPEND ED 04/26/2025 [id number] ELIAS WHITTAKER 2024 90 [facility] METOPROLOL SUCCINATE 25MG TAB,SA TAKE ONE TABLET BY MOUTH ONCE DAILY FOR BLOOD PRESSURE /HEART ORAL DISCONT INUED 04/26/2024 [id number] 5 ELIAS WHITTAKER 2023 90 [facility] METOPROLOL SUCCINATE 25MG TAB,SA TAKE ONE TABLET BY MOUTH ONCE DAILY FOR BLOOD PRESSURE /HEART ORAL DISCONT INUED 09/09/2023 [id number] ELIAS WHITTAKER 2022 90 [facility] NITROGLYCER IN 0.4MG TAB,SUBLING UAL DISSOLVE ONE TABLET UNDER THE TONGUE EVERY 5 MINUTES NEEDED FOR ACUTE CHEST PAIN IF NO RELIEF AFTER 3 DOSES, CALL 911 OR GO TO NEAREST EMERGENC Y ROOM SUBLIN GUAL ACTIVE 04/26/2025 [id number] ELIAS WHITTAKER 2024 100 [facility] OMEPRAZOLE 20MG CAP,EC TAKE ONE CAPSULE BY MOUTH EVERY MORNING 30 MINUTES BEFORE BREAKFAS T FOR GASTROES OPHAGEAL REFLUX DISEASE ORAL ACTIVE 04/26/2025 [id number] ELIAS WHITTAKER 2024 90 [facility] OMEPRAZOLE 20MG CAP,EC TAKE TWO CAPSULES BY MOUTH EVERY MORNING 30 MINUTES BEFORE BREAKFAS T ORAL DISCONT INUED (EDIT) 04/26/2024 [id number] 4 ELIAS WHITTAKER 2023 180 [facility] OMEPRAZOLE 20MG CAP,EC TAKE TWO CAPSULES BY MOUTH EVERY MORNING 30 MINUTES BEFORE BREAKFAS T ORAL DISCONT INUED 09/09/2023 [id number] 4 ELIAS WHITTAKER 2022 180 [facility] ROSUVASTATI N CA 40MG TAB TAKE ONE TABLET BY MOUTH ONCE DAILY FOR HIGH CHOLESTE ROL FOR CHOLESTE ROL ORAL SUSPEND ED 04/26/2025 [id number] 5 ELIAS WHITTAKER 2024 90 [facility] ROSUVASTATI N [place] 40MG TAB TAKE ONE TABLET BY MOUTH ONCE DAILY FOR HIGH CHOLESTE ROL FOR CHOLESTE ROL ORAL DISCONT INUED 06/18/2024 [id number] ELIAS WHITTAKER 2023 90 [facility] ROSUVASTATI N CA 40MG TAB TAKE ONE TABLET BY MOUTH ONCE DAILY FOR CHOLESTE ROL PLEASE GO TO THE LAB FOR BLOODWOR K AND SCHEDULE PCP APPT. ORAL DISCONT INUED 05/09/2023 [id number] 4 PANFILOELIAS Kelsea 2023 30 [facility] ROSUVASTATI N [place] 40MG TAB TAKE ONE TABLET BY MOUTH ONCE DAILY FOR CHOLESTE ROL PLEASE GO TO THE LAB FOR BLOODWOR K AND SCHEDULE PCP APPT. ORAL DISCONT INUED 04/15/2023 [id number] RA JESSICA FLYNN 2023 30 [facility] [place] 40MG TAB TAKE ONE TABLET BY MOUTH ONCE DAILY FOR HIGH CHOLESTE ROL ORAL 05/26/2023 [id number] 4 EL[facility]ITTAKER 20[facility] Allergies, Adverse Reactions, Alerts Combined list of allergies from 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 It does not include entries that were removed or entered in error. Substance Category Reaction Severity Reaction type Status Date Reported Comments Source SHELLFISH Propensity to adverse reactions to food (finding) Urticaria active 2 [facility] [place] [facility] Immunizations Combined list of available immunizations from the 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 Status Comments Source INFLUENZA, HIGH-DOSE, QUADRIVALENT 2022 NILDA ALFARO LEFT DELTO ID [id number] 197 [facility] COVID-19 (MODERNA), MRNA, LNP-S, PF, 100 MCG OR 50 MCG DOSE 3 2020 207 complet ed MOD; [id number]; 2 [facility] INFLUENZA, UNSPECIFIED FORMULATION 2020 88 complet ed [facility] COVID-19 (MODERNA), MRNA, LNP-S, PF, 100 MCG/0.5 ML DOSE 2 2020 207 complet ed MOD; [id number]; 1 [facility] COVID-19 (MODERNA), MRNA, LNP-S, PF, 100 MCG/0.5 ML DOSE 1 2020 207 complet ed MOD; [id number]; 1 [facility] [...] Reference Range Date Interpretation Specimen Comments Source LIVER FUNCTION PROTEIN [MASS/VOLUM E] IN SERUM OR PLASMA 6.7 g/dL 6.0 - 8.3 04/21 Specimen Type: SERUM No comment entered. Ordering Provider: Nuris WHITTAKER Report Released Date/Time: Apr 26, 2023 11:48 AM Reporting Lab: [facility] [place] [facility] [address] [address] Performing Lab: [facility] [place] [facility] [address] [address] [place] [facility] LIVER FUNCTION ALBUMIN [MASS/VOLUM E] IN SERUM OR PLASMA 3.8 g/dL 3.5 - 5.0 04/21 Specimen Type: SERUM No comment entered. Ordering Provider: Nuris WHITTAKER Report Released Date/Time: Apr 26, 2023 11:48 AM Reporting Lab: [place] [facility] [place] [address] [address] Performing Lab: [place] [facility] [place] [address] [address] [facility] LIVER FUNCTION ALKALINE PHOSPHATASE [ENZYMATIC ACTIVITY/VO LUME] IN SERUM OR PLASMA 35 U/L 40 - 150 04/21 L Specimen Type: SERUM No comment entered. Ordering Provider: Nuris WHITTAKER Report Released Date/Time: Apr 26, 2023 11:48 AM Reporting Lab: [facility] [place] [address] [address] Performing Lab: [facility] [place] [facility] [address] [address] [place] [facility] LIVER FUNCTION ASPARTATE AMINOTRANSF ERASE [ENZYMATIC ACTIVITY/VO LUME] IN SERUM OR PLASMA 31 U/L 5 - 34 04/21 Specimen Type: SERUM No comment entered. Ordering Provider: Nuris WHITTAKER Report Released Date/Time: Apr 26, 2023 11:48 AM Reporting Lab: [place] [facility] [place] [address] [address] Performing Lab: [facility] [place] [facility] [address] [address] [facility] LIVER FUNCTION ALANINE AMINOTRANSF ERASE [ENZYMATIC ACTIVITY/VO LUME] IN SERUM OR PLASMA 47 U/L 04/21 Specimen Type: SERUM No comment entered. Ordering Provider: Nuris WHITTAKER Report Released Date/Time: Apr 26, 2023 11:48 AM Reporting Lab: [facility] [place] [facility] [address] [address] Performing Lab: [facility] [place] [facility] [address] [address] [place] [facility] [facility] [facility] LIVER FUNCTION BILIRUBIN.T OTAL [MASS/VOLUM E] IN SERUM OR PLASMA 0.9 mg/dL 0.2 - 1.2 04/21 Specimen Type: SERUM No comment entered. Ordering Provider: Nuris WHITTAKER Report Released Date/Time: Apr 26, 2023 11:48 AM Reporting Lab: [facility] [place] [address] [address] Performing Lab: [facility] [place] [address] [address] [place] [facility] [facility] [place] [facility] LIPID PANEL FASTING CHOLESTEROL [MASS/VOLUM E] IN SERUM OR PLASMA 134 mg/dL 04/21 Specimen Type: SERUM No comment entered. Ordering Provider: Nuris WHITTAKER Report Released Date/Time: Apr 26, 2023 11:48 AM Reporting Lab: [facility] [place] [address] [address] Performing Lab: [facility] [place] [address] [address] [facility] [place] [facility] LIPID PANEL FASTING TRIGLYCERID E [MASS/VOLUM E] IN SERUM OR PLASMA 79 mg/dL 0 - 150 04/21 Specimen Type: SERUM No comment entered. Ordering Provider: Nuris WHITTAKER Report Released Date/Time: Apr 26, 2023 11:48 AM Reporting Lab: [facility] [place] [facility] [address] [address] Performing Lab: [facility] [place] [facility] [address] [address] [place] [facility] [facility] [place] [facility] LIPID PANEL FASTING CHOLESTEROL IN LDL [MASS/VOLUM E] IN SERUM OR PLASMA BY CALCULATION 63 mg/dL 0 - 129 04/21 Specimen Type: SERUM No comment entered. Ordering Provider: Nuris WHITTAKER Report Released Date/Time: Apr 26, 2023 11:48 AM Reporting Lab: [facility] [place] [facility] [address] [address] Performing Lab: [place] [facility] [facility] [facility] [address] [address] [facility] LIPID PANEL FASTING CHOLESTEROL .TOTAL/CHOL ESTEROL IN HDL [MASS RATIO] IN SERUM OR PLASMA 2.4 04/21 Specimen Type: SERUM No comment entered. Ordering Provider: Nuris WHITTAKER Report Released Date/Time: Apr 26, 2023 11:48 AM Reporting Lab: [place] [facility] [place] [facility] [address] [address] Performing Lab: [place] [facility] [facility] [facility] [address] [address] [facility] LIPID PANEL FASTING CHOLESTEROL IN HDL [MASS/VOLUM E] IN SERUM OR PLASMA 55 mg/dL 40 - 60 04/21 Specimen Type: SERUM No comment entered. Ordering Provider: Nuris WHITTAKER Report Released Date/Time: Apr 26, 2023 11:48 AM Reporting Lab: [facility] [place] [facility] [address] [address] Performing Lab: [facility] [place] [facility] [address] [address] [place] [facility] [facility] [facility] BASIC METABOLIC PANEL (fasting) UREA NITROGEN [MASS/VOLUM E] IN SERUM OR PLASMA 19 mg/dL 7 - 25 04/21 Specimen Type: SERUM No comment entered. Ordering Provider: Nuris WHITTAKER Report Released Date/Time: Apr 26, 2023 11:48 AM Reporting Lab: [facility] [place] [facility] [address] [address] Performing Lab: [facility] [place] [facility] [address] [address] [place] [facility] [place] [facility] BASIC METABOLIC PANEL (fasting) GLUCOSE [MASS/VOLUM E] IN SERUM OR PLASMA 89 mg/dL 65 - 100 04/21 Specimen Type: SERUM No comment entered. Ordering Provider: Nuris WHITTAKER Report Released Date/Time: Apr 26, 2023 11:48 AM Reporting Lab: [facility] [place] [facility] [address] [address] Performing Lab: [facility] [place] [facility] [address] [address] [place] [facility] [place] [facility] BASIC METABOLIC PANEL (fasting) SODIUM [MOLES/VOLU ME] IN SERUM OR PLASMA 139 mmol/L 135 - 145 04/21 Specimen Type: SERUM No comment entered. Ordering Provider: Nuris WHITTAKER Report Released Date/Time: Apr 26, 2023 11:48 AM Reporting Lab: [facility] [place] [facility] [address] [address] Performing Lab: [facility] [place] [facility] [address] [address] [facility] [place] [facility] BASIC METABOLIC PANEL (fasting) POTASSIUM [MOLES/VOLU ME] IN SERUM OR PLASMA 4.6 mmol/L 3.5 - 5.0 04/21 Specimen Type: SERUM No comment entered. Ordering Provider: Nuris WHITTAKER Report Released Date/Time: Apr 26, 2023 11:48 AM Reporting Lab: [facility] [place] [facility] [address] [address] Performing Lab: [facility] [place] [facility] [address] [address] [facility] [place] [facility] BASIC METABOLIC PANEL (fasting) CHLORIDE [MOLES/VOLU ME] IN SERUM OR PLASMA 107 mmol/L 100 - 110 04/21 Specimen Type: SERUM No comment entered. Ordering Provider: Nuris WHITTAKER Report Released Date/Time: Apr 26, 2023 11:48 AM Reporting Lab: [facility] [address] [address] Performing Lab: [facility] [address] [facility] TRN [facility] BASIC METABOLIC PANEL (fasting) CARBON DIOXIDE, TOTAL [MOLES/VOLU ME] IN SERUM OR PLASMA 23 meq/L 20 - 30 04/21 Specimen Type: SERUM No comment entered. Ordering Provider: Nuris WHITTAKER Report Released Date/Time: Apr 26, 2023 11:48 AM Reporting Lab: [facility] TRN [address] [address] Performing Lab: [facility] TRN [facility]ITAL[facility] [address] [facility] BASIC METABOLIC PANEL (fasting) CALCIUM [MASS/VOLUM E] IN SERUM OR PLASMA 9.3 mg/dL 8.5 - 10.2 04/21 Specimen Type: SERUM No comment entered. Ordering Provider: Nuris WHITTAKER Report Released Date/Time: Apr 26, 2023 11:48 AM Reporting Lab: [facility] [address] Performing Lab: [place] [facility] [facility] [address] [address] [facility]N [facility] BASIC METABOLIC PANEL (fasting) CREATININE [MASS/VOLUM E] IN SERUM OR PLASMA 0.94 mg/dL 0.50 - 1.40 04/21 Specimen Type: SERUM No comment entered. Ordering Provider: Nuris WHITTAKER Report Released Date/Time: Apr 26, 2023 11:48 AM Reporting Lab: [facility] [address] Performing Lab: [place] [facility] [facility] [address] [address] [place] [facility] BASIC METABOLIC PANEL (fasting) GLOMERULAR FILTRATION RATE/1.73 SQ M.PREDICTED [VOLUME RATE/AREA] IN SERUM, PLASMA OR BLOOD BY CREATININE- BASED FORMULA (CKD-EPI 2020) 81 mL/min 60 04/21 Specimen Type: SERUM No comment entered. Ordering Provider: Nuris WHITTAKER Report Released Date/Time: Apr 26, 2023 11:48 AM Reporting Lab: [place] [facility] [facility] [address] [address] Performing Lab: [place] [facility] [address] [address] [facility] VITAMIN D (25-OH) 25-HYDROXYV ITAMIN D3 [MASS/VOLUM E] IN SERUM OR PLASMA 35 ng/mL 20 - 50 04/21 Specimen Type: SERUM No comment entered. Ordering Provider: Nuris WHITTAKER Report Released Date/Time: Apr 26, 2023 11:48 AM Reporting Lab: [place] [facility] [facility] [address] [address] Performing Lab: [place] [facility] [facility] [address] [address] [facility] VITAMIN B12 COBALAMIN (VITAMIN B12) [MASS/VOLUM E] IN SERUM OR PLASMA 309 pg/mL 200 - 900 04/21 Specimen Type: SERUM No comment entered. Ordering Provider: Nuris WHITTAKER Report Released Date/Time: Apr 26, 2023 11:48 AM Reporting Lab: [facility] [place] [facility] [address] [address] Performing Lab: [place] [facility] [facility] [address] [address] [facility] TSH THYROTROPIN [UNITS/VOLU ME] IN SERUM OR PLASMA 1.95 u[IU]/ mL 0.35 - 5.00 04/21 Specimen Type: SERUM No comment entered. Ordering Provider: Nuris WHITTAKER Report Released Date/Time: Apr 26, 2023 11:48 AM Reporting Lab: [place] [facility] [place] [facility] [address] [address] Performing Lab: [place] [facility] [facility] [address] [address] [place] [facility] [facility] LIPID PANEL FASTING CHOLESTEROL [MASS/VOLUM E] IN SERUM OR PLASMA 153 mg/dL 04/16 Specimen Type: SERUM No comment entered. Ordering Provider: ERLINDA FLYNN Report Released Date/Time: Mar 16, 2023 11:33 AM Reporting Lab: [place] [facility] [place] [facility] [address] [address] Performing Lab: [place] [facility] [facility] [address] [address] [place] [facility] [facility] LIPID PANEL FASTING TRIGLYCERID E [MASS/VOLUM E] IN SERUM OR PLASMA 96 mg/dL 0 - 150 04/16 Specimen Type: SERUM No comment entered. Ordering Provider: ERLINDA FLYNN Report Released Date/Time: Mar 16, 2023 11:33 AM Reporting Lab: [place] [facility] [facility] [address] [address] Performing Lab: [place] [facility] [place] [facility] [address] [address] [place] [facility] [facility] LIPID PANEL FASTING CHOLESTEROL IN LDL [MASS/VOLUM E] IN SERUM OR PLASMA BY CALCULATION 70 mg/dL 0 - 129 04/16 Specimen Type: SERUM No comment entered. Ordering Provider: ERLINDA FLYNN Report Released Date/Time: Mar 16, 2023 11:33 AM Reporting Lab: [place] [facility] [place] [facility] [address] [address] Performing Lab: [place] [facility] [place] [facility] [address] [address] [place] [facility] [place] [facility] LIPID PANEL FASTING CHOLESTEROL .TOTAL/CHOL ESTEROL IN HDL [MASS RATIO] IN SERUM OR PLASMA 2.4 04/16 Specimen Type: SERUM No comment entered. Ordering Provider: ERLINDA FLYNN Report Released Date/Time: Mar 16, 2023 11:33 AM Reporting Lab: [facility] [place] [facility] [address] [address] Performing Lab: [place] [facility] [place] [facility] [address] [address] [place] [facility] [place] [facility] LIPID PANEL FASTING CHOLESTEROL IN HDL [MASS/VOLUM E] IN SERUM OR PLASMA 64 mg/dL 40 - 60 04/16 H Specimen Type: SERUM No comment entered. Ordering Provider: ERLINDA FLYNN Report Released Date/Time: Mar 16, 2023 11:33 AM Reporting Lab: [place] [facility] [address] [address] Performing Lab: [place] [facility] [place] [facility] [address] [address] [facility] LIVER FUNCTION PROTEIN [MASS/VOLUM E] IN SERUM OR PLASMA 6.5 g/dL 6.0 - 8.3 04/16 Specimen Type: SERUM No comment entered. Ordering Provider: ERLINDA FLYNN Report Released Date/Time: Mar 16, 2023 11:33 AM Reporting Lab: [place] [facility] [place] [facility] [address] [address] Performing Lab: [place] [facility] [facility] [address] [id number] [place] [facility] [place] [facility] LIVER FUNCTION ALBUMIN [MASS/VOLUM E] IN SERUM OR PLASMA 3.8 g/dL 3.5 - 5.0 04/16 Specimen Type: SERUM No comment entered. Ordering Provider: ERLINDA FLYNN Report Released Date/Time: Mar 16, 2023 11:33 AM Reporting Lab: [facility] [place] [facility] [address] [phone] Performing Lab: [facility] [place] [facility] [address] [address] [facility] LIVER FUNCTION ALKALINE PHOSPHATASE [ENZYMATIC ACTIVITY/VO LUME] IN SERUM OR PLASMA 36 U/L 40 - 150 04/16 L Specimen Type: SERUM No comment entered. Ordering Provider: ERLINDA FLYNN Report Released Date/Time: Mar 16, 2023 11:33 AM Reporting Lab: [facility] [place] [address] [address] Performing Lab: [facility] [place] [address] [address] [facility] [place] [facility] LIVER FUNCTION ASPARTATE AMINOTRANSF ERASE [ENZYMATIC ACTIVITY/VO LUME] IN SERUM OR PLASMA 21 U/L 5 - 34 04/16 Specimen Type: SERUM No comment entered. Ordering Provider: ERLINDA FLYNN Report Released Date/Time: Mar 16, 2023 11:33 AM Reporting Lab: [facility] [address] [phone] Performing Lab: [facility] [address] [address] [facility] [place] [facility] LIVER FUNCTION ALANINE AMINOTRANSF ERASE [ENZYMATIC ACTIVITY/VO LUME] IN SERUM OR PLASMA 27 U/L 04/16 Specimen Type: SERUM No comment entered. Ordering Provider: ERLINDA FLYNN Report Released Date/Time: Mar 16, 2023 11:33 AM Reporting Lab: [facility] [place] [address] [id number] Performing Lab: [facility] [address] [address] [facility] LIVER FUNCTION BILIRUBIN.T OTAL [MASS/VOLUM E] IN SERUM OR PLASMA 0.9 mg/dL 0.2 - 1.2 04/16 Specimen Type: SERUM No comment entered. Ordering Provider: ERLINDA FLYNN Report Released Date/Time: Mar 16, 2023 11:33 AM Reporting Lab: [facility] [place] [facility] [address] [address] Performing Lab: [place] [facility] [place] [facility] [address] [address] [place] [facility] BASIC METABOLIC PANEL (fasting) UREA NITROGEN [MASS/VOLUM E] IN SERUM OR PLASMA 16 mg/dL 7 - 25 04/16 Specimen Type: SERUM No comment entered. Ordering Provider: ERLINDA FLYNN Report Released Date/Time: Mar 16, 2023 11:33 AM Reporting Lab: [facility] [place] [facility] [address] [address] Performing Lab: [place] [facility] [place] [facility] [address] [address] [facility] BASIC METABOLIC PANEL (fasting) GLUCOSE [MASS/VOLUM E] IN SERUM OR PLASMA 80 mg/dL 65 - 100 04/16 Specimen Type: SERUM No comment entered. Ordering Provider: ERLINDA FLYNN Report Released Date/Time: Mar 16, 2023 11:33 AM Reporting Lab: [facility] [place] [facility] [address] [address] Performing Lab: [place] [facility] [place] [facility] [address] [address] [facility] BASIC METABOLIC PANEL (fasting) SODIUM [MOLES/VOLU ME] IN SERUM OR PLASMA 136 mmol/L 135 - 145 04/16 Specimen Type: SERUM No comment entered. Ordering Provider: ERLINDA FYLNN Report Released Date/Time: Mar 16, 2023 11:33 AM Reporting Lab: [facility] [place] [facility] [address] [address] Performing Lab: [place] [facility] [place] [facility] [address] [address] [place] [facility] [facility] BASIC METABOLIC PANEL (fasting) POTASSIUM [MOLES/VOLU ME] IN SERUM OR PLASMA 4.5 mmol/L 3.5 - 5.0 04/16 Specimen Type: SERUM No comment entered. Ordering Provider: ERLINDA FLYNN Report Released Date/Time: Mar 16, 2023 11:33 AM Reporting Lab: [facility] [place] [facility] [address] [address] Performing Lab: [place] [facility] [place] [facility] [address] [address] [facility] BASIC METABOLIC PANEL (fasting) CHLORIDE [MOLES/VOLU ME] IN SERUM OR PLASMA 103 mmol/L 100 - 110 04/16 Specimen Type: SERUM No comment entered. Ordering Provider: ERLINDA FLYNN Report Released Date/Time: Mar 16, 2023 11:33 AM Reporting Lab: [place] [facility] [place] [facility] [address] [address] Performing Lab: [place] [facility] [place] [facility] [address] [address] [facility] BASIC METABOLIC PANEL (fasting) CARBON DIOXIDE, TOTAL [MOLES/VOLU ME] IN SERUM OR PLASMA 24 meq/L 20 - 30 04/16 Specimen Type: SERUM No comment entered. Ordering Provider: ERLINDA FLYNN Report Released Date/Time: Mar 16, 2023 11:33 AM Reporting Lab: [place] [facility] [place] [facility] [address] [address] Performing Lab: [place] [facility] [place] [facility] [address] [address] [facility] BASIC METABOLIC PANEL (fasting) CREATININE [MASS/VOLUM E] IN SERUM OR PLASMA 1.03 mg/dL 0.50 - 1.40 04/16 Specimen Type: SERUM No comment entered. Ordering Provider: ERLINDA FLYNN Report Released Date/Time: Mar 16, 2023 11:33 AM Reporting Lab: [facility] [place] [address] [address] Performing Lab: [facility] [place] [facility] [address] [address] [facility] BASIC METABOLIC PANEL (fasting) GLOMERULAR FILTRATION RATE/1.73 SQ M.PREDICTED [VOLUME RATE/AREA] IN SERUM, PLASMA OR BLOOD BY CREATININE- BASED FORMULA (CKD-EPI 2020) 73 mL/min 60 04/16 Specimen Type: SERUM No comment entered. Ordering Provider: ERLINDA FLYNN Report Released Date/Time: Mar 16, 2023 11:33 AM Reporting Lab: [facility] [place] [facility] [address] [address] Performing Lab: [facility] [address] [address] [facility] HEMOGLOBI N A1C PANEL HEMOGLOBIN A1C/HEMOGLO [...] Mar 16, 2023 11:33 AM Reporting Lab: [facility]ITALUSE[address] [address] Performing Lab: [facility] [address] [address] [facility] Vital Signs Combined list of inpatient and outpatient Vital Signs from Department of Defense and Veterans Affairs, ranging from 12 months to all on record, depending upon the facility. Vital Sign Value Date Comments Source SYSTOLIC BLOOD PRESSURE 118 04/26/19 25 09:35:57 [facility] DIASTOLIC BLOOD PRESSURE 80 025 09:35:57 [facility] PULSE OXIMETRY 100 04/25/2024 09:35:57 [facility] WEIGHT 165 04/25/2024 09:35:57 [facility] BMI 26 kg/m2 04/25/2024 09:35:57 [facility] PAIN 6 04/25/2024 09:35:57 [facility] TEMPERATURE 97.5 04/25/2024 09:35:57 [facility] PULSE 51 04/25/2024 09:35:57 [facility] RESPIRATION 16 04/25/2024 09:35:57 [facility] Encounters Combined list of: 1) Encounters from Department of Veterans Affairs facilities going backup to the last 18 months, not all VA inpatient encounters are included; 2) Encounters from the Department of Defense facilities going backup to 280 months. Location Location Details Encounter Type Encounter Number Reason For Visit Attending Provider ADM Date DC Date Status Disposition Source [facility] En[facility] [id number] 11/30 [facility] Encounter [id number] 11/30 [facility] OFF/OP EST JUNE X REQ PHY/QHP [id number] Diagnos is: ICD-10- CM Z23 Encount er for immuniz ation GELY ALFARO P 12/12 [facility] Out[facility] Encounter [id number] 03/16 [facility] HEARING AID FITTING/CH ECKING [id number] Diagnos is: ICD-10- CM H90.3 Sensori neural hearing loss, bilater Tre Smith 04/04 [facility] Outpatient Encounter [id number] 04/09 [facility] En[facility] [id number] 04/15 [facility] OFFICE O/P EST MOD 30 MIN [id number] Diagnos is: ICD-10- CM 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, unspeci ELIAS Crocker 04/25 [facility] COMPRE OPH EXAM EST PT 1/ [id number] Diagnos is: ICD-10- CM H25.813 Combine d forms of age-rel ated catarac t, bilater al ZBIGNIEW LR 05/29 [facility] FIT SPECTACLES BIFOCAL [id number] Diagnos is: ICD-10- CM Z46.0 Encount er for fit/adj st of spectac les and contact lenses ZBIGNIEW LR 05/30 [facility] Outpatient Encounter [id number] 06/17 [facility] OFFICE O/P EST LOW 20 MIN [id number] Diagnos is: ICD-10- CM I25.9 Chronic ischemi c heart disease , unspeci ELIAS Crocker 04/25 [facility] Social History Combined list of available smoking, tobacco, and other social history from 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 Social History Type Response Date Comment Source Tobacco smoking status NHIS VA-TOBACCO USE FORMER CIGARETTES [facility] [place] [facility] History of tobacco use TX-TOBACCO NEVER USED OTHER TYPE 04/25/2024 [facility] [place] [facility] History of tobacco use TX-TOBACCO NEVER USED 04/26/2023 [facility] [place] [facility] History of tobacco use TX-TOBACCO NEVER USED 04/27/2022 [facility] [place] [facility] History of tobacco use TX-TOBACCO NEVER USED 01/28/2021 [facility] [place] [facility] History of tobacco use TX-TOBACCO NEVER USED 02/20/2020 [facility] [place] [facility] History of tobacco use TX-TOBACCO NEVER USED 02/21/2018 [facility] [place] [facility] History of tobacco use [place]-TOBACCO FORMER USER 01/10/2018 [facility] History of tobacco use LIFETIME NON-TOBACCO USER 02/20/2017 [facility] History of tobacco use LIFETIME NON-TOBACCO USER 06/11/2015 [facility] History of tobacco use LIFETIME NON-TOBACCO USER 05/16/2013 . [facility] [place] [facility] History of tobacco use CURRENT SMOKER 05/16/2012 cigars, About 5 per week. [facility] Plan of Care List of future care activities from Department of 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 Additional future care activities may be listed in the Assessment and Plan section. Date/Time Care Activity Care Activity Detail Facili ty 06/02/2024 AMBULATORY - MEDICINE [facility]
== END 2024-05-22 08:59 | disposition home or self-care (01) ==
LOC: HO.HMCH 08:22
PROVIDERS: PCP Internal Medicine; Visit Provider Internal Medicine
DX: I71.20 Thoracic aortic aneurysm, without rupture, unspecified (principal); I10 Essential (primary) hypertension; E78.00 Pure hypercholesterolemia, unspecified; I25.10 Atherosclerotic heart disease of native coronary artery without angina pectoris; K21.9 Gastro-esophageal reflux disease without esophagitis; R73.02 Impaired glucose tolerance (oral)

== ENCOUNTER → 2024-05-22 08:22 | Outpatient (BNVA) | payer MEDICARE, SELFPAY | PROVIDERS: PCP Internal Medicine; Visit Provider Internal Medicine | DX: I25.10 Atherosclerotic heart disease of native coronary artery without angina pectoris (principal); I71.20 Thoracic aortic aneurysm, without rupture, unspecified; I10 Essential (primary) hypertension; E78.00 Pure hypercholesterolemia, unspecified; K21.9 Gastro-esophageal reflux disease without esophagitis; R73.02 Impaired glucose tolerance (oral) | CPT/HCPCS: 99212 ==

== ENCOUNTER 2024-06-10 09:23 | Outpatient (AMB) | payer MEDICARE, SELFPAY ==
[2024-06-10 09:25] VITALS: BP 122/70; PULSE 45; BMI 24.5
--- NOTE | 2024-06-10 09:25 | A.OFFVIS_ITS ---
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 Allergy (Unknown, Uncoded 05/22/24 08:28) Unknown Medication List - Last Reconciled 06/10/24 by Tez Albarado MD acetaminophen (Tylenol Extra Strength) 1,000 mg (2 x 500 mg) PO QID PRN amlodipine 5 mg PO DAILY 30 days aspirin (Adult Low Dose Aspirin) 81 mg PO DAILY epinephrine (Auvi-Q) 0.3 mg (0.3 mL) IM Q15M PRN ezetimibe 10 mg PO DAILY losartan 50 mg PO DAILY metoprolol succinate ER 25 mg PO DAILY nitroglycerin 0.4 mg sublingual Q5M PRN omeprazole 20 mg PO DAILY rosuvastatin 40 mg PO DAILY triamcinolone acetonide 0.025% 1 appl topical BID HPI Comments Details: Marques comes for follow-up. Overall he has been doing well. He continues to remain very active. However says when he is doing his activity in the yd he does feel tired then he was to rest. No lightheadedness, syncope. Says when he after full day of work when he rest he does notice irregular pulse when he takes it. Does not feel any symptoms of palpitations. No exertional chest pain or shortness of breath. Echo shows mildly enlarged thoracic aorta at 4.3 cm. No other heart failure symptoms. [facility] Medical History PVC (premature ventricular contraction) Low vitamin B12 level 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 Arthritis of right glenohumeral joint Adult general medical exam Screening for diabetes mellitus Eczema Low back pain Fall Back pain Thyroid nodule Herpes encephalitis Cirrhosis Periodic limb movement disorder TIA (transient ischemic attack) Cognitive impairment Carpal tunnel syndrome on both sides History of renal calculi GERD (gastroesophageal reflux disease) Erectile dysfunction Thoracic aortic aneurysm Hyperlipidemia Sick sinus syndrome HTN (hypertension) Right shoulder pain Obstructive sleep apnea Osteoarthritis of right shoulder Rotator cuff impingement syndrome of right shoulder CAD (coronary artery disease) Surgical History History of colonoscopy History of tonsillectomy Status post carpal tunnel release of both wrists (~04/2016) Family History Father Myocardial infarct Mother No problems noted. Social History Housing: House Alcohol intake: current Alcohol intake frequency: holidays/special occasions only Comment: 2 beers a day Patient Tobacco Use Status: Never used Tobacco Tobacco use type: Cigarette e-Cigarette/Vaping Use: Never Used Second Hand Smoke Exposure: No service: No Current occupational status: retired Current occupation: Right Handed Cognitive needs: No Hearing needs: Yes Vision needs: Yes Review of Systems Const Denies chills, Denies fatigue, Denies fever(s), Denies frequent falls, Denies weakness, Denies weight gain and Denies weight loss ENT Denies dizziness Card Denies chest pain, Denies leg edema, Denies lightheadedness, Denies palpitations, Denies dyspnea, Denies dyspnea on exertion, Denies orthopnea and Denies other (loss of consciousness) Resp Denies cough, Denies dyspnea and Denies dyspnea on exertion GI Denies hematochezia and Denies change in stool character Musc Denies abnormal gait, Denies muscle weakness, Denies numbness, Denies radiating pain into limb and Denies tingling Neuro Denies abnormal gait, Denies dizziness, Denies frequent falls, Denies numbness, Denies tingling and Denies weakness Endo Denies fatigue and Denies palpitations Physical Exam Vital Signs: Last Vital Signs Pulse 45 L 06/10/24 09:25 BP 122/70 06/10/24 09:25 BMI result Body Mass Index 24.5 Const General: cooperative, healthy appearing, no acute distress, alert, awake and well groomed Nutritional Appearance: average body habitus Orientation/consciousness: patient oriented x3 Limitations: no limitations Eyes General: appearance normal, both eyes and all related structures Neck Neck: Yes trachea midline, Yes supple and Yes no JVD Carotids: no bruits Chest Chest palpation & inspection: normal inspection of the chest Resp Effort & Inspection: normal respiratory effort Auscultation: clear to auscultation bilaterally Cardio Jugular venous distension: no JVD Palpation: normal PMI Rate: regular rate Rhythm: regular rhythm Heart sounds: S1 normal heart sound present, S2 normal heart sound present and Other heart sounds present ( S4 present) GI Inspection: Yes normal to inspection Auscultation: normal bowel sounds Skin General skin exam: no rashes or lesions noted and ecchymosis Neuro General: patient oriented x3 and no focal motor deficits Extrem General: Yes no clubbing, cyanosis or edema Psych Appearance: grossly normal Office Procedures EKG Details: EKG shows sinus bradycardia at 45 beats per minute [id number], Complete Assessment & Plan Assessment & Plan (1) Bradycardia: Code(s): R00.1 - Bradycardia, unspecified Category: Medical Plan: Significant sinus bradycardia with some symptoms suggestive of chronotropic incompetence. Will reduce metoprolol to 12.5 mg daily. Follow-up Holter monitor in ETT in 4 weeks. If he remains significantly bradycardic and/or develops more symptoms may need to start metoprolol therapy. If he develops significant arrhythmias will need most likely pacemaker placement. This was discussed with him. He understands agrees. He said he wants to maintain activity level as tolerated and not stopped. (2) CAD (coronary artery disease): Comment: Holter normal sinus rhythm occasional bradycardia March 2017, echo 11/2019 EF 60-65% Ascending aorta 3.9 cm. diffuse coronary artery disease significant branch vessel disease in the diagonal branch as well as the distal circumflex, being managed medically Code(s): I25.10 - Atherosclerotic heart disease of [place] coronary artery without angina pectoris Category: Medical Qualifiers: Coronary Disease-Associated Artery/Lesion type: [place] artery [place] vs. transplanted heart: [place] heart Associated angina: without angina Qualified Code(s): I25.10 - Atherosclerotic heart disease of [place] coronary artery without angina pectoris Plan: CAD, with mostly branch vessel disease without any current symptoms of angina current workload. At this point time continue aggressive medical therapy. Currently on amlodipine as well as metoprolol therapy. Continue high-intensity statin therapy with ezetimibe therapy. Continue low-dose aspirin therapy. No further workup from CAD perspective needs to be pursued. Continue aggressive blood pressure control. Target goal blood pressure less than 130/84. Target goal LDL less than 60 mg/dL. He is to call me with any new symptoms. (3) Thoracic aortic aneurysm: Comment: 11/2019 3.9 cm January 2021, January 2022The left ventricular systolic function is low normal. The calculated ejection fraction is 54% by biplane method. - No obvious valvular pathology seen on this study. - There is mild dilatation of the ascending aorta measuring 3.90 January 2023Normal LV ejection fraction of 55-60% 2. Normal cardiac valvular Doppler 3. Mildly dilated ascending aorta at 4.2 cm 4. No gross pericardial effusion 02/2024 4.3 cm Code(s): I71.2 - Thoracic aortic aneurysm, without rupture Category: Medical Qualifiers: Presence of rupture: without rupture Qualified Code(s): I71.2 - Thoracic aortic aneurysm, without rupture Plan: Mild thoracic aortic aneurysm, will continue monitor annually by echocardiogram. Continue aggressive blood pressure control which is currently well optimized. Advised to avoid sudden strenuous isometric exercise. Continue aggressive vascular risk factor modifications above. (4) PVC (premature ventricular contraction): Code(s): I49.3 - Ventricular premature depolarization Category: Medical Plan: PVCs which are currently asymptomatic on metoprolol therapy. Will reduce metoprolol therapy as about due to sinoatrial ophelia dysfunction. Will follow-up with seeing AFib becomes more symptomatic and/or has more arrhythmias that will then need more metoprolol therapy and pacing therapy. Will follow up in the clinic in 6 weeks time, sooner p.r.n.. Thank you for allowing me to partake in his care Orders: Orders CA stress test 4 Weeks R00.1 - Bradycardia, unspecified ECG 3 day holter monitor 4 Weeks R00.1 - Bradycardia, unspecified Medications: Changed From metoprolol succinate ER 25 mg PO DAILY 90 tabs 3RF R00.1 - Bradycardia, unspecified To metoprolol succinate ER 12.5 mg (1/2 x 25 mg) PO DAILY 90 tabs 3RF R00.1 - Bradycardia, unspecified Coding Level of Care Code Est Pt Level 4 (10414) Complex EM visit Add On G2211 Diagnoses Bradycardia R00.1 Coronary artery disease involving [place] coronary artery of [place] heart without angina pectoris I25.10 Coronary Disease-Associated Artery/Lesion type: [place] artery [place] vs. transplanted heart: [place] heart Associated angina: without angina Thoracic aortic aneurysm without rupture I71.2 Presence of rupture: without rupture PVC (premature ventricular contraction) I49.3 CPT Codes EKG - CPT: 96600-[id number], Complete ([id number])
--- OUTSIDE RECORDS SUMMARY | 2024-06-10 10:15 | XMS_ITS | Continuity of Care Document ---
Author Name [facility] Organization [facility] Care Team Providers Care Rn Triage Name Role Phone [facility] Unavailable Unavailable Problems Combined list of problems from 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 It does not include entries that were removed or entered in error. Problem Status Onset Date Problem Type Date of Resolution Comments Source Malignant Melanoma of Skin (SCT [id number]) Active 02/12/19 11 Condition Nov 06, 2021 Entered By: SHIRA WHITTAKER AM Comment: left protestant, 2010. [facility] ACTINIC KERATOSIS Active Condition [facility] Cataract, Cortical (Senile) Active Condition [facility] Chronic Ischemic Heart Disease (SCT [id number]) Active Condition [facility] ESOPHAGEAL REFLUX (GERD) Active Condition [facility] Exposure to potentially hazardous substance (SCT [id number]) Active Condition May 22 Entered By: RADHA HENSON Comment: Entered automatically through [facility] Problem List documentation program [facility] HYPERLIPIDEMIA Active Condition [facility] HYPERTENSION Active Condition [facility] IMPOTENCE, ORGANIC ORIGN Active Condition [facility] Squamous Cell Carcinoma of Skin (SCT [id number]) Active Condition [facility] [...] Malignant melanoma of skin, unspecified Active Diagnosis [facility] Diagnosis: ICD-10-CM H90.3 Sensorineural hearing loss, bilateral Active Diagnosis [facility] Diagnosis: ICD-10-CM Z23 Encounter for immunization Active Diagnosis [facility] Medications Combined list of outpatient medications [...] WITH GRAPEFRU IT JUICE ORAL ACTIVE 04/26/2025 [id number] ELIAS WHITTAKER 2024 90 [facility] AMLODIPINE BESYLATE 5MG TAB TAKE ONE TABLET BY MOUTH ONCE DAILY FOR BLOOD PRESSURE /HEART, DO NOT TAKE WITH GRAPEFRU IT JUICE ORAL DISCONT INUED 04/26/2024 [id number] 5 ELIAS WHITTAKER 2023 90 [facility] AMLODIPINE BESYLATE 5MG TAB TAKE ONE TABLET BY MOUTH ONCE DAILY FOR BLOOD PRESSURE /HEART, DO NOT TAKE WITH GRAPEFRU IT JUICE ORAL DISCONT INUED 09/09/2023 [id number] 4 ELIAS WHITTAKER [address] [facility] ASPIRIN 81MG TAB,EC TAKE TWO TABLETS BY MOUTH DAILY ORAL ACTIVE ELIAS WHITTAKER 2012 [facility] EPINEPHRINE (EQV-EPI-PE N) 0.3MG/0.3ML INJECTOR INJECT DIRECTED INTRAMUS CULARLY PRN INTRAM USCULA R ACTIVE RA JESSICA FLYNN [address] [facility] EZETIMIBE 10MG TAB TAKE ONE TABLET BY MOUTH ONCE DAILY TO LOWER CHOLESTE ROL ORAL SUSPEND ED 04/26/2025 [id number] 5 ELIAS WHITTAKER 2024 90 [facility] EZETIMIBE 10MG TAB TAKE ONE TABLET BY MOUTH ONCE DAILY TO LOWER CHOLESTE ROL ORAL DISCONT INUED 04/26/2024 [id number] 5 ELIAS WHITTAKER 2023 90 [facility] EZETIMIBE 10MG TAB TAKE ONE TABLET BY MOUTH ONCE DAILY TO LOWER CHOLESTE ROL ORAL DISCONT INUED 09/09/2023 [id number] 4 ELIAS WHITTAKER 2022 90 [facility] LOSARTAN 50MG TAB TAKE ONE TABLET BY MOUTH ONCE DAILY FOR BLOOD PRESSURE /HEART ORAL SUSPEND ED 04/26/2025 [id number] 5 ELIAS WHITTAKER 2024 90 [facility] [place] 50MG TAB TAKE ONE TABLET BY MOUTH ONCE DAILY FOR BLOOD PRESSURE /HEART ORAL DISCONT INUED 04/26/2024 [id number] 5 ELIAS WHITTAKER [address] [facility] [place] 50MG TAB TAKE ONE TABLET BY MOUTH ONCE DAILY FOR BLOOD PRESSURE /HEART ORAL DISCONT INUED 09/09/2023 [id number] 4 ELIAS WHITTAKER 2022 90 [facility] METOPROLOL SUCCINATE 25MG TAB,SA TAKE ONE TABLET BY MOUTH ONCE DAILY FOR BLOOD PRESSURE /HEART ORAL SUSPEND ED 04/26/2025 [id number] 5 ELIAS WHITTAKER 2024 90 [facility] METOPROLOL SUCCINATE 25MG TAB,SA TAKE ONE TABLET BY MOUTH ONCE DAILY FOR BLOOD PRESSURE /HEART ORAL DISCONT INUED 04/26/2024 [id number] 5 ELIAS WHITTAKER 2023 90 [facility] METOPROLOL SUCCINATE 25MG TAB,SA TAKE ONE TABLET BY MOUTH ONCE DAILY FOR BLOOD PRESSURE /HEART ORAL DISCONT INUED 09/09/2023 [id number] ELIAS WHITTAKER 2022 90 [facility] NITROGLYCER IN 0.4MG TAB,SUBLING UAL DISSOLVE ONE TABLET UNDER THE TONGUE EVERY 5 MINUTES NEEDED FOR ACUTE CHEST PAIN IF NO RELIEF AFTER 3 DOSES, CALL 911 OR GO TO NEAREST EMERGENC Y ROOM SUBLIN GUAL ACTIVE 04/26/2025 [id number] ELIAS WHITTAKER 2024 100 [facility] OMEPRAZOLE 20MG CAP,EC TAKE ONE CAPSULE BY MOUTH EVERY MORNING 30 MINUTES BEFORE BREAKFAS T FOR GASTROES OPHAGEAL REFLUX DISEASE ORAL ACTIVE 04/26/2025 [id number] ELIAS WHITTAKER 2024 90 [facility] OMEPRAZOLE 20MG CAP,EC TAKE TWO CAPSULES BY MOUTH EVERY MORNING 30 MINUTES BEFORE BREAKFAS T ORAL DISCONT INUED (EDIT) 04/26/2024 [id number] 4 ELIAS WHITTAKER 2023 180 [facility] OMEPRAZOLE 20MG CAP,EC TAKE TWO CAPSULES BY MOUTH EVERY MORNING 30 MINUTES BEFORE BREAKFAS T ORAL DISCONT INUED 09/09/2023 [id number] 4 ELIAS WHITTAKER 2022 180 [facility] ROSUVASTATI N CA 40MG TAB TAKE ONE TABLET BY MOUTH ONCE DAILY FOR HIGH CHOLESTE ROL FOR CHOLESTE ROL ORAL ACTIVE 04/26/2025 [id number] 5 ELIAS WHITTAKER 2024 90 [facility] ROSUVASTATI N CA 40MG TAB TAKE ONE TABLET BY MOUTH ONCE DAILY FOR HIGH CHOLESTE ROL FOR CHOLESTE ROL ORAL DISCONT INUED 06/18/2024 [id number] ELIAS WHITTAKER 2023 90 [facility] ROSUVASTATI N CA 40MG TAB TAKE ONE TABLET BY MOUTH ONCE DAILY FOR CHOLESTE ROL PLEASE GO TO THE LAB FOR BLOODWOR K AND SCHEDULE PCP APPT. ORAL DISCONT INUED 05/09/2023 [id number] 4 ELIAS WHITTAKER 2023 30 [facility] ROSUVASTATI N CA 40MG TAB TAKE ONE TABLET BY MOUTH ONCE DAILY FOR CHOLESTE ROL PLEASE GO TO THE LAB FOR BLOODWOR K AND SCHEDULE PCP APPT. ORAL DISCONT INUED 04/15/2023 [id number] RA JESSICA FLYNN 2023 30 [facility] [place] N [place] 40MG TAB TAKE ONE TABLET BY MOUTH ONCE DAILY FOR HIGH CHOLESTE ROL ORAL 05/26/2023 [id number] 4 ELIAS WHITTAKER 2023 30 [facility] Allergies, Adverse Reactions, Alerts Combined list of allergies from 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 It does not include entries that were removed or entered in error. Substance Category Reaction Severity Reaction type Status Date Reported Comments Source SHELLFISH Propensity to adverse reactions to food (finding) Urticaria active 2 [facility] Immunizations Combined list of available immunizations from the 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 Immunization Series Date Given Administered By Site Reaction Lot Number CVX Code Drug Threader Operator Status Comments Source INFLUENZA, HIGH-DOSE, QUADRIVALENT 2022 NILDA ALFARO LEFT DELTO ID [id number] complet ed [facility] [place] [facility] [place] COVID-19 (MODERNA), MRNA, LNP-S, PF, 100 MCG OR 50 MCG DOSE 3 2020 207 complet ed MOD; [id number]; 2 [facility] INFLUENZA, UNSPECIFIED FORMULATION 2020 88 complet ed [facility] COVID-19 (MODERNA), MRNA, LNP-S, PF, 100 MCG/0.5 ML DOSE 2 2020 207 complet ed MOD; [id number]; 1 [facility] COVID-19 (MODERNA), MRNA, LNP-S, PF, 100 MCG/0.5 ML DOSE 1 2020 207 complet ed MOD; [id number]; 1 [facility] [...] Apr 26, 2023 11:48 AM Reporting Lab: [facility] [place] [address] [address] Performing Lab: [facility] [place] [address] [address] [facility] LIVER FUNCTION ALBUMIN [MASS/VOLUM E] IN SERUM OR PLASMA 3.8 g/dL 3.5 - 5.0 04/21 Specimen Type: SERUM No comment entered. Ordering Provider: Nuris WHITTAKER Report Released Date/Time: Apr 26, 2023 11:48 AM Reporting Lab: [facility] [address] [address] Performing Lab: [facility] [place] [address] [address] [facility] LIVER FUNCTION ALKALINE PHOSPHATASE [ENZYMATIC ACTIVITY/VO LUME] IN SERUM OR PLASMA 35 U/L 40 - 150 04/21 L Specimen Type: SERUM No comment entered. Ordering Provider: Nuris WHITTAKER Report Released Date/Time: Apr 26, 2023 11:48 AM Reporting Lab: [facility] [place] [address] [address] Performing Lab: [facility] [place] [address] [address] [facility] LIVER FUNCTION ASPARTATE AMINOTRANSF ERASE [ENZYMATIC ACTIVITY/VO LUME] IN SERUM OR PLASMA 31 U/L 5 - 34 04/21 Specimen Type: SERUM No comment entered. Ordering Provider: Nuris WHITTAKER Report Released Date/Time: Apr 26, 2023 11:48 AM Reporting Lab: [facility] [place] [address] [address] Performing Lab: [facility] [place] [facility] [address] [facility] [address] [facility] LIVER FUNCTION ALANINE AMINOTRANSF ERASE [ENZYMATIC ACTIVITY/VO LUME] IN SERUM OR PLASMA 47 U/L 04/21 Specimen Type: SERUM No comment entered. Ordering Provider: Nuris WHITTAKER Report Released Date/Time: Apr 26, 2023 11:48 AM Reporting Lab: [facility] [place] [facility] [address] [facility] [address] Performing Lab: [facility] [place] [facility] [address] [facility] [address] [facility] LIVER FUNCTION BILIRUBIN.T OTAL [MASS/VOLUM E] IN SERUM OR PLASMA 0.9 mg/dL 0.2 - 1.2 04/21 Specimen Type: SERUM No comment entered. Ordering Provider: Nuris WHITTAKER Report Released Date/Time: Apr 26, 2023 11:48 AM Reporting Lab: [facility] [place] [facility] [address] [facility] [address] Performing Lab: [facility] [place] [facility] [address] [facility] [address] [facility] LIPID PANEL FASTING CHOLESTEROL [MASS/VOLUM E] IN SERUM OR PLASMA 134 mg/dL 04/21 Specimen Type: SERUM No comment entered. Ordering Provider: Nuris WHITTAKER Report Released Date/Time: Apr 26, 2023 11:48 AM Reporting Lab: [facility] [place] [facility] [address] [facility] [address] Performing Lab: [facility] [place] [facility] [address] [facility] [address] [facility] LIPID PANEL FASTING TRIGLYCERID E [MASS/VOLUM E] IN SERUM OR PLASMA 79 mg/dL 0 - 150 04/21 Specimen Type: SERUM No comment entered. Ordering Provider: Nuris WHITTAKER Report Released Date/Time: Apr 26, 2023 11:48 AM Reporting Lab: [facility] [place] [facility] [address] [facility] [address] Performing Lab: [facility] [place] [facility] [address] [facility] [address] [facility] LIPID PANEL FASTING CHOLESTEROL IN LDL [MASS/VOLUM E] IN SERUM OR PLASMA BY CALCULATION 63 mg/dL 0 - 129 04/21 Specimen Type: SERUM No comment entered. Ordering Provider: Nuris WHITTAKER Report Released Date/Time: Apr 26, 2023 11:48 AM Reporting Lab: [facility] [place] [facility] [address] [facility] [address] Performing Lab: [facility] [place] [facility] [address] [facility] [address] [facility] LIPID PANEL FASTING CHOLESTEROL .TOTAL/CHOL ESTEROL IN HDL [MASS RATIO] IN SERUM OR PLASMA 2.4 04/21 Specimen Type: SERUM No comment entered. Ordering Provider: Nuris WHITTAKER Report Released Date/Time: Apr 26, 2023 11:48 AM Reporting Lab: [facility] [place] [facility] [address] [facility] [address] Performing Lab: [facility] [place] [facility] [address] [facility] [address] [facility] [place] LIPID PANEL FASTING CHOLESTEROL IN HDL [MASS/VOLUM E] IN SERUM OR PLASMA 55 mg/dL 40 - 60 04/21 Specimen Type: SERUM No comment entered. Ordering Provider: Nuris WHITTAKER Report Released Date/Time: Apr 26, 2023 11:48 AM Reporting Lab: [facility] [place] [facility] [address] [facility] [address] Performing Lab: [facility] [place] [facility] [address] [facility] [address] [facility] [place] [facility] BASIC METABOLIC PANEL (fasting) UREA NITROGEN [MASS/VOLUM E] IN SERUM OR PLASMA 19 mg/dL 7 - 25 04/21 Specimen Type: SERUM No comment entered. Ordering Provider: Nuris WHITTAKER Report Released Date/Time: Apr 26, 2023 11:48 AM Reporting Lab: [facility] [place] [facility] [address] [facility] [address] Performing Lab: [facility] [place] [facility] [address] [facility] [address] [facility] [place] [facility] BASIC METABOLIC PANEL (fasting) GLUCOSE [MASS/VOLUM E] IN SERUM OR PLASMA 89 mg/dL 65 - 100 04/21 Specimen Type: SERUM No comment entered. Ordering Provider: Nuris WHITTAKER Report Released Date/Time: Apr 26, 2023 11:48 AM Reporting Lab: [facility] [place] [facility] [address] [facility] [address] Performing Lab: [facility] [place] [facility] [address] [facility] [address] [facility] [place] [facility] BASIC METABOLIC PANEL (fasting) SODIUM [MOLES/VOLU ME] IN SERUM OR PLASMA 139 mmol/L 135 - 145 04/21 Specimen Type: SERUM No comment entered. Ordering Provider: Nuris WHITTAKER Report Released Date/Time: Apr 26, 2023 11:48 AM Reporting Lab: [facility] [place] [facility] [address] [facility] [address] Performing Lab: [facility] [place] [facility] [address] [facility] [address] [facility] [place] BASIC METABOLIC PANEL (fasting) POTASSIUM [MOLES/VOLU ME] IN SERUM OR PLASMA 4.6 mmol/L 3.5 - 5.0 04/21 Specimen Type: SERUM No comment entered. Ordering Provider: Nuris WHITTAKER Report Released Date/Time: Apr 26, 2023 11:48 AM Reporting Lab: [facility] [place] [facility] [address] [facility] [address] Performing Lab: [facility] [place] [facility] [address] [facility] [address] [facility] [place] [facility] BASIC METABOLIC PANEL (fasting) CHLORIDE [MOLES/VOLU ME] IN SERUM OR PLASMA 107 mmol/L 100 - 110 04/21 Specimen Type: SERUM No comment entered. Ordering Provider: Nuris WHITTAKER Report Released Date/Time: Apr 26, 2023 11:48 AM Reporting Lab: [facility] [place] [address] [address] Performing Lab: [facility] [address] [facility] BASIC METABOLIC PANEL (fasting) CARBON DIOXIDE, TOTAL [MOLES/VOLU ME] IN SERUM OR PLASMA 23 meq/L 20 - 30 04/21 Specimen Type: SERUM No comment entered. Ordering Provider: Nuris WHITTAKER Report Released Date/Time: Apr 26, 2023 11:48 AM Reporting Lab: [facility] [address] Performing Lab: [facility] [address] [facility] BASIC METABOLIC PANEL (fasting) CALCIUM [MASS/VOLUM E] IN SERUM OR PLASMA 9.3 mg/dL 8.5 - 10.2 04/21 Specimen Type: SERUM No comment entered. Ordering Provider: Nuris WHITTAKER Report Released Date/Time: Apr 26, 2023 11:48 AM Reporting Lab: [facility] [address] [address] Performing Lab: [facility] [address] [address] [facility]ITAL[facility] BASIC METABOLIC PANEL (fasting) CREATININE [MASS/VOLUM E] IN SERUM OR PLASMA 0.94 mg/dL 0.50 - 1.40 04/21 Specimen Type: SERUM No comment entered. Ordering Provider: Nuris WHITTAKER Report Released Date/Time: Apr 26, 2023 11:48 AM Reporting Lab: [facility] [address] Performing Lab: [facility] [place] [facility] [address] [facility] [address] [facility] BASIC METABOLIC PANEL (fasting) GLOMERULAR FILTRATION RATE/1.73 SQ M.PREDICTED [VOLUME RATE/AREA] IN SERUM, PLASMA OR BLOOD BY CREATININE- BASED FORMULA (CKD-EPI 2020) 81 mL/min 60 04/21 Specimen Type: SERUM No comment entered. Ordering Provider: Nuris WHITTAKER Report Released Date/Time: Apr 26, 2023 11:48 AM Reporting Lab: [facility] [place] [facility] [address] [facility] [address] Performing Lab: [facility] [place] [facility] [address] [facility] [address] [facility] VITAMIN D (25-OH) 25-HYDROXYV ITAMIN D3 [MASS/VOLUM E] IN SERUM OR PLASMA 35 ng/mL 20 - 50 04/21 Specimen Type: SERUM No comment entered. Ordering Provider: Nuris WHITTAKER Report Released Date/Time: Apr 26, 2023 11:48 AM Reporting Lab: [facility] [place] [facility] [address] [facility] [address] Performing Lab: [facility] [place] [facility] [address] [facility] [address] [facility] [place] [facility] VITAMIN B12 COBALAMIN (VITAMIN B12) [MASS/VOLUM E] IN SERUM OR PLASMA 309 pg/mL 200 - 900 04/21 Specimen Type: SERUM No comment entered. Ordering Provider: Nuris WHITTAKER Report Released Date/Time: Apr 26, 2023 11:48 AM Reporting Lab: [facility] [place] [facility] [address] [facility] [address] Performing Lab: [facility] [place] [facility] [address] [facility] [address] [facility] [place] [facility] TSH THYROTROPIN [UNITS/VOLU ME] IN SERUM OR PLASMA 1.95 u[IU]/ mL 0.35 - 5.00 04/21 Specimen Type: SERUM No comment entered. Ordering Provider: Nuris WHITTAKER Report Released Date/Time: Apr 26, 2023 11:48 AM Reporting Lab: [facility] [place] [facility] [address] [facility] [address] Performing Lab: [facility] [place] [facility] [address] [facility] [address] [facility] [place] [facility] LIPID PANEL FASTING CHOLESTEROL [MASS/VOLUM E] IN SERUM OR PLASMA 153 mg/dL 04/16 Specimen Type: SERUM No comment entered. Ordering Provider: ERLINDA FLYNN Report Released Date/Time: Mar 16, 2023 11:33 AM Reporting Lab: [facility] [place] [facility] [address] [facility] [address] Performing Lab: [facility] [place] [facility] [address] [facility] [address] [facility] [place] [facility] LIPID PANEL FASTING TRIGLYCERID E [MASS/VOLUM E] IN SERUM OR PLASMA 96 mg/dL 0 - 150 04/16 Specimen Type: SERUM No comment entered. Ordering Provider: ERLINDA FLYNN Report Released Date/Time: Mar 16, 2023 11:33 AM Reporting Lab: [facility] [place] [facility] [address] [facility] [address] Performing Lab: [facility] [place] [facility] [address] [facility] [address] [facility] [place] [facility] LIPID PANEL FASTING CHOLESTEROL IN LDL [MASS/VOLUM E] IN SERUM OR PLASMA BY CALCULATION 70 mg/dL 0 - 129 04/16 Specimen Type: SERUM No comment entered. Ordering Provider: ERLINDA FLYNN Report Released Date/Time: Mar 16, 2023 11:33 AM Reporting Lab: [facility] [place] [facility] [address] [facility] [address] Performing Lab: [facility] [place] [facility] [address] [facility] [address] [facility] [place] LIPID PANEL FASTING CHOLESTEROL .TOTAL/CHOL ESTEROL IN HDL [MASS RATIO] IN SERUM OR PLASMA 2.4 04/16 Specimen Type: SERUM No comment entered. Ordering Provider: ERLINDA FLNYN Report Released Date/Time: Mar 16, 2023 11:33 AM Reporting Lab: [facility] [address] [facility] [address] Performing Lab: [facility] [address] [facility] [address] [facility] LIPID PANEL FASTING CHOLESTEROL IN HDL [MASS/VOLUM E] IN SERUM OR PLASMA 64 mg/dL 40 - 60 04/16 H Specimen Type: SERUM No comment entered. Ordering Provider: ERLINDA FLYNN Report Released Date/Time: Mar 16, 2023 11:33 AM Reporting Lab: [facility] [address] Performing Lab: [facility] [address] [facility] BASIC METABOLIC PANEL (fasting) UREA NITROGEN [MASS/VOLUM E] IN SERUM OR PLASMA 16 mg/dL 7 - 25 04/16 Specimen Type: SERUM No comment entered. Ordering Provider: ERLINDA FLYNN Report Released Date/Time: Mar 16, 2023 11:33 AM Reporting Lab: [facility] [place] [address] [address] Performing Lab: [place] [facility] [place] [address] [address] [facility] BASIC METABOLIC PANEL (fasting) GLUCOSE [MASS/VOLUM E] IN SERUM OR PLASMA 80 mg/dL 65 - 100 04/16 Specimen Type: SERUM No comment entered. Ordering Provider: ERLINDA FLYNN Report Released Date/Time: Mar 16, 2023 11:33 AM Reporting Lab: [facility] [address] Performing Lab: [facility] [place] [facility] [address] [facility] [address] [place] [facility] [place] [facility] BASIC METABOLIC PANEL (fasting) SODIUM [MOLES/VOLU ME] IN SERUM OR PLASMA 136 mmol/L 135 - 145 04/16 Specimen Type: SERUM No comment entered. Ordering Provider: ERLINDA FLYNN Report Released Date/Time: Mar 16, 2023 11:33 AM Reporting Lab: [facility] [place] [facility] [address] [facility] [address] Performing Lab: [facility] [place] [facility] [address] [facility] [address] [place] [facility] [place] [facility] BASIC METABOLIC PANEL (fasting) POTASSIUM [MOLES/VOLU ME] IN SERUM OR PLASMA 4.5 mmol/L 3.5 - 5.0 04/16 Specimen Type: SERUM No comment entered. Ordering Provider: ERLINDA FLYNN Report Released Date/Time: Mar 16, 2023 11:33 AM Reporting Lab: [facility] [place] [facility] [address] [facility] [address] Performing Lab: [facility] [place] [facility] [address] [facility] [address] [facility] [facility] BASIC METABOLIC PANEL (fasting) CHLORIDE [MOLES/VOLU ME] IN SERUM OR PLASMA 103 mmol/L 100 - 110 04/16 Specimen Type: SERUM No comment entered. Ordering Provider: ERLINDA FLYNN Report Released Date/Time: Mar 16, 2023 11:33 AM Reporting Lab: [facility] [place] [facility] [address] [facility] [address] Performing Lab: [facility] [place] [facility] [address] [facility] [address] [place] [facility] [place] [facility] BASIC METABOLIC PANEL (fasting) CARBON DIOXIDE, TOTAL [MOLES/VOLU ME] IN SERUM OR PLASMA 24 meq/L 20 - 30 04/16 Specimen Type: SERUM No comment entered. Ordering Provider: ERLINDA FLYNN Report Released Date/Time: Mar 16, 2023 11:33 AM Reporting Lab: [facility] [place] [facility] [address] [facility] [address] Performing Lab: [facility] [place] [facility] [address] [facility] [address] [facility] [place] [facility] BASIC METABOLIC PANEL (fasting) CREATININE [MASS/VOLUM E] IN SERUM OR PLASMA 1.03 mg/dL 0.50 - 1.40 04/16 Specimen Type: SERUM No comment entered. Ordering Provider: ERLINDA FLYNN Report Released Date/Time: Mar 16, 2023 11:33 AM Reporting Lab: [facility] [place] [facility] [address] [facility] [address] Performing Lab: [facility] [place] [facility] [address] [facility] [address] [facility] [place] [facility] BASIC METABOLIC PANEL (fasting) GLOMERULAR FILTRATION RATE/1.73 SQ M.PREDICTED [VOLUME RATE/AREA] IN SERUM, PLASMA OR BLOOD BY CREATININE- BASED FORMULA (CKD-EPI 2020) 73 mL/min 60 04/16 Specimen Type: SERUM No comment entered. Ordering Provider: ERLINDA FLYNN Report Released Date/Time: Mar 16, 2023 11:33 AM Reporting Lab: [facility] [place] [facility] [address] [facility] [address] Performing Lab: [facility] [place] [facility] [address] [facility] [address] [facility] [place] [facility] LIVER FUNCTION PROTEIN [MASS/VOLUM E] IN SERUM OR PLASMA 6.5 g/dL 6.0 - 8.3 04/16 Specimen Type: SERUM No comment entered. Ordering Provider: ERLINDA FLYNN Report Released Date/Time: Mar 16, 2023 11:33 AM Reporting Lab: [facility] [place] [facility] [address] [facility] [address] Performing Lab: [facility] [place] [facility] [address] [facility] [address] [facility] [place] [facility] LIVER FUNCTION ALBUMIN [MASS/VOLUM E] IN SERUM OR PLASMA 3.8 g/dL 3.5 - 5.0 04/16 Specimen Type: SERUM No comment entered. Ordering Provider: ERLINDA FLYNN Report Released Date/Time: Mar 16, 2023 11:33 AM Reporting Lab: [facility] [place] [facility] [address] [facility] [address] Performing Lab: [facility] [place] [facility] [address] [facility] [address] [place] [facility] [place] [facility] LIVER FUNCTION ALKALINE PHOSPHATASE [ENZYMATIC ACTIVITY/VO LUME] IN SERUM OR PLASMA 36 U/L 40 - 150 04/16 L Specimen Type: SERUM No comment entered. Ordering Provider: ERLINDA FLYNN Report Released Date/Time: Mar 16, 2023 11:33 AM Reporting Lab: [facility] [place] [facility] [address] [facility] [address] Performing Lab: [place] [facility] [place] [facility] [address] [facility] [address] [facility] [place] [facility] LIVER FUNCTION ASPARTATE AMINOTRANSF ERASE [ENZYMATIC ACTIVITY/VO LUME] IN SERUM OR PLASMA 21 U/L 5 - 34 04/16 Specimen Type: SERUM No comment entered. Ordering Provider: ERLINDA FLYNN Report Released Date/Time: Mar 16, 2023 11:33 AM Reporting Lab: [facility] [place] [facility] [address] [facility] [address] Performing Lab: [facility] [place] [facility] [address] [facility] [address] [facility] [place] [facility] LIVER FUNCTION ALANINE AMINOTRANSF ERASE [ENZYMATIC ACTIVITY/VO LUME] IN SERUM OR PLASMA 27 U/L 04/16 Specimen Type: SERUM No comment entered. Ordering Provider: ERLINDA FLYNN Report Released Date/Time: Mar 16, 2023 11:33 AM Reporting Lab: [facility] [place] [facility] [address] [facility] [address] Performing Lab: [facility] [place] [facility] [address] [facility] [address] [place] [facility] [place] [facility] LIVER FUNCTION BILIRUBIN.T OTAL [MASS/VOLUM E] IN SERUM OR PLASMA 0.9 mg/dL 0.2 - 1.2 04/16 Specimen Type: SERUM No comment entered. Ordering Provider: ERLINDA FLYNN Report Released Date/Time: Mar 16, 2023 11:33 AM Reporting Lab: [facility] [place] [facility] [address] [facility] [address] Performing Lab: [facility] [place] [facility] [address] [facility] [address] [facility] [place] [facility] HEMOGLOBI N A1C PANEL HEMOGLOBIN [...] Mar 16, 2023 11:33 AM Reporting Lab: [facility] [place] [facility] [address] [facility] [address] Performing Lab: [facility] [facility] [address] [facility] [address] [facility] Vital Signs Combined list of inpatient and outpatient Vital Signs from Department of Defense and Veterans Affairs, ranging from 12 months to all on record, depending upon the facility. Vital Sign Value Date Comments Source SYSTOLIC BLOOD PRESSURE 118 04/26/19 25 09:35:57 [facility] DIASTOLIC BLOOD PRESSURE 80 025 09:35:57 [facility] PULSE OXIMETRY 100 04/25/2024 09:35:57 [...] Source [facility] OFF/OP EST JUNE X REQ PHY/QHP [id number] Diagnos is: ICD-10- CM Z23 Encount er for immuniz atGELY Francis P 12/12 [facility] Out[facility] Encounter [id number] 03/16 [facility] HEARING AID FITTING/CH ECKING [id number] Diagnos is: ICD-10- CM H90.3 Sensori neural hearing loss, bilTre Davila 04/04 [facility] Out[facility] Encounter [id number] 04/09 [facility] Out[facility] Encounter [id number] 04/15 [facility] [place] [place] [facility] OFFICE O/P EST MOD 30 MIN [id number] Diagnos is: ICD-10- CM 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, unspeci ELIAS Crocker 04/25 [facility] [place] COMPRE OPH EXAM EST PT 1/> [id number] Diagnos is: ICD-10- CM 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 AN DREW E 05/29 [facility] [place] [facility] FIT SPECTACLES BIFOCAL [id number] Diagnos is: ICD-10- CM Z46.0 Encount er for fit/adj st of spectac les and contact lenses ZBIGNIEW LR 05/30 [facility] [place] [facility] Outpatient Encounter [id number] 06/17 [facility] [place] [place] [facility] OFFICE O/P EST LOW 20 MIN [id number] Diagnos is: ICD-10- CM I25.9 Chronic ischemi c heart disease , unspeci ELIAS Crocker 04/25 [facility] [place] [facility] COMPRE OPH EXAM EST PT 1/> [id number] Diagnos is: ICD-10- CM 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 Social History Type Response Date Comment Source Tobacco smoking status NHIS VA-TOBACCO USE FORMER CIGARETTES 04/25/2024 [facility] [place] [facility] History of tobacco use NV-TOBACCO NEVER USED OTHER TYPE 04/25/2024 [facility] [facility] History of tobacco use NV-TOBACCO NEVER USED 04/26/2023 [facility] [place] [facility] History of tobacco use NV-TOBACCO NEVER USED 04/27/2022 [facility] [place] [facility] History of tobacco use NV-TOBACCO NEVER USED 01/28/2021 [facility] [place] [facility] History of tobacco use NV-TOBACCO NEVER USED 02/20/2020 [facility] [place] [facility] History of tobacco use NV-TOBACCO NEVER USED 02/21/2018 [facility] [place] [facility] History of tobacco use NV-TOBACCO FORMER USER 01/10/2018 [facility] [place] [facility] History of tobacco use LIFETIME NON-TOBACCO USER 02/20/2017 [facility] [place] [facility] History of tobacco use LIFETIME NON-TOBACCO USER 06/11/2015 [facility] [place] [facility] History of tobacco use LIFETIME NON-TOBACCO USER 05/16/2013 . [facility] [place] [facility] History of tobacco use CURRENT SMOKER 05/16/2012 cigars, About 5 per week. [facility] [place] [facility]
--- OUTSIDE RECORDS SUMMARY | 2024-06-10 10:15 | XMS_ITS | Encounter Summary ---
Author Name [facility] [place] [facility] [place] [facility] [place] Address [address] [place] [id number] Care Team Providers Care Rx Specialist Name Role Phone ELIAS WHITTAKER Primary Care [...] SUPPLEMEN FREDDY MEDEX 2 Nov 13, 2015 [id number] SANDEEP DELEON PATIENT [facility] MEDICARE SUPPLEMEN FREDDY MEDEX 2 Nov 13, 2015 [id number] SANDEEP DELEON PATIENT [place] SUPPLEMEN FREDDY MEDEX 2 Nov 13, 2015 [id number] SANDEEP DELEON PATIENT MEDICARE (WNR) MEDICARE (M) PART B Nov 13, 2015 PART B [id number] SANDEEP DELEON PATIENT MEDICARE (WNR) MEDICARE (M) PART B Nov 13, 2015 PART B [id number] [phone] SANDEEP DELEON PATIENT MEDICARE (WNR) MEDICARE (M) PART A Aug 12, 2008 PART A [id number] SANDEEP DELEON PATIENT MEDICARE (WNR) MEDICARE (M) PART A Aug 12, 2008 PART A [id number] SANDEEP DELEON PATIENT Selected Encounter This section includes the information on record at [place] for the Encounter. Date/Time Encounter Type Encounter Description Reason Provider Source Jun 02, 2024 10:00 AM COMPRE OPH EXAM EST PT 1/> OPTOMETRY ICD-10-CM H25.813 Combined forms of age-related cataract, bilateral KRYS LR E E Encounter Template Text not used by VA Assessments - Encounter Diagnoses This section includes the primary and secondary diagnoses documented for the Encounter. Date/Time Primary/Secondary Diagnosis Diagnosis Name Provider Source Jun 02, 2024 10:45 AM PRIMARY Combined forms of age-related cataract, bilateral [facility] Jun 02, 2024 10:45 AM SECONDARY Unspecified disorder of refraction KRYS LR [facility] Social History: Smoking Status (Most current) and Tobacco Use (All prior to encounter date) This section includes the most current, and the historical, smoking and tobacco- related health factors from the [place] facility where the Encounter took place. Current Smoking Status This section includes the most current smoking, or tobacco-related health factor, from the [place] facility where the Encounter took place. Date/Time Current Smoking Status Comment [facility] abeba Apr 25, 2024 09:30 AM VA-TOBACCO USE FOR ALYSHA CIGARETTES [facility] Tobacco Use History This section includes a history of the smoking, or tobacco-related health factors, that were collected on or before the date of the Encounter. The data comes from the [place] facility where the Encounter took place. Date/Time Smoking Status/Tobac co Use Comment Facility Apr 25, 2024 09:30 AM VA-TOBACCO USE FORMER CIGARETTES [facility] Apr 26, 2023 11:00 AM VA-TOBACCO NEVER USED [facility] Apr 27, 2022 03:34 PM VA-TOBACCO NEVER USED [facility] Jan 28, 2021 09:00 AM VA-TOBACCO NEVER USED [facility] [place] [facility] Feb 20, 2020 08:30 AM VA-TOBACCO NEVER USED [facility] [place] [facility] Feb 21, 2018 09:43 AM VA-TOBACCO NEVER USED [facility] [facility] Jan 10, 2018 02:26 PM VA-TOBACCO DOESNT USE WI 30 MIN WAKEUP [place] [facility] [place] [facility] Jan 10, 2018 02:26 PM VA-TOBACCO FORMER USER [facility] [place] [facility] Jan 10, 2018 02:26 PM VA-TOBACCO QUIT 15 YRS OR MORE [facility] [place] [facility] Jan 10, 2018 02:26 PM VA-TOBACCO USE 30 YEARS OR MORE [facility] [facility] Jan 10, 2018 02:26 PM VA-TOBACCO USE ADVICE [facility] [place] [facility] Jan 10, 2018 02:26 PM VA-TOBACCO USE COURT REPORTER NO [facility] [place] [facility] Jan 10, 2018 02:26 PM VA-TOBACCO USE MED NO [facility] [place] [facility] Jan 10, 2018 02:26 PM VA-TOBACCO USER SOME DAYS [facility] [place] [facility] Feb 20, 2017 08:39 AM LIFETIME NON-TOBACCO USER [facility] [place] [facility] Jun 11, 2015 09:30 AM LIFETIME NON-TOBACCO USER [facility] [place] [facility] May 16, 2013 09:25 AM LIFETIME NON-TOBACCO USER . [facility] [place] [facility] May 16, 2012 10:48 AM CURRENT SMOKER cigars, About 5 per week. [facility] [place] [facility] Encounter Notes: All associated encounter notes This section contains the clinical notes associated to the Encounter. Date/Time Encounter Note(s) Provider Source Jun 02, 2024 10:47 AM ADDENDUM: LOCAL TITLE: Addendum STANDARD TITLE: ADDENDUM DATE OF NOTE: JUN 02, 2024@10:47:55 ENTRY DATE: JUN 02, 2024@10:47:56 AUTHOR: KRYS LR COSIGNER: URGENCY: STATUS: COMPLETED Please order the following: RX INFORMATION OD +2.50 -0.75 X80 Add:+2.50 Pzm:0.00 Dir: Prz2:0.00 Dir2: OS +2.00 - 1.00 X80 Add:+2.50 Pzm:0.00 Dir: Prz2:0.00 Dir2: FITTING INFORMATION FPD:66 NPD:63 Hickman:R: L: SEG HT:R:13 L:13 Tint:BOWMAN Shade:3 VA Billable Items FRAME: [employer] [id number] Right Lens: POLY BIFOCAL FT28 1.586 POLY Left Lens: POLY BIFOCAL FT28 1.586 POLY SOLID TINT RX INFORMATION OD +2.50 -0.75 X80 Add:+2.50 Pzm:0.00 Dir: Prz2:0.00 Dir2: OS +2.00 - 1.00 X80 Add:+2.50 Pzm:0.00 Dir: Prz2:0.00 Dir2: FITTING INFORMATION FPD:66 NPD:63 Hickman:R: L: SEG HT:R:9 L:9 Tint:None Shade:None VA Billable Items FRAME: [employer]er Material[employer] BLACK [id number] Right Lens: POLY BIFOCAL FT28 1.586 POLY Left Lens: POLY BIFOCAL FT28 1.586 POLY /kenzie/ KRYS LR OD STAFF HEAD PASTRY CHEF Signed: 06/02/2024 10:48 Receipt Acknowledged By: 06/02/2024 12:48 /kenzie/ Bethany Garrett [facility] [employer]r --- Original Document --- 06/02/24 OPTOMETRY NOTE(T): I saw this patient in conjunction with the student and agree to the stated findings and plan after reviewing both history and repeating hernandez elements of physical exam. 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 Otherwise no other acute ocular disease was seen today. Ordered bifocals in clear and sunglasses. The patient will return in 12 months or sooner if any problems arise. /kenzie/ KRYS LR OD STAFF HEAD PASTRY CHEF Signed: 06/02/2024 10:45 KRYS LR [place] [facility] [place] [facility] Jun 02, 2024 09:59 AM OPTOMETRY NOTE: LOCAL TITLE: OPTOMETRY NOTE STANDARD TITLE: OPTOMETRY NOTE DATE OF NOTE: JUN 02, 2024@09:59 ENTRY DATE: JUN 02, 2024@09:59:09 AUTHOR: SOFYA PAYTON EXP COSIGNER: KRYS LR URGENCY: STATUS: COMPLETED Active problems - Computerized Problem List is the source for the followin. Basal Cell Carcinoma of Skin ([facility] [id number]) 2. Squamous Cell Carcinoma of Skin ([facility] [id number]) 3. Exposure to potentially hazardous substance ([facility] [id number]) 4. Malignant Melanoma of Skin ([facility] [id number]) 5. Chronic Ischemic Heart Disease ([facility] [id number]) 6. Cataract, Cortical (Senile) 7. HYPERTENSION 8. HYPERLIPIDEMIA 9. 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 ACTINIC KERATOSIS Active Outpatient Medications (including Supplies): Active Outpatient Medications Status = 1) AMLODIPINE BESYLATE 5MG TAB TAKE ONE TABLET BY MOUTH ONCE ACTIVE DAILY FOR BLOOD PRESSURE/HEART, DO NOT TAKE WITH GRAPEFRUIT JUICE 2) EZETIMIBE 10MG TAB TAKE ONE TABLET BY MOUTH ONCE DAILY TO ACTIVE (S) LOWER CHOLESTEROL 3) LOSARTAN 50MG TAB TAKE ONE TABLET BY MOUTH ONCE DAILY FOR ACTIVE (S) BLOOD PRESSURE/HEART 4) METOPROLOL SUCCINATE 25MG SA TAB TAKE ONE TABLET BY MOUTH ACTIVE (S) ONCE DAILY FOR BLOOD PRESSURE/HEART 5) NITROGLYCERIN 0.4MG SL TAB DISSOLVE ONE TABLET UNDER THE ACTIVE TONGUE EVERY 5 MINUTES NEEDED IF NO RELIEF AFTER 3 DOSES, CALL 911 OR GO TO NEAREST EMERGENCY ROOM Indication: FOR ACUTE CHEST PAIN 6) OMEPRAZOLE 20MG EC CAP TAKE ONE CAPSULE BY MOUTH EVERY ACTIVE MORNING 30 MINUTES BEFORE BREAKFAST Indication: FOR GASTROESOPHAGEAL REFLUX DISEASE 7) ROSUVASTATIN CA 40MG TAB TAKE ONE TABLET BY MOUTH ONCE DAILY ACTIVE FOR CHOLESTEROL Indication: FOR HIGH CHOLESTEROL Active Non-VA Medications Status = 1) Non-VA ASPIRIN 81MG EC TAB 162MG BY MOUTH DAILY ACTIVE 2) Non-VA EPINEPHRINE (EQV-EPI-PEN) 0.3MG/0.3ML DIRECTED ACTIVE INTRAMUSCULARLY NEEDED 9 Total Medications Allergies: SHELLFISH All medications including those prescribed by outside VA's, community providers, and all OTC meds were reviewed and reconciled with patient to the best of their abilities. This 78 year old MALE is seen today for comprehensive eye exam IRVIN: MAY 30 2023 Chief Complaint: pt reports good vision and no ocular discomfort. OHx: 1. combined cataracts 2. Microaneurysm macula OS Ocular Medications: (-) Pain: (-) STOUT: (-) Diplopia: (-) Flashes: (-) Floaters: (-) Amaurosis Fugax/Tia's: (-) Eye Injury: (-) Eye Surgery: (-) TBI FOHx: (-) Glaucoma/ARMD/Blindness VITALS (most recent, as listed in the electronic record): B/P: 118/80 (04/25/2024 09:35) Pulse: 51 (04/25/2024 09:35) Temperature: 97.5 F [36.4 C] (04/25/2024 09:35) Weight: 165 lb [74.84 kg] (04/25/2024 09:35) Height: 67 in [170.2 cm] (04/26/2023 11:03) BMI: BMI: 25.9 PERTINENT LABS: HEMOGLOBIN A1C TREND Collection DT Spec HGBA1c 04/17/2023 11:42 BLOOD 5.3 (-) Smoker/Length of Time/PPD: Current Rx with last BCVA: +2.50-0.75X 80 20/20 +2.00-0.75X 80 20/20 +2.50 DVA ( )sc ( X )cc - phoropter OD: 20/20 OS: 20/20-2 Pupils: PERRL (-)APD EOMs: SAFE OU, (-)Pain/Diplopia CVF (facial, peripheral): FTFC OU Subjective Refraction: OD +2.50-0.75X 80 20/20 OS +2.00-1.00X 80 20/20-1 ADD +2.50 All the above performed by student, reviewed by attending Anterior segment: Performed by student, repeated by attending * Lids: dermatochalsis OU Conj: chronic injection OU Cornea: clear OU Reduced TBUT OU AC: D&Q OU Angles: 4x4 OU Iris: flat and clear OU Lens: NS 2+ and ACC 1+ OD>OS, central vacuoles OD Tonometry: Performed by student, reviewed by attending * [ X ] GAT [ ] iCare [] Burnham OD 12 mmHg OS 14 mmHg Time: 10:15am Fundus exam: Dilated: XXX 10:16am Non dilated: Dilating Drops: 1GTT 1 % Tropicamide OU [...] their ability to perform those activities safely. Performed by student, repeated by attending * Vit: syneresis OU C/D: 0.40 OD, 0.40 OS Macula: flat and clear OD single microaneursym; longstanding OS PPole: clear A/V: 2/3 Vessels: normal caliber OU Periph: flat and intact (-)holes, tears, detachments 360 OU Assessment/Plan: 1. Combined Form Cataracts OU - Pt. ed. on findings - cataracts are not visually significant and that surgery is not necessary at this time - Ed. on importance of UV protection and on symptoms of glare - Monitor yearly 2. Macular microaneurysm, OS - stable to previous - monitor annually 3. Hyperopia OU and presbyopia OU - Pt. ed. on todays findings - Ordering duplicate frames for (FT28- clear and sun) - left with written Rx - Monitor Return to Clinic 12 months or earlier PRN Education: After discussion and answering all 's questions, [place] demonstrated and verbalized understanding of diagnosis and [...] with a VA or non-VA provider. /kenzie/ ENRICO PAYTON OPTOMETRY STUDENT Signed: 06/02/2024 12:42 /kenzie/ KRYS LR OD STAFF HEAD PASTRY CHEF Cosigned: 06/02/2024 12:54 CONNER PAYTON [place] [facility] [facility] Jun 02, 2024 09:58 AM OPTOMETRY NOTE: LOCAL TITLE: OPTOMETRY NOTE(T) STANDARD TITLE: OPTOMETRY NOTE DATE OF NOTE: JUN 02, 2024@09:58 ENTRY DATE: JUN 02, 2024@09:58:32 AUTHOR: KRYS LR EXP COSIGNER: URGENCY: STATUS: COMPLETED OPTOMETRY NOTE(T) Has ADDENDA I saw this patient in conjunction with the student and agree to the stated findings and plan after reviewing both history and repeating hernandez elements of physical exam. 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 Otherwise no other acute ocular disease was seen today. Ordered bifocals in clear and sunglasses. The patient will return in 12 months or sooner if any problems arise. /kenzie/ KRYS LR OD STAFF HEAD PASTRY CHEF Signed: 06/02/2024 10:45 06/02/2024 ADDENDUM STATUS: COMPLETED Please order the following: RX INFORMATION OD +2.50 -0.75 X80 Add:+2.50 Pzm:0.00 Dir: Prz2:0.00 Dir2: OS +2.00 - 1.00 X80 Add:+2.50 Pzm:0.00 Dir: Prz2:0.00 Dir2: FITTING INFORMATION FPD:66 NPD:63 Hickman:R: L: SEG HT:R:13 L:13 Tint:BOWMAN Shade:3 VA Billable Items FRAME: [facility] [id number] Right Lens: POLY BIFOCAL FT28 1.586 POLY Left Lens: POLY BIFOCAL FT28 1.586 POLY SOLID TINT RX INFORMATION OD +2.50 -0.75 X80 Add:+2.50 Pzm:0.00 Dir: Prz2:0.00 Dir2: OS +2.00 - 1.00 X80 Add:+2.50 Pzm:0.00 Dir: Prz2:0.00 Dir2: FITTING INFORMATION FPD:66 NPD:63 Hickman:R: L: SEG HT:R:9 L:9 Tint:None Shade:None [place] Billable Items FRAME: [facility] 54-18-145 Right Lens: POLY BIFOCAL FT28 1.586 POLY Left Lens: POLY BIFOCAL FT28 1.586 POLY /kenzie/ KRYS LR OD STAFF HEAD PASTRY CHEF Signed: 06/02/2024 10:48 Receipt Acknowledged By: 06/02/2024 12:48 /kenzie/ Bethany [facility] 06/02/2024 ADDENDUM STATUS: COMPLETED [facility] [employer] [facility] ordered patient 2 pair(s) of ft28 eyeglasses on 06/02/24 as directed by provider. OPT HT entered consult(s) for order on behalf of provider. /kenzie/ Bethany [facility] Signed: 06/02/2024 12:50 KRYS LR [facility] [place] [facility]
--- OUTSIDE RECORDS SUMMARY | 2024-06-10 10:16 | XMS_ITS | Encounter Summary ---
Author Name [facility] [place] [facility] [place] Address [address] [place] [address] Care Team Providers Care Transit Planner Name Role Phone MARQUES CHAPARRO Primary Care [...] Renteria's Name Patient's Relationship to Policy Renteria [facility] MEDICARE SUPPLEMEN FREDDY MEDEX 2 Nov 13, 2015 [id number] SANDEEP DELEON [place] SU[place] MED[place] 2 Nov 13, 2015 [id number] SANDEEP DELEON [place] SUPPLEMEN [place] MEDEX 2 Nov 13, 2015 [id number] [phone] SANDEEP DELEON PATIENT MEDICARE (WNR) MEDICARE (M) PART B Nov 13, 2015 PART B [id number] [phone] SANDEEP DELEON PATIENT MEDICARE (WNR) MEDICARE (M) PART B Nov 13, 2015 PART B [id number] SANDEEP DELEON PATIENT MEDICARE (WNR) MEDICARE (M) PART A Aug 12, 2008 PART A [id number] [phone] SANDEEP DELEON PATIENT MEDICARE (WNR) MEDICARE (M) PART A Aug 12, 2008 PART A [id number] SANDEEP DELEON PATIENT Selected Encounter This section includes the information on record at [place] for the Encounter. Date/Time Encounter Type Encounter Description Reason Provider Source Apr 25, 2024 09:30 AM OFFICE O/P EST LOW 20 MIN PRIMARY CARE/MEDICINE ICD-10-CM I25.9 Chronic ischemic heart disease, unspecified MIGNON CHAPARRO IHE Encounter Template Text not used by [place] Assessments - Encounter Diagnoses This section includes the primary and secondary diagnoses documented for the Encounter. Date/Time Primary/Secondary Diagnosis Diagnosis Name Provider Source May 14, 2024 12:03 PM PRIMARY Chronic ischemic heart disease, unspecified MIGNON CHAPARRO [facility] Plan of Treatment: Future Appointments (+ 6 months) and Future Tests (+/- 45 days) The Plan of Treatment section includes future care activities for the patient from all [place] treatmentfacilities. This section includes future appointments and future orders which are active, pending or scheduled. Future Appointments This section includes appointments that were scheduled to occur 6 months from the date of the Encounter, up to a maximum of 20 appointments. The data comes from all [place] treatment facilities. Appointment Date/Time Appointment Type Appointme nt Facility Name Jun 02, 2024 10:00 AM AMBULATORY - MEDICINE [facility] Lab Results: +/- 30 days of the encounter This section includes the Chemistry and Hematology Lab Results on record with [place] for the patient. Radiology Reports and Pathology Reports are provided separately, in subsequent sections. Lab Results This section contains the Chemistry/Hematology Results that were resulted 30 days before or 30 daysafter the date of the Encounter. Date/Time Source Result Type Result - Unit Interpretation Reference Range Specimen Type Comment Apr 21, 2024 09:50 AM [facility] LIVER FUNCTION SERUM Specimen Type: SERUM No comment entered. Ordering Provider: BRIDGET CHAPARRO Report Released Date/Time: Apr 26, 2023 11:48 AM Reporting Lab: [facility] [address] [facility] [address] Performing Lab: [facility] [address] [facility] [address] PROTEIN,TOTAL 6.7 g/dL 6.0-8.3 ALBUMIN 3.8 g/dL 3.5-5.0 ALKALINE PHOSPHATASE 35 U/L L 40-150 AST 31 U/L 5-34 ALT 47 U/L BILIRUBIN, TOTAL 0.9 mg/dL 0.2-1.2 Apr 21, 2024 09:50 AM [facility] BASIC METABOLIC PANEL (fasting) SERUM Specime n Type: SERUM No comment entered. Ordering Provider: MARQUES CHAPARRO Report Released Date/Time: Apr 26, 2023 11:48 AM Reporting Lab: [address] [address] Performing Lab: [address] [address] UREA NITROGEN 19 mg/dL 7-25 GLUCOSE 89 mg/dL 65-100 SODIUM 139 mmol/L 135-145 POTASSIUM 4.6 mmol/L 3.5-5.0 CHLORIDE 107 mmol/L 100-110 CO2 23 meq/L 20-30 CALCIUM 9.3 mg/dL 8.5-10.2 CREATININE, Serum 0.94 mg/dL 0.50-1.40 eGFR(CKD-EPI 2020) 81 mL/min >60 Apr 21, 2024 09:50 AM [facility] LIPID PANEL FASTING SERUM Specimen Type: SERU M No comment entered. Ordering Provider: MARQUES CHAPARRO Report Released Date/Time: Apr 26, 2023 11:48 AM Reporting Lab: [facility] [address] [facility] [address] Performing Lab: [address] [address] CHOLESTEROL 134 mg/dL TRIGLYCERIDE 79 mg/dL 0-150 LDL calculated 63 mg/dL 0-129 CHOL/HDL 2.4 HDL CHOLESTEROL 55 mg/dL 40-60 Apr 21, 2024 09:50 AM [facility] VITAMIN B12 SERUM Specimen Type: SERUM No comment entered. Ordering Provider: MARQUES CHAPARRO Report Released Date/Time: Apr 26, 2023 11:48 AM Reporting [facility]: [facility] [place] [address] [address] Performing Lab: [facility] [place] [address] [address] VITAMIN B12 309 pg/mL 200-900 Apr 21, 2024 09:50 AM [facility] TSH SERUM Specimen Type: SERUM No comment entered. Ordering Provider: MARQUES CHAPARRO Report Released Date/Time: Apr 26, 2023 11:48 AM Reporting Lab: [facility] [place] [address] [address] Performing Lab: [facility] [place] [address] [address] TSH 1.95 u[IU]/mL 0.35-5.00 Apr 21, 2024 09:50 AM [facility] VITAMIN D (25-OH) SERUM Specimen Type: SERUM No comment entered. Ordering Provider: MARQUES CHAPARRO Report Released Date/Time: Apr 26, 2023 11:48 AM Reporting [facility]: [facility] [place] [address] [address] Performing [facility]: [facility] [place] [address] [address] VITAMIN D (25-OH) 35 ng/mL 20-50 Vital Signs: All taken on the encounter date This section contains inpatient and outpatient Vital Signs collected on the date of the Encounter. Date/Time Temperature Pulse Blood Pressure Respiratory Rate SP02 Pain Height Weight Body Mass Index Source Apr 25, 2024 09:35 AM 97.5 51 118/80 16 100 6 165 26 [facility] Social History: Smoking Status (Most current) and Tobacco Use (All prior to encounter date) This section includes the most current, and the historical, smoking and tobacco- related health factors from the [place] facility where the Encounter took place. Current Smoking Status This section includes the most current smoking, or tobacco-related health factor, from the [place] facility where the Encounter took place. Date/Time Current Smoking Status Comment Prabhakar moreno Apr 25, 2024 09:30 AM VA-TOBACCO USE FOR ALYSHA CIGARETTES [place] [facility] [place] [facility] Tobacco Use History This section includes a history of the smoking, or tobacco-related health factors, that were collected on or before the date of the Encounter. The data comes from the [place] facility where the Encounter took place. Date/Time Smoking Status/Tobac co Use Comment [facility] Apr 25, 2024 09:30 AM VA-TOBACCO USE FORMER CIGARETTES [facility] [place] [facility] Apr 26, 2023 11:00 AM VA-TOBACCO NEVER USED [facility] [place] [facility] Apr 27, 2022 03:34 PM VA-TOBACCO NEVER USED [facility] [place] [facility] Jan 28, 2021 09:00 AM VA-TOBACCO NEVER USED [facility] [place] [facility] Feb 20, 2020 08:30 AM VA-TOBACCO NEVER USED [facility] [place] [facility] Feb 21, 2018 09:43 AM VA-TOBACCO NEVER USED [facility] [place] [facility] Jan 10, 2018 02:26 PM VA-TOBACCO DOESNT USE WI 30 MIN WAKEUP [facility] [place] [facility] Jan 10, 2018 02:26 PM VA-TOBACCO FORMER USER [facility] [place] [facility] Jan 10, 2018 02:26 PM VA-TOBACCO QUIT 15 YRS OR MORE [facility] [place] [facility] Jan 10, 2018 02:26 PM VA-TOBACCO USE 30 YEARS OR MORE [facility] [place] [facility] Jan 10, 2018 02:26 PM VA-TOBACCO USE ADVICE [facility] [place] [facility] Jan 10, 2018 02:26 PM VA-TOBACCO USE COMMERCIAL ADMINISTRATOR NO [facility] [place] [facility] Jan 10, 2018 02:26 PM VA-TOBACCO USE MED NO [facility] [place] [facility] Jan 10, 2018 02:26 PM VA-TOBACCO USER SOME DAYS [facility] [place] [facility] Feb 20, 2017 08:39 AM LIFETIME NON-TOBACCO USER [facility] [place] [facility] Jun 11, 2015 09:30 AM LIFETIME NON-TOBACCO USER [facility] [place] May 16, 2013 09:25 AM LIFETIME NON-TOBACCO USER . [facility] [place] May 16, 2012 10:48 AM CURRENT SMOKER cigars, About 5 per week. [facility] Encounter Notes: All associated encounter notes This section contains the clinical notes associated to the Encounter. Date/Time Encounter Note(s) Provider Source Apr 25, 2024 10:11 AM PHYSICIAN UTILIZATION MANAGEMENT UM NURSE NOTE: LOCAL TITLE: DEMETRIO NOTE STANDARD TITLE: PHYSICIAN UTILIZATION MANAGEMENT UM NURSE NOTE DATE OF NOTE: APR 25, 2024@10:11 ENTRY DATE: APR 25, 2024@10:11:55 AUTHOR: MARQUES CHAPARRO COSIGNER: URGENCY: STATUS: COMPLETED CC/HPI/A/P: 78 year old MALE here in follow-up for; htn, meds reviewed and renewed. CAD, dD jacqueline, margiea asksfor nitro, which he does't use.ordered. GERD< PPI renewed. Melanoma, he will send Derm note, proxy and outside shot lists. Review of systems: Patient reports no changes from [facility], in meds or any admissions. Active problems - Computerized Problem List is the source for the followin. Basal Cell Carcinoma of Skin ([facility] [id number]) 2. Squamous Cell Carcinoma of Skin ([facility] [id number]) 3. Exposure to potentially hazardous substance ([facility] [id number]) Entered automatically through [facility] Problem List documentation program 4. Malignant Melanoma of Skin ([facility] [id number]) left 2010. 5. Chronic Ischemic Heart Disease ([facility] [id number]) 6. Cataract, Cortical (Senile) 7. HYPERTENSION 8. HYPERLIPIDEMIA 9. 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 ACTINIC KERATOSIS SERVICE CONNECTED % - 30 VA and Non [place] meds were reconciled with the patient who [...] today:yes /es/ Marques Chaparro PA-C STAFF PHYSICIAN UTILIZATION MANAGEMENT UM NURSE Signed: 04/25/2024 10:14 MARQUES CHAPARRO [place] [facility] [place] [facility] Apr 25, 2024 09:39 AM PREVENTIVE MEDICINE NURSING NOTE: LOCAL TITLE: CLINICAL REMINDERS/NURSING STANDARD TITLE: PREVENTIVE MEDICINE NURSING NOTE DATE OF NOTE: APR 25, 2024@09:39 ENTRY DATE: APR 25, 2024@09:39:16 AUTHOR: CONOR LEVINEIGNER: URGENCY: STATUS: COMPLETED Suicide Screen: C-SSRS Screening [place] Suicide Severity Rating Scale (C-SSRS) screener 1. [...] Signed: 04/25/2024 09:41 CONOR LEVINE [facility]
== END 2024-06-10 09:55 | disposition home or self-care (01) ==
LOC: HO.HCS 09:24
PROVIDERS: PCP Internal Medicine; Visit Provider Internal Medicine Cardiovascular Disease
DX: R00.1 Bradycardia, unspecified (principal); I25.10 Atherosclerotic heart disease of native coronary artery without angina pectoris; I71.20 Thoracic aortic aneurysm, without rupture, unspecified; I49.3 Ventricular premature depolarization
CPT/HCPCS: 93010; 99214; G2211

== ENCOUNTER → 2024-06-10 09:23 | Outpatient (BNVA) | payer MEDICARE, SELFPAY | PROVIDERS: PCP Internal Medicine; Visit Provider Internal Medicine Cardiovascular Disease | DX: I25.10 Atherosclerotic heart disease of native coronary artery without angina pectoris (principal); I71.20 Thoracic aortic aneurysm, without rupture, unspecified; I49.3 Ventricular premature depolarization; R00.1 Bradycardia, unspecified | CPT/HCPCS: 93005; 99212 ==

== ENCOUNTER → 2024-08-04 08:41 | Outpatient (REF) | payer MEDICARE, SELFPAY ==
--- OUTSIDE RECORDS SUMMARY | 2024-06-02 06:00 | XMS_ITS | Continuity of Care Document ---
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 It does not include entries that were removed or entered in error. Problem Status Onset Date Problem Type Date of Resolution Comments Source Malignant Melanoma of Skin (SCT [id number]) Active 02/12/19 11 Condition Nov 06, 2021 Entered By: SHIRA WHITTAKER AM Comment: left evangelical, 2010. [facility] ACTINIC KERATOSIS Active Condition [facility] Cataract, Cortical (Senile) Active Condition [facility] Chronic Ischemic Heart Disease (SCT [id number]) Active Condition [facility] ESOPHAGEAL REFLUX (GERD) Active Condition [facility] Exposure to potentially hazardous substance (SCT [id number]) Active Condition May 22 Entered By: RADHA HENSON Comment: Entered automatically through [facility] Problem List documentation program [facility] HYPERLIPIDEMIA Active Condition [facility] HYPERTENSION Active Condition [facility] IMPOTENCE, ORGANIC ORIGN Active Condition [facility] Squamous Cell Carcinoma of Skin (SCT [id number]) Active Condition [facility] [...] Malignant melanoma of skin, unspecified Active Diagnosis [facility] Diagnosis: ICD-10-CM H90.3 Sensorineural hearing loss, bilateral Active Diagnosis [facility] Medications Combined list of outpatient medications [...] WITH GRAPEFRU IT JUICE ORAL ACTIVE 04/26/2025 [id number] ELIAS WHITTAKER [address] [facility] AMLODIPINE BESYLATE 5MG TAB TAKE ONE TABLET BY MOUTH ONCE DAILY FOR BLOOD PRESSURE /HEART, DO NOT TAKE WITH GRAPEFRU IT JUICE ORAL DISCONT INUED 04/26/2024 [id number] [facility]KER 2023 [facility] ASPIRIN 81MG TAB,EC TAKE TWO TABLETS BY MOUTH DAILY ORAL ACTIVE ELIAS WHITTAKER 2012 [facility] EPINEPHRINE (EQV-EPI-PE N) 0.3MG/0.3ML INJECTOR INJECT DIRECTED INTRAMUS CULARLY PRN INTRAM USCULA R ACTIVE RA JESSICA FLYNN [address] [facility] EZETIMIBE 10MG TAB TAKE ONE TABLET BY MOUTH ONCE DAILY TO LOWER CHOLESTE ROL ORAL ACTIVE 04/26/2025 [id number] 5 ELIAS WHITTAKER [address] [facility] EZETIMIBE 10MG TAB TAKE ONE TABLET BY MOUTH ONCE DAILY TO LOWER CHOLESTE ROL ORAL DISCONT INUED 04/26/2024 [id number] ELIAS WHITTAKER 2023 90 [facility] LOSARTAN 50MG TAB TAKE ONE TABLET BY MOUTH ONCE DAILY FOR BLOOD PRESSURE /HEART ORAL ACTIVE 04/26/2025 [id number] 5 ELIAS WHITTAKER 2024 90 [facility] [place] 50MG TAB TAKE ONE TABLET BY MOUTH ONCE DAILY FOR BLOOD PRESSURE /HEART ORAL DISCONT INUED 04/26/2024 [id number] ELIAS WHITTAKER 2023 90 [facility] METOPROLOL SUCCINATE 25MG TAB,SA TAKE ONE TABLET BY MOUTH ONCE DAILY FOR BLOOD PRESSURE /HEART ORAL ACTIVE 04/26/2025 [id number] 5 ELIAS WHITTAKER 2024 90 [facility] METOPROLOL SUCCINATE 25MG TAB,SA TAKE ONE TABLET BY MOUTH ONCE DAILY FOR BLOOD PRESSURE /HEART ORAL DISCONT INUED 04/26/2024 [id number] ELIAS WHITTAKER 2023 90 [facility] NITROGLYCER IN 0.4MG TAB,SUBLING UAL DISSOLVE ONE TABLET UNDER THE TONGUE EVERY 5 MINUTES NEEDED FOR ACUTE CHEST PAIN IF NO RELIEF AFTER 3 DOSES, CALL 911 OR GO TO NEAREST EMERGENC Y ROOM SUBLIN GUAL ACTIVE 04/26/2025 [id number] ELIAS WHITTAKER 2024 100 [place] [facility] OMEPRAZOLE 20MG CAP,EC TAKE ONE CAPSULE BY MOUTH EVERY MORNING 30 MINUTES BEFORE BREAKFAS T FOR GASTROES OPHAGEAL REFLUX DISEASE ORAL ACTIVE 04/26/2025 [id number] ELIAS WHITTAKER 2024 90 [place] [facility] OMEPRAZOLE 20MG CAP,EC TAKE TWO CAPSULES BY MOUTH EVERY MORNING 30 MINUTES BEFORE BREAKFAS T ORAL DISCONT INUED (EDIT) 04/26/2024 [id number] ELIAS WHITTAKER 2023 180 [place] [facility] ROSUVASTATI N CA 40MG TAB TAKE ONE TABLET BY MOUTH ONCE DAILY FOR HIGH CHOLESTE ROL FOR CHOLESTE ROL ORAL ACTIVE 04/26/2025 [id number] 5 ELIAS WHITTAKER [address] [facility] ROSUVASTATI N CA 40MG TAB TAKE ONE TABLET BY MOUTH ONCE DAILY FOR HIGH CHOLESTE ROL FOR CHOLESTE ROL ORAL DISCONT INUED 06/18/2024 [id number] ELIAS WHITTAKER [address] [facility] ROSUVASTATI N CA 40MG TAB TAKE ONE TABLET BY MOUTH ONCE DAILY FOR HIGH CHOLESTE ROL ORAL 05/26/2023 [id number] ELIAS WHITTAKER 2023 [facility] Allergies, Adverse Reactions, Alerts Combined list of allergies from 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 It does not include entries that were removed or entered in error. Substance Category Reaction Severity Reaction type Status Date Reported Comments Source SHELLFISH Propensity to adverse reactions to food (finding) Urticaria active [facility] Immunizations Combined list of available immunizations from the 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 Immunization Series Date Given Administered By Site Reaction Lot Number CVX Code Drug Groundsman Status Comments Source INFLUENZA, HIGH-DOSE, QUADRIVALENT 2022 NILAD ALFARO LEFT DELTO ID [id number] complet ed [facility] [place] COVID-19 (MODERNA), MRNA, LNP-S, PF, 100 MCG OR 50 MCG DOSE 3 2020 207 complet ed MOD; [id number]; 2 [facility] INFLUENZA, UNSPECIFIED FORMULATION [address] [facility] COVID-19 (MODERNA), MRNA, LNP-S, PF, 100 MCG/0.5 ML DOSE 2 2020 207 complet ed MOD; [id number]; 1 [facility] COVID-19 (MODERNA), MRNA, LNP-S, PF, 100 MCG/0.5 ML DOSE 1 2020 207 complet ed MOD; [id number]; 1 [facility] [...] AM Reporting Lab: [facility] [address] [facility] [address] Performing Lab: [facility] [place] [facility] [address] [facility] [address] [facility] LIVER FUNCTION ALBUMIN [MASS/VOLUM E] IN SERUM OR PLASMA 3.8 g/dL 3.5 - 5.0 04/21 Specimen Type: SERUM No comment entered. Ordering Provider: Nuris WHITTAKER Report Released Date/Time: Apr 26, 2023 11:48 AM Reporting Lab: [facility] [place] [facility] [address] [facility] [address] Performing Lab: [facility] [place] [facility] [address] [facility] [address] [facility] LIVER FUNCTION ALKALINE PHOSPHATASE [ENZYMATIC ACTIVITY/VO LUME] IN SERUM OR PLASMA 35 U/L 40 - 150 04/21 L Specimen Type: SERUM No comment entered. Ordering Provider: Nuris WHITTAKER Report Released Date/Time: Apr 26, 2023 11:48 AM Reporting Lab: [facility] [place] [facility] [address] [facility] [address] Performing Lab: [facility] [place] [facility] [address] [facility] [address] [facility] LIVER FUNCTION ASPARTATE AMINOTRANSF ERASE [ENZYMATIC ACTIVITY/VO LUME] IN SERUM OR PLASMA 31 U/L 5 - 34 04/21 Specimen Type: SERUM No comment entered. Ordering Provider: Nursi WHITTAKER Report Released Date/Time: Apr 26, 2023 11:48 AM Reporting Lab: [facility] [place] [facility] [address] [facility] [address] Performing Lab: [facility] [place] [facility] [address] [facility] [address] [facility] LIVER FUNCTION ALANINE AMINOTRANSF ERASE [ENZYMATIC ACTIVITY/VO LUME] IN SERUM OR PLASMA 47 U/L 04/21 Specimen Type: SERUM No comment entered. Ordering Provider: Nuris WHITTAKER Report Released Date/Time: Apr 26, 2023 11:48 AM Reporting Lab: [facility] [place] [facility] [address] [facility] [address] Performing Lab: [facility] [place] [facility] [address] [facility] [address] [facility] LIVER FUNCTION BILIRUBIN.T OTAL [MASS/VOLUM E] IN SERUM OR PLASMA 0.9 mg/dL 0.2 - 1.2 04/21 Specimen Type: SERUM No comment entered. Ordering Provider: Nuris WHITTAKER Report Released Date/Time: Apr 26, 2023 11:48 AM Reporting Lab: [facility] [place] [address] [address] Performing Lab: [facility] [place] [facility] [address] [facility] [address] [place] [facility] LIPID PANEL FASTING CHOLESTEROL [MASS/VOLUM E] IN SERUM OR PLASMA 134 mg/dL 04/21 Specimen Type: SERUM No comment entered. Ordering Provider: Nuris WHITTAKER Report Released Date/Time: Apr 26, 2023 11:48 AM Reporting Lab: [facility] [place] [address] [address] Performing Lab: [facility] [place] [facility] [address] [facility] [address] [place] [facility] LIPID PANEL FASTING TRIGLYCERID E [MASS/VOLUM E] IN SERUM OR PLASMA 79 mg/dL 0 - 150 04/21 Specimen Type: SERUM No comment entered. Ordering Provider: Nuris WHITTAKER Report Released Date/Time: Apr 26, 2023 11:48 AM Reporting Lab: [facility] [place] [address] [address] Performing Lab: [facility] [address] [facility] [address] [facility] LIPID PANEL FASTING CHOLESTEROL IN LDL [MASS/VOLUM E] IN SERUM OR PLASMA BY CALCULATION 63 mg/dL 0 - 129 04/21 Specimen Type: SERUM No comment entered. Ordering Provider: Nuris WHITTAKER Report Released Date/Time: Apr 26, 2023 11:48 AM Reporting Lab: [facility] [place] [facility] [address] [facility] [address] Performing Lab: [facility] [place] [facility] [address] [facility] [address] [facility] LIPID PANEL FASTING CHOLESTEROL .TOTAL/CHOL ESTEROL IN HDL [MASS RATIO] IN SERUM OR PLASMA 2.4 04/21 Specimen Type: SERUM No comment entered. Ordering Provider: Nuris WHITTAKER Report Released Date/Time: Apr 26, 2023 11:48 AM Reporting Lab: [facility] [place] [facility] [address] [facility] [address] Performing Lab: [facility] [place] [facility] [address] [facility] [address] [facility] LIPID PANEL FASTING CHOLESTEROL IN HDL [MASS/VOLUM E] IN SERUM OR PLASMA 55 mg/dL 40 - 60 04/21 Specimen Type: SERUM No comment entered. Ordering Provider: Nuris WHITTAKER Report Released Date/Time: Apr 26, 2023 11:48 AM Reporting Lab: [facility] [place] [facility] [address] [facility] [address] Performing Lab: [facility] [place] [facility] [address] [facility] [address] [facility] BASIC METABOLIC PANEL (fasting) UREA NITROGEN [MASS/VOLUM E] IN SERUM OR PLASMA 19 mg/dL 7 - 25 04/21 Specimen Type: SERUM No comment entered. Ordering Provider: Nuris WHITTAKER Report Released Date/Time: Apr 26, 2023 11:48 AM Reporting Lab: [facility] [place] [facility] [address] [facility] [address] Performing Lab: [facility] [place] [facility] [address] [facility] [address] [facility] [place] [facility] BASIC METABOLIC PANEL (fasting) GLUCOSE [MASS/VOLUM E] IN SERUM OR PLASMA 89 mg/dL 65 - 100 04/21 Specimen Type: SERUM No comment entered. Ordering Provider: Nuris WHITTAKER Report Released Date/Time: Apr 26, 2023 11:48 AM Reporting Lab: [facility] [place] [facility] [address] [facility] [address] Performing Lab: [facility] [address] [facility] [address] [facility]N [facility] BASIC METABOLIC PANEL (fasting) SODIUM [MOLES/VOLU ME] IN SERUM OR PLASMA 139 mmol/L 135 - 145 04/21 Specimen Type: SERUM No comment entered. Ordering Provider: Nuris WHITTAKER Report Released Date/Time: Apr 26, 2023 11:48 AM Reporting Lab: [facility] [address] [facility] [address] Performing Lab: [facility] [address] [facility] [address] [facility] BASIC METABOLIC PANEL (fasting) POTASSIUM [MOLES/VOLU ME] IN SERUM OR PLASMA 4.6 mmol/L 3.5 - 5.0 04/21 Specimen Type: SERUM No comment entered. Ordering Provider: Nuris WHITTAKER Report Released Date/Time: Apr 26, 2023 11:48 AM Reporting Lab: [facility] [place] [facility] [address] [facility] [address] Performing Lab: [facility] [place] [facility] [address] [facility] [address] [facility] BASIC METABOLIC PANEL (fasting) CHLORIDE [MOLES/VOLU ME] IN SERUM OR PLASMA 107 mmol/L 100 - 110 04/21 Specimen Type: SERUM No comment entered. Ordering Provider: Nuris WHITTAKER Report Released Date/Time: Apr 26, 2023 11:48 AM Reporting Lab: [facility] [place] [facility] [address] [facility] [address] Performing Lab: [facility] [place] [facility] [address] [facility] [address] [facility] [facility] BASIC METABOLIC PANEL (fasting) CARBON DIOXIDE, TOTAL [MOLES/VOLU ME] IN SERUM OR PLASMA 23 meq/L 20 - 30 04/21 Specimen Type: SERUM No comment entered. Ordering Provider: Nuris WHITTAKER Report Released Date/Time: Apr 26, 2023 11:48 AM Reporting Lab: [facility] [place] [address] [address] Performing Lab: [place] [facility] [place] [address] [address] [facility] [facility] BASIC METABOLIC PANEL (fasting) CALCIUM [MASS/VOLUM E] IN SERUM OR PLASMA 9.3 mg/dL 8.5 - 10.2 04/21 Specimen Type: SERUM No comment entered. Ordering Provider: Nuris WHITTAKER Report Released Date/Time: Apr 26, 2023 11:48 AM Reporting Lab: [facility] [place] [address] [address] Performing Lab: [facility] [place] [facility] [address] [facility] [address] [facility] [place] [facility] BASIC METABOLIC PANEL (fasting) CREATININE [MASS/VOLUM E] IN SERUM OR PLASMA 0.94 mg/dL 0.50 - 1.40 04/21 Specimen Type: SERUM No comment entered. Ordering Provider: Nuris WHITTAKER Report Released Date/Time: Apr 26, 2023 11:48 AM Reporting Lab: [facility] [place] [facility] [address] [facility] [address] Performing Lab: [facility] [place] [address] [address] [facility] BASIC METABOLIC PANEL (fasting) GLOMERULAR FILTRATION RATE/1.73 SQ M.PREDICTED [VOLUME RATE/AREA] IN SERUM, PLASMA OR BLOOD BY CREATININE- BASED FORMULA (CKD-EPI 2020) 81 mL/min 60 04/21 Specimen Type: SERUM No comment entered. Ordering Provider: Nuris WHITTAKER Report Released Date/Time: Apr 26, 2023 11:48 AM Reporting Lab: [place] [facility] [place] [facility] [address] [facility] [address] Performing Lab: [place] [facility] [place] [facility] [address] [facility] [address] [facility] VITAMIN D (25-OH) 25-HYDROXYV ITAMIN D3 [MASS/VOLUM E] IN SERUM OR PLASMA 35 ng/mL 20 - 50 04/21 Specimen Type: SERUM No comment entered. Ordering Provider: Nuris WHITTAKER Report Released Date/Time: Apr 26, 2023 11:48 AM Reporting Lab: [place] [facility] [place] [facility] [address] [facility] [address] Performing Lab: [place] [facility] [place] [facility] [address] [facility] [address] [facility] VITAMIN B12 COBALAMIN (VITAMIN B12) [MASS/VOLUM E] IN SERUM OR PLASMA 309 pg/mL 200 - 900 04/21 Specimen Type: SERUM No comment entered. Ordering Provider: Nuris WHITTAKER Report Released Date/Time: Apr 26, 2023 11:48 AM Reporting Lab: [facility] [place] [facility] [address] [facility] [address] Performing Lab: [facility] [place] [facility] [address] [facility] [address] [facility] TSH THYROTROPIN [UNITS/VOLU ME] IN SERUM OR PLASMA 1.95 u[IU]/ mL 0.35 - 5.00 04/21 Specimen Type: SERUM No comment entered. Ordering Provider: Nuris WHITTAKER Report Released Date/Time: Apr 26, 2023 11:48 AM Reporting Lab: [facility] [place] [facility] [address] [facility] [address] Performing Lab: [facility] [place] [facility] [address] [facility] [address] [facility] [place] [facility] LIPID PANEL FASTING CHOLESTEROL [MASS/VOLUM E] IN SERUM OR PLASMA 153 mg/dL 04/16 Specimen Type: SERUM No comment entered. Ordering Provider: ERLINDA FLYNN Report Released Date/Time: Mar 16, 2023 11:33 AM Reporting Lab: [place] [facility] [place] [facility] [address] [facility] [address] Performing Lab: [place] [facility] [facility] [address] [facility] [address] [facility] [place] [facility] LIPID PANEL FASTING TRIGLYCERID E [MASS/VOLUM E] IN SERUM OR PLASMA 96 mg/dL 0 - 150 04/16 Specimen Type: SERUM No comment entered. Ordering Provider: ERLINDA FLYNN Report Released Date/Time: Mar 16, 2023 11:33 AM Reporting Lab: [place] [facility] [facility] [address] [facility] [address] Performing Lab: [place] [facility] [facility] [address] [facility] [address] [facility] [place] [facility] LIPID PANEL FASTING CHOLESTEROL IN LDL [MASS/VOLUM E] IN SERUM OR PLASMA BY CALCULATION 70 mg/dL 0 - 129 04/16 Specimen Type: SERUM No comment entered. Ordering Provider: ERLINDA FLYNN Report Released Date/Time: Mar 16, 2023 11:33 AM Reporting Lab: [place] [facility] [place] [facility] [address] [facility] [address] Performing Lab: [place] [facility] [place] [facility] [address] [facility] [address] [facility] [place] [facility] LIPID PANEL FASTING CHOLESTEROL .TOTAL/CHOL ESTEROL IN HDL [MASS RATIO] IN SERUM OR PLASMA 2.4 04/16 Specimen Type: SERUM No comment entered. Ordering Provider: ERLINDA FLYNN Report Released Date/Time: Mar 16, 2023 11:33 AM Reporting Lab: [facility] [place] [facility] [address] [facility] [address] Performing Lab: [facility] [place] [facility] [address] [facility] [address] [facility] [place] [facility] LIPID PANEL FASTING CHOLESTEROL IN HDL [MASS/VOLUM E] IN SERUM OR PLASMA 64 mg/dL 40 - 60 04/16 H Specimen Type: SERUM No comment entered. Ordering Provider: ERLINDA FLYNN Report Released Date/Time: Mar 16, 2023 11:33 AM Reporting Lab: [facility] [place] [facility] [address] [facility] [address] Performing Lab: [place] [facility] [facility] [address] [facility] [address] [place] [facility] [place] [facility] BASIC METABOLIC PANEL (fasting) UREA NITROGEN [MASS/VOLUM E] IN SERUM OR PLASMA 16 mg/dL 7 - 25 04/16 Specimen Type: SERUM No comment entered. Ordering Provider: ERLINDA FLYNN Report Released Date/Time: Mar 16, 2023 11:33 AM Reporting Lab: [facility] [place] [facility] [address] [facility] [address] Performing Lab: [facility] [place] [facility] [address] [facility] [address] [facility] [place] [facility] BASIC METABOLIC PANEL (fasting) GLUCOSE [MASS/VOLUM E] IN SERUM OR PLASMA 80 mg/dL 65 - 100 04/16 Specimen Type: SERUM No comment entered. Ordering Provider: ERLINDA FLYNN Report Released Date/Time: Mar 16, 2023 11:33 AM Reporting Lab: [facility] [place] [facility] [address] [facility] [address] Performing Lab: [facility] [place] [facility] [address] [facility] [address] [facility] [place] [facility] BASIC METABOLIC PANEL (fasting) SODIUM [MOLES/VOLU ME] IN SERUM OR PLASMA 136 mmol/L 135 - 145 04/16 Specimen Type: SERUM No comment entered. Ordering Provider: ERLINDA FLYNN Report Released Date/Time: Mar 16, 2023 11:33 AM Reporting Lab: [facility] [place] [facility] [address] [facility] [address] Performing Lab: [facility] [place] [facility] [address] [facility] [address] [facility] [place] [facility] BASIC METABOLIC PANEL (fasting) POTASSIUM [MOLES/VOLU ME] IN SERUM OR PLASMA 4.5 mmol/L 3.5 - 5.0 04/16 Specimen Type: SERUM No comment entered. Ordering Provider: ERLINDA FLYNN Report Released Date/Time: Mar 16, 2023 11:33 AM Reporting Lab: [facility] [place] [address] [address] Performing Lab: [facility] [place] [address] [address] [facility] [facility] BASIC METABOLIC PANEL (fasting) CHLORIDE [MOLES/VOLU ME] IN SERUM OR PLASMA 103 mmol/L 100 - 110 04/16 Specimen Type: SERUM No comment entered. Ordering Provider: ERLINDA FLYNN Report Released Date/Time: Mar 16, 2023 11:33 AM Reporting Lab: [facility] [place] [address] [address] Performing Lab: [facility] [place] [address] [address] [facility] [place] [facility] BASIC METABOLIC PANEL (fasting) CARBON DIOXIDE, TOTAL [MOLES/VOLU ME] IN SERUM OR PLASMA 24 meq/L 20 - 30 04/16 Specimen Type: SERUM No comment entered. Ordering Provider: ERLINDA FLYNN Report Released Date/Time: Mar 16, 2023 11:33 AM Reporting Lab: [facility] [place] [address] [address] Performing Lab: [facility] [place] [facility] [address] [facility] [address] [facility] [place] [facility] BASIC METABOLIC PANEL (fasting) CREATININE [MASS/VOLUM E] IN SERUM OR PLASMA 1.03 mg/dL 0.50 - 1.40 04/16 Specimen Type: SERUM No comment entered. Ordering Provider: ERLINDA FLYNN Report Released Date/Time: Mar 16, 2023 11:33 AM Reporting Lab: [facility] [place] [facility] [address] [facility] [address] Performing Lab: [facility] [place] [facility] [address] [facility] [address] [place] [facility] [place] [facility] BASIC METABOLIC PANEL (fasting) GLOMERULAR FILTRATION RATE/1.73 SQ M.PREDICTED [VOLUME RATE/AREA] IN SERUM, PLASMA OR BLOOD BY CREATININE- BASED FORMULA (CKD-EPI 2020) 73 mL/min 60 04/16 Specimen Type: SERUM No comment entered. Ordering Provider: ERLINDA FLYNN Report Released Date/Time: Mar 16, 2023 11:33 AM Reporting Lab: [facility] [place] [facility] [address] [facility] [address] Performing Lab: [facility] [place] [facility] [address] [facility] [address] [place] [facility] [facility] LIVER FUNCTION PROTEIN [MASS/VOLUM E] IN SERUM OR PLASMA 6.5 g/dL 6.0 - 8.3 04/16 Specimen Type: SERUM No comment entered. Ordering Provider: ERLINDA FLYNN Report Released Date/Time: Mar 16, 2023 11:33 AM Reporting Lab: [facility] [place] [facility] [address] [facility] [address] Performing Lab: [facility] [place] [facility] [address] [facility] [address] [place] [facility] [facility] LIVER FUNCTION ALBUMIN [MASS/VOLUM E] IN SERUM OR PLASMA 3.8 g/dL 3.5 - 5.0 04/16 Specimen Type: SERUM No comment entered. Ordering Provider: ERLINDA FLYNN Report Released Date/Time: Mar 16, 2023 11:33 AM Reporting Lab: [facility] [place] [facility] [address] [facility] [address] Performing Lab: [facility] [place] [facility] [address] [facility] [address] [facility] [place] [facility] LIVER FUNCTION ALKALINE PHOSPHATASE [ENZYMATIC ACTIVITY/VO LUME] IN SERUM OR PLASMA 36 U/L 40 - 150 04/16 L Specimen Type: SERUM No comment entered. Ordering Provider: ERLINDA FLYNN Report Released Date/Time: Mar 16, 2023 11:33 AM Reporting Lab: [facility] [place] [facility] [address] [facility] [address] Performing Lab: [facility] [place] [facility] [address] [facility] [address] [facility] [place] [facility] LIVER FUNCTION ASPARTATE AMINOTRANSF ERASE [ENZYMATIC ACTIVITY/VO LUME] IN SERUM OR PLASMA 21 U/L 5 - 34 04/16 Specimen Type: SERUM No comment entered. Ordering Provider: ERLINDA FLYNN Report Released Date/Time: Mar 16, 2023 11:33 AM Reporting Lab: [facility] [place] [facility] [address] [facility] [address] Performing Lab: [facility] [place] [facility] [address] [facility] [address] [facility] [place] [facility] LIVER FUNCTION ALANINE AMINOTRANSF ERASE [ENZYMATIC ACTIVITY/VO LUME] IN SERUM OR PLASMA 27 U/L 04/16 Specimen Type: SERUM No comment entered. Ordering Provider: ERLINDA FLYNN Report Released Date/Time: Mar 16, 2023 11:33 AM Reporting Lab: [facility] [place] [facility] [address] [facility] [address] Performing Lab: [facility] [place] [facility] [address] [facility] [address] [facility] LIVER FUNCTION BILIRUBIN.T OTAL [MASS/VOLUM E] IN SERUM OR PLASMA 0.9 mg/dL 0.2 - 1.2 04/16 Specimen Type: SERUM No comment entered. Ordering Provider: ERLINDA FLYNN Report Released Date/Time: Mar 16, 2023 11:33 AM Reporting Lab: [facility] [address] [facility] [address] Performing Lab: [facility] [address] [facility] [address] [facility] HEMOGLOBI N A1C PANEL HEMOGLOBIN A1C/HEMOGLO [...] Mar 16, 2023 11:33 AM Reporting Lab: [facility] [address] [facility] [address] Performing Lab: [address] [address] [facility] Vital Signs Combined list of inpatient and outpatient Vital Signs from Department of Defense and Veterans Affairs, ranging from 12 months to all on record, depending upon the facility. Vital Sign Value Date Comments Source SYSTOLIC BLOOD PRESSURE 118 04/26/19 25 09:35:57 [facility] DIASTOLIC BLOOD PRESSURE 80 025 09:35:57 [facility] PULSE OXIMETRY 100 04/25/2024 09:35:57 [facility] WEIGHT 165 04/25/2024 09:35:57 [facility] [...] included; 2) Encounters from the Department of [facility] facilities going backup to 280 months. Location Location Details Encounter Type Encounter Number Reason For Visit Attending Provider ADM Date DC Date Status Disposition Source [facility] En[facility] [id number] 03/16 [facility] HEARING AID FITTING/CH ECKING [id number] Diagnos is: ICD-10- CM H90.3 Sensori neural hearing loss, bilTre Davila 04/04 [facility] En[facility] [id number] 04/09 [facility] En[facility] [id number] 04/15 [facility] OFFICE O/P EST MOD 30 MIN [id number] Diagnos is: ICD-10- CM 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, unspeci ELIAS Crocker 04/25 [facility] COMPRE OPH EXAM EST PT 1/> [id number] Diagnos is: ICD-10- CM 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 ZBIGNIEW Hickman 05/29 [facility] FIT SPECTACLES BIFOCAL [id number] Diagnos is: ICD-10- CM Z46.0 Encount er for fit/adj st of spectac les and contact lenses ZBIGNIEW LR 05/30 [facility] [place] Outpatient Encounter [id number] 06/17 [facility] [place] OFFICE O/P EST LOW 20 MIN [id number] Diagnos is: ICD-10- CM I25.9 Chronic ischemi c heart disease , unspeci ELIAS Crocker 04/25 [facility] [place] COMPRE OPH EXAM EST PT 1/> [id number] Diagnos is: ICD-10- CM 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 Social History Type Response Date Comment Source Tobacco smoking status [facility] [place]-TOBACCO USE FORMER CIGARETTES 04/25/2024 [facility] History of tobacco use [place]-TOBACCO NEVER USED OTHER TYPE 04/25/2024 [facility] History of tobacco use [place]-TOBACCO NEVER USED 04/26/2023 [facility] History of tobacco use [place]-TO[place]ACCO NEVER USED 04/27/2022 [facility] [place] [facility] History of tobacco use [place]-TO[place] NEVER USED 01/28/2021 [facility] [place] [facility] History of tobacco use [place]-TO[place]ACCO NEVER USED 02/20/2020 [facility] [place] [facility] History of tobacco use [place]-TOBACCO USER SOME DAYS 01/10/2018 [facility] [place] [facility] History of tobacco use LIFETIME NON-TOBACCO USER 02/20/2017 [facility] [place] [facility] History of tobacco use LIFETIME NON-TOBACCO USER 06/11/2015 [facility] [place] [facility] History of tobacco use LIFETIME NON-TOBACCO USER 05/16/2013 . [facility] [place] [facility] History of tobacco use CURRENT SMOKER 05/16/2012 cigars, About 5 per week. [facility] [place] [facility]
--- NOTE | 2024-08-04 08:45 | CA_ITS ---
Acquisition Time: 2024-08-04 09:01:50 Total Exercise Time: 00:07:11 Test Indications: bradycardia,unspecified Medications: see med sheet Protocol: CHANELLE Max HR: 123 BPM 87% of Pred: 140 BPM Max BP: 142/76 mmHG Max Work Load: 7.8 METS Exercise stress test with exercise 7 mins 11 secs of Chanelle Protocol, with reduced speed to 2.8mph and 14% incline, achieving 86% MPHR, with reports of SOB, no chest pain, with frequent PACs and PVCs- one ventri couplet, with normotensive response to exercise. Without EKG changes meeting criteria for ischemia. In recovery, breathing returned to baseline. Atrial bigeminy in recovery. Test reviewed with Dr. Machado. Referred By: Tez Albarado Electronically Signed By: Salvador Salinas
--- NOTE | 2024-08-04 08:45 | HM_ITS ---
Conclusion: 1. Patient was monitored for total period of 2 days and 23 hours 2. Baseline was normal sinus rhythm with average heart of 62 beats per minute 3. Frequent sinus bradycardia noted with 56% of time heart rate below 60 beats per minute without significant pauses 4. Frequent PACs noted with total burden of 9.9% with occasional short runs of SVT, longest lasting 10 beats at 145 beats per minute 5. No patient reported events MTDD
== END ==
LOC: HO.CARD 08:41
PROVIDERS: PCP Internal Medicine; Visit Provider Internal Medicine Cardiovascular Disease
DX: R00.1 Bradycardia, unspecified (principal)
CPT/HCPCS: 93017; 93242

== ENCOUNTER → 2024-08-04 08:45 | Outpatient (BNV) | payer MEDICARE, SELFPAY | PROVIDERS: PCP Internal Medicine | DX: R06.02 Shortness of breath (principal); I49.3 Ventricular premature depolarization; I49.1 Atrial premature depolarization | CPT/HCPCS: 93016; 93018 ==

== ENCOUNTER 2024-08-12 09:47 | Outpatient (AMB) | payer MEDICARE, SELFPAY ==
--- OUTSIDE RECORDS SUMMARY | 2024-06-02 06:00 | XMS_ITS | Continuity of Care Document ---
Author Name [facility] Organization [facility] Care Team Providers Care Spectroscopist Name Role Phone [facility] Unavailable Unavailable Problems Combined list of problems from 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 It does not include entries that were removed or entered in error. Problem Status Onset Date Problem Type Date of Resolution Comments Source Malignant Melanoma of Skin (SCT [id number]) Active 02/12/19 11 Condition Nov 06, 2021 Entered By: SHIRA WHITTAKER AM Comment: left restorationism, 2010. [facility] ACTINIC KERATOSIS Active Condition [facility] Cataract, Cortical (Senile) Active Condition [facility] Chronic Ischemic Heart Disease (SCT [id number]) Active Condition [facility] ESOPHAGEAL REFLUX (GERD) Active Condition [facility] Exposure to potentially hazardous substance (SCT [id number]) Active Condition May 22 Entered By: RADHA HENSON Comment: Entered automatically through [facility] Problem List documentation program [facility] HYPERLIPIDEMIA Active Condition [facility] HYPERTENSION Active Condition [facility] IMPOTENCE, ORGANIC ORIGN Active Condition [facility] Squamous Cell Carcinoma of Skin (SCT 210328732) Active Condition [facility] [...] Malignant melanoma of skin, unspecified Active Diagnosis [facility] Diagnosis: ICD-10-CM H90.3 Sensorineural hearing loss, bilateral Active Diagnosis [facility] Medications Combined list of outpatient medications from [...] TAKE WITH GRAPEFRU IT JUICE ORAL ACTIVE 04/26/2025 [id number] ELIAS WHITTAKER 2024 90 [facility] AMLODIPINE BESYLATE 5MG TAB TAKE ONE TABLET BY MOUTH ONCE DAILY FOR BLOOD PRESSURE /HEART, DO NOT TAKE WITH GRAPEFRU IT JUICE ORAL DISCONT INUED 04/26/2024 [id number] ELIAS WHITTAKER 2023 90 [facility] ASPIRIN 81MG TAB,EC TAKE TWO TABLETS BY MOUTH DAILY ORAL ACTIVE ELIAS WHITTAKER 2012 [facility] EPINEPHRINE (EQV-EPI-PE N) 0.3MG/0.3ML INJECTOR INJECT DIRECTED INTRAMUS CULARLY PRN INTRAM USCULA R ACTIVE RA JESSICA FLYNN 2021 [facility] EZETIMIBE 10MG TAB TAKE ONE TABLET BY MOUTH ONCE DAILY TO LOWER CHOLESTE ROL ORAL ACTIVE 04/26/2025 [id number] ELIAS WHITTAKER 2024 90 [facility] EZETIMIBE 10MG TAB TAKE ONE TABLET BY MOUTH ONCE DAILY TO LOWER CHOLESTE ROL ORAL DISCONT INUED 04/26/2024 [id number] ELIAS WHITTAKER 2023 90 [facility] LOSARTAN 50MG TAB TAKE ONE TABLET BY MOUTH ONCE DAILY FOR BLOOD PRESSURE /HEART ORAL ACTIVE 04/26/2025 [id number] ELIAS WHITTAKER 2024 90 [facility] [place]AN 50MG TAB TAKE ONE TABLET BY MOUTH ONCE DAILY FOR BLOOD PRESSURE /HEART ORAL DISCONT INUED 04/26/2024 [id number] 5 ELIAS WHITTAKER 2023 90 [facility] [place] METOPROLOL SUCCINATE 25MG TAB,SA TAKE ONE TABLET BY MOUTH ONCE DAILY FOR BLOOD PRESSURE /HEART ORAL ACTIVE 04/26/2025 [id number] ELIAS WHITTAKER 2024 90 [facility] METOPROLOL SUCCINATE 25MG TAB,SA TAKE ONE TABLET BY MOUTH ONCE DAILY FOR BLOOD PRESSURE /HEART ORAL DISCONT INUED 04/26/2024 [id number] ELIAS WHITTAKER 2023 90 [facility] NITROGLYCER IN 0.4MG TAB,SUBLING UAL DISSOLVE ONE TABLET UNDER THE TONGUE EVERY 5 MINUTES NEEDED FOR ACUTE CHEST PAIN IF NO RELIEF AFTER 3 DOSES, CALL 911 OR GO TO NEAREST EMERGENC Y ROOM SUBLIN GUAL ACTIVE 04/26/2025 [id number] ELIAS WHITTAKER 2024 100 [facility] [place] OMEPRAZOLE 20MG CAP,EC TAKE ONE CAPSULE BY MOUTH EVERY MORNING 30 MINUTES BEFORE BREAKFAS T FOR GASTROES OPHAGEAL REFLUX DISEASE ORAL ACTIVE 04/26/2025 [id number] ELIAS WHITTAKER 2024 90 [facility] OMEPRAZOLE 20MG CAP,EC TAKE TWO CAPSULES BY MOUTH EVERY MORNING 30 MINUTES BEFORE BREAKFAS T ORAL DISCONT INUED (EDIT) 04/26/2024 [id number] 4 ELIAS WHITTAKER 2023 180 [facility] [place] ROSUVASTATI N CA 40MG TAB TAKE ONE TABLET BY MOUTH ONCE DAILY FOR HIGH CHOLESTE ROL FOR CHOLESTE ROL ORAL ACTIVE 04/26/2025 [id number] 5 ELIAS WHITTAKER 2024 90 [facility] ROSUVASTATI N CA 40MG TAB TAKE ONE TABLET BY MOUTH ONCE DAILY FOR HIGH CHOLESTE ROL FOR CHOLESTE ROL ORAL DISCONT INUED 06/18/2024 [id number] ELIAS WHITTAKER 2023 90 [facility] ROSUVASTATI N [place] 40MG TAB TAKE ONE TABLET BY MOUTH ONCE DAILY FOR HIGH CHOLESTE ROL ORAL 05/26/2023 [id number] ELIAS WHITTAKER 2023 30 [facility] Allergies, Adverse Reactions, Alerts Combined list of allergies from 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 It does not include entries that were removed or entered in error. Substance Category Reaction Severity Reaction type Status Date Reported Comments Source SHELLFISH Propensity to adverse reactions to food (finding) Urticaria active 2 [facility] [place] [facility] Immunizations Combined list of available immunizations from the 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 Immunization Series Date Given Administered By Site Reaction Lot Number CVX Code Drug Inspector Screen Printing Status Comments Source INFLUENZA, HIGH-DOSE, QUADRIVALENT 2022 NILDA ALFARO LEFT DELTO ID [id number] complet ed ADMINISTE RED AT ID, [facility] [place] [facility] COVID-19 (MODERNA), MRNA, LNP-S, PF, 100 MCG OR 50 MCG DOSE 3 2020 207 complet ed MOD; [id number]; [facility] INFLUENZA, UNSPECIFIED FORMULATION 2020 88 complet ed [facility] COVID-19 (MODERNA), MRNA, LNP-S, PF, 100 MCG/0.5 ML DOSE 2 2020 207 complet ed MOD; [id number]; 1 [facility] COVID-19 (MODERNA), MRNA, LNP-S, PF, 100 MCG/0.5 ML DOSE 1 2020 207 complet ed MOD; [id number]; 1 [facility] [...] AM Reporting Lab[facility] [place] [facility] [address] [facility] [address] Performing Lab: [facility] [place] [facility] [address] [facility] [address] [facility] LIVER FUNCTION ALBUMIN [MASS/VOLUM E] IN SERUM OR PLASMA 3.8 g/dL 3.5 - 5.0 04/21 Specimen Type: SERUM No comment entered. Ordering Provider: Nuris WHITTAKER Report Released Date/Time: Apr 26, 2023 11:48 AM Reporting Lab: [facility] [place] [facility] [address] [facility] [address] Performing Lab: [facility] [place] [facility] [address] [facility] [address] [facility] LIVER FUNCTION ALKALINE PHOSPHATASE [ENZYMATIC ACTIVITY/VO LUME] IN SERUM OR PLASMA 35 U/L 40 - 150 04/21 L Specimen Type: SERUM No comment entered. Ordering Provider: Nuris WHITTAKER Report Released Date/Time: Apr 26, 2023 11:48 AM Reporting Lab: [facility] [place] [facility] [address] [facility] [address] Performing Lab: [facility] [place] [facility] [address] [facility] [address] [facility] LIVER FUNCTION ASPARTATE AMINOTRANSF ERASE [ENZYMATIC ACTIVITY/VO LUME] IN SERUM OR PLASMA 31 U/L 5 - 34 04/21 Specimen Type: SERUM No comment entered. Ordering Provider: Nuris WHITTAKER Report Released Date/Time: Apr 26, 2023 11:48 AM Reporting Lab: [facility] [place] [facility] [address] [facility] [address] Performing Lab: [facility] [place] [facility] [address] [facility] [address] [facility] LIVER FUNCTION ALANINE AMINOTRANSF ERASE [ENZYMATIC ACTIVITY/VO LUME] IN SERUM OR PLASMA 47 U/L 04/21 Specimen Type: SERUM No comment entered. Ordering Provider: Nuris WHITTAKER Report Released Date/Time: Apr 26, 2023 11:48 AM Reporting Lab: [facility] [place] [facility] [address] [facility] [address] Performing Lab: [facility] [place] [facility] [address] [facility] [address] [facility] LIVER FUNCTION BILIRUBIN.T OTAL [MASS/VOLUM E] IN SERUM OR PLASMA 0.9 mg/dL 0.2 - 1.2 04/21 Specimen Type: SERUM No comment entered. Ordering Provider: Nuris WHITTAKER Report Released Date/Time: Apr 26, 2023 11:48 AM Reporting Lab: [facility] [place] [address] [address] Performing Lab: [facility] [place] [facility] [address] [facility] [address] [facility] LIPID PANEL FASTING CHOLESTEROL [MASS/VOLUM E] IN SERUM OR PLASMA 134 mg/dL 04/21 Specimen Type: SERUM No comment entered. Ordering Provider: Nuris WHITTAKER Report Released Date/Time: Apr 26, 2023 11:48 AM Reporting Lab: [facility] [place] [address] [address] Performing Lab: [facility] [place] [facility] [address] [facility] [address] [facility] LIPID PANEL FASTING TRIGLYCERID E [MASS/VOLUM E] IN SERUM OR PLASMA 79 mg/dL 0 - 150 04/21 Specimen Type: SERUM No comment entered. Ordering Provider: Nuris WHITTAKER Report Released Date/Time: Apr 26, 2023 11:48 AM Reporting Lab: [facility] [place] [address] [address] Performing Lab: [facility] [place] [facility] [address] [facility] [address] [facility] LIPID PANEL FASTING CHOLESTEROL IN LDL [MASS/VOLUM E] IN SERUM OR PLASMA BY CALCULATION 63 mg/dL 0 - 129 04/21 Specimen Type: SERUM No comment entered. Ordering Provider: Nuris WHITTAKER Report Released Date/Time: Apr 26, 2023 11:48 AM Reporting Lab: [facility] [place] [facility] [address] [facility] [address] Performing Lab: [facility] [place] [facility] [address] [facility] [address] [facility] LIPID PANEL FASTING CHOLESTEROL .TOTAL/CHOL ESTEROL IN HDL [MASS RATIO] IN SERUM OR PLASMA 2.4 04/21 Specimen Type: SERUM No comment entered. Ordering Provider: Nuris WHITTAKER Report Released Date/Time: Apr 26, 2023 11:48 AM Reporting Lab: [facility] [place] [facility] [address] [facility] [address] Performing Lab: [facility] [place] [facility] [address] [facility] [address] [facility] LIPID PANEL FASTING CHOLESTEROL IN HDL [MASS/VOLUM E] IN SERUM OR PLASMA 55 mg/dL 40 - 60 04/21 Specimen Type: SERUM No comment entered. Ordering Provider: Nuris WHITTAKER Report Released Date/Time: Apr 26, 2023 11:48 AM Reporting Lab: [facility] [place] [facility] [address] [facility] [address] Performing Lab: [facility] [place] [facility] [address] [facility] [address] [facility] BASIC METABOLIC PANEL (fasting) UREA NITROGEN [MASS/VOLUM E] IN SERUM OR PLASMA 19 mg/dL 7 - 25 04/21 Specimen Type: SERUM No comment entered. Ordering Provider: Nuris WHITTAKER Report Released Date/Time: Apr 26, 2023 11:48 AM Reporting Lab: [facility] [place] [facility] [address] [facility] [address] Per[facility] [place] [facility] [address] [facility] [address] [facility] [facility] BASIC METABOLIC PANEL (fasting) GLUCOSE [MASS/VOLUM E] IN SERUM OR PLASMA 89 mg/dL 65 - 100 04/21 Specimen Type: SERUM No comment entered. Ordering Provider: Nuris WHITTAKER Report Released Date/Time: Apr 26, 2023 11:48 AM Reporting Lab: [facility] [place] [facility] [address] [facility] [address] Performing Lab: [facility] [address] [facility] [address] [facility] BASIC METABOLIC PANEL (fasting) SODIUM [MOLES/VOLU ME] IN SERUM OR PLASMA 139 mmol/L 135 - 145 04/21 Specimen Type: SERUM No comment entered. Ordering Provider: Nuris WHITTAKER Report Released Date/Time: Apr 26, 2023 11:48 AM Reporting Lab: [facility] [address] [facility] [address] Performing Lab: [facility] [address] [facility] [address] [facility] BASIC METABOLIC PANEL (fasting) POTASSIUM [MOLES/VOLU ME] IN SERUM OR PLASMA 4.6 mmol/L 3.5 - 5.0 04/21 Specimen Type: SERUM No comment entered. Ordering Provider: Nuris WHITTAKER Report Released Date/Time: Apr 26, 2023 11:48 AM Reporting Lab: [facility] [place] [facility] [address] [facility] [address] Performing Lab: [facility] [place] [facility] [address] [facility] [address] [facility] BASIC METABOLIC PANEL (fasting) CHLORIDE [MOLES/VOLU ME] IN SERUM OR PLASMA 107 mmol/L 100 - 110 04/21 Specimen Type: SERUM No comment entered. Ordering Provider: Nuris WHITTAKER Report Released Date/Time: Apr 26, 2023 11:48 AM Reporting Lab: [facility] [place] [facility] [address] [facility] [address] Performing Lab: [facility] [place] [facility] [address] [facility] [address] [facility] [place] [facility] BASIC METABOLIC PANEL (fasting) CARBON DIOXIDE, TOTAL [MOLES/VOLU ME] IN SERUM OR PLASMA 23 meq/L 20 - 30 04/21 Specimen Type: SERUM No comment entered. Ordering Provider: Nuris WHITTAKER Report Released Date/Time: Apr 26, 2023 11:48 AM Reporting Lab: [facility] [place] [address] [address] Performing Lab: [facility] [place] [address] [address] [facility] [place] [facility] BASIC METABOLIC PANEL (fasting) CALCIUM [MASS/VOLUM E] IN SERUM OR PLASMA 9.3 mg/dL 8.5 - 10.2 04/21 Specimen Type: SERUM No comment entered. Ordering Provider: Nuris WHITTAKER Report Released Date/Time: Apr 26, 2023 11:48 AM Reporting Lab: [facility] [place] [address] [address] Performing Lab: [facility] [place] [facility] [address] [facility] [address] [facility] [facility] BASIC METABOLIC PANEL (fasting) CREATININE [MASS/VOLUM E] IN SERUM OR PLASMA 0.94 mg/dL 0.50 - 1.40 04/21 Specimen Type: SERUM No comment entered. Ordering Provider: Nuris WHITTAKER Report Released Date/Time: Apr 26, 2023 11:48 AM Reporting Lab: [facility] [place] [facility] [address] [facility] [address] Performing Lab: [facility] [place] [address] [address] [facility] BASIC METABOLIC PANEL (fasting) GLOMERULAR FILTRATION RATE/1.73 SQ M.PREDICTED [VOLUME RATE/AREA] IN SERUM, PLASMA OR BLOOD BY CREATININE- BASED FORMULA (CKD-EPI 2020) 81 mL/min 60 04/21 Specimen Type: SERUM No comment entered. Ordering Provider: Nuris WHITTAKER Report Released Date/Time: Apr 26, 2023 11:48 AM Reporting Lab: [facility] [place] [facility] [address] [facility] [address] Performing Lab: [facility] [place] [facility] [address] [facility] [address] [facility] VITAMIN D (25-OH) 25-HYDROXYV ITAMIN D3 [MASS/VOLUM E] IN SERUM OR PLASMA 35 ng/mL 20 - 50 04/21 Specimen Type: SERUM No comment entered. Ordering Provider: Nuris WHITTAKER Report Released Date/Time: Apr 26, 2023 11:48 AM Reporting Lab: [facility] [place] [facility] [address] [facility] [address] Performing Lab: [facility] [place] [facility] [address] [facility] [address] [facility] VITAMIN B12 COBALAMIN (VITAMIN B12) [MASS/VOLUM E] IN SERUM OR PLASMA 309 pg/mL 200 - 900 04/21 Specimen Type: SERUM No comment entered. Ordering Provider: Nuris WHITTAKER Report Released Date/Time: Apr 26, 2023 11:48 AM Reporting Lab: [facility] [place] [facility] [address] [facility] [address] Performing Lab: [facility] [place] [facility] [address] [facility] [address] [facility] TSH THYROTROPIN [UNITS/VOLU ME] IN SERUM OR PLASMA 1.95 u[IU]/ mL 0.35 - 5.00 04/21 Specimen Type: SERUM No comment entered. Ordering Provider: Nuris WHITTAKER Report Released Date/Time: Apr 26, 2023 11:48 AM Reporting Lab: [facility] [place] [facility] [address] [facility] [address] Performing Lab: [facility] [place] [facility] [address] [facility] [address] [facility] LIPID PANEL FASTING CHOLESTEROL [MASS/VOLUM E] IN SERUM OR PLASMA 153 mg/dL 04/16 Specimen Type: SERUM No comment entered. Ordering Provider: ERLINDA FLYNN Report Released Date/Time: Mar 16, 2023 11:33 AM Reporting Lab: [facility] [place] [facility] [address] [facility] [address] Performing Lab: [facility] [place] [facility] [address] [facility] [address] [facility] [place] [facility] LIPID PANEL FASTING TRIGLYCERID E [MASS/VOLUM E] IN SERUM OR PLASMA 96 mg/dL 0 - 150 04/16 Specimen Type: SERUM No comment entered. Ordering Provider: ERLINDA FLYNN Report Released Date/Time: Mar 16, 2023 11:33 AM Reporting Lab: [facility] [place] [facility] [address] [facility] [address] Performing Lab: [facility] [place] [facility] [address] [facility] [address] [facility] [place] [facility] LIPID PANEL FASTING CHOLESTEROL IN LDL [MASS/VOLUM E] IN SERUM OR PLASMA BY CALCULATION 70 mg/dL 0 - 129 04/16 Specimen Type: SERUM No comment entered. Ordering Provider: ERLINDA FLYNN Report Released Date/Time: Mar 16, 2023 11:33 AM Reporting Lab: [facility] [place] [facility] [address] [facility] [address] Performing Lab: [facility] [place] [facility] [address] [facility] [address] [facility] [place] [facility] LIPID PANEL FASTING CHOLESTEROL .TOTAL/CHOL ESTEROL IN HDL [MASS RATIO] IN SERUM OR PLASMA 2.4 04/16 Specimen Type: SERUM No comment entered. Ordering Provider: ERLINDA FLYNN Report Released Date/Time: Mar 16, 2023 11:33 AM Reporting Lab: [facility] [place] [facility] [address] [facility] [address] Performing Lab: [facility] [place] [facility] [address] [facility] [address] [facility] [place] [facility] LIPID PANEL FASTING CHOLESTEROL IN HDL [MASS/VOLUM E] IN SERUM OR PLASMA 64 mg/dL 40 - 60 04/16 H Specimen Type: SERUM No comment entered. Ordering Provider: ERLINDA FLYNN Report Released Date/Time: Mar 16, 2023 11:33 AM Reporting Lab: [facility] [place] [facility] [address] [facility] [address] Performing Lab: [facility] [place] [facility] [address] [facility] [address] [facility] [place] [facility] BASIC METABOLIC PANEL (fasting) UREA NITROGEN [MASS/VOLUM E] IN SERUM OR PLASMA 16 mg/dL 7 - 25 04/16 Specimen Type: SERUM No comment entered. Ordering Provider: ERLINDA FLYNN Report Released Date/Time: Mar 16, 2023 11:33 AM Reporting Lab: [facility] [place] [facility] [address] [facility] [address] Performing Lab: [facility] [place] [facility] [address] [facility] [address] [facility] [place] [facility] BASIC METABOLIC PANEL (fasting) GLUCOSE [MASS/VOLUM E] IN SERUM OR PLASMA 80 mg/dL 65 - 100 04/16 Specimen Type: SERUM No comment entered. Ordering Provider: ERLINDA FLYNN Report Released Date/Time: Mar 16, 2023 11:33 AM Reporting Lab: [facility] [place] [facility] [address] [facility] [address] Performing Lab: [facility] [place] [facility] [address] [facility] [address] [facility] [place] [facility] BASIC METABOLIC PANEL (fasting) SODIUM [MOLES/VOLU ME] IN SERUM OR PLASMA 136 mmol/L 135 - 145 04/16 Specimen Type: SERUM No comment entered. Ordering Provider: ERLINDA FLYNN Report Released Date/Time: Mar 16, 2023 11:33 AM Reporting Lab: [facility] [place] [facility] [address] [facility] [address] Performing Lab: [facility] [place] [facility] [address] [facility] [address] [facility] [place] [facility] BASIC METABOLIC PANEL (fasting) POTASSIUM [MOLES/VOLU ME] IN SERUM OR PLASMA 4.5 mmol/L 3.5 - 5.0 04/16 Specimen Type: SERUM No comment entered. Ordering Provider: ERLINDA FLYNN Report Released Date/Time: Mar 16, 2023 11:33 AM Reporting Lab: [facility] [place] [address] [address] Performing Lab: [facility] [place] [place] [address] [address] [facility] BASIC METABOLIC PANEL (fasting) CHLORIDE [MOLES/VOLU ME] IN SERUM OR PLASMA 103 mmol/L 100 - 110 04/16 Specimen Type: SERUM No comment entered. Ordering Provider: ERLINDA FLYNN Report Released Date/Time: Mar 16, 2023 11:33 AM Reporting Lab: [facility] [place] [place] [address] [address] Performing Lab: [facility] [place] [place] [address] [address] [facility] BASIC METABOLIC PANEL (fasting) CARBON DIOXIDE, TOTAL [MOLES/VOLU ME] IN SERUM OR PLASMA 24 meq/L 20 - 30 04/16 Specimen Type: SERUM No comment entered. Ordering Provider: ERLINDA FLYNN Report Released Date/Time: Mar 16, 2023 11:33 AM Reporting Lab: [facility] [place] [place] [address] [address] Performing Lab: [facility] [place] [facility] [address] [facility] [address] [facility] [place] [facility] BASIC METABOLIC PANEL (fasting) CREATININE [MASS/VOLUM E] IN SERUM OR PLASMA 1.03 mg/dL 0.50 - 1.40 04/16 Specimen Type: SERUM No comment entered. Ordering Provider: ERLINDA FLYNN Report Released Date/Time: Mar 16, 2023 11:33 AM Reporting Lab: [facility] [place] [facility] [address] [facility] [address] Performing Lab: [facility] [place] [facility] [address] [facility] [address] [facility] [place] [facility] BASIC METABOLIC PANEL (fasting) GLOMERULAR FILTRATION RATE/1.73 SQ M.PREDICTED [VOLUME RATE/AREA] IN SERUM, PLASMA OR BLOOD BY CREATININE- BASED FORMULA (CKD-EPI 2020) 73 mL/min 60 04/16 Specimen Type: SERUM No comment entered. Ordering Provider: ERLINDA FLYNN Report Released Date/Time: Mar 16, 2023 11:33 AM Reporting Lab: [facility] [place] [facility] [address] [facility] [address] Performing Lab: [facility] [place] [facility] [address] [facility] [address] [facility] [place] [facility] LIVER FUNCTION PROTEIN [MASS/VOLUM E] IN SERUM OR PLASMA 6.5 g/dL 6.0 - 8.3 04/16 Specimen Type: SERUM No comment entered. Ordering Provider: ERLINDA FLYNN Report Released Date/Time: Mar 16, 2023 11:33 AM Reporting Lab: [facility] [place] [facility] [address] [facility] [address] Performing Lab: [facility] [place] [facility] [address] [facility] [address] [facility] [place] [facility] LIVER FUNCTION ALBUMIN [MASS/VOLUM E] IN SERUM OR PLASMA 3.8 g/dL 3.5 - 5.0 04/16 Specimen Type: SERUM No comment entered. Ordering Provider: ERLINDA FLYNN Report Released Date/Time: Mar 16, 2023 11:33 AM Reporting Lab: [facility] [place] [facility] [address] [facility] [address] Performing Lab: [facility] [place] [facility] [address] [facility] [address] [facility] [place] [facility] LIVER FUNCTION ALKALINE PHOSPHATASE [ENZYMATIC ACTIVITY/VO LUME] IN SERUM OR PLASMA 36 U/L 40 - 150 04/16 L Specimen Type: SERUM No comment entered. Ordering Provider: ERLINDA FLYNN Report Released Date/Time: Mar 16, 2023 11:33 AM Reporting Lab: [facility] [place] [facility] [address] [facility] [address] Performing Lab: [facility] [place] [facility] [address] [facility] [address] [facility] [place] [facility] LIVER FUNCTION ASPARTATE AMINOTRANSF ERASE [ENZYMATIC ACTIVITY/VO LUME] IN SERUM OR PLASMA 21 U/L 5 - 34 04/16 Specimen Type: SERUM No comment entered. Ordering Provider: ERLINDA FLYNN Report Released Date/Time: Mar 16, 2023 11:33 AM Reporting Lab: [facility] [place] [facility] [address] [facility] [address] Performing Lab: [facility] [place] [facility] [address] [facility] [address] [facility] [place] [facility] LIVER FUNCTION ALANINE AMINOTRANSF ERASE [ENZYMATIC ACTIVITY/VO LUME] IN SERUM OR PLASMA 27 U/L 04/16 Specimen Type: SERUM No comment entered. Ordering Provider: ERLINDA FLYNN Report Released Date/Time: Mar 16, 2023 11:33 AM Reporting Lab: [facility] [place] [facility] [address] [facility] [address] Performing Lab: [facility] [place] [facility] [address] [facility] [address] [facility] LIVER FUNCTION BILIRUBIN.T OTAL [MASS/VOLUM E] IN SERUM OR PLASMA 0.9 mg/dL 0.2 - 1.2 04/16 Specimen Type: SERUM No comment entered. Ordering Provider: ERLINDA FLYNN Report Released Date/Time: Mar 16, 2023 11:33 AM Reporting Lab: [facility] [address] [facility] [address] Performing Lab: [facility] [address] [facility] [address] [facility] HEMOGLOBI N A1C PANEL HEMOGLOBIN A1C/HEMOGLO [...] Mar 16, 2023 11:33 AM Reporting Lab: [facility] [address] [facility] [address] Performing Lab: [address] [address] [facility] Vital Signs Combined list of inpatient and outpatient Vital Signs from Department of Defense and Veterans Affairs, ranging from 12 months to all on record, depending upon the facility. Vital Sign Value Date Comments Source SYSTOLIC BLOOD PRESSURE 118 04/26/19 25 09:35:57 [facility] DIASTOLIC BLOOD PRESSURE 80 025 09:35:57 [facility] PULSE OXIMETRY 100 04/25/2024 09:35:57 [facility] WEIGHT 165 04/25/2024 09:35:57 [facility] [...] included; 2) Encounters from the Department of [facility] facilities going backup to 280 months. Location Location Details Encounter Type Encounter Number Reason For Visit Attending Provider ADM Date DC Date Status Disposition Source [facility] En[facility] [id number] 03/16 [facility] [place] HEARING AID FITTING/CH ECKING [id number] Diagnos is: ICD-10- CM H90.3 Sensori neural hearing loss, bilTre Davila 04/04 [facility] En[facility] [id number] 04/09 [facility] [place] En[facility] [id number] 04/15 [facility] OFFICE O/P EST MOD 30 MIN [id number] Diagnos is: ICD-10- CM 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, unspeci ELIAS Crocker 04/25 [facility] COMPRE OPH EXAM EST PT 1/> [id number] Diagnos is: ICD-10- CM 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 ZBIGNIEW Hickman 05/29 [facility] FIT SPECTACLES BIFOCAL [id number] Diagnos is: ICD-10- CM Z46.0 Encount er for fit/adj st of spectac les and contact lenses ZBIGNIEW LR 05/30 [facility] [place] [place] [facility] Outpatient Encounter [id number] 06/17 [facility] [place] [place] [facility] OFFICE O/P EST LOW 20 MIN [id number] Diagnos is: ICD-10- CM I25.9 Chronic ischemi c heart disease , unspeci ELIAS Crocker 04/25 [facility] [place] [place] [facility] COMPRE OPH EXAM EST PT 1/> [id number] Diagnos is: ICD-10- CM 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 04/25/2024 [facility] [place] [facility] History of tobacco use VA-TOBACCO NEVER USED OTHER TYPE 04/25/2024 [facility] [place] History of tobacco use VA-TOBACCO NEVER USED 04/26/2023 [facility] [place] [facility] History of tobacco use VA-TOBACCO NEVER USED 04/27/2022 [facility] [place] [facility] History of tobacco use ID-TOBACCO NEVER USED 01/28/2021 [facility] [place] [facility] History of tobacco use ID-TOBACCO NEVER USED 02[facility]20/2020 [facility] [place] [facility] [place] [facility] History of tobacco use ID-TOBACCO USER SOME DAYS 01/10/2018 [facility] [place] [facility] History of tobacco use LIFETIME NON-TOBACCO USER 02[facility]20/2017 [facility] [place] [facility] History of tobacco use LIFETIME NON-TOBACCO USER 06/11/2015 [facility] [place] [facility] History of tobacco use LIFETIME NON-TOBACCO USER 05/16/2013 . [facility] [place] [facility] History of tobacco use CURRENT SMOKER 05/16/2012 cigars, About 5 per week. [facility] [place] [facility]
[2024-08-12 09:49] VITALS: BP 114/62; PULSE 53; BMI 23.0
--- NOTE | 2024-08-12 09:49 | MHC.OFFVIS ---
Vital Signs 08/12/24 09:49 Height 5 ft 7 in Weight 146 lb 13.246 oz BMI 23.0 BP 114/62 Blood Pressure Location Rt brachial Position Sitting Pulse 53 Pulse Source Pulse Oximeter Intake Visit Reasons: 6 wk f/up s/p ett/ NS Federal Law Clerk Required: No Silk Opener: Silk Opener Present Allergies lobster Allergy (Mild, Uncoded 08/12/24 09:51) Rash N.K.D.A. Allergy (Unknown, Uncoded 08/12/24 09:51) Unknown Medication List - Last Reconciled 08/12/24 by Winsome Suresh, AUTOMATIC LATHE SETTER-C acetaminophen (Tylenol Extra Strength) 1,000 mg (2 x 500 mg) PO QID PRN amlodipine 5 mg PO DAILY 30 days aspirin (Adult Low Dose Aspirin) 81 mg PO DAILY epinephrine (Auvi-Q) 0.3 mg (0.3 mL) IM Q15M PRN ezetimibe 10 mg PO DAILY losartan 50 mg PO DAILY metoprolol succinate ER 12.5 mg (1/2 x 25 mg) PO DAILY nitroglycerin 0.4 mg sublingual Q5M PRN omeprazole 20 mg PO DAILY rosuvastatin 40 mg PO DAILY triamcinolone acetonide 0.025% 1 appl topical BID HPI HPI 6 wk f/up s/p ett/ NS: Details: Marques is an 78-year-old male past medical history of hypertension, hyperlipidemia, coronary artery disease, dilated ascending aorta, who had symptomatic bradycardia last visit and his metoprolol dose was reduced. He underwent an exercise stress test to check chronotropic competence and Holter monitor and now presents for follow-up. Today he reports that he has been feeling better since the reduction in his metoprolol dose. He describes less fatigue and more energy. He has been busy doing activities around the house including yd work which he says he tolerates well. No chest discomfort at rest or with activity. No shortness of breath, PND, orthopnea or edema. No heart palpitations, lightheadedness, presyncope, syncope. Compliant with all medications. is present. 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 Arthritis of right glenohumeral joint Adult general medical exam Screening for diabetes mellitus Eczema Low back pain Fall Back pain Thyroid nodule Herpes encephalitis Cirrhosis Periodic limb movement disorder TIA (transient ischemic attack) Cognitive impairment Carpal tunnel syndrome on both sides History of renal calculi GERD (gastroesophageal reflux disease) Erectile dysfunction Thoracic aortic aneurysm Hyperlipidemia Sick sinus syndrome HTN (hypertension) Right shoulder pain Obstructive sleep apnea Osteoarthritis of right shoulder Rotator cuff impingement syndrome of right shoulder CAD (coronary artery disease) Surgical History History of colonoscopy History of tonsillectomy Status post carpal tunnel release of both wrists (~04/2016) Family History Father Myocardial infarct Mother No problems noted. Social History Housing: House Alcohol intake: current Alcohol intake frequency: holidays/special occasions only Comment: 2 beers a day Patient Tobacco Use Status: Never used Tobacco Tobacco use type: Cigarette e-Cigarette/Vaping Use: Never Used Second Hand Smoke Exposure: No service: No Current occupational status: retired Current occupation: Right Handed Cognitive needs: No Hearing needs: Yes Vision needs: Yes Review of Systems Const All systems reviewed & are unremarkable except as noted in HPI and below ENT Denies dizziness Card Denies chest pain, Denies chest pain at rest, Denies chest pain with activity, Denies rapid heart rate, Denies pedal edema, Denies edema, Denies leg edema, Denies lightheadedness, Denies palpitations, Denies dyspnea, Denies dyspnea on exertion and Denies orthopnea Resp Denies cough, Denies dyspnea and Denies dyspnea on exertion GI Denies hematochezia and Denies change in stool character Musc Denies abnormal gait, Denies limited range of motion, Denies muscle cramps, Denies muscle weakness, Denies numbness, Denies radiating pain into limb, Denies stiffness and Denies tingling Neuro Denies abnormal gait, Denies dizziness, Denies numbness and Denies tingling Endo Denies palpitations Physical Exam Vital Signs: Last Vital Signs Pulse 53 08/12/24 09:49 BP 114/62 08/12/24 09:49 BMI result Body Mass Index 23.0 Const General: cooperative, healthy appearing, comfortable and no acute distress Orientation/consciousness: patient oriented x3 Neck Neck: Yes normal visual inspection and Yes no JVD Resp Effort & Inspection: normal respiratory effort Auscultation: clear to auscultation bilaterally, no crackles, no rales, no rhonchi and no wheezes Cardio Rate: regular rate Rhythm: regular rhythm Heart sounds: S1 normal heart sound present, S2 normal heart sound present, no gallops, no murmurs and no rubs Neuro General: patient oriented x3 Extrem General: Yes normal to inspection Psych Appearance: grossly normal Mental Status: mental status grossly normal Speech and movement: Normal speech and movement present Assessment & Plan Assessment & Plan (1) Bradycardia: Code(s): R00.1 - Bradycardia, unspecified Category: Medical Plan: Bradycardia noted on last visit. EKG showed sinus bradycardia rate 45. His metoprolol dose was reduced. Holter monitor done however result is not available at the time of this visit. He did have an exercise stress test 08/04/2024 with exercise over 7 minutes achieving 86% of MPHR, no EKG changes of ischemia. Pulse rate at this visit 53. He is reporting increased energy and less fatigue. Will continue on low-dose metoprolol. Plan to call him with Holter results are available. (2) Sick sinus syndrome: Code(s): I49.5 - Sick sinus syndrome Category: Medical Plan: As above (3) CAD (coronary artery disease): Comment: Holter normal sinus rhythm occasional bradycardia March 2017, echo 11/2019 EF 60-65% Ascending aorta 3.9 cm. diffuse coronary artery disease significant branch vessel disease in the diagonal branch as well as the distal circumflex, being managed medically Code(s): I25.10 - Atherosclerotic heart disease of yocha dehe coronary artery without angina pectoris Category: Medical Qualifiers: Coronary Disease-Associated Artery/Lesion type: [place] de[place] artery [place] vs. transplanted heart: y[place] dehe heart Associated angina: without angina Qualified Code(s): I25.10 - Atherosclerotic heart disease of yocha dehe coronary artery without angina pectoris Plan: History of CAD, branch vessel disease. No reports of anginal symptoms. Continue aspirin indefinitely. Continue rosuvastatin with ideal LDL goal less than 70. Continue amlodipine, losartan and low-dose metoprolol for good blood pressure control. Signs and symptoms of angina reviewed with him. (4) Thoracic aortic aneurysm: Comment: 11/2019 3.9 cm 02/2024 4.3 cm Code(s): I71.2 - Thoracic aortic aneurysm, without rupture Category: Medical Qualifiers: Presence of rupture: without rupture Qualified Code(s): I71.2 - Thoracic aortic aneurysm, without rupture Plan: History of dilated ascending aorta. Last echo 02/2024 shows ascending aorta 4.3 cm. Blood pressure well controlled. He is on statin therapy. Recheck echo prior to next visit. (5) HTN (hypertension): Comment: Echo normal LV Code(s): I10 - Essential (primary) hypertension Category: Medical Qualifiers: Hypertension type: essential hypertension Qualified Code(s): I10 - Essential (primary) hypertension Plan: Blood pressure goal less than 130/80, well controlled at this time. No med changes made. (6) Hyperlipidemia: Code(s): E78.5 - Hyperlipidemia, unspecified Category: Medical Qualifiers: Hyperlipidemia type: pure hypercholesterolemia Qualified Code(s): E78.00 - Pure hypercholesterolemia, unspecified Plan: LDL goal less than 70 in patient with CAD. Labs done 08/03/2022 had shown LDL 70. He is due for updated lipid profile. He has upcoming PCP visit scheduled. Plan Time spent on chart review, documentation, interviewed and assessment. Orders: Orders CA echo transthoracic complete 02/09/25 I71.2 - Thoracic aortic aneurysm, without rupture Coding Level of Care Code Est Pt Level 4 (92909) Complex EM visit Add On G2211 Diagnoses Bradycardia R00.1 Sick sinus syndrome I49.5 Coronary artery disease involving yocha de[place] coronary artery of [place] heart without angina pectoris I25.10 Coronary Disease-Associated Artery/Lesion type: [place] artery [place] vs. transplanted heart: [place] heart Associated angina: without angina Thoracic aortic aneurysm without rupture I71.2 Presence of rupture: without rupture Essential hypertension I10 Hypertension type: essential hypertension Pure hypercholesterolemia E78.00 Hyperlipidemia type: pure hypercholesterolemia Time Spent (min) 28
--- OUTSIDE RECORDS SUMMARY | 2024-08-12 10:40 | XMS_ITS | Patient Health Record ---
Author Organization [facility] Address [address] [place] [id number] Care Team Providers Care Television Analyzer Name Role Phone Demetrius Lind MD Primary Care Provider Sunny Mcclelland Unavailable [phone] Reason For Referral No Information Medications Medication SIG (Take, Route, Frequency, Duration) Notes Start Date End Date Status Nitrostat Active Viagra Active Acetaminophen Active Simvastatin Active Colyte w Flavor Packs 240 GM as directed Orally as directed for 1 day(s) 07/31/2013 Active Aspirin Active hydroCHLOROthiazide Active Lisinopril Active Omeprazole 40 MG 1 capsule Orally Onc e a day Active Carac Active Problems Problem Type SNOMED Code ICD Code Onset Dates Problem Status W/U Status Risk Notes Problem Colon cancer screening (873969874) Colon cancer screening (V76.51) Active confirmed Problem Gastroesophageal reflux disease (838756315) GERD (gastroesopha geal reflux disease) (530.81) Active confirmed Plan Of Treatment Future Test Test Name Order Date UPPER GI ENDOSCOPY 07/31/2013 COLONOSCOPY 07/31/2013 Insurance Providers Payer Name Payer Address Payer Phone Subscriber Number Group Number Insured Name Patient Relationship to Insured Coverage Start Date Coverage End Date [facility] [employer] [address] [place] [address] [id number] ELIAS DELEON Self - patient is the insured Medical (General) History Medical History History ICD Code Denies [place],DM,CVA,Lung disease,renal dise ase HTN GERD history of kidney stones Colonoscopy in 09/2003 with Reddy Denney--neg except for hyperplastic polyps, diverticulosis, and internal hemorrhoids Hyperlipidemia Surgical History Surgery Date(Month/Year) surgery for broken right middle fingerin 1980
== END 2024-08-12 10:30 | disposition home or self-care (01) ==
LOC: HO.HCS 09:48
PROVIDERS: PCP Internal Medicine; Visit Provider Nurse Practitioner Family
DX: R00.1 Bradycardia, unspecified (principal); I49.5 Sick sinus syndrome; I25.10 Atherosclerotic heart disease of native coronary artery without angina pectoris; I71.20 Thoracic aortic aneurysm, without rupture, unspecified; I10 Essential (primary) hypertension; E78.00 Pure hypercholesterolemia, unspecified
CPT/HCPCS: 99214; G2211

== ENCOUNTER → 2024-08-12 09:47 | Outpatient (BNVA) | payer MEDICARE, SELFPAY | PROVIDERS: PCP Internal Medicine; Visit Provider Nurse Practitioner Family | DX: R00.1 Bradycardia, unspecified (principal); I25.10 Atherosclerotic heart disease of native coronary artery without angina pectoris; I10 Essential (primary) hypertension; I49.5 Sick sinus syndrome; I71.20 Thoracic aortic aneurysm, without rupture, unspecified; E78.00 Pure hypercholesterolemia, unspecified; Z79.899 Other long term (current) drug therapy; Z79.82 Long term (current) use of aspirin | CPT/HCPCS: 99212 ==

== ENCOUNTER 2024-11-19 08:39 | Outpatient (AMB) | payer MEDICARE, SELFPAY ==
--- NOTE | 2024-11-19 08:41 | A.OFFPC_ITS ---
Vital Signs 11/19/24 08:42 Height 5 ft 7 in Weight 159 lb 6 oz BMI 25.0 BP 136/72 Blood Pressure Location Lt brachial Position Sitting Pulse 52 Pulse Source Pulse Oximeter Temp 97.0 F Temp Source Temporal Artery Scan Pulse Oximetry (%) 97 Oxygen Delivery Method Room Air Intake Visit Reasons: HTN Cholesterol Allergies lobster Allergy (Mild, Uncoded 11/19/24 08:45) Rash N.K.D.A. Allergy (Unknown, Uncoded 11/19/24 08:45) Unknown Medication List - Last Reconciled 11/19/24 by Gordo Wilkins MD acetaminophen (Tylenol Extra Strength) 1,000 mg PO TID PRN amlodipine 5 mg PO DAILY 30 days aspirin (Adult Low Dose Aspirin) 81 mg PO DAILY epinephrine (Auvi-Q) 0.3 mg (0.3 mL) IM Q15M PRN ezetimibe 10 mg PO DAILY losartan 50 mg PO DAILY metoprolol succinate ER 12.5 mg (1/2 x 25 mg) PO DAILY nitroglycerin 0.4 mg sublingual Q5M PRN omeprazole 20 mg PO DAILY rosuvastatin 40 mg PO DAILY triamcinolone acetonide 0.025% 1 appl topical BID Tobacco use date assessed: 11/19/24 Fall risk assessment: No Falls in past year Last assessed Fall Risk: 11/19/24 Dental Screening Dental Screen Date: 11/19/24 Did you have a dental visit in the last 12 months?: No Did you have a dental problem in the last 6 months where you did not have access to dental care?: No Was dental information given to patient?: Patient has dentist HPI HTN Cholesterol HPI Details feet numbness 6 months [facility] cardi[place], [facility] [place] Medical History PVC (premature ventricular contraction) Low vitamin B12 level 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 Arthritis of right glenohumeral joint Adult general medical exam Screening for diabetes mellitus Eczema Low back pain Fall Back pain Thyroid nodule Herpes encephalitis Cirrhosis Periodic limb movement disorder TIA (transient ischemic attack) Cognitive impairment Carpal tunnel syndrome on both sides History of renal calculi GERD (gastroesophageal reflux disease) Erectile dysfunction Thoracic aortic aneurysm Hyperlipidemia Sick sinus syndrome HTN (hypertension) Right shoulder pain Obstructive sleep apnea Osteoarthritis of right shoulder Rotator cuff impingement syndrome of right shoulder CAD (coronary artery disease) Surgical History History of colonoscopy History of tonsillectomy Status post carpal tunnel release of both wrists (~04/2016) Family History Father Myocardial infarct Mother No problems noted. Social History (Updated 11/19/24 @ 09:04 by Gordo Wilkins MD) Housing: House Alcohol intake: current Alcohol intake frequency: holidays/special occasions only Comment: 2 beers a day. Patient Tobacco Use Status: Never used Tobacco Tobacco use type: Cigarette e-Cigarette/Vaping Use: Never Used Second Hand Smoke Exposure: No service: No Current occupational status: retired Current occupation: Right Handed Cognitive needs: No Hearing needs: Yes Vision needs: Yes Questionnaire PHQ-9 Over the last 2 weeks, how often have you been bothered by any of the following problems? 1. Little interest or pleasure in doing things: not at all 2. Feeling down, depressed, or hopeless: not at all 3. Trouble falling or staying asleep, or sleeping too much: not at all 4. Feeling tired or having little energy: more than half the days 5. Poor appetite or overeating: not at all 6. Feeling bad about yourself - or that you are a failure or have let yourself or your family down: not at all 7. Trouble concentrating on things, such as reading the newspaper or watching television: not at all 8. Moving or speaking so slowly that other people could have noticed. Or the opposite - being so fidgety or restless that you have been moving around a lot more than usual: not at all 9. Thoughts that you would be better off or of hurting yourself in some way: not at all Total score: 2 Source: Developed by Drs. Sunny Simon, Katarina Branham, Joe Munoz and colleagues, with an educational giuseppe from [employer]. Thrive Questionnaire Date Thrive assessed: 03/07/24 I am a: Patient What is your living situation today?: I have a steady place to live Within the past 12 months, did the food you bought not last and you didn't have the money to get more?: Never true Within the past 12 months, did you worry whether your food would run out before you got money to buy more?: Never true Do you have trouble paying for medicines?: No Do you have trouble getting transportation to medical appointments?: No Do you have trouble paying your heating and electricity bill?: No Do you have trouble taking care of your child, family member or friend?: No Do you have trouble with day-to-day activities such as bathing, preparing meals, shopping, managing finances, etc.?: No Are you currently unemployed and looking for a job?: No Are you interested in more education?: No Please select the resources that you would like help with: None Currently or been in a relationship where the following occur: No concerns reported THRIVE Score: 0 AUDIT C Alcohol Use Questionnaire (AUDIT-C) 1. How often do you have a drink containing alcohol?: 2-3 times a week 2. How many drinks containing alcohol do you have on a typical day when you are drinking?: 1 or 2 3. How often do you have six or more drinks on one occasion?: Never Total Score: 3 VANNESA-7 AMB Questionnaire VANNESA-7 Date VANNESA - 7 assessed: 03/07/24 Feeling nervous, anxious, or on edge: 0 = Not at all Not being able to stop or control worryin = Not at all Worrying too much about different things: 0 = Not at all Trouble relaxin = Not at all Being so restless that it is hard to sit still: 0 = Not at all Becoming easily annoyed or irritable: 0 = Not at all Feeling afraid as if something awful might happen: 0 = Not at all Total VANNESA-7 score (0-4 normal; 5-9 mild; 10-14 moderate; 15-21 severe): 0 Source: Developed by Drs. Sunny Simon, Katarina Branham, Joe Munoz and colleagues, with an educational giuseppe from [employer]. Physical exam (Primary Care) Vital Signs: Last Vital Signs Temp 97.0 F 11/19/24 08:42 Pulse 52 11/19/24 08:42 BP 136/72 11/19/24 08:42 Pulse Ox 97 11/19/24 08:42 Oxygen Delivery Method Room Air 11/19/24 08:42 BMI result Body Mass Index 25.0 Tobacco/Smoking Status: Tobacco use Status Tobacco use date assessed 11/19/24 11/19/24 08:46 Patient Tobacco Use Status Never used Tobacco 11/19/24 09:04 Tobacco use type Cigarette 11/19/24 09:04 e-Cigarette/Vaping Use Never Used 11/19/24 09:04 PHQ-9: PHQ-9 Score PHQ-9: Total score 2 11/19/24 08:59 Thrive Assessment: Date of Thrive Assessment Date Thrive assessed 03/07/24 11/19/24 08:46 Currently or been in a relationship where the following occur: No concerns reported Const General: alert; No acute distress Eyes Conjunctivae: conjunctivae normal Resp Auscultation: clear to auscultation bilaterally Cardio Rate: regular rate Rhythm: regular rhythm GI Inspection: Yes normal to inspection Extrem General: Yes normal to inspection and No edema Office Procedures Flu Questionnaire Does the patient have a severe egg allergy?: No Does the patient have severe life threatening allergies?: No Does the patient have a fever or illness today?: No Has the patient ever had Guillain-[place]gl[place] Syndrome?: No Has the patient ever had any past reaction to a flu shot?: No Immunizations Fluarix [id number] (PF) 45 mcg (15 mcg x 3)/0.5 mL IM syringe Performing Provider: Gordo Wilkins MD Performing Location: [facility] [place] Primary [facility] Administered by: Liz Coleman CMA on 11/19/24 08:51 Dose Route Admin Location Dispensed Lot Number Expiration Date [facility] Robotic Technician 0.5 mL IM Left Deltoid 0.5 mL [id number] 08/11/25 [id number] [employer] VIS Given Date VIS Provided VIS Publication Date 11/19/24 Single Vaccine 24 Eligibility Eligibility Date Funding Source Not [facility] Eligible 11/19/24 Private Coding Level of Care Code Est Pt Level 4 (10618) Est Pt Prev Care >65y(53763) Diagnoses Coronary artery disease involving [place] coronary artery of [place] heart without angina pectoris I25.10 Associated angina: without angina Coronary Disease-Associated Artery/Lesion type: [place] artery [place] vs. transplanted heart: [place] heart Essential hypertension I10 Hypertension type: essential hypertension Thoracic aortic aneurysm without rupture I71.2 Presence of rupture: without rupture Pure hypercholesterolemia E78.00 Hyperlipidemia type: pure hypercholesterolemia Impaired glucose tolerance R73.02 Gastroesophageal reflux disease without esophagitis K21.9 Esophagitis presence: without esophagitis Medicare annual wellness visit, subsequent Z00.00 Comment this is an [facility] Assessment & Plan Assessment & Plan (1) CAD (coronary artery disease): Comment: Holter normal sinus rhythm occasional bradycardia March 2017, echo 11/2019 EF 60-65% Ascending aorta 3.9 cm. diffuse coronary artery disease significant branch vessel disease in the diagonal branch as well as the distal circumflex, being managed medically Code(s): I25.10 - Atherosclerotic heart disease of [place] coronary artery without angina pectoris Category: Medical Qualifiers: Associated angina: without angina Coronary Disease-Associated Artery/Lesion type: [place] artery [place] vs. transplanted heart: [place] heart Qualified Code(s): I25.10 - Atherosclerotic heart disease of [place] coronary artery without angina pectoris Plan: Control the cholesterol, weight, blood pressure, continue on aspirin 81 mg once a day (2) HTN (hypertension): Comment: Echo normal LV Code(s): I10 - Essential (primary) hypertension Category: Medical Qualifiers: Hypertension type: essential hypertension Qualified Code(s): I10 - Essential (primary) hypertension Plan: Continue with blood pressure medication. Decrease salt intake and exercise on amlodipine 5 mg once a day losartan 50 mg once a day metoprolol has been decreased to 12.5 mg once a day. (3) Thoracic aortic aneurysm: Comment: 11/2019 3.9 cm 02/2024 4.3 cm Code(s): I71.2 - Thoracic aortic aneurysm, without rupture Category: Medical Qualifiers: Presence of rupture: without rupture Qualified Code(s): I71.2 - Thoracic aortic aneurysm, without rupture Plan: Continue to monitor and echocardiogram has been requested. (4) Hyperlipidemia: Code(s): E78.5 - Hyperlipidemia, unspecified Category: Medical Qualifiers: Hyperlipidemia type: pure hypercholesterolemia Qualified Code(s): E78.00 - Pure hypercholesterolemia, unspecified Plan: Avoid fried foods, chicken skin, eggs, butter margarine, pastries and meat. Be it pork or beef they have a lot of cholesterol April 2024 last blood work LDL goal of less than 70. On rosuvastatin 40 mg once a day (5) Impaired glucose tolerance: Code(s): R73.02 - Impaired glucose tolerance (oral) Category: Medical Plan: Decrease the amount of carbohydrate intake, pasta, bread, rice and potatoes are all sugar and that is aside from all the sweet stuff, remember that fruits are good but they are Sweet also. April blood work is normal (6) GERD (gastroesophageal reflux disease): Code(s): K21.9 - Gastro-esophageal reflux disease without esophagitis Category: Medical Qualifiers: Esophagitis presence: without esophagitis Qualified Code(s): K21.9 - Gastro-esophageal reflux disease without esophagitis Plan: Avoid the foods that causes that usually spicy foods, tomato products, juices, coffee, soda and foods that your sensitive to. After eating do not lie down, allow 3-4 hours before in lie down. And keep the head of bed above 30 degrees to avoid the acid from going up. (7) Medicare annual wellness visit, subsequent: Code(s): Z00.00 - Encounter for general adult medical examination without abnormal findings Category: Medical Plan History of Present Illness The patient is an 79-year-old male presenting for a follow-up visit to manage multiple chronic conditions including hypertension, hypercholesterolemia, and coronary artery disease. He has a history of sick sinus syndrome and symptomatic bradycardia, for which the dose of metoprolol was decreased due to low heart rate. The patient also has a history of thoracic aortic aneurysm, with the last echocardiogram performed in February 2024, and continues to manage this condition with blood pressure and statin therapy. The patient has been diagnosed with gastroesophageal reflux disease (GERD) and impaired glucose tolerance, both of which are being monitored. He reports tingling in his feet over the last six months, but denies any other neurological symptoms. His preventative care includes a colon cancer screening, which is overdue since October 2013. He follows up with cardiology and dermatology, and his last blood work was in April 2024, showing normal results for diabetes management. Health Maintenance - Colon cancer screening overdue since October 2013 - Blood pressure control with amlodipine, losartan, and metoprolol - Statin therapy with rosuvastatin for hypercholesterolemia - Aspirin 81 mg daily for cardiovascular protection - Regular follow-up with cardiology and dermatology Social History - Alcohol use: Consumes one to two beers daily - Tobacco use: Denies smoking - Recreational drug use: Denies use - Exercise: Engages in regular physical activity, including walking and home maintenance tasks Review of Systems - Cardiovascular: Denies chest pain, orthopnea, or syncope - Respiratory: Denies dyspnea or cough - Neurological: Reports tingling in feet for six months; denies dizziness, headaches, or balance issues - Gastrointestinal: Denies nausea, vomiting, or dysphagia - Genitourinary: Denies dysuria or hematuria; reports nocturia once or twice per night - Musculoskeletal: Denies joint pain or swelling - Dermatological: Denies rashes or lesions Physical Exam - Cardiovascular: Regular rate and rhythm, no murmurs or gallops - Respiratory: Clear to auscultation bilaterally - Neurological: No focal deficits, normal reflexes - Musculoskeletal: No tenderness or swelling in joints, full range of motion - Gastrointestinal: Abdomen soft, non-tender, no masses - Skin: No rashes or lesions noted - Eyes: Pupils equal, round, reactive to light and accommodation - Ears: Tympanic membranes clear, no cerumen impaction Results - Echocardiogram (February 2024): Monitoring thoracic aortic aneurysm - Exercise stress test (July 2024): No changes in EKG - Holter monitor: Normal sinus rhythm, bradycardia below 60 bpm 56% of the time without significant pauses - Blood work (April 2024): Normal results for diabetes management Plan Patient was informed and verbally consented to the use of an ambient scribe for clinic note documentation during this visit. 1. Hypertension The patient is currently on a regimen of amlodipine, losartan, and metoprolol for blood pressure management. The dosage of metoprolol has been decreased to 12.5 mg once a day due to symptomatic bradycardia. Continued monitoring of blood pressure is advised, and an echocardiogram has been requested to assess the thoracic aortic aneurysm. 2. Hypercholesterolemia The patient is on rosuvastatin 40 mg once a day with a target LDL goal of less than 70 mg/dL. Regular monitoring of lipid levels is recommended to ensure therapeutic goals are met. 3. Sick Sinus Syndrome The patient has a history of sick sinus syndrome with symptomatic bradycardia. The metoprolol dose was reduced to manage bradycardia, and the patient is advised to continue follow-up with cardiology for ongoing management. 4. Coronary Artery Disease The patient is advised to continue aspirin 81 mg daily for cardiovascular protection. Regular follow-up with cardiology is recommended to monitor the condition and adjust treatment as necessary. 5. Thoracic Aortic Aneurysm The patient is being monitored for a thoracic aortic aneurysm with regular echocardiograms. Blood pressure control is emphasized as a hernandez management strategy, and the patient is on a regimen of antihypertensive medications to maintain optimal blood pressure levels. 6. Gastroesophageal Reflux Disease (Gerd) The patient is advised to continue current management for GERD, including lifestyle modifications and medication adherence to omeprazole as needed. 7. Impaired Glucose Tolerance The patient is advised to maintain a healthy diet and regular exercise to manage impaired glucose tolerance. Blood glucose levels should be monitored regularly to prevent progression to diabetes. 8. Degenerative Disc Disease The patient is encouraged to engage in regular physical activity and stretching exercises to manage symptoms of degenerative disc disease. Pain management strategies should be discussed if symptoms worsen. 9. Symptomatic Bradycardia The patient experienced symptomatic bradycardia, leading to a reduction in metoprolol dosage. Continued monitoring of heart rate and symptoms is advised, with follow-up in cardiology to adjust treatment as needed. 10. Dilated Descending Aorta The patient is advised to continue blood pressure control and statin therapy to manage the dilated descending aorta. Regular imaging studies are recommended to monitor the condition. 11. Hearing Loss The patient has hearing aids but is not currently using them. It is recommended to use hearing aids as needed to improve hearing function. 12. Tingling In Feet The patient reports tingling in the feet for the past six months. Further evaluation may be necessary if symptoms persist or worsen. Discussion Notes During the visit, we discussed the management of the patient's chronic conditions, including hypertension, hypercholesterolemia, and coronary artery disease. I emphasized the importance of medication adherence and regular follow- up with cardiology. We also reviewed the need for ongoing monitoring of the thoracic aortic aneurysm and the importance of lifestyle modifications for managing GERD and impaired glucose tolerance. The patient was advised to continue aspirin therapy for cardiovascular protection and to use hearing aids as needed. We discussed the overdue colon cancer screening and the need for regular blood work to monitor diabetes management. Patient Instructions - Continue taking prescribed medications as directed, including amlodipine, losartan, metoprolol, rosuvastatin, and aspirin. - Schedule and complete a colon cancer screening as soon as possible. - Maintain a healthy diet and regular exercise routine to manage glucose levels and overall health. - Use hearing aids as needed to improve hearing. - Follow up with cardiology and dermatology as scheduled. - Monitor blood pressure regularly and report any significant changes. - Report any new or worsening symptoms, especially related to heart rate or tingling in feet. Orders: Orders Free T4 (Free Thyroxine) Today I25.10 - Atherosclerotic heart disease of [place] coronary artery without angina pectoris Thyroid Stimulating Hormone Today I25.10 - Atherosclerotic heart disease of [place] coronary artery without angina pectoris Lipid Panel Today E78.00 - Pure hypercholesterolemia, unspecified, I25.10 - Atherosclerotic heart disease of [place] coronary artery without angina pectoris Influenza 5212-3246 Immunization Today Z23 - Encounter for immunization Complete Blood Count Auto Diff Today I25.10 - Atherosclerotic heart disease of [place] coronary artery without angina pectoris Comprehensive Met. Panel Today I25.10 - Atherosclerotic heart disease of [place] coronary artery without angina pectoris Vitamin B12 and Folate Today I25.10 - Atherosclerotic heart disease of [place] coronary artery without angina pectoris Hemoglobin A1c Today I25.10 - Atherosclerotic heart disease of [place] coronary artery without angina pectoris Prostate Specific Antigen Scr Today I25.10 - Atherosclerotic heart disease of [place] coronary artery without angina pectoris
[2024-11-19 08:42] VITALS: BP 136/72; PULSE 52; TEMP 36.1; O2SAT 97; BMI 25.0
== END 2024-11-19 09:25 | disposition home or self-care (01) ==
LOC: HO.HMCH 08:40
PROVIDERS: PCP Internal Medicine; Visit Provider Internal Medicine
DX: I25.10 Atherosclerotic heart disease of native coronary artery without angina pectoris (principal); I10 Essential (primary) hypertension; I71.20 Thoracic aortic aneurysm, without rupture, unspecified; E78.00 Pure hypercholesterolemia, unspecified; R73.02 Impaired glucose tolerance (oral); K21.9 Gastro-esophageal reflux disease without esophagitis; Z23 Encounter for immunization

== ENCOUNTER 2024-11-19 08:39 | Outpatient (REF) | payer MEDICARE, SELFPAY ==
[2024-11-19 10:09] LABS: MANUAL DIFF FLAG NO
[2024-11-19 10:51] LABS: Hematocrit 41.6 % (42.0-52.0); Hemoglobin 13.8 g/dl (14.0-18.0); Imm Gran Abs Auto 0.02 X10*3/uL (0.00-0.03); Imm Gran Pct Auto 0.2 % (0.0-0.4); Lymphocytes Absolute Auto 1.4 X10*3/uL (1.2-4.9); Mean Corpuscular HGB Conc 33.2 g/dl (31.0-36.0); Mean Corpuscular Hemoglobin 32.2 pg (27.0-33.0); Mean Corpuscular Volume 97.2 fL (80.0-98.0); NRBC Abs Auto 0.000 X10*3/uL (0.0-0.012); NRBC Pct Auto 0.0 /100WBC (0.0-0.2); Platelet Count 225 X10*3/uL (160-400); Red Blood Count 4.28 X10*6/uL (4.60-5.80); White Blood Count 8.3 X10*3/uL (4.8-10.8)
[2024-11-19 11:00] LABS: Total Hemoglobin (HGBA1C) 3537.4571 umol/L
[2024-11-19 11:50] LABS: Albumin Level 4.3 g/dL (3.5-5.0); Alkaline Phosphatase 38 U/L (39-117); Anion Gap 10 (12-20); Aspartate Amino Transferase 36 U/L (5-37); Blood Urea Nitrogen 16 mg/dL (9-16); Calcium 9.2 mg/dL (8.4-10.2); Carbon Dioxide 25 mmol/L (22-29); Chloride 108 mmol/L (96-108); Cholesterol 144 mg/dL (<200); Estimated Glomerular Filt Rate > 60; Free T4 (Free Thyroxine) 1.01 ng/dL (0.71-1.85); HDL Cholesterol 56 mg/dL (>40); Potassium 5.0 mmol/L (3.3-5.1); Sodium 138 mmol/L (135-145); Thyroid Stimulating Hormone 1.51 uIU/mL (0.32-4.0); Total Protein 6.4 g/dL (6.5-8.0); Triglycerides 70 mg/dL (<150)
[2024-11-19 11:58] LABS: Alanine Aminotransferase 40 U/L (0-40)
[2024-11-19 12:07] LABS: Folate 12.8 ng/mL (> or = 4.0); Vitamin B12 272 pg/mL (200-900)
== END 2024-11-19 08:40 | disposition home or self-care (01) ==
LOC: HO.LAB 08:39
PROVIDERS: PCP Internal Medicine; Visit Provider Internal Medicine
DX: Z23 Encounter for immunization (principal); Z12.5 Encounter for screening for malignant neoplasm of prostate; I25.10 Atherosclerotic heart disease of native coronary artery without angina pectoris; E78.00 Pure hypercholesterolemia, unspecified; I10 Essential (primary) hypertension; I71.20 Thoracic aortic aneurysm, without rupture, unspecified; R73.02 Impaired glucose tolerance (oral); K21.9 Gastro-esophageal reflux disease without esophagitis; Z00.00 Encounter for general adult medical examination without abnormal findings
CPT/HCPCS: 36415; 80053; 80061; 82607; 82746; 83036; 84153; 84439; 84443; 85025; 90471; 90656; 99212

== ENCOUNTER → 2025-01-26 12:39 | Outpatient (REF) | payer MEDICARE, SELFPAY ==
--- NOTE | 2025-01-26 12:44 | CA_ITS ---
Transthoracic Echocardiogram Patient (Last, First, Middle): Marques Martinez F Gender: M Date of : 1945 Age: 79 Procedure Date: 01/26/2025 Procedure Type: Transthoracic Echocardiogram Location: OP Height: 170.18 cm Weight: 72.12 kg BSA: 1.83 m2 Heart Rate: bpm BP: 136 / 72 mmHg Education Professional: GLENDA Referring MD: Winsome Suresh TEST LEAD APPLICATION TESTING-C Wood Milling Machine Tender: Tez Albarado MD Symptoms: I71.2 - Thoracic aortic aneurysm, without rupture Study Quality: Adequate ECG Rhythm: Sinus Conclusions: - 1. Normal LV ejection fraction of 60 65% with grade 1 diastolic dysfunction 2. Mild aortic regurgitation noted 3. Normal RV systolic pressure 4. Mildly dilated ascending aorta at 4.3 cm 5. No gross pericardial effusion Findings Left Ventricle Normal left ventricular size, thickness, and systolic function. The visually estimated ejection fraction is between 60-65%. Spectral Doppler is indicative of an impaired relaxation filling pattern. E/E prime ratio is <8, consistent with normal filling pressures. Evidence suggests grade I (mild) diastolic dysfunction. Right Ventricle Normal right ventricular cavity size and systolic function. Atria The left atrium is likely dilated. There is lipomatous hypertrophy of the interatrial septum. There is no evidence of interatrial shunt. The right atrium is normal in size. Aortic Valve There is mild calcification of the aortic valve. There is no aortic valve stenosis. There is mild aortic valve regurgitation. Mitral Valve There is mild anterior and posterior mitral leaflet thickening. There is trace mitral valve regurgitation. There is no mitral valve stenosis. Pulmonic Valve The pulmonic valve is likely normal. There is trace pulmonic valve regurgitation. Tricuspid Valve Normal tricuspid valve structure. The right ventricular systolic pressure is 26 mmHg. Normal right atrial pressure. There is no evidence of pulmonary hypertension. Great Vessels The pulmonary artery was not well visualized. There is mild dilatation of the ascending aorta measuring 4.30 cm. Small plaque is seen in the sino tubular ridge. Venous The inferior vena cava is normal in size and collapses greater than 50% with inspiration. Pericardium/Pleural There is no evidence of pericardial effusion. Prior Study Comparison No significant change compared to prior study dated: 02/21/2024. Measurements 2D Linear Measurements IVSd: 1.10 0.6-0.9/0.6-1.0 cm LVIDd: 5.04 3.9-5.3/4.2-5.9 cm LVIDd Index: 2.75 2.4-3.2/2.2-3.1 cm/m2 LVIDs: 3.50 2.0-3.6 cm LVPWd: 1.01 0.7-1.1 cm LA Diam: 3.90 2.7-3.8/3.0-4.0 cm LAIDs Index: 2.13 1.5-2.3 cm/m2 LV Mass: 247.00 67-162/88-224 g LV Mass Index: 134.97 43-95/49-115 g/m2 LVOT Diam: 2.00 3.0+(-)1.3 cm 2D Systolic Function EF 4C: 62.10 >55% EF 2C: 65.00 >55% EF BiP: 63.50 >55% Mitral Valve MV Pk E: 0.65 MV PK A: 1.03 MV Decel Time: 354.00 E/A: 0.60 E'Lateral: 8.05 E'Medial: 6.31 E/E' Med: 10.30 E/E' Lat: 8.10 PHT: 104.00 MVA PHT: 2.12 Decel [place]: 1.84 Aortic Valve AoV Pk Ervin: 1.51 AoV Mn Ervin: 1.04 AoV VTI: 0.36 AoV Pk Grad: 9.00 Aov Mn Grad: 5.00 JULES Cont.VTI: 2.18 LVOT LVOT Pk Ervin: 0.93 LVOT Mn Ervin: 0.67 LVOT VTI: 0.25 LVOT Pk Grad: 3.00 LVOT Mn Grad: 2.00 LVOT Diam: 2.00 LVOT Area: 3.14 Diastolic Function MV Pk E: 0.65 MV Pk A: 1.03 E/A: 0.60 E'Medial: 6.31 E/E' Med: 10.30 E' Laterial: 8.05 E/E' Lat: 8.10 Right Ventricle TAPSE (mm): 21.70 TVS' Ervin: 11.00 Tricuspid Valve TR Pk Ervin: 2.42 TR Pk Grad: 23.00 RA Press: 3.00 RVSP: 26.00 Great Vessels Aorta Sinus of Valsalva: 4.07 2.0-3.5 cm Ao Asc: 4.30 2.1-3.4 cm Pulmonary Veins Pulm Vein S/D 1.20 Updated in Other Vendor System with Status of Final Tez Albarado MD electronically signed on 01/26/2025 2:33:18 PM with status of Final
== END ==
LOC: HO.CARD 12:39
PROVIDERS: PCP Internal Medicine; Visit Provider Nurse Practitioner Family
DX: I71.20 Thoracic aortic aneurysm, without rupture, unspecified (principal)
CPT/HCPCS: 93306

== ENCOUNTER → 2025-01-26 12:44 | Outpatient (BNV) | payer MEDICARE, SELFPAY | PROVIDERS: PCP Internal Medicine; Visit Provider Internal Medicine Cardiovascular Disease | DX: I35.1 Nonrheumatic aortic (valve) insufficiency (principal); I77.810 Thoracic aortic ectasia | CPT/HCPCS: 93306 ==